=== PATIENT | female | born 2000 | race Caucasian/White ===

== ENCOUNTER 2021-04-30 21:47 | Emergency (ER) | payer OTHER, SELFPAY ==
[2021-04-30 21:47] VITALS: BP 134/80; PULSE 82; RESP 18; TEMP 35.8; O2SAT 100; BMI 25.8
--- NOTE | 2021-04-30 22:22 | EX.ED.DYSGE1 ---
HPI History of Present Illness Chief Complaint: Ear Problem Narrative Narrative: Patient is a 20-year-old female with no significant past medical or surgical history. She reports she has had four days of mild congestion and sore throat. She states today her left ear began hurting but there was no direct trauma and no discharge. She denies any fevers or chills but states she is worried about an ear infection based on the worsening pain and therefore comes in for evaluation. PFSH PFSH Home Medications amoxicillin 875 mg PO BID #20 tab 04/30/21 [Rx Last Taken Unknown] prednisone 40 mg PO DAILY #10 tab 04/30/21 [Rx Last Taken Unknown] Allergy/AdvReac Type Severity Reaction Status Date / Time No Known Allergies Allergy Verified 04/30/21 22:21 ROS ROS ED Constitutional Constitutional ED: Denies chills or fever(s) ENT ENT ED: Reports ear pain, rhinorrhea and sore throat Cardiovascular Cardiovascular: Denies chest pain Respiratory/Chest Respiratory/Chest: Denies cough or dyspnea Gastrointestinal Gastrointestinal: Denies abdominal pain, diarrhea, nausea or vomiting Genitourinary Genitourinary ED: Denies dysuria Musculoskeletal Musculoskeletal: Denies myalgias Integumentary Denies rash Neurologic Neurologic: Denies headache(s) Hematologic/Lymphatic Hematologic/Lymphatic: Denies easy bleeding or easy bruising EXAM Physical Exam Const Vital Signs: 04/30/21 21:47 Temperature 96.5 F L Temperature Source Temporal Pulse Rate 82 Respiratory Rate 18 Blood Pressure 134/80 H Blood Pressure Mean 98 Pulse Ox 100 Oxygen Delivery Method Room Air Positive well nourished and well developed General Appearance ED: well developed HEENT Reports moist mucous membranes HEENT Narrative: Nasal mucosa is hyper [place]an boggy with enlarged and fear nasal turbinates. There is cobblestone in the posterior pharynx consistent with sinus drainage but no secondary changes to suggest posterior pharynx infection. Right canal and TM are normal. Left canal is normal but TM is erythematous and bulging with loss of landmarks consistent with otitis media Eyes PERRL and EOMs intact bilaterally Neck supple Neck Narrative: Positive anterior cervical lymphadenopathy noted Resp normal respiratory effort and clear to auscultation bilaterally Cardio regular rate and regular rhythm GI normal to inspection, nondistended, normoactive bowel sounds, non-tender and non-distended Auscultation: normoactive bowel sounds Palpation: soft Extremity normal to inspection Neuro oriented x3 and CN's II-XII intact bilaterally Sensorium / Orientation: alert Psych mental status grossly normal Skin no rashes or lesions noted MDM MDM MDM Narrative Medical decision making narrative: Patient presented ER afebrile. Her exam is consistent with otitis media and as are no secondary changes to suggest systemic infection there is no need for workup. Patient will be placed on antibiotics and steroids to help with infection and pressure and is safe for discharge Discharge Plan Triage Chief Complaint: Ear Problem ED Provider: Negro Cook Dx/Rx/DC Orders Clinical Impression: Otitis media Instructions: ED Otitis Media Antibiotic ... Prescriptions: New amoxicillin 875 mg tablet 875 mg PO BID Qty: 20 RF: 0 prednisone 20 mg tablet 40 mg PO DAILY Qty: 10 RF: 0 Referrals: Salazar Hernandez MD [STAFF PHYSICIAN] - 3-5 Days if not improving Disposition Disposition: Home, Self Care
[2021-04-30 23:00] VITALS: BP 134/76; PULSE 94; RESP 16; O2SAT 98
[2021-04-30] MEDS: AMOXICILLIN 500 MG CAPSULE 1000 MG PO (23:05)
[2021-04-30] MEDS: predniSONE 20 MG Tablet 40 MG PO (23:05)
== END 2021-04-30 23:13 | disposition home or self-care (01) ==
LOC: ED 22:35
PROVIDERS: Emergency Provider Emergency Medicine; PCP Family Medicine
DX: H66.92 Otitis media, unspecified, left ear (principal)
CPT/HCPCS: 99283

== ENCOUNTER → 2022-11-04 | Outpatient (CLI) | payer OTHER, SELFPAY ==
[2022-11-04 16:54] LABS: Absolute Lymphocyte Count 3.02 X10^3/uL (0.83-4.51); Absolute Neutrophil Count 5.5 X10^3/uL (2.0-7.7); Basophil# 0.05 X10^3/uL; Basophil% 0.5 % (0-1); Eosinophil# 0.08 X10^3/uL; Eosinophils% 0.8 % (0-5); Hematocrit 38.4 % (37-47); Hemoglobin 12.7 g/dL (12.0-15.0); Lymphocyte # 3.02 X10^3/ul (0.83-4.51); Mean Corp Hgb Conc 33.1 g/dL (32-36); Mean Corpuscular Hgb 27.6 pg (27.0-32.0); Mean Corpuscular Volume 83.5 fL (81-99); Monocyte# 0.79 X10^3/uL; Monocyte% 8.4 % (0-10); NRBC Flagged by Analyzer 0 % (0-5); Neutrophil # 5.49 X10^3/uL (2.7-7.7); Neutrophil % 58.1 % (47-70); Platelet Count 315 K/mm3 (150-450); RBC Distribution Width CV 12.3 % (11.6-14.6); RBC Distribution Width SD 37.1 fl (35.1-43.9); White Blood Count 9.5 K/mm3 (4.4-11.0)
[2022-11-04 17:23] LABS: Anion Gap 4 (5-15); BUN 15 mg/dL (7-18); BUN/Creat Ratio 19.3 RATIO (10-20); Calcium,Total 9.2 mg/dL (8.5-10.1); Chloride 106 mmol/L (98-107); Creatinine, Serum 0.78 mg/dL (0.55-1.02); EST Glomerular Filtration Rate 99 mL/min (>60); Est Glom Filt Rate - Afr Amer 120 mL/min (>60); Glucose 80 mg/dL (74-106); Potassium 3.7 mmol/L (3.5-5.1); Sodium Level 138 mmol/L (136-145)
== END | disposition home or self-care (01) ==
LOC: BIMLAB 15:51
PROVIDERS: PCP Family Medicine; Referring Provider Family Medicine; Visit Provider Family Medicine
DX: F41.8 Other specified anxiety disorders (principal)
CPT/HCPCS: 36415; 80048; 85025

== ENCOUNTER → 2023-11-12 | Outpatient (CLI) | payer OTHER, SELFPAY ==
[2023-11-12 17:03] LABS: Absolute Neutrophil Count 5.6 X10^3/uL (2.0-7.7); Basophil# 0.05 X10^3/uL; Basophil% 0.6 % (0-1); Eosinophil# 0.06 X10^3/uL; Eosinophils% 0.7 % (0-5); Hematocrit 38.6 % (37-47); Hemoglobin 12.5 g/dL (12.0-15.0); Lymphocyte % 28.1 % (19-41); Mean Corp Hgb Conc 32.4 g/dL (32-36); Mean Corpuscular Hgb 26.8 pg (27.0-32.0); Mean Corpuscular Volume 82.7 fL (81-99); Mean Platelet Vol. 9.1 fl (6.2-12.0); Monocyte# 0.69 X10^3/uL; Monocyte% 7.8 % (0-10); NRBC Flagged by Analyzer 0 % (0-5); Neutrophil # 5.58 X10^3/uL (2.7-7.7); Neutrophil % 62.6 % (47-70); Platelet Count 333 K/mm3 (150-450); RBC Distribution Width CV 12.6 % (11.6-14.6); RBC Distribution Width SD 37.9 fl (35.1-43.9); Red Blood Count 4.67 M/mm3 (4.2-5.4); White Blood Count 8.9 K/mm3 (4.4-11.0)
[2023-11-12 17:55] LABS: Vitamin B12 320 pg/mL (211-911); Vitamin D,25 Hydroxy 62.4 ng/mL
[2023-11-12 18:24] LABS: ALB/GLOB Ratio 1.2 RATIO (0.9-2.4); AST(SGOT) 8 U/L (15-37); Alanine Aminotransfer ALT/SGPT 14 U/L (13-56); Alkaline Phosphatase 71 U/L (45-117); Anion Gap 8 (5-15); BUN 10 mg/dL (7-18); BUN/Creat Ratio 13.1 RATIO (10-20); Calcium,Total 9.1 mg/dL (8.5-10.1); Chloride 106 mmol/L (98-107); Creatinine, Serum 0.76 mg/dL (0.55-1.02); EST Glomerular Filtration Rate 100 mL/min (>60); Est Glom Filt Rate - Afr Amer 121 mL/min (>60); Globulin 3.4 g/dL (2.2-4.2); Glucose 94 mg/dL (74-106); Potassium 3.9 mmol/L (3.5-5.1); Protein, Total 7.4 g/dL (6.4-8.2); Sodium Level 137 mmol/L (136-145); Thyroid Stim Hormone (TSH) 1.63 uIU/mL (0.358-3.74)
== END | disposition home or self-care (01) ==
LOC: BIMLAB 15:49
PROVIDERS: PCP Family Medicine; Visit Provider Physician Assistant
DX: R00.2 Palpitations (principal); N92.0 Excessive and frequent menstruation with regular cycle
CPT/HCPCS: 36415; 80053; 82306; 82607; 84443; 85025

== ENCOUNTER → 2023-12-30 | Outpatient (CLI) | payer OTHER, SELFPAY ==
--- NOTE | 2023-12-30 09:50 | ECHOD_ITS ---
Reason For Study: CHEST PAIN/PALPS Procedure This was a 2D Doppler, Color Flow transthoracic echocardiogram. Exam performed in department. Left Ventricle Normal LV size. Left ventricular systolic function is normal. The estimated ejection fraction is 65 %. No regional wall motion abnormalities noted. Right Ventricle Normal RV size. Normal systolic function. Atria Normal left atrium. Normal right atrium. Mitral Valve Equivocal mitral valve prolapse. Tricuspid Valve Normal tricuspid valve. Aortic Valve Trisinus/trileaflet aortic valve. Pulmonic Valve Normal pulmonic valve. Great Vessels Normal aortic root. The pulmonary artery is normal size. Normal inferior vena cava. Pericardium/Pleural No pericardial effusion. MMode/2D Measurements & Calculations LVIDd: 4.7 cm IVSd: 0.86 cm LVOT diam: 2.0 cm LVIDs: 3.1 cm LVPWd: 0.86 cm LVOT area: 3.1 cm2 RVDd: 3.5 cm FS: 33.1 % Ao root diam: 2.5 cm LAV(MOD-bp): 50.0 ml LVAd ap4: 30.7 cm2 LAV(MOD-bp) Indexed: 24.8 ml/m2 LVLd ap4: 8.7 cm LAV(MOD-sp2): 55.9 ml EDV(MOD-sp4): 88.7 ml LAV(MOD-sp4): 44.1 ml EDV(sp4-el): 92.2 ml LVAs ap4: 16.2 cm2 LVLs ap4: 7.1 cm ESV(MOD-sp4): 32.5 ml ESV(sp4-el): 31.2 ml EF(MOD-sp4): 63.3 % EF(sp4-el): 66.2 % LVAd ap2: 30.5 cm2 SV(MOD-sp4): 56.1 ml SV(MOD-sp2): 55.4 ml LVLd ap2: 8.4 cm EDV(MOD-sp2): 89.9 ml EDV(sp2-el): 94.1 ml LVAs ap2: 17.3 cm2 LVLs ap2: 7.3 cm ESV(MOD-sp2): 34.5 ml ESV(sp2-el): 34.8 ml EF(MOD-sp2): 61.6 % SV(sp4-el): 61.0 ml LA dimension(2D): 4.1 cm LA A4 area: 17.8 cm2 RA A4 area: 17.7 cm2 TAPSE: 1.9 cm Time Measurements MV dec time: 0.19 sec Doppler Measurements & Calculations MV E max daren: 85.5 cm/sec Lat Peak E' Daren: 16.8 cm/sec Med Peak E' Daren: 9.8 cm/sec MV A max daren: 60.5 cm/sec E/E' lat: 5.1 E/E' med: 8.8 MV E/A: 1.4 Ao V2 max: 107.2 cm/sec LV V1 max: 90.6 cm/sec MV dec slope: 459.3 cm/sec2 Ao max P.6 mmHg LV V1 max P.3 mmHg Ao V2 mean: 73.1 cm/sec LV V1 mean P.0 mmHg Ao mean P.5 mmHg LV V1 mean: 65.7 cm/sec Ao V2 VTI: 24.8 cm LV V1 VTI: 20.8 cm AV (velocity ratio): 0.84 CHAVA(I,D): 2.6 cm2 CHAVA(V,D): 2.6 cm2 SV(LVOT): 64.3 ml PA V2 max: 108.5 cm/sec TR max daren: 164.5 cm/sec PA max PG (full): 3.4 mmHg TR max P.8 mmHg ECHO/Echo Complete Interpretation Summary Normal LV size. Left ventricular systolic function is normal. The estimated ejection fraction is 65 %. Equivocal mitral valve prolapse. Ordering Physician: Yoel Frost Performed By: Kiki Pelayo RDCS and Student
== END | disposition home or self-care (01) ==
PROVIDERS: PCP Family Medicine; Visit Provider Physician Assistant
DX: R07.89 Other chest pain (principal); R00.2 Palpitations
CPT/HCPCS: 93306

== ENCOUNTER → 2024-06-23 | Outpatient (CLI) | payer BC, SELFPAY ==
[2024-06-28 00:06] LABS: Chlamydia By Nucleic Acid AMP Negative (Negative); Gonococcus By Nucleic Acid AMP Negative (Negative)
[2024-07-04 11:28] LABS: HPV Reflexed? NOT INDICATED
== END | disposition home or self-care (01) ==
LOC: LABSPEC 14:06
PROVIDERS: PCP Family Medicine; Referring Provider Advanced Practice Midwife; Visit Provider Advanced Practice Midwife
DX: Z34.00 Encounter for supervision of normal first pregnancy, unspecified trimester (principal)
CPT/HCPCS: 87086; 87491; 87591; 88175; G0145

== ENCOUNTER → 2024-07-01 | Outpatient (CLI) | payer BC, SELFPAY ==
[2024-07-01 16:29] LABS: Absolute Lymphocyte Count 2.49 X10^3/uL (0.83-4.51); Absolute Neutrophil Count 6.9 X10^3/uL (2.0-7.7); Basophil# 0.04 X10^3/uL; Basophil% 0.4 % (0-1); Eosinophil# 0.06 X10^3/uL; Eosinophils% 0.6 % (0-5); Hemoglobin 13.1 g/dL (12.0-15.0); Lymphocyte # 2.49 X10^3/ul (0.83-4.51); Lymphocyte % 24.5 % (19-41); Mean Corp Hgb Conc 34.5 g/dL (32-36); Mean Corpuscular Hgb 27.8 pg (27.0-32.0); Mean Corpuscular Volume 80.7 fL (81-99); Mean Platelet Vol. 9.4 fl (6.2-12.0); Monocyte# 0.65 X10^3/uL; Monocyte% 6.4 % (0-10); NRBC Flagged by Analyzer 0 % (0-5); Neutrophil % 67.7 % (47-70); Platelet Count 295 K/mm3 (150-450); RBC Distribution Width SD 37.9 fl (35.1-43.9); Red Blood Count 4.71 M/mm3 (4.2-5.4); White Blood Count 10.2 K/mm3 (4.4-11.0)
[2024-07-04 19:35] LABS: HIV - WCH Non-Reactive (Nonreactive); Hepatitis B Surface Antigen Non-Reactive (Nonreactive); Hepatitis C Antibody Non-Reactive (Nonreactive); Rubella IgG Reactive (Nonreactive); Syphilis Antibodies Non-reactive
== END | disposition home or self-care (01) ==
LOC: BWCLAB 14:52
PROVIDERS: PCP Family Medicine; Referring Provider Advanced Practice Midwife; Visit Provider Advanced Practice Midwife
DX: Z34.00 Encounter for supervision of normal first pregnancy, unspecified trimester (principal)
CPT/HCPCS: 36415; 85025; 86703; 86762; 86780; 86803; 86850; 86900; 86901; 87340

== ENCOUNTER → 2024-07-21 | Outpatient (CLI) | payer BC, SELFPAY | END | disposition home or self-care (01) | LOC: BWCLAB 10:52 | PROVIDERS: PCP Family Medicine; Referring Provider Obstetrics & Gynecology; Visit Provider Obstetrics & Gynecology | DX: Z34.81 Encounter for supervision of other normal pregnancy, first trimester (principal) | CPT/HCPCS: 36415 ==

== ENCOUNTER → 2024-10-14 | Outpatient (CLI) | payer BC, OTHER, SELFPAY ==
[2024-10-14 16:17] LABS: Absolute Lymphocyte Count 1.93 X10^3/uL (0.83-4.51); Absolute Neutrophil Count 7.6 X10^3/uL (2.0-7.7); Basophil# 0.02 X10^3/uL; Basophil% 0.2 % (0-1); Hematocrit 32.3 % (37-47); Lymphocyte # 1.93 X10^3/ul (0.83-4.51); Lymphocyte % 18.5 % (19-41); Mean Corp Hgb Conc 34.1 g/dL (32-36); Mean Corpuscular Hgb 29.2 pg (27.0-32.0); Mean Corpuscular Volume 85.7 fL (81-99); Mean Platelet Vol. 9.6 fl (6.2-12.0); Monocyte# 0.63 X10^3/uL; Monocyte% 6.1 % (0-10); NRBC Flagged by Analyzer 0 % (0-5); Neutrophil # 7.64 X10^3/uL (2.7-7.7); Neutrophil % 73.3 % (47-70); Platelet Count 254 K/mm3 (150-450); RBC Distribution Width SD 40.7 fl (35.1-43.9); Red Blood Count 3.77 M/mm3 (4.2-5.4); White Blood Count 10.4 K/mm3 (4.4-11.0)
[2024-10-14 17:55] LABS: Syphilis Antibodies Nonreactive (Nonreactive)
[2024-10-14 18:04] LABS: Glucose Challenge Gest 1H 50g 108 mg/dL (70-140); HIV Nonreactive (Nonreactive)
== END | disposition home or self-care (01) ==
PROVIDERS: Registered Nurse; Referring Provider Nurse Practitioner Women's Health; Visit Provider Nurse Practitioner Women's Health
DX: Z34.00 Encounter for supervision of normal first pregnancy, unspecified trimester (principal)
CPT/HCPCS: 36415; 82950; 85025; 86703; 86780

== ENCOUNTER → 2024-12-22 | Outpatient (CLI) | payer BC, OTHER, SELFPAY ==
--- OUTSIDE RECORDS SUMMARY | 2024-12-22 22:00 | XMS RPT_ITS | CCD ---
Author Organization [facility] Care Team Providers Care Hr Administrative Assistant Name Role Phone Dr. Michael Patel Primary Care Provider Dr. Michael Patel Referring Provider [phone] Dr. Moisés Haines Attending Provider [phone] Dr. Moisés Haines Primary Care Provider [phone] Dr. Moisés Haines Referring Provider 1(330) VERO Porter Attending Provider [phone] JEMIMA JEAN Referring Unavailab MICHAEL Harrington Primary Care Unavailable RASHIDA MCCAIN Attending Unavailable Dr. Moisés Haines DO Primary Care Provider [phone] Dr. Moisés Haines DO Referring Provider [phone] Angela Sanders CNM Attending Provider [phone] Angela Sanders CNM Referring Provider [phone] Dr. Jemima Garcia DO Attending Provider Dr. Jemima Garcia DO Referring Provider Dr. Kenya Wright MD Attending Provider [phone] Roseanna Mckeon CNM Attending Provider Cesilia Bond Attending Provider [phone] Cesilia Bond Referring Provider [phone] Angela Sanders Referring Unavailable Moisés Haines Primary Care Unavailable Angela Sanders Attending Unavailable Brown, Moisés R Primary Care Unavailable Austin, Jemima Peterson Attending Unavaillydia e Austin, Jemima Peterson Referring UnavailAngela Arreola Referring Unavailable Brown, Moisés R Primary Care Unavailable Angela Sanders Attending Unavailable Yoel Porter Attending Unavailable Brown, Moisés R Primary Care Unavailable Velde, Jemima Peterson Attending Unavailabl e Prakash Jaquez Attending Unavailable Brown, Moisés R Primary Care Unavailable Brown, Moisés R Primary Care Unavailable Velcarlos, Jemima Peterson Attending Unavailabl e Brown, Moisés R Referring Unavailable Kenya Wright Attending Unavailable Brown, Moisés R Referring Unavailable Roseanna Mckeon Attending Unavailable Brown, Moisés R Referring Unavailable Ariel CIRCLE EDGER, Cesilia Attending Unavailable Brown, Moisés R Referring Unavailable Roseanna Mckeon Attending Unavailable Brown, Moisés R Referring Unavailable Brown, Moisés R Primary Care Unavailable Angela Sanders Attending Unavailable Brown, Moisés R Referring Unavailable Brown, Moisés R Primary Care Unavailable Brown, Moisés R Referring Unavailable Austin, Jemima Peterson Attending UnavailAngela Arreola Attending Unavailable Brown, Moisés R Primary Care Unavailable Brown, Moisés R Referring Unavailable Angela Sanders Attending Unavailable Ariel CIRCLE EDGERCesilia Attending Unavailable Ariel CIRCLE EDGER, Cesilia Referring Unavailable Medications Current Medications Medication Drug Class(es) Dates Sig (Normalized) Sig (Original) Mv-Mins 64-Dzwl-Cefsy No.1-Dha (Pnv-Newfield) 28-1-300 mg capsule (1 source) Start: 06-14-2024 Mv-Mins 68-Sbyn-Vociv No.1-Dha (Pnv-Newfield) 28-1-300 mg capsule Active NMA PO June 14, 2024 1:00am Completed/Discontinued Medications Medication Drug Class(es) Dates Sig (Normalized) Sig (Original) amoxicillin 875 mg oral tablet (3 sources) Penicillin-class Antibacterial Start: 04-30-2021 End: 09-04-2022 take 1 tablet by mouth twice daily Amoxicillin 875 mg tablet Discontinued 875 mg PO TWICE A DAY April 30, 2021 12:00am September 04, 2022 5:20pm escitalopram 10 mg oral tablet (5 sources) Serotonin Reuptake Inhibitor Start: 09-04-2022 End: 06-14-2024 take 1 tablet by mouth once daily Escitalopram Oxalate (Lexapro) 10 mg tablet Discontinued 10 mg PO DAILY November 12, 2023 3:38pm June 14, 2024 10:10am predniSONE 20 mg oral tablet (3 sources) Start: 04-30-2021 End: 09-04-2022 take 2 tablets by mouth once daily Prednisone 20 mg tablet Discontinued 40 mg PO DAILY April 30, 2021 12:00am September 04, 2022 5:20pm Start: 04-30-2021 End: 09-04-2022 take 40 mg by mouth once daily Prednisone Discontinued 40 MG PO DAILY April 30, 2021 12:00am September 04, 2022 5:20pm Problems Active Problems Problem Classification Problem Date Documented Da te Episodic/Chronic Anxiety disorders (6 sources) Mixed anxiety and depressive disorder; Translations: [Other specified anxiety disorders] 09-09-2022 Chronic Malaise and fatigue (4 sources) Fatigue; Translations: [Other fatigue] 11-04-2022 Episodic Menstrual disorders (3 sources) Menorrhagia; Translations: [Excessive and frequent menstruation with regular cycle] 11-13-2023 Chronic Other and delivery including normal (15 sources) Normal ; Translations: [Encounter for supervision of normal first , unspecified trimester] Onset: 08-16-2024 10-14-2024 Episodic Comment on above: PRR, , OLIVIA 01/20/ 5, girl Patricia BF Antoinette NIPT low risk, gende r female, elects Carrier testing Otitis media and related conditions (3 sources) Otitis media; Translations: [Otitis media, unspecified, unspecified ear] 05-21-2021 Episodic Residual codes; unclassified (1 source) 26 weeks gestation of ; Translations: [26 weeks gestation of ] Onset: 10-14-2024 Episodic Past or Other Problems Problem Classification Problem Date Documented Da te Episodic/Chronic Cardiac dysrhythmias (5 sources) Palpitations; Translations: [Palpitations] Onset: 07-21-2024 11-12-2023 Episodic Nonspecific chest pain (6 sources) Chest discomfort; Translations: [Other chest pain] Onset: 07-21-2024 11-13-2023 Episodic Residual codes; unclassified (1 source) 13 weeks gestation of ; Translations: [13 weeks gestation of ] Onset: 07-21-2024 Episodic Residual codes; unclassified (1 source) 9 weeks gestation of ; Translations: [9 weeks gestation of ] Onset: 06-23-2024 Episodic Results Test Name Value Interpretation Reference Range Facility [facility] Visit Reporton 12-09-2024 [facility] Office Visit Report [facility] [address], [address] [place] [address] OFFICE VISIT Date of Service: 12/09/24 MR#: [id number] Acct: [id number] Name: SHEEBA WELSH Rep #: [id number] : 2000 Provider: Dr. Jemima Hartman DO Age/Sex: 23/F [place] [facility] [place]: Signed Intake Vital Signs 06/23/24 13:06 11/25/24 14:07 12/09/24 14:50 12/09/24 14:53 Height 5 ft 10 in 5 ft 10 in 5 ft 10 in 5 ft 10 in Weight: 201 lb 8 oz BMI 28.9 BP 106/67 Intake Visit Reasons: 34 wk ob Youth Minister Required: No Is patient in pain?: No Allergies No Known Allergies Allergy (Verified 12/09/24 14:50) Medications ???Medication ???Instructions ???Recorded ???Confirmed ???Type multivit-min no.71-iron fum 28 cap PO 06/14/24 12/09/24 History mg-folate no.1 1 mg-dha 300 mg capsule (PNV-Newfield) promethazine 12.5 mg tablet 12.5 mg PO Q6H PRN headache #30 12/09/24 Rx tabs Last Menstrual Period: 04/15/24 Zika: Zika virus screening: Negative : No PFSH PFSH Medical History Menorrhagia Headache, migraine History of fracture Non-smoker Surgical History History of repair of ACL Family History Mother Breast cancer, Onset Age: 51 Depression Father Cancer, Onset Age: 57 Chronic leukemia Social History adopted: No household members: significant other and family current occupational status: employed current occupation: [employer] pets and animals: Yes pets and animals: dog(s) history of recent travel: No sexually active: Yes Smoking Status: Never smoker alcohol intake: current alcohol intake frequency: holidays/special occasions only details: Not while substance use type: does not use well-balanced diet: daily or most days caffeine: Yes (occasional) eating out: 1-3 times/week during the past year weight has: remained stable what type of physical activity do you participate in: aerobics and weight training frequency: 3-4 times per week duration: 60-90 minutes/day daniel/moravian: Jainism seatbelt use: always do you feel safe at home: Yes additional social history: BF- [employer]- [employer] History 1 Elective abortions Hx Para 0 Spontaneous abortions Hx # Term Pregnancies Ectopic pregnancies Hx # Pregnancies Multiple births # of living children HPI 34 wk ob Details: SHEEBA WELSH is a 23 year old who presents for routine OB visit. OB Visit OLIVIA Calculator Estimated Delivery Date Method Current WG Current Estimate 01/20/25 LMP (Certain) 34w 0d Other Estimates 01/20/25 Ultrasound #1 34w 0d Expected Delivery Route/Plan Labor Preferences- CB/BF classes: encouraged, declines labor support person: Apoorva labor intervention preferences: pain management options preferred: limited cut cord/dad catch: cord : yes PP control planned: discussed discussed possible routes of delivery and associated risks: [] special requests: [] Specific Issue/Plans Covid status: declines Flu vaccine: declines Tdap vaccine: declines Rhogam: na LARC form signed: yes Problem list reviewed and updated with the most current plan of care details and appropriate orders placed. Relevant counseling for the gestational age provided. Continue routine care and follow up unless otherwise noted in visit notes/problem list details Initial Weight: 183 lb Date -???-???-???-???-???- ???-???-???-???-???-? ??-???- EGA Weight BP Urine Prot -???-???-???-???-???- ???-???-???-???-???-? ??-???- Glucose FHR FuHt Pres Dilation -???-???-???-???-???- ???-???-???-???-???-? ??-???- Effaced St Visit Note 06/23/24 -???-???-???-???-???- ???-???-???-???-???-? ??-???- 9w 6d 183 lb (+0 oz) 144/82 -???-???-???-???-???- ???-???-???-???-???-? ??-???- 159 -???-???-???-???-???- ???-???-???-???-???-? ??-???- KW- CRL cons with dates. accepts nipt 07/21/24 -???-???-???-???-???- ???-???-???-???-???-? ??-???- 13w 6d 185 lb (+2 lb) 120/68 Negative -???-???-???-???-???- ???-???-???-???-???-? ??-???- Negative 150 -???-???-???-???-???- ???-???-???-???-???-? ??-???- JV- CRL vik ures 14 weeks today. pt has some complaints of headaches. recommend 72 oz of water a day + tylenol. new ob labs and NIPT today. JV- CRL measures 14 weeks today. p t has some complaints of headaches. recommend 72 oz of water a day + tylenol. NIPT today. 08/19/24 -???-???-???-???-???- ???-???-???-???-???-? ??-???- 18w 0d 193 lb 6 oz (+10 lb 6 oz) 123/65 Negative -???-???-???-???-???- ???-???-???-???-???-? ??-???- Negative 140 (more content not included)... Normal [facility] Office Visit Reporton 11-25-2024 [facility] Office Visit Report [facility]'s [address], [address] [place] [address] OFFICE VISIT Date of Service: 11/25/24 MR#: [id number] Acct: [id number] Name: SHEEBA WELSH Rep #: [id number] 2 : 2000 Provider: JACKELIN Steven ams Age/Sex: 23/F [place] [facility]: Signed Intake Vital Signs 06/23/24 13:06 11/11/24 14:01 11/25/24 14:07 Height 5 ft 10 in 5 ft 10 in 5 ft 10 in Weight: 200 lb 4 oz BMI 28.7 BP 125/76 H Intake Visit Reasons: 32 wk ob Chief Complaint: 32wk OB Youth Minister Required: No Is patient in pain?: No Allergies No Known Allergies Allergy (Verified 11/25/24 14:05) Medications ???Medication ???Instructions ???Recorded ???Confirmed ???Type multivit-min no.71-iron fum 28 cap PO 06/14/24 11/25/24 History mg-folate no.1 1 mg-dha 300 mg capsule (PNV-Newfield) Last Menstrual Period: 04/15/24 : No PFSH PFSH Medical History Menorrhagia Headache, migraine History of fracture Non-smoker Surgical History History of repair of ACL Family History Mother Breast cancer, Onset Age: 51 Depression Father Cancer, Onset Age: 57 Chronic leukemia Social History adopted: No household members: significant other and family current occupational status: employed current occupation: [employer] pets and animals: Yes pets and animals: dog(s) history of recent travel: No sexually active: Yes Smoking Status: Never smoker alcohol intake: current alcohol intake frequency: holidays/special occasions only details: Not while substance use type: does not use well-balanced diet: daily or most days caffeine: Yes (occasional) eating out: 1-3 times/week during the past year weight has: remained stable what type of physical activity do you participate in: aerobics and weight training frequency: 3-4 times per week duration: 60-90 minutes/day daniel/moravian: Jainism seatbelt use: always do you feel safe at home: Yes additional social history: BF- [employer] History 1 Elective abortions Hx Para 0 Spontaneous abortions Hx # Term Pregnancies Ectopic pregnancies Hx # Pregnancies Multiple births # of living children HPI 32 wk ob Details: SHEEBA WELSH is a 23 year old who presents for routine OB visit. OB Visit OLIVIA Calculator Estimated Delivery Date Method Current WG Current Estimate 01/20/25 LMP (Certain) 32w 0d Other Estimates 01/20/25 Ultrasound #1 32w 0d Expected Delivery Route/Plan Labor Preferences- CB/BF classes: encouraged, declines labor support person: Apoorva labor intervention preferences: pain management options preferred: limited cut cord/dad catch: cord : yes PP control planned: discussed discussed possible routes of delivery and associated risks: [] special requests: [] Specific Issue/Plans Covid status: declines Flu vaccine: declines Tdap vaccine: declines Rhogam: na LARC form signed: yes Problem list reviewed and updated with the most current plan of care details and appropriate orders placed. Relevant counseling for the gestational age provided. Continue routine care and follow up unless otherwise noted in visit notes/problem list details Initial Weight: 183 lb Date -???-???-???-???-???- ???-???-???-???-???-? ??-???- EGA Weight BP Urine Prot -???-???-???-???-???- ???-???-???-???-???-? ??-???- Glucose FHR FuHt Pres Dilation -???-???-???-???-???- ???-???-???-???-???-? ??-???- Effaced St Visit Note 06/23/24 -???-???-???-???-???- ???-???-???-???-???-? ??-???- 9w 6d 183 lb (+0 oz) 144/82 -???-???-???-???-???- ???-???-???-???-???-? ??-???- 159 -???-???-???-???-???- ???-???-???-???-???-? ??-???- KW- CRL cons with dates. accepts nipt 07/21/24 -???-???-???-???-???- ???-???-???-???-???-? ??-???- 13w 6d 185 lb (+2 lb) 120/68 Negative -???-???-???-???-???- ???-???-???-???-???-? ??-???- Negative 150 -???-???-???-???-???- ???-???-???-???-???-? ??-???- JV- CRL vik ures 14 weeks today. pt has some complaints of headaches. recommend 72 oz of water a day + tylenol. new ob labs and NIPT today. JV- CRL measures 14 weeks today. p t has some complaints of headaches. recommend 72 oz of water a day + tylenol. NIPT today. 08/19/24 -???-???-???-???-???- ???-???-???-???-???-? ??-???- 18w 0d 193 lb 6 oz (+10 lb 6 oz) 123/65 Negative -???-???-???-???-???- ???-???-???-???-???-? ??-???- Negative 140 -???-???-???-???-???- ???-???-???-???-???-? ??-???- SM- no vb lo f cramping 09/16/24 -???-???-???-???-???- ???-???-???-???-???-? ??-???- 22w 0d 195 lb 4 (more content not included)... Normal [facility] Office Visit Reporton 11-11-2024 [facility] Office Visit Report [facility]'s [address], [facility] [address] [place] [address] OFFICE VISIT Date of Service: 11/11/24 MR#: [id number] Acct: [id number] Name: SHEEBA WELSH Rep #: [id number] : 2000 Provider: JACKELIN daniels Age/Sex: 23/F Location: [facility] [place] Status: Signed Intake Vital Signs 06/23/24 13:06 10/14/24 13:29 11/11/24 14:01 11/11/24 14:01 Height 5 ft 10 in 5 ft 10 in 5 ft 10 in 5 ft 10 in Weight: 199 lb 8 oz BMI 28.6 BP 130/65 H Intake Visit Reasons: 30 wk ob Youth Minister Required: No Is patient in pain?: No Allergies No Known Allergies Allergy (Verified 11/11/24 13:59) Medications ???Medication ???Instructions ???Recorded ???Confirmed ???Type multivit-min no.71-iron fum 28 cap PO 06/14/24 11/11/24 History mg-folate no.1 1 mg-dha 300 mg capsule (PNV-Newfield) Last Menstrual Period: 04/15/24 Zika: Zika virus screening: Negative : No Have you fallen in the past year?: No PFSH PFSH Medical History Menorrhagia Headache, migraine History of fracture Non-smoker Surgical History History of repair of ACL Family History Mother Breast cancer, Onset Age: 51 Depression Father Cancer, Onset Age: 57 Chronic leukemia Social History adopted: No household members: significant other and family current occupational status: employed current occupation: [employer] pets and animals: Yes pets and animals: dog(s) history of recent travel: No sexually active: Yes Smoking Status: Never smoker alcohol intake: current alcohol intake frequency: holidays/special occasions only details: Not while substance use type: does not use well-balanced diet: daily or most days caffeine: Yes (occasional) eating out: 1-3 times/week during the past year weight has: remained stable what type of physical activity do you participate in: aerobics and weight training frequency: 3-4 times per week duration: 60-90 minutes/day daniel/moravian: Jainism seatbelt use: always do you feel safe at home: Yes additional social history: BF- [employer] History 1 Elective abortions Hx Para 0 Spontaneous abortions Hx # Term Pregnancies Ectopic pregnancies Hx # Pregnancies Multiple births # of living children HPI 30 wk ob Details: SHEEBA WELSH is a 23 year old who presents for routine OB visit. OB Visit OLIVIA Calculator Estimated Delivery Date Method Current WG Current Estimate 01/20/25 LMP (Certain) 30w 0d Other Estimates 01/20/25 Ultrasound #1 30w 0d Expected Delivery Route/Plan Labor Preferences- CB/BF classes: encouraged, declines labor support person: Apoorva labor intervention preferences: pain management options preferred: limited cut cord/dad catch: cord : yes PP control planned: discussed discussed possible routes of delivery and associated risks: [] special requests: [] Specific Issue/Plans Covid status: declines Flu vaccine: declines Tdap vaccine: declines Rhogam: na LARC form signed: yes Problem list reviewed and updated with the most current plan of care details and appropriate orders placed. Relevant counseling for the gestational age provided. Continue routine care and follow up unless otherwise noted in visit notes/problem list details Initial Weight: 183 lb Date -???-???-???-???-???- ???-???-???-???-???-? ??-???- EGA Weight BP Urine Prot -???-???-???-???-???- ???-???-???-???-???-? ??-???- Glucose FHR FuHt Pres Dilation -???-???-???-???-???- ???-???-???-???-???-? ??-???- Effaced St Visit Note 06/23/24 -???-???-???-???-???- ???-???-???-???-???-? ??-???- 9w 6d 183 lb (+0 oz) 144/82 -???-???-???-???-???- ???-???-???-???-???-? ??-???- 159 -???-???-???-???-???- ???-???-???-???-???-? ??-???- KW- CRL cons with dates. accepts nipt 07/21/24 -???-???-???-???-???- ???-???-???-???-???-? ??-???- 13w 6d 185 lb (+2 lb) 120/68 Negative -???-???-???-???-???- ???-???-???-???-???-? ??-???- Negative 150 -???-???-???-???-???- ???-???-???-???-???-? ??-???- JV- CRL vik ures 14 weeks today. pt has some complaints of headaches. recommend 72 oz of water a day + tylenol. new ob labs and NIPT today. JV- CRL measures 14 weeks today. p t has some complaints of headaches. recommend 72 oz of water a day + tylenol. NIPT today. 08/19/24 -???-???-???-???-???- ???-???-???-???-???-? ??-???- 18w 0d 193 lb 6 oz (+10 lb 6 oz) 123/65 Negative -???-???-???-???-???- ???-???-???-???-???-? ??-???- Negative 140 -???-???-???-???-???- ???-???-???-???-???-? ??-???- SM- no vb kayt orona (more content not included)... Normal [facility] Absolute neutrophil countOrd ered By: Roseanna Mckeon on 10-14-2024 Neutrophils (Bld) [#/Vol] 7.6 10*3/uL 2.0-7.7 [facility] Basophil percentageOrdered B y: Roseanna Mckeon on 10-14-2024 Basophils/100 WBC (Bld) 0.2 % 0-1 [facility] CBC W/Diff, Automatedon 03-2 Absolute Lymph 1.93 X10 3/uL Normal 0.83-4.51 [facility] Comment on above: Performed By: #### L 7400.0353, L7000.1800, M100.2200 #### [facility] [address] [place], [address] Absolute Neut 7.6 X10 3/uL Normal 2.0-7.7 [facility] Comment on above: Performed By: #### L 7400.0353, L7000.1800, M100.2200 #### [facility] [address] [place], [address] Basophils/100 WBC (Bld) 0.2 % Normal 0-1 [facility] Comment on above: Performed By: #### L 7400.0353, L7000.1800, M100.2200 #### [facility] [address] [place], [address] Eosinophils/100 WBC (Bld) 1.0 % Normal 0-5 [facility] Comment on above: Performed By: #### L 7400.0353, L7000.1800, M100.0 #### [facility] [address] [place], [address] Erythrocyte distribution width (RBC) [Ratio] 13.0 % Normal 11.6-14.6 [facility] Comment on above: Performed By: #### L 7400.0353, L7000.1800, M100.2200 #### [facility] [address] [place], [address] Hematocrit (Bld) [Volume fraction] 32.3 % Low 37-47 [facility] Comment on above: Performed By: #### L 7400.0353, L7000.1800, M100.2200 #### [facility] [address] [place], [address] Hemoglobin (Bld) [Mass/Vol] 11.0 g/dL Low 12.0-15.0 [facility] Comment on above: Performed By: #### L 7400.0353, L7000.1800, #### [facility] [address] [place], [address] IG% 0.900 Normal 0.0-0.9 [facility] Comment on above: Result Comment: IG% - Immature Granulocytes (promyelocytes, myelocytes and metamyelocytes) > 1% indicates that a LEFT SHIFT is Present. Performed By: #### L 7400.0353, L7000.1800, .2199 #### [facility] [address] [place], [address] Lymphocytes/100 WBC (Bld) 18.5 % Low 19-41 [facility] Comment on above: Performed By: #### L 7400.0353, L7000.1800, #### [facility] [address] [place], [address] MCH (RBC) [Entitic mass] 29.2 pg Normal 27.0-32.0 [facility] Comment on above: Performed By: #### L 7400.0353, L7000.1800, #### [facility] [address] [place], [address] MCHC (RBC) [Mass/Vol] 34.1 g/dL Normal 32-36 [facility] Comment on above: Performed By: #### L 7400.0353, L7000.1800, #### [facility] [address] [place], [address] MCV (RBC) [Entitic vol] 85.7 fL Normal 81-99 [facility] Comment on above: Performed By: #### L 7400.0353, L7000.1800, 0 #### [facility] [address] [place], [address] Monocytes/100 WBC (Bld) 6.1 % Normal 0-10 [facility] Comment on above: Performed By: #### L 7400.0353, L7000.1800, M100.0 #### [facility] [address] [place], [address] Neutrophils/100 WBC (Bld) 73.3 % High 47-70 [facility] Comment on above: Performed By: #### L 7400.0353, L7000.1800, .2199 #### [facility] [address] [place], [address] Nucleated RBC (Bld) [#/Vol] 0 10*3/uL Normal 0-5 [facility] Comment on above: Performed By: #### L 7400.0353, L7000.1800, .2199 #### [facility] [address] [place], [address] Platelet mean volume (Bld) [Entitic vol] 9.6 fL Normal 6.2-12.0 [facility] Comment on above: Performed By: #### L 7400.0353, L7000.1800, .2199 #### [facility] [address] [place], [address] Platelets (Bld) [#/Vol] 254 10*3/uL Normal 150-450 [facility] Comment on above: Performed By: #### L 7400.0353, L7000.1800, .2199 #### [facility] [address] [place], [address] RBC (Bld) [#/Vol] 3.77 10*6/uL Low 4.2-5.4 [facility] Comment on above: Performed By: #### L 7400.0353, L7000.1800, M100.0 #### [facility] [address] [place], [address] RDW SD 40.7 fl Normal 35.1-43.9 [facility] Comment on above: Performed By: #### L 7400.0353, L7000.1800, M100.2200 #### [facility] [address] [place], [address] WBC (Bld) [#/Vol] 10.4 10*3/uL Normal 4.4-11.0 [facility] Comment on above: Performed By: #### L 7400.0353, L7000.1800, M100.2200 #### [facility] [address] [place], [address] Eosinophil percentageOrdered By: Roseanna Mckeon on 10-14-2024 Eosinophils/100 WBC (Bld) 1.0 % 0-5 [facility] Erythrocyte distribution wid th ratioOrdered By: Roseanna Mckeon on 10-14-2024 Erythrocyte distribution width (RBC) [Ratio] 13.0 % 11.6-14.6 [facility] Erythrocyte distribution wid th standard deviationOrdered By: Roseanna Mckeon on 10-14-2024 Erythrocyte distribution width (RBC) [Entitic vol] 40.7 fL 35.1-43.9 [facility] Glucose Challenge Gest 1H 50 eddie 10-14-2024 GLU GEST 50g 1H 108 mg/dL Normal 70-140 [facility] Comment on above: Performed By: #### L 7400.0353, L7000.1800, M100.2200 #### [facility] [address] [place], [address] Glucose measurement at 2 pantera rs post-dose gestational glucose tolerance testOrdered By: Roseanna Mckeon on 10-14-2024 Glucose [Mass/Vol] 108 mg/dL 70-140 [facility] Hematocrit Auto (Bld) [Volum e fraction]Ordered By: Roseanna Mckeon on 10-14-2024 Hematocrit (Bld) [Volume fraction] 32.3 % Low 37-47 [facility] Hemoglobin measurementOrdere d By: Roseanna Mckeon on 10-14-2024 Hemoglobin (Bld) [Mass/Vol] 11.0 g/dL Low 12.0-15.0 [facility] Immature granulocytes/100 WB C Auto (Bld)Ordered By: Roseanna Mckeon on 10-14-2024 Immature granulocytes/100 WBC (Bld) 0.900 % 0.0-0.9 [facility] Comment on above: IG% - Immature Granu locytes (promyelocytes, myelocytes and metamyelocytes) > 1% indicates that a LEFT SHIFT is Present. [id number] 10-14-2024 HIV Non-Reactive Normal Nonreactive [facility] Comment on above: Result Comment: Non- Reactive Reactive Repeatedly reactive samples must be confirmed according to CDC recommended confirmatory algorithms. The subresults for either HIVAG or AHIV can be used as an aid in the selection of the confirmation algorithm for reactive samples. Send out specimens with Reactive results to [facility] for confirmation. Order the HIV antibody detection and differentiation: lc#[id number] Performed By: #### L 7400.0353, L7000.1800, M100.2200 #### [facility] [address] [place], [address] [id number] 10-14-2024 Syphilis Abs Non-Reactive Normal Nonreactive [facility] Comment on above: Performed By: #### L 7400.0353, L7000.1800, M100.2200 #### [facility] [address] [place], [address] Laboratory - Chemistry and C hemistry - challengeOrdered By: Cesilia George on 10-14-2024 Glucose Ql (U) Negative [facility] - UrinalysisOrder ed By: Cesilia George on 10-14-2024 Protein Ql (U) Negative [facility] Lymphocytes Auto (Unsp spec) [#/Vol]Ordered By: Roseanna Mckeon on 10-14-2024 Lymphocytes (Bld) [#/Vol] 1.93 10*3/uL 0.83-4.51 [facility] Lymphocytes/100 WBC Auto (Un sp spec)Ordered By: Roseanna Mckeon on 10-14-2024 Lymphocytes/100 WBC (Bld) 18.5 % Low 19-41 [facility] MCV (mean corpuscular volume ) determinationOrdered By: Roseanna Mckeon on 10-14-2024 MCV (RBC) [Entitic vol] 85.7 fL 81-99 [facility] Mean corpuscular hemoglobin (MCH) determinationOrdered By: Roseanna Mckeon on 10-14-2024 MCH (RBC) [Entitic mass] 29.2 pg 27.0-32.0 [facility] Mean corpuscular hemoglobin concentration (MCHC) determinationOrdered By: Roseanna Mckeon on 10-14-2024 MCHC (RBC) [Mass/Vol] 34.1 g/dL 32-36 [facility] Mean platelet volume determi nationOrdered By: Roseanna Mckeon on 10-14-2024 Platelet mean volume (Bld) [Entitic vol] 9.6 fL 6.2-12.0 [facility] Monocyte percentageOrdered B y: Roseanna Mckeon on 10-14-2024 Monocytes/100 WBC (Bld) 6.1 % 0-10 [facility] Neutrophil percentageOrdered By: Roseanna Mckoen on 10-14-2024 Neutrophils/100 WBC (Bld) 73.3 % High 47-70 [facility] No Panel InformationOrdered By: Roseanna Mckeon on 10-14-2024 HIV (1&2) Antibody Non-Reactive Nonreactive [facility] Comment on above: Non-ReactiveReactive Repeatedly reactive samples must be confirmed according to CDC recommended confirmatory algorithms. The subresults for either HIVAG or AHIV can be used as an aid in the selection of the confirmation algorithm for reactive samples.Send out specimens with Reactive results to [facility] for confirmation.Order the HIV antibody detection and differentiation: lc#[id number] Nucleated red blood cell per centageOrdered By: Roseanna Mckeon on 10-14-2024 Nucleated RBC/100 WBC (Bld) [Ratio] 0 % 0-5 [facility] Visit Reporton 10-14-2024 [facility] Visit Report [address], [address] [place] [address] OFFICE VISIT Date of Service: 10/14/24 MR#: [id number] Acct: [id number] Name: SHEEBA WELSH Rep #: [id number] 8 : 2000 Provider: TERESITA norman Age/Sex: 23/F [place] [facility] [place]: Signed Intake Vital Signs 06/23/24 13:06 09/16/24 13:04 10/14/24 13:29 Height 5 ft 10 in 5 ft 10 in 5 ft 10 in Weight: 199 lb 2 oz BMI 28.5 BP 118/62 Intake Visit Reasons: 26 wk ob Chief Complaint: 26 Week OB Youth Minister Required: No Is patient in pain?: No Allergies No Known Allergies Allergy (Verified 10/14/24 13:27) Medications ???Medication ???Instructions ???Recorded ???Confirmed ???Type multivit-min no.71-iron fum 28 cap PO 06/14/24 10/14/24 History mg-folate no.1 1 mg-dha 300 mg capsule (PNV-[place]) Last Menstrual Period: 04/15/24 Zika: Zika virus screening: Negative : Yes PFSH PFSH Medical History Menorrhagia Headache, migraine History of fracture Non-smoker Surgical History History of repair of ACL Family History Mother Breast cancer, Onset Age: 51 Depression Father Cancer, Onset Age: 57 Chronic leukemia Social History adopted: No household members: significant other and family current occupational status: employed current occupation: [employer] pets and animals: Yes pets and animals: dog(s) history of recent travel: No sexually active: Yes Smoking Status: Never smoker alcohol intake: current alcohol intake frequency: holidays/special occasions only details: Not while substance use type: does not use well-balanced diet: daily or most days caffeine: Yes (occasional) eating out: 1-3 times/week during the past year weight has: remained stable what type of physical activity do you participate in: aerobics and weight training frequency: 3-4 times per week duration: 60-90 minutes/day daniel/moravian: Jainism seatbelt use: always do you feel safe at home: Yes additional social history: BF- [employer] History 1 Elective abortions Hx Para 0 Spontaneous abortions Hx # Term Pregnancies Ectopic pregnancies Hx # Pregnancies Multiple births # of living children HPI 26 wk ob Details: SHEEBA WELSH is a 23 year old who presents for routine OB visit. OB Visit OLIVIA Calculator Estimated Delivery Date Method Current WG Current Estimate 01/20/25 LMP (Certain) 26w 0d Other Estimates 01/20/25 Ultrasound #1 26w 0d Expected Delivery Route/Plan Labor Preferences- CB/BF classes: encouraged, declines labor support person: Apoorva labor intervention preferences: pain management options preferred: limited cut cord/dad catch: cord : yes PP control planned: discussed discussed possible routes of delivery and associated risks: [] special requests: [] Specific Issue/Plans Covid status: [] Flu vaccine: [] Tdap vaccine: [] Rhogam: na LARC form signed: yes Problem list reviewed and updated with the most current plan of care details and appropriate orders placed. Relevant counseling for the gestational age provided. Continue routine care and follow up unless otherwise noted in visit notes/problem list details Initial Weight: 183 lb Date -???-???-???-???-???- ???-???-???-???-???-? ??-???- EGA Weight BP Urine Prot -???-???-???-???-???- ???-???-???-???-???-? ??-???- Glucose FHR FuHt Pres Dilation -???-???-???-???-???- ???-???-???-???-???-? ??-???- Effaced St Visit Note 06/23/24 -???-???-???-???-???- ???-???-???-???-???-? ??-???- 9w 6d 183 lb (+0 oz) 144/82 -???-???-???-???-???- ???-???-???-???-???-? ??-???- 159 -???-???-???-???-???- ???-???-???-???-???-? ??-???- KW- CRL cons with dates. accepts nipt 07/21/24 -???-???-???-???-???- ???-???-???-???-???-? ??-???- 13w 6d 185 lb (+2 lb) 120/68 Negative -???-???-???-???-???- ???-???-???-???-???-? ??-???- Negative 150 -???-???-???-???-???- ???-???-???-???-???-? ??-???- JV- CRL vik ures 14 weeks today. pt has some complaints of headaches. recommend 72 oz of water a day + tylenol. new ob labs and NIPT today. JV- CRL measures 14 weeks today. p t has some complaints of headaches. recommend 72 oz of water a day + tylenol. NIPT today. 08/19/24 -???-???-???-???-???- ???-???-???-???-???-? ??-???- 18w 0d 193 lb 6 oz (+10 lb 6 oz) 123/65 Negative -???-???-???-???-???- ???-???-???-???-???-? ??-???- Negative 140 -???-???-???-???-???- ???-???-???-???-???-? ??-???- SM- no vb lo f cramping 09/16/24 -???-???-???-???-???- ???- (more content not included)... Normal [facility] Platelet countOrdered By: Debi Mckeon on 10-14-2024 Platelets (Bld) [#/Vol] 254 10*3/uL 150-450 [facility] RBC Auto (Bld) [#/Vol]Ordere d By: Roseanna Mckeon on 10-14-2024 RBC (Bld) [#/Vol] 3.77 10*6/uL Low 4.2-5.4 [facility] T. pallidum abOrdered By: Debi Mckeon on 10-14-2024 Syphilis Total Antibody Non-Reactive Nonreactiv e [facility] White blood cell (WBC) count Ordered By: Roseanna Mckeon on 10-14-2024 WBC (Bld) [#/Vol] 10.4 10*3/uL 4.4-11.0 [facility] - Chemistry and C hemistry - challengeOrdered By: Roseanna Mckeon on 09-16-2024 Glucose Ql (U) Negative [facility] - UrinalysisOrder ed By: Roseanna Mckeon on 09-16-2024 Protein Ql (U) Negative [facility] Visit Reporton 09-16-2024 [facility] Visit Report [facility] [address], [address] [place] [address] OFFICE VISIT Date of Service: 09/16/24 MR#: [id number] Acct: [id number] Name: SHEEBA WELSH Rep #: [id number] : 2000 Provider: JACKELIN daniels Age/Sex: 23/F Location: [facility] [place] Status: Signed Intake Vital Signs 06/23/24 13:06 08/19/24 14:13 09/16/24 13:04 09/16/24 13:04 Height 5 ft 10 in 5 ft 10 in 5 ft 10 in 5 ft 10 in Weight: 195 lb 4 oz BMI 28.0 BP 123/74 H Intake Visit Reasons: 22 wk ob Is patient in pain?: No Allergies No Known Allergies Allergy (Verified 09/16/24 13:04) Medications ???Medication ???Instructions ???Recorded ???Confirmed ???Type multivit-min no.71-iron fum 28 cap PO 06/14/24 09/16/24 History mg-folate no.1 1 mg-dha 300 mg capsule (PNV-[place]) Last Menstrual Period: 04/15/24 : No Have you fallen in the past year?: No PFSH PFSH Medical History Menorrhagia Headache, migraine History of fracture Non-smoker Surgical History History of repair of ACL Family History Mother Breast cancer, Onset Age: 51 Depression Father Cancer, Onset Age: 57 Chronic leukemia Social History adopted: No household members: significant other and family current occupational status: employed current occupation: [employer] pets and animals: Yes pets and animals: dog(s) history of recent travel: No sexually active: Yes Smoking Status: Never smoker alcohol intake: current alcohol intake frequency: holidays/special occasions only details: Not while substance use type: does not use well-balanced diet: daily or most days caffeine: Yes (occasional) eating out: 1-3 times/week during the past year weight has: remained stable what type of physical activity do you participate in: aerobics and weight training frequency: 3-4 times per week duration: 60-90 minutes/day daniel/moravian: Jainism seatbelt use: always do you feel safe at home: Yes additional social history: BF- [employer] History 1 Elective abortions Hx Para 0 Spontaneous abortions Hx # Term Pregnancies Ectopic pregnancies Hx # Pregnancies Multiple births # of living children HPI 22 wk ob Details: SHEEBA WELSH is a 23 year old who presents for routine OB visit. OB Visit OLIVIA Calculator Estimated Delivery Date Method Current WG Current Estimate 01/20/25 LMP (Certain) 22w 0d Other Estimates 01/20/25 Ultrasound #1 22w 0d Expected Delivery Route/Plan Labor Preferences- CB/BF classes: [] labor support person: [] labor intervention preferences: [] pain management options preferred: [] cut cord/dad catch: [] : [] PP control planned: [] discussed possible routes of delivery and associated risks: [] special requests: [] Specific Issue/Plans Covid status: [] Flu vaccine: [] Tdap vaccine: [] Rhogam: [] LARC form signed: [] Problem list reviewed and updated with the most current plan of care details and appropriate orders placed. Relevant counseling for the gestational age provided. Continue routine care and follow up unless otherwise noted in visit notes/problem list details Initial Weight: 183 lb Date -???-???-???-???-???- ???-???-???-???-???-? ??-???- EGA Weight BP Urine Prot -???-???-???-???-???- ???-???-???-???-???-? ??-???- Glucose FHR FuHt Pres Dilation -???-???-???-???-???- ???-???-???-???-???-? ??-???- Effaced St Visit Note 06/23/24 -???-???-???-???-???- ???-???-???-???-???-? ??-???- 9w 6d 183 lb (+0 oz) 144/82 -???-???-???-???-???- ???-???-???-???-???-? ??-???- 159 -???-???-???-???-???- ???-???-???-???-???-? ??-???- KW- CRL cons with dates. accepts nipt 07/21/24 -???-???-???-???-???- ???-???-???-???-???-? ??-???- 13w 6d 185 lb (+2 lb) 120/68 Negative -???-???-???-???-???- ???-???-???-???-???-? ??-???- Negative 150 -???-???-???-???-???- ???-???-???-???-???-? ??-???- JV- CRL vik ures 14 weeks today. pt has some complaints of headaches. recommend 72 oz of water a day + tylenol. new ob labs and NIPT today. JV- CRL measures 14 weeks today. p t has some complaints of headaches. recommend 72 oz of water a day + tylenol. NIPT today. 08/19/24 -???-???-???-???-???- ???-???-???-???-???-? ??-???- 18w 0d 193 lb 6 oz (+10 lb 6 oz) 123/65 Negative -???-???-???-???-???- ???-???-???-???-???-? ??-???- Negative 140 -???-???-???-???-???- ???-???-???-???-???-? ??-???- SM- no vb lo f cramping 09/16/24 -???-???-???-???-???- ???-???-???-???-???-? ??-???- 22w 0d 195 lb 4 oz (+12 lb 4 oz) 123/74 -???-? (more content not included)... Normal [facility] - Chemistry and C hemistry - challengeOrdered By: Kenya Wright on 08-19-2024 Glucose Ql (U) Negative [facility] - UrinalysisOrder ed By: eKnya Wright on 08-19-2024 Protein Ql (U) Negative [facility] Office Visit Reporton 08-19-2024 [facility] Office Visit Report [facility] [address], [address] [place] [address] OFFICE VISIT Date of Service: 08/19/24 MR#: [id number] Acct: [id number] Name: SHEEBA WELSH Rep #: [id number] : 2000 Provider: Dr. Kenya kelly MD Age/Sex: 23/F [place] [facility] [facility] [place]: Signed Intake Vital Signs 06/23/24 13:06 07/21/24 10:11 08/19/24 14:13 Height 5 ft 10 in 5 ft 10 in 5 ft 10 in Weight: 193 lb 6 oz BMI 27.7 BP 123/65 H Intake Visit Reasons: 18 wk ob Chief Complaint: 18 Week OB Youth Minister Required: No Is patient in pain?: No Allergies No Known Allergies Allergy (Verified 08/19/24 14:14) Medications ???Medication ???Instructions ???Recorded ???Confirmed ???Type multivit-min no.71-iron fum 28 cap PO 06/14/24 08/19/24 History mg-folate no.1 1 mg-dha 300 mg capsule (PNV-[place]) Last Menstrual Period: 04/15/24 Zika: Zika virus screening: Negative : No PFSH PFSH Medical History Menorrhagia Headache, migraine History of fracture Non-smoker Surgical History History of repair of ACL Family History Mother Breast cancer, Onset Age: 51 Depression Father Cancer, Onset Age: 57 Chronic leukemia Social History adopted: No household members: significant other and family current occupational status: employed current occupation: [email or web address] pets and animals: Yes pets and animals: dog(s) history of recent travel: No sexually active: Yes Smoking Status: Never smoker alcohol intake: current alcohol intake frequency: holidays/special occasions only details: Not while substance use type: does not use well-balanced diet: daily or most days caffeine: Yes (occasional) eating out: 1-3 times/week during the past year weight has: remained stable what type of physical activity do you participate in: aerobics and weight training frequency: 3-4 times per week duration: 60-90 minutes/day daniel/moravian: Jainism seatbelt use: always do you feel safe at home: Yes additional social history: BF- [employer] History 1 Elective abortions Hx Para 0 Spontaneous abortions Hx # Term Pregnancies Ectopic pregnancies Hx # Pregnancies Multiple births # of living children HPI 18 wk ob Details: SHEEBA WELSH is a 23 year old who presents for routine OB visit. OB Visit OLIVIA Calculator Estimated Delivery Date Method Current WG Current Estimate 01/20/25 LMP (Certain) 18w 0d Other Estimates 01/20/25 Ultrasound #1 18w 0d Expected Delivery Route/Plan Labor Preferences- CB/BF classes: [] labor support person: [] labor intervention preferences: [] pain management options preferred: [] cut cord/dad catch: [] : [] PP control planned: [] discussed possible routes of delivery and associated risks: [] special requests: [] Specific Issue/Plans Covid status: [] Flu vaccine: [] Tdap vaccine: [] Rhogam: [] LARC form signed: [] Problem list reviewed and updated with the most current plan of care details and appropriate orders placed. Relevant counseling for the gestational age provided. Continue routine care and follow up unless otherwise noted in visit notes/problem list details Initial Weight: 183 lb Date -???-???-???-???-???- ???-???-???-???-???-? ??-???- EGA Weight BP Urine Prot -???-???-???-???-???- ???-???-???-???-???-? ??-???- Glucose FHR FuHt Pres Dilation -???-???-???-???-???- ???-???-???-???-???-? ??-???- Effaced St Visit Note 06/23/24 -???-???-???-???-???- ???-???-???-???-???-? ??-???- 9w 6d 183 lb (+0 oz) 144/82 -???-???-???-???-???- ???-???-???-???-???-? ??-???- 159 -???-???-???-???-???- ???-???-???-???-???-? ??-???- KW- CRL cons with dates. accepts nipt 07/21/24 -???-???-???-???-???- ???-???-???-???-???-? ??-???- 13w 6d 185 lb (+2 lb) 120/68 Negative -???-???-???-???-???- ???-???-???-???-???-? ??-???- Negative 150 -???-???-???-???-???- ???-???-???-???-???-? ??-???- JV- CRL vik ures 14 weeks today. pt has some complaints of headaches. recommend 72 oz of water a day + tylenol. new ob labs and NIPT today. JV- CRL measures 14 weeks today. p t has some complaints of headaches. recommend 72 oz of water a day + tylenol. NIPT today. 08/19/24 -???-???-???-???-???- ???-???-???-???-???-? ??-???- 18w 0d 193 lb 6 oz (+10 lb 6 oz) 123/65 Negative -???-???-???-???-???- ???-???-???-???-???-? ??-???- Negative 140 -???-???-???-???-???- ???-???-???-???-???-? ??-???- SM- no vb lo f cramping ACOG First Trimester First Trimester: Discussed Breastf (more content not included)... Normal [facility] - Chemistry and C hemistry - challengeon 07-21-2024 Glucose Ql (U) Negative [facility] - Urinalysison Protein Ql (U) Negative [facility] Miscellaneous procedureOrder ed By: Jemima Avila on 07-21-2024 Miscellaneous Test Comment SEE SCANNED REPORT [facility] NATERAon 07-21-2024 NATURA SEE SCANNED REPORT Normal [facility] Comment on above: Performed By: #### L 7400.0353, L7000.1800, M100.2200 #### [facility] [address] [place], [address] [facility] Visit Reporton 07-21-2024 [facility] Office Visit Report [facility] [address], [address] [place] [address] OFFICE VISIT Date of Service: 07/21/24 MR#: [id number] Acct: [id number] Name: SHEEBA WELSH Rep #: [id number] : 2000 Provider: Dr. Jemima Hartman DO Age/Sex: 23/F Location: [facility] [place] Status: Signed Intake Vital Signs 11/12/23 15:04 06/23/24 13:06 07/21/24 10:11 07/21/24 10:11 Height 5 ft 10 in 5 ft 10 in 5 ft 10 in 5 ft 10 in Weight: 185 lb BMI 26.5 BP 120/68 Intake Visit Reasons: 14 wk ob Youth Minister Required: No Is patient in pain?: No Allergies No Known Allergies Allergy (Verified 07/21/24 10:10) Medications ???Medication ???Instructions ???Recorded ???Confirmed ???Type multivit-min no.71-iron fum 28 cap PO 06/14/24 07/21/24 History mg-folate no.1 1 mg-dha 300 mg capsule (PNV-[place]) Last Menstrual Period: 04/15/24 Zika: Zika virus screening: Negative : No PFSH PFSH Medical History Menorrhagia Headache, migraine History of fracture Non-smoker Surgical History History of repair of ACL Family History Mother Breast cancer, Onset Age: 51 Depression Father Cancer, Onset Age: 57 Chronic leukemia Social History adopted: No household members: significant other and family current occupational status: employed current occupation: [email or web address] pets and animals: Yes pets and animals: dog(s) history of recent travel: No sexually active: Yes Smoking Status: Never smoker alcohol intake: current alcohol intake frequency: holidays/special occasions only details: Not while substance use type: does not use well-balanced diet: daily or most days caffeine: Yes (occasional) eating out: 1-3 times/week during the past year weight has: remained stable what type of physical activity do you participate in: aerobics and weight training frequency: 3-4 times per week duration: 60-90 minutes/day daniel/moravian: Jainism seatbelt use: always do you feel safe at home: Yes additional social history: BF- [employer]- [employer] History 1 Elective abortions Hx Para 0 Spontaneous abortions Hx # Term Pregnancies Ectopic pregnancies Hx # Pregnancies Multiple births # of living children HPI 14 wk ob Details: SHEEBA WELSH is a 23 year old who presents for routine OB visit. OB Visit OLIVIA Calculator Estimated Delivery Date Method Current WG Current Estimate 01/20/25 LMP (Certain) 13w 6d Other Estimates 01/20/25 Ultrasound #1 13w 6d Expected Delivery Route/Plan Labor Preferences- CB/BF classes: [] labor support person: [] labor intervention preferences: [] pain management options preferred: [] cut cord/dad catch: [] : [] PP control planned: [] discussed possible routes of delivery and associated risks: [] special requests: [] Specific Issue/Plans Covid status: [] Flu vaccine: [] Tdap vaccine: [] Rhogam: [] LARC form signed: [] Problem list reviewed and updated with the most current plan of care details and appropriate orders placed. Relevant counseling for the gestational age provided. Continue routine care and follow up unless otherwise noted in visit notes/problem list details Initial Weight: 183 lb Date -???-???-???-???-???- ???-???-???-???-???-? ??-???- EGA Weight BP Urine Prot -???-???-???-???-???- ???-???-???-???-???-? ??-???- Glucose FHR FuHt Pres Dilation -???-???-???-???-???- ???-???-???-???-???-? ??-???- Effaced St Visit Note 06/23/24 -???-???-???-???-???- ???-???-???-???-???-? ??-???- 9w 6d 183 lb (+0 oz) 144/82 -???-???-???-???-???- ???-???-???-???-???-? ??-???- 159 -???-???-???-???-???- ???-???-???-???-???-? ??-???- KW- CRL cons with dates. accepts nipt 07/21/24 -???-???-???-???-???- ???-???-???-???-???-? ??-???- 13w 6d 185 lb (+2 lb) 120/68 Negative -???-???-???-???-???- ???-???-???-???-???-? ??-???- Negative 150 -???-???-???-???-???- ???-???-???-???-???-? ??-???- JV- CRL vik ures 14 weeks today. pt has some complaints of headaches. recommend 72 oz of water a day + tylenol. new ob labs and NIPT today. JV- CRL measures 14 weeks today. p t has some complaints of headaches. recommend 72 oz of water a day + tylenol. NIPT today. ACOG First Trimester First Trimester: Discussed Second Trimester Second Trimester: Signs and Symptoms of Labor, Selecting a care provider, Reproductive Life Planning Contreception, Care Planning, Depression/Anxiety and Intimate Partner Violence; Discussed Tobacco Cessation Thi (more content not included)... Normal [facility] HIV - WCHon 07-04-2024 HIV Non-Reactive Normal Nonreactive [facility] Comment on above: Order Comment: Reaso n for Exam: Performed By: #### B TS, L509.4005, L3890.6300, L509.8000, L100.0100, L3890.6005, L3890.6100 #### [facility] [address] [place], [place], [id number] Hepatitis B Surface Antigeno n 07-04-2024 HEP B Surf Ag Non-Reactive Normal Nonreactive [facility] Comment on above: Order Comment: Reaso n for Exam: Performed By: #### B TS, L509.4005, L3890.6300, L509.8000, L100.0100, L3890.6005, L3890.6100 #### [facility] [address] [place], [place], [address] Hepatitis C Antibodyon 07-04 Hepatitis C AB Non-Reactive Normal Nonreactive [facility] Comment on above: Order Comment: Reaso n for Exam: Result Comment: Non Reactive: < 0.8 Equivocal: >/= 0.8 to < 1.0 Reactive: >/= 1.0 The [facility] requires that a reactive/equivocal HCV antibody result be sent out for confirmation. HCV Quant by PCR testing. Performed By: #### L 7400.0353, L7000.1800, M100.2200 #### [facility] [address] [place], [place], [address] [phone] L509.8000on 07-04-2024 Syphilis Abs Non-Reactive Normal [facility] Comment on above: Order Comment: Reaso n for Exam: Performed By: #### B TS, L509.4005, L3890.6300, L509.8000, L100.0100, L3890.6005, L3890.6100 #### [facility] [address] [place], [place], [address] PAP I-G w/rfx hrHPV-Aptimaon 07-04-2024 ADEQ Comment Normal . [facility] Comment on above: Order Comment: Speci men Comment: [id number] Specimen Comment: Source.............Cervix Specimen Comment: LMP / Prev Treat...[id number] Specimen Comment: Other.............. Specimen Comment: No. of containers..01 ThinPrep Vial Result Comment: Sati sfactory for evaluation. Endocervical and/or squamous metaplastic cells (endocervical component) are present. Performed By: #### L 7400.0353, L7000.1800, M100.2200 #### [facility] [address] [place], [place], [address] COMM . Normal . [facility] Comment on above: Order Comment: Speci men Comment: [id number] Specimen Comment: Source.............Cervix Specimen Comment: LMP / Prev Treat...[id number] Specimen Comment: Other.............. Specimen Comment: No. of containers..01 ThinPrep Vial Performed By: #### L 7400.0353, L7000.1800, M100.2200 #### [facility] [address] [place], [place], [address] COMMENT Comment Normal . [facility] Comment on above: Order Comment: Speci men Comment: [id number] Specimen Comment: Source.............Cervix Specimen Comment: LMP / Prev Treat...[id number] Specimen Comment: Other.............. Specimen Comment: No. of containers..01 ThinPrep Vial Result Comment: This liquid based ThinPrep(R) pap test was screened with the use of an image guided system. Performed By: #### L 7400.0353, L7000.1800, M100.2200 #### [facility] [address] [place], [place], [address] DIAG Comment Normal . [facility] Comment on above: Order Comment: Speci men Comment: [id number] Specimen Comment: Source.............Cervix Specimen Comment: LMP / Prev Treat...[id number] Specimen Comment: Other.............. Specimen Comment: No. of containers..01 ThinPrep Vial Result Comment: NEGA TIVE FOR INTRAEPITHELIAL LESION OR MALIGNANCY. Performed By: #### L 7400.0353, L7000.1800, M100.2200 #### [facility] [address] [place], [place], [address] HPV RFLX Comment Normal . [facility] Comment on above: Order Comment: Speci men Comment: [id number] Specimen Comment: Source.............Cervix Specimen Comment: LMP / Prev Treat...[id number] Specimen Comment: Other.............. Specimen Comment: No. of containers..01 ThinPrep Vial Result Comment: The HPV DNA reflex criteria were not met with this specimen result therefore, no HPV testing was performed. Performed at: [address] [id number] Outbound Sales Executive: Beth Rae PhD, Phone: [phone] Performed at: [address] [id number] Outbound Sales Executive: Charlene Sotomayor MD, Phone: [phone] Performed By: #### L 7400.0353, L7000.1800, M100.2200 #### [facility] [address] [place], [place], [id number] PAPSMR Comment Normal . [facility] Comment on above: Order Comment: Speci men Comment: [id number] Specimen Comment: Source.............Cervix Specimen Comment: LMP / Prev Treat...[id number] Specimen Comment: Other.............. Specimen Comment: No. of containers..01 ThinPrep Vial Result Comment: The Pap smear is a screening test designed to aid in the detection of premalignant and malignant conditions of the uterine cervix. It is not a diagnostic procedure and should not be used as the sole means of detecting cervical cancer. Both false-positive and false-negative reports do occur. Performed By: #### L 7400.0353, L7000.1800, M100.2200 #### [facility] [address] [place], [address] PERFORM Comment Normal . [facility] Comment on above: Order Comment: Speci men Comment: [id number] Specimen Comment: Source.............Cervix Specimen Comment: LMP / Prev Treat...[id number] Specimen Comment: Other.............. Specimen Comment: No. of containers..01 ThinPrep Vial Result Comment: Karli Stevens, Electric Blanket Packer (ASCP) Performed By: #### L 7400.0353, L7000.1800, M100.2200 #### [facility] [address] [place], [address] Rubella IgGon 07-04-2024 Rubella IgG Reactive Normal Nonreactive [facility] Comment on above: Order Comment: Reaso n for Exam: Result Comment: Anti body Results Interpretation of Immune Status Non Reactive Presumed Non-Immune Equivocal Equivocal Reactive Presumed Immune Performed By: #### B TS, L509.4005, L3890.6300, L509.8000, L100.0100, L3890.6005, L3890.6100 #### [facility] [address] [place], [address] Absolute neutrophil countOrd ered By: Angela Sanders on 07-01-2024 Neutrophils (Bld) [#/Vol] 6.9 10*3/uL 2.0-7.7 [facility] Basophil percentageOrdered B y: Angela Sanders on 07-01-2024 Basophils/100 WBC (Bld) 0.4 % 0-1 [facility] CBC W/Diff, Automatedon 06-19 Absolute Lymph 2.49 X10 3/uL Normal 0.83-4.51 [facility] Comment on above: Performed By: #### B TS, L509.4005, L3890.6300, L509.8000, L100.0100, L3890.6005, L3890.6100 #### [facility] [address] [place], [address] Absolute Neut 6.9 X10 3/uL Normal 2.0-7.7 [facility] Comment on above: Performed By: #### B TS, L509.4005, L3890.6300, L509.8000, L100.0100, L3890.6005, L3890.6100 #### [facility] [address] [place], [address] Basophils/100 WBC (Bld) 0.4 % Normal 0-1 [facility] Comment on above: Performed By: #### B TS, L509.4005, L3890.6300, L509.8000, L100.0100, L3890.6005, L3890.6100 #### [facility] [address] [place], [address] Eosinophils/100 WBC (Bld) 0.6 % Normal 0-5 [facility] Comment on above: Performed By: #### B TS, L509.4005, L3890.6300, L509.8000, L100.0100, L3890.6005, L3890.6100 #### [facility] [address] [place], [address] Erythrocyte distribution width (RBC) [Ratio] 13.0 % Normal 11.6-14.6 [facility] Comment on above: Performed By: #### B TS, L509.4005, L3890.6300, L509.8000, L100.0100, L3890.6005, L3890.6100 #### [facility] [address] [place], [address] Hematocrit (Bld) [Volume fraction] 38.0 % Normal 37-47 [facility] Comment on above: Performed By: #### B TS, L509.4005, L3890.6300, L509.8000, L100.0100, L3890.6005, L3890.6100 #### [facility] [address] [place], [address] Hemoglobin (Bld) [Mass/Vol] 13.1 g/dL Normal 12.0-15.0 [facility] Comment on above: Performed By: #### B TS, L509.4005, L3890.6300, L509.8000, L100.0100, L3890.6005, L3890.6100 #### [facility] [address] [place], [address] IG% 0.400 Normal 0.0-0.9 [facility] Comment on above: Result Comment: IG% - Immature Granulocytes (promyelocytes, myelocytes and metamyelocytes) > 1% indicates that a LEFT SHIFT is Present. Performed By: #### B TS, L509.4005, L3890.6300, L509.8000, L100.0100, L3890.6005, L3890.6100 #### [facility] [address] [place], [address] Lymphocytes/100 WBC (Bld) 24.5 % Normal 19-41 [facility] Comment on above: Performed By: #### B TS, L509.4005, L3890.6300, L509.8000, L100.0100, L3890.6005, L3890.6100 #### [facility] [address] [place], [address] MCH (RBC) [Entitic mass] 27.8 pg Normal 27.0-32.0 [facility] Comment on above: Performed By: #### B TS, L509.4005, L3890.6300, L509.8000, L100.0100, L3890.6005, L3890.6100 #### [facility] [address] [place], [address] MCHC (RBC) [Mass/Vol] 34.5 g/dL Normal 32-36 [facility] Comment on above: Performed By: #### B TS, L509.4005, L3890.6300, L509.8000, L100.0100, L3890.6005, L3890.6100 #### [facility] [address] [place], [address] MCV (RBC) [Entitic vol] 80.7 fL Low 81-99 [facility] Comment on above: Performed By: #### B TS, L509.4005, L3890.6300, L509.8000, L100.0100, L3890.6005, L3890.6100 #### [facility] [address] [place], [address] Monocytes/100 WBC (Bld) 6.4 % Normal 0-10 [facility] Comment on above: Performed By: #### B TS, L509.4005, L3890.6300, L509.8000, L100.0100, L3890.6005, L3890.6100 #### [facility] [address] [place], [address] Neutrophils/100 WBC (Bld) 67.7 % Normal 47-70 [facility] Comment on above: Performed By: #### B TS, L509.4005, L3890.6300, L509.8000, L100.0100, L3890.6005, L3890.6100 #### [facility] [address] [place], [address] Nucleated RBC (Bld) [#/Vol] 0 10*3/uL Normal 0-5 [facility] Comment on above: Performed By: #### B TS, L509.4005, L3890.6300, L509.8000, L100.0100, L3890.6005, L3890.6100 #### [facility] [address] [place], [address] Platelet mean volume (Bld) [Entitic vol] 9.4 fL Normal 6.2-12.0 [facility] Comment on above: Performed By: #### B TS, L509.4005, L3890.6300, L509.8000, L100.0100, L3890.6005, L3890.6100 #### [facility] [address] [place], [address] Platelets (Bld) [#/Vol] 295 10*3/uL Normal 150-450 [facility] Comment on above: Performed By: #### B TS, L509.4005, L3890.6300, L509.8000, L100.0100, L3890.6005, L3890.6100 #### [facility] [address] [place], [address] RBC (Bld) [#/Vol] 4.71 10*6/uL Normal 4.2-5.4 [facility] Comment on above: Performed By: #### B TS, L509.4005, L3890.6300, L509.8000, L100.0100, L3890.6005, L3890.6100 #### [facility] [address] [place], [address] RDW SD 37.9 fl Normal 35.1-43.9 [facility] Comment on above: Performed By: #### B TS, L509.4005, L3890.6300, L509.8000, L100.0100, L3890.6005, L3890.6100 #### [facility] [address] [place], [address] WBC (Bld) [#/Vol] 10.2 10*3/uL Normal 4.4-11.0 [facility] Comment on above: Performed By: #### B TS, L509.4005, L3890.6300, L509.8000, L100.0100, L3890.6005, L3890.6100 #### [facility] [address] [place], [address] Eosinophil percentageOrdered By: Angela Sanders on 07-01-2024 Eosinophils/100 WBC (Bld) 0.6 % 0-5 [facility] Erythrocyte distribution wid th ratioOrdered By: Angela Sanders on 07-01-2024 Erythrocyte distribution width (RBC) [Ratio] 13.0 % 11.6-14.6 [facility] Erythrocyte distribution wid th standard deviationOrdered By: Angela Sanders on 07-01-2024 Erythrocyte distribution width (RBC) [Entitic vol] 37.9 fL 35.1-43.9 [facility] HIV 1+2 Ab+HIV1 p24 Ag IA Ql Ordered By: Angela Sanders on 07-01-2024 HIV (1&2) Antibody Non-Reactive Nonreactive [facility] Hematocrit Auto (Bld) [Volum e fraction]Ordered By: Angela Sanders on 07-01-2024 Hematocrit (Bld) [Volume fraction] 38.0 % 37-47 [facility] Hemoglobin measurementOrdere d By: Angela Sanders on 07-01-2024 Hemoglobin (Bld) [Mass/Vol] 13.1 g/dL 12.0-15.0 [facility] Hepatitis B surface antigen detectionOrdered By: Angela Sanders on 07-01-2024 Hepatitis B Surface Antigen Non-Reactive Nonreactive [facility] Hepatitis C virus antibody a ssayOrdered By: Angela Sanders on 07-01-2024 Hepatitis C Antibody Non-Reactive Nonreactive [facility] Comment on above: Non Reactive: < 0.8 Equivocal: >/= 0.8 to < 1.0 Reactive: >/= 1.0The CDC requires that a reactive/equivocal HCV antibody result be sent out for confirmation. HCV Quant by PCR testing. Immature granulocytes/100 WB C Auto (Bld)Ordered By: Angela Sanders on 07-01-2024 Immature granulocytes/100 WBC (Bld) 0.400 % 0.0-0.9 [facility] Comment on above: IG% - Immature Granu locytes (promyelocytes, myelocytes and metamyelocytes) > 1% indicates that a LEFT SHIFT is Present. Lymphocytes Auto (Unsp spec) [#/Vol]Ordered By: Angela Sanders on 07-01-2024 Lymphocytes (Bld) [#/Vol] 2.49 10*3/uL 0.83-4.51 [facility] Lymphocytes/100 WBC Auto (Un sp spec)Ordered By: Angela Sanders on 07-01-2024 Lymphocytes/100 WBC (Bld) 24.5 % 19-41 [facility] MCV (mean corpuscular volume ) determinationOrdered By: Angela Sanders on 07-01-2024 MCV (RBC) [Entitic vol] 80.7 fL Low 81-99 [facility] Mean corpuscular hemoglobin (MCH) determinationOrdered By: Angela Sanders on 07-01-2024 MCH (RBC) [Entitic mass] 27.8 pg 27.0-32.0 [facility] Mean corpuscular hemoglobin concentration (MCHC) determinationOrdered By: Angela Sanders on 07-01-2024 MCHC (RBC) [Mass/Vol] 34.5 g/dL 32-36 [facility] Mean platelet volume determi nationOrdered By: Angela Sanders on 07-01-2024 Platelet mean volume (Bld) [Entitic vol] 9.4 fL 6.2-12.0 [facility] Monocyte percentageOrdered B y: Angela Sanders on 07-01-2024 Monocytes/100 WBC (Bld) 6.4 % 0-10 [facility] Neutrophil percentageOrdered By: Angela Sanders on 07-01-2024 Neutrophils/100 WBC (Bld) 67.7 % 47-70 [facility] Nucleated red blood cell per centageOrdered By: Angela Sanders on 07-01-2024 Nucleated RBC/100 WBC (Bld) [Ratio] 0 % 0-5 [facility] Platelet countOrdered By: Hieu Sanders on 07-01-2024 Platelets (Bld) [#/Vol] 295 10*3/uL 150-450 [facility] RBC Auto (Bld) [#/Vol]Ordere d By: Angela Sanders on 07-01-2024 RBC (Bld) [#/Vol] 4.71 10*6/uL 4.2-5.4 [facility] Rubella immune status IgGOrd ered By: Angela Sanders on 07-01-2024 Rubella IgG Antibody Reactive Nonreactive [facility] Comment on above: Antibody Results Int erpretation of Immune Status Non Reactive Presumed Non-Immune Equivocal Equivocal Reactive Presumed Immune Treponema sp Ab Ql (S)Ordere d By: Angela Sanders on 07-01-2024 Syphilis Total Antibody Non-Reactive [facility] Type AND Screenon 07-01-2024 Ab SCREEN GEL Negative Normal [facility] Comment on above: Order Comment: PN Performed By: #### B TS, L509.4005, L3890.6300, L509.8000, L100.0100, L3890.6005, L3890.6100 #### [facility] [address] [place], [address] ABO and Rh group Nom (Bld) Blood group O Rh(D) positive Normal [facility] Comment on above: Order Comment: PN Performed By: #### B TS, L509.4005, L3890.6300, L509.8000, L100.0100, L3890.6005, L3890.6100 #### [facility] [address] [place], [address] White blood cell (WBC) count Ordered By: Angela Sanders on 07-01-2024 WBC (Bld) [#/Vol] 10.2 10*3/uL 4.4-11.0 [facility] Chlamydia/GC PEDRO aptimaon CHLAMY,NUC ACID Negative Normal Negative [facility] Comment on above: Performed By: #### L 7400.0353, L7000.1800, M100.2200 #### [facility] [address] [place], [address] GC BY NUC ACID Negative Normal Negative [facility] Comment on above: Result Comment: Perf ormed at: =G - [facility] [address] [place] [id number] Outbound Sales Executive: Charlene Sotomayor MD, Phone: [phone] Performed By: #### L 7400.0353, L7000.1800, M100.2200 #### [facility] [address] [place], [place], [id number] Urine Cultureon 06-24-2024 URC Culture exhibits no growth. Normal [facility] Comment on above: Performed By: #### L 7400.0353, L7000.1800, M100.2200 #### [facility] [address] [place], [place], [address] C. trachomatis rRNA PEDRO+prob e Ql (Unsp spec)Ordered By: Angela Sanders on 06-23-2024 Chlamydia DNA (PEDRO) Negative Negative [facility] Managing Cognitive Engineer Cyto stain Nom (C vx/Vag) [ID]Ordered By: Angela Sanders on 06-23-2024 Pap Smear Performed By Comment . [facility] Comment on above: Gabrielle Stevens, Cyto technologist (ASCP) Cytology report Cyto stain D oc (Cvx/Vag)Ordered By: Angela Sanders on 06-23-2024 Thin Prep Pap Smear Comment . [facility] Comment on above: The Pap smear is a s creening test designed to aid in thedetection of premalignant and malignant conditions of theuterine cervix. It is not a diagnostic procedure andshould not be used as the sole means of detecting cervicalcancer. Both false-positive and false-negative reports dooccur. Image-guided ThinPrep PapOrd ered By: Angela Sanders on 06-23-2024 Pap Smear Note Comment . [facility] Comment on above: This liquid based Th inPrep(R) pap test was screened withthe use of an image guided system. Image-guided liquid-based Pa pOrdered By: nAgela Sanders on 06-23-2024 Pap Smear Diagnosis Comment . [facility] Comment on above: NEGATIVE FOR INTRAEP ITHELIAL LESION OR MALIGNANCY. Image-guided liquid-based ce rvical Pap w high-risk HPV+reflex to HPV 16+18Ordered By: Angela Sanders on 06-23-2024 Human Papillomavirus Screen Comment . [facility] Comment on above: The HPV DNA reflex terry guzman were not met with this specimenresult therefore, no HPV testing was performed.Performed at: [address] [id number] Director: Beth Rae PhD, Phone: [phone] at: [facility] [address] [place], [place] [id number] Director: Charlene Sotomayor MD, Phone: [phone] Neisseria gonorrhoeae nuclei c acid detection by amplified probe techniqueOrdered By: Angela Sanders on 06-23-2024 N. gonorrhoeae DNA PEDRO+probe Ql (Unsp spec) Negative Negative [facility] Comment on above: Performed at: =G - [facility] [address] [place], [place] [id number] Director: Charlene Sotomayor MD, Phone: [phone] [facility] Office Visit Reporton 06-23-2024 [facility] Office Visit Report [facility] [address], [address] [place] [address] OFFICE VISIT Date of Service: 06/23/24 MR#: [id number] Acct: [id number] Name: SHEEBA WELSH Rep #: [id number] 7 : 2000 Provider: JACKELIN Steven ams Age/Sex: 23/F [place] [facility] [place]: Signed Intake Vital Signs 11/12/23 15:04 06/23/24 13:02 06/23/24 13:06 Height 5 ft 10 in 5 ft 10 in 5 ft 10 in Weight: 183 lb BMI 26.2 BP 144/82 H Intake Visit Reasons: NOB LMP 04/15 Youth Minister Required: No Is patient in pain?: No Allergies No Known Allergies Allergy (Verified 06/23/24 13:03) Medications ???Medication ???Instructions ???Recorded ???Confirmed ???Type multivit-min no.71-iron fum 28 cap PO 06/14/24 06/14/24 History mg-folate no.1 1 mg-dha 300 mg capsule (PNV-[place]) Last Menstrual Period: 04/15/24 Zika: Zika virus screening: Negative : Yes Have you fallen in the past year?: No PFSH PFSH Medical History Menorrhagia Headache, migraine History of fracture Non-smoker Surgical History History of repair of ACL Family History Mother Breast cancer, Onset Age: 51 Depression Father Cancer, Onset Age: 57 Chronic leukemia Social History adopted: No household members: significant other and family service: No current occupational status: employed current occupation: [employer] pets and animals: Yes pets and animals: dog(s) history of recent travel: No sexually active: Yes Smoking Status: Never smoker alcohol intake: current alcohol intake frequency: holidays/special occasions only details: Not while substance use type: does not use well-balanced diet: daily or most days caffeine: Yes (occasional) eating out: 1-3 times/week during the past year weight has: remained stable what type of physical activity do you participate in: aerobics and weight training frequency: 3-4 times per week duration: 60-90 minutes/day daniel/moravian: Jainism seatbelt use: always do you feel safe at home: Yes additional social history: BF- [employer] History 1 Elective abortions Hx Para 0 Spontaneous abortions Hx # Term Pregnancies Ectopic pregnancies Hx # Pregnancies Multiple births # of living children HPI NOB LMP 04/15 Details: SHEEBA WELSH is a 23 year old who presents for New OB visit. OB Visit OLIVIA Calculator Estimated Delivery Date Method Current WG Current Estimate 01/20/25 LMP (Certain) 9w 6d Other Estimates 01/20/25 Ultrasound #1 9w 6d Comments: HIV: Urine Culture: Sequential Screen: NIPT Screen: Estimated Due Date: 01/20/25 Expected Delivery Route/Plan Labor Preferences- CB/BF classes: [] labor support person: [] labor intervention preferences: [] pain management options preferred: [] cut cord/dad catch: [] : [] PP control planned: [] discussed possible routes of delivery and associated risks: [] special requests: [] Specific Issue/Plans Covid status: [] Flu vaccine: [] Tdap vaccine: [] Rhogam: [] LARC form signed: [] Problem list reviewed and updated with the most current plan of care details and appropriate orders placed. Relevant counseling for the gestational age provided. Continue routine care and follow up unless otherwise noted in visit notes/problem list details Initial Weight: 183 lb Date -???-???-???-???-???- ???-???-???-???-???-? ??-???- EGA Weight BP Urine Prot -???-???-???-???-???- ???-???-???-???-???-? ??-???- Glucose FHR FuHt Pres Dilation -???-???-???-???-???- ???-???-???-???-???-? ??-???- Effaced St Visit Note 06/23/24 -???-???-???-???-???- ???-???-???-???-???-? ??-???- 9w 6d 183 lb (+0 oz) 144/82 -???-???-???-???-???- ???-???-???-???-???-? ??-???- 159 -???-???-???-???-???- ???-???-???-???-???-? ??-???- KW- CRL cons with dates. accepts nipt Menstrual History Last Menstrual Period: 04/15/24 Reported LMP: definite Normal amount/duration: Yes Frequency in days: 30 On hormonal BC at conception: No hCG+: 05/17/24 Antepartum Record Genetic Screening: Congenital Heart Defect: Other, Neural Tube Defect: Other, Hemoglobinopathy Or Carrier: Other, Cystic Fibrosis: Other, Chromosome Abnormality: Other, Nicolás-Sachs: Other, Hemophilia: Other, Intellectual Disability/Autism: Other, Recurrent Loss/Stillbirth: Other, Other Structural Defect: Other, Other Genetic Disease: Other and Maternal Metabolic Disorder: Other Infection History: Live with someone with TB or Exposed to TB: No, Patient or Partner monroe (more content not included)... Normal [facility] Service comment (Unsp spec) [Interp]Ordered By: Angela Sanders on 06-23-2024 Pap Smear Comment (3) . . [facility] Urine cultureOrdered By: Sunny Sanders on 06-23-2024 Bacteria identified Cx Nom (U) Culture exhibits no growth. [facility] Echo Completeon 12-30-2023 Echo Complete [facility] [address] [place] [address] Echo Complete 12/30/23 0958 MR#: [id number] Acct: [id number] Name: SHEEBA WELSH Rep #: [id number] : 2000 23 From: Prakash Jaquez MD Attending Dr: VERO [place] Status: REG CLI Ordering Dr: Yoel Frost Date: 12/30/23 Location: [facility] Sex: F C Admitted: Reason For Study: CHEST PAIN/PALPS Procedure This was a 2D Doppler, Color Flow transthoracic echocardiogram. Exam performed in department. Left Ventricle Normal LV size. Left ventricular systolic function is normal. The estimated ejection fraction is 65 %. No regional wall motion abnormalities noted. Right Ventricle Normal RV size. Normal systolic function. Atria Normal left atrium. Normal right atrium. Mitral Valve Equivocal mitral valve prolapse. Tricuspid Valve Normal tricuspid valve. Aortic Valve Trisinus/trileaflet aortic valve. Pulmonic Valve Normal pulmonic valve. Great Vessels Normal aortic root. The pulmonary artery is normal size. Normal inferior vena cava. Pericardium/Pleural No pericardial effusion. MMode/2D Measurements Calculations LVIDd: 4.7 cm IVSd: 0.86 cm LVOT diam: 2.0 cm LVIDs: 3.1 cm LVPWd: 0.86 cm LVOT area: 3.1 cm2 RVDd: 3.5 cm FS: 33.1 % Ao root diam: 2.5 cm LAV(MOD-bp): 50.0 ml LVAd ap4: 30.7 cm2 LAV(MOD-bp) Indexed: 24.8 ml/m2 LVLd ap4: 8.7 cm LAV(MOD-sp2): 55.9 ml EDV(MOD-sp4): 88.7 ml LAV(MOD-sp4): 44.1 ml EDV(sp4-el): 92.2 ml LVAs ap4: 16.2 cm2 LVLs ap4: 7.1 cm ESV(MOD-sp4): 32.5 ml ESV(sp4-el): 31.2 ml EF(MOD-sp4): 63.3 % EF(sp4-el): 66.2 % LVAd ap2: 30.5 cm2 SV(MOD-sp4): 56.1 ml SV(MOD-sp2): 55.4 ml LVLd ap2: 8.4 cm EDV(MOD-sp2): 89.9 ml EDV(sp2-el): 94.1 ml LVAs ap2: 17.3 cm2 LVLs ap2: 7.3 cm ESV(MOD-sp2): 34.5 ml ESV(sp2-el): 34.8 ml EF(MOD-sp2): 61.6 % SV(sp4-el): 61.0 ml LA dimension(2D): 4.1 cm LA A4 area: 17.8 cm2 RA A4 area: 17.7 cm2 TAPSE: 1.9 cm Time Measurements MV dec time: 0.19 sec Doppler Measurements Calculations MV E max daren: 85.5 cm/sec Lat Peak E' Daren: 16.8 cm/sec Med Peak E' Daren: 9.8 cm/sec MV A max daren: 60.5 cm/sec E/E' lat: 5.1 E/E' med: 8.8 MV E/A: 1.4 Ao V2 max: 107.2 cm/sec LV V1 max: 90.6 cm/sec MV dec slope: 459.3 cm/sec2 Ao max P.6 mmHg LV V1 max P.3 mmHg Ao V2 mean: 73.1 cm/sec LV V1 mean P.0 mmHg Ao mean P.5 mmHg LV V1 mean: 65.7 cm/sec Ao V2 VTI: 24.8 cm LV V1 VTI: 20.8 cm AV (velocity ratio): 0.84 CHAVA(I,D): 2.6 cm2 CHAVA(V,D): 2.6 cm2 SV(LVOT): 64.3 ml PA V2 max: 108.5 cm/sec TR max daren: 164.5 cm/sec PA max PG (full): 3.4 mmHg TR max P.8 mmHg ECHO/Echo Complete Interpretation Summary Normal LV size. Left ventricular systolic function is normal. The estimated ejection fraction is 65 %. Equivocal mitral valve prolapse. Ordering Physician: Yoel Frost Performed By: Kiki Pelayo RDCS and Student 12/30/23 1441 Date Prakash Jaquez MD CC: Dr. Moisés Haines, DO; VERO [place] Date Dictated: 12/30/23957 Date Transcribed: 12/30/231440 Gas Dispatcher: Signed Normal [facility] Absolute lymphocyte countOrd ered By: Yoel Frost on 11-12-2023 Lymphocytes Auto (Unsp spec) [#/Vol] 2.50 10*3/uL 0.83-4.51 [facility] Automated lymphocyte count a s percentage of total leukocytesOrdered By: Yoel Frost on 11-12-2023 Lymphocytes/100 WBC Auto (Unsp spec) 28.1 % 19-41 [facility] Basophil percentageOrdered B y: Yoel Frost on 11-12-2023 Basophils/100 WBC (Bld) 0.6 % 0-1 [facility] Bilirubin [Mass/Vol] 0.40 mg/dL 0.20-1.00 [facility] Comment on above: For patients on eltr ombopag therapy, use of Dimension [place] TBIL is not recommended. Chloride [Moles/Vol] 106 mmol/L 98-107 [facility] Eosinophils/100 WBC (Bld) 0.7 % 0-5 [facility] Glucose [Mass/Vol] 94 mg/dL 74-106 [facility] Hemoglobin (Bld) [Mass/Vol] 12.5 g/dL 12.0-15.0 [facility] Monocytes/100 WBC (Bld) 7.8 % 0-10 [facility] Neutrophils (Bld) [#/Vol] 5.6 10*3/uL 2.0-7.7 [facility] Neutrophils/100 WBC (Bld) 62.6 % 47-70 [facility] Potassium [Moles/Vol] 3.9 mmol/L 3.5-5.1 [facility] Protein [Mass/Vol] 7.4 g/dL 6.4-8.2 [facility] Sodium [Moles/Vol] 137 mmol/L 136-145 [facility] WBC (Bld) [#/Vol] 8.9 10*3/uL 4.4-11.0 [facility] Determination of erythrocyte mean corpuscular volume (MCV)Ordered By: Yoel Frost on 11-12-2023 MCV (RBC) [Entitic vol] 82.7 fL 81-99 [facility] Erythrocyte distribution wid th ratioOrdered By: Yoel Frost on 11-12-2023 Erythrocyte distribution width (RBC) [Ratio] 12.6 % 11.6-14.6 [facility] Erythrocyte distribution wid th standard deviationOrdered By: Yoel Frost on 11-12-2023 Erythrocyte distribution width (RBC) [Entitic vol] 37.9 fL 35.1-43.9 [facility] Hematocrit Auto (Bld) [Volum e fraction]Ordered By: Yoel Frost on 11-12-2023 Hematocrit (Bld) [Volume fraction] 38.6 % 37-47 [facility] Immature granulocytes/100 WB C Auto (Bld)Ordered By: Yoel Frost on 11-12-2023 Immature granulocytes/100 WBC (Bld) 0.200 % 0.0-0.9 [facility] Comment on above: IG% - Immature Granu locytes (promyelocytes, myelocytes and metamyelocytes) > 1% indicates that a LEFT SHIFT is Present. Laboratory - Chemistry and C hemistry - challengeOrdered By: Yoel Frost on 11-12-2023 Albumin/Globulin [Mass ratio] 1.2 {ratio} 0.9-2.4 [facility] ALP [Catalytic activity/Vol] 71 U/L 45-117 [facility] ALT [Catalytic activity/Vol] 14 U/L 13-56 [facility] CO2 [Moles/Vol] 23.0 mmol/L 21.0-32.0 [facility] Cobalamin (Vitamin B12) [Mass/Vol] 320 pg/mL 211-911 [facility] Globulin (S) [Mass/Vol] 3.4 g/dL 2.2-4.2 [facility] Urea nitrogen/Creatinine [Mass ratio] 13.1 mg/mg 10-20 [facility] Laboratory - Hematology and Cell countsOrdered By: Yoel Frost on 11-12-2023 MCH (RBC) [Entitic mass] 26.8 pg 27.0-32.0 [facility] MCHC (RBC) [Mass/Vol] 32.4 g/dL 32-36 [facility] Nucleated RBC/100 WBC (Bld) [Ratio] 0 % 0-5 [facility] Platelet mean volume (Bld) [Entitic vol] 9.1 fL 6.2-12.0 [facility] Platelets (Bld) [#/Vol] 333 10*3/uL 150-450 [facility] No Panel InformationOrdered By: Yoel Frost on 11-12-2023 Estimated GFR (MDRD) Amer 121 mL/min >60 [facility] Comment on above: GFR Calc Estimated GFR (MDRD) Non-Af Amer 100 mL/min >60 [facility] Comment on above: Non- GFR Calc Vitamin D 25-Hydroxy 62.4 ng/mL [facility] Comment on above: Vitamin D 25(OH) Sta tus Range Deficiency <20 ng/mL (50nmol/L) Insufficiency 20 - 30 ng/mL (50 - 75 nmol/L) Sufficiency 30 - 100 ng/mL (75 - 250 nmol/L) Toxicity >100 ng/mL (>250 nmol/L) RBC Auto (Bld) [#/Vol]Ordere d By: Yoel Frost on 11-12-2023 RBC (Bld) [#/Vol] 4.67 10*6/uL 4.2-5.4 [facility] Serum or plasma calcium vik urement (mass/volume)Ordered By: Yoel Frost on 11-12-2023 Calcium [Mass/Vol] 9.1 mg/dL 8.5-10.1 [facility] Serum or plasma creatinine m easurement (mass/volume)Ordered By: Yoel Frost on 11-12-2023 Creatinine [Mass/Vol] 0.76 mg/dL 0.55-1.02 [facility] Comment on above: The validity of the calculated GFR & GFRAA in patients over 70 years has not been determined. Clinical correlation is essential. Serum or plasma thyroid stim ulating hormone (TSH) measurement (units/volume)Ordered By: Yoel Frost on 11-12-2023 TSH Qn 1.63 uIU/mL 0.358-3.74 [facility] Serum or plasma urea nitroge n measurement (mass/volume)Ordered By: Yoel Frost on 11-12-2023 Urea nitrogen [Mass/Vol] 10 mg/dL 7-18 [facility] Thin prep Papanicolaou smear with manual screeningOrdered By: Yoel Frost on 11-12-2023 Thin prep Papanicolaou smear with manual screening 4.0 g/dL 3.2-5.0 [facility] Thin prep Papanicolaou smear with manual screening 8 U/L 15-37 [facility] Thin prep Papanicolaou smear with manual screening 8 5-15 [facility] Absolute lymphocyte countOrd ered By: Dr. Haines on 11-04-2022 Lymphocytes Auto (Unsp spec) [#/Vol] 3.02 10*3/uL 0.83-4.51 [facility] Basophil percentageOrdered B y: Dr. Haines on 11-04-2022 Basophils/100 WBC (Bld) 0.5 % 0-1 [facility] Chloride [Moles/Vol] 106 mmol/L 98-107 [facility] Eosinophils/100 WBC (Bld) 0.8 % 0-5 [facility] Glucose [Mass/Vol] 80 mg/dL 74-106 [facility] Neutrophils (Bld) [#/Vol] 5.5 10*3/uL 2.0-7.7 [facility] Neutrophils/100 WBC (Bld) 58.1 % 47-70 [facility] Potassium [Moles/Vol] 3.7 mmol/L 3.5-5.1 [facility] Sodium [Moles/Vol] 138 mmol/L 136-145 [facility] WBC (Bld) [#/Vol] 9.5 10*3/uL 4.4-11.0 [facility] Blood erythrocytes count (nu mber/volume)Ordered By: Dr. Haines on 11-04-2022 RBC (Bld) [#/Vol] 4.60 10*6/uL 4.2-5.4 [facility] Blood hemoglobin measurement (mass/volume)Ordered By: Dr. Haines on 11-04-2022 Hemoglobin (Bld) [Mass/Vol] 12.7 g/dL 12.0-15.0 [facility] Blood lymphocytes/100 leukoc ytesOrdered By: Dr. Haines on 11-04-2022 Lymphocytes/100 WBC (Bld) 32.0 % 19-41 [facility] Blood monocytes/100 leukocyt esOrdered By: Dr. Haines on 11-04-2022 Monocytes/100 WBC (Bld) 8.4 % 0-10 [facility] Blood platelet mean volumeOr dered By: Dr. Haines on 11-04-2022 Platelet mean volume (Bld) [Entitic vol] 9.0 fL 6.2-12.0 [facility] Determination of erythrocyte mean corpuscular volume (MCV)Ordered By: Dr. Haines on 11-04-2022 MCV (RBC) [Entitic vol] 83.5 fL 81-99 [facility] Hematocrit Auto (Bld) [Volum e fraction]Ordered By: Dr. Haines on 11-04-2022 Hematocrit (Bld) [Volume fraction] 38.4 % 37-47 [facility] Laboratory - Chemistry and C hemistry - challengeOrdered By: Dr. Haines on 11-04-2022 CO2 [Moles/Vol] 28.0 mmol/L 21.0-32.0 [facility] Urea nitrogen/Creatinine [Mass ratio] 19.3 mg/mg 10-20 [facility] Laboratory - Hematology and Cell countsOrdered By: Dr. Haines on 11-04-2022 Erythrocyte distribution width (RBC) [Entitic vol] 37.1 fL 35.1-43.9 [facility] Erythrocyte distribution width (RBC) [Ratio] 12.3 % 11.6-14.6 [facility] Immature granulocytes/100 WBC (Bld) 0.200 % 0.0-0.9 [facility] Comment on above: IG% - Immature Granu locytes (promyelocytes, myelocytes and metamyelocytes) > 1% indicates that a LEFT SHIFT is Present. MCH (RBC) [Entitic mass] 27.6 pg 27.0-32.0 [facility] Nucleated RBC/100 WBC (Bld) [Ratio] 0 % 0-5 [facility] MCHC Auto (RBC) [Mass/Vol]Or dered By: Dr. Haines on 11-04-2022 MCHC (RBC) [Mass/Vol] 33.1 g/dL 32-36 [facility] No Panel InformationOrdered By: Dr. Haines on 11-04-2022 Estimated GFR (MDRD) Amer 120 mL/min >60 [facility] Comment on above: GFR Calc Estimated GFR (MDRD) Non-Af Amer 99 mL/min >60 [facility] Comment on above: Non- GFR Calc Platelets bldOrdered By: Dr. Haines on 11-04-2022 Platelets (Bld) [#/Vol] 315 10*3/uL 150-450 [facility] Serum or plasma calcium vik urement (mass/volume)Ordered By: Dr. Haines on 11-04-2022 Calcium [Mass/Vol] 9.2 mg/dL 8.5-10.1 [facility] Serum or plasma creatinine m easurement (mass/volume)Ordered By: Dr. Haines on 11-04-2022 Creatinine [Mass/Vol] 0.78 mg/dL 0.55-1.02 [facility] Comment on above: The validity of the calculated GFR & GFRAA in patients over 70 years has not been determined. Clinical correlation is essential. Serum or plasma urea nitroge n measurement (mass/volume)Ordered By: Dr. Haines on 11-04-2022 Urea nitrogen [Mass/Vol] 15 mg/dL 02-03 [facility] Thin prep Papanicolaou smear with manual screeningOrdered By: Dr. Haines on 11-04-2022 Thin prep Papanicolaou smear with manual screening 10 22- [facility] .GFRon 09-29-2020 GFR Non- 81 ml/min/1.73sqm Normal [facility] ([place]) Comment on above: Result Comment: GFR Population mean for , Non- Americans Ages 20-29 = 116 mL/min/1.73 sq.m. Ages 30-39 = 107 mL/min/1.73 sq.m. Ages 40-49 = 99 mL/min/1.73 sq.m. Ages 50-59 = 93 mL/min/1.73 sq.m. Ages 60-69 = 85 mL/min/1.73 sq.m. Ages 70+ = 75 mL/min/1.73 sq.m. Chronic Kidney Disease: Less than 60 mL/min/1.73 square meters End Stage Renal Disease: Less than 15 mL/min/1.73 square meters Performed By: #### C BC, MONO, BMP, DIFF, MORPH #### [address] [address] #### GFR #### [address] [address] GFR 98 ml/min/1.73sqm Normal [facility] ([place]) Comment on above: Result Comment: GFR Population mean for , Non- Americans Ages 20-29 = 116 mL/min/1.73 sq.m. Ages 30-39 = 107 mL/min/1.73 sq.m. Ages 40-49 = 99 mL/min/1.73 sq.m. Ages 50-59 = 93 mL/min/1.73 sq.m. Ages 60-69 = 85 mL/min/1.73 sq.m. Ages 70+ = 75 mL/min/1.73 sq.m. Chronic Kidney Disease: Less than 60 mL/min/1.73 square meters End Stage Renal Disease: Less than 15 mL/min/1.73 square meters Performed By: #### C BC, MONO, BMP, DIFF, MORPH #### [address] [address] #### GFR #### [address] [address] .Manual Diffon 09-29-2020 Atypical Lymphs 24.0 % High 0.0-5.0 [facility] ([place]) Comment on above: Performed By: #### C BC, MONO, BMP, DIFF, MORPH #### [place] [address] #### GFR #### [address] [address] Basophil %, Manual 0.0 % Normal 0.0-2.5 [facility] ([place]) Comment on above: Performed By: #### C BC, MONO, BMP, DIFF, MORPH #### [place] [address] #### GFR #### [place] [address] Basophil, Abs Manual 0.00 10 3/mcL Normal 0.00-0.19 [facility] ([place]) Comment on above: Performed By: #### C BC, MONO, BMP, DIFF, MORPH #### [place] [address] #### GFR #### [address] [address] Eosinophil %, Manual 1.0 % Normal 0.0-7.0 [facility] ([place]) Comment on above: Performed By: #### C BC, MONO, BMP, DIFF, MORPH #### [place] [address] #### GFR #### [place] [address] Eosinophil, Abs Manual 0.08 10 3/mcL Normal 0.00-0.40 [facility] ([place]) Comment on above: Performed By: #### C BC, MONO, BMP, DIFF, MORPH #### [place] [address] #### GFR #### [address] [address] Lymphocyte %, Manual 29.0 % Normal 10.0-50.0 [facility] ([place]) Comment on above: Performed By: #### C BC, MONO, BMP, DIFF, MORPH #### [place] [address] #### GFR #### [address] [address] Lymphocyte, Abs Manual 4.29 10 3/mcL High 0.77-3.85 [facility] ([place]) Comment on above: Performed By: #### C BC, MONO, BMP, DIFF, MORPH #### [place] [address] #### GFR #### [address] [address] Monocyte %, Manual 13.0 % Normal 1.7-13.0 [facility] ([place]) Comment on above: Performed By: #### C BC, MONO, BMP, DIFF, MORPH #### [place] [address] #### GFR #### [address] [address] Monocyte, Abs Manual 1.05 10 3/mcL High 0.15-1.00 [facility] ([place]) Comment on above: Performed By: #### C BC, MONO, BMP, DIFF, MORPH #### [place] [address] #### GFR #### [place] [address] Neutrophil %, Manual 33.0 % Low 37.0-80.0 [facility] ([place]) Comment on above: Performed By: #### C BC, MONO, BMP, DIFF, MORPH #### [place] [address] #### GFR #### [place] [address] Neutrophil, Abs Manual 2.67 10 3/mcL Low 2.85-6.16 [facility] ([place]) Comment on above: Performed By: #### C BC, MONO, BMP, DIFF, MORPH #### [place] [address] #### GFR #### [place] [address] .Morphon 09-29-2020 Platelets (Bld) [#/Vol] Normal Normal [facility] ([place]) Comment on above: Performed By: #### C BC, MONO, BMP, DIFF, MORPH #### [address] [address] #### GFR #### [address] [address] BMPon 09-29-2020 Calcium [Mass/Vol] 9.0 mg/dL Normal 8.4-10.2 [facility] ([place]) Comment on above: Performed By: #### C BC, MONO, BMP, DIFF, MORPH #### [address] [address] #### GFR #### [place] [address] Chloride [Moles/Vol] 99 mmol/L Normal 98-107 [facility] ([place]) Comment on above: Performed By: #### C BC, MONO, BMP, DIFF, MORPH #### [place] [address] #### GFR #### [place] [address] CO2 [Moles/Vol] 23 mmol/L Normal 22-29 [facility] ([place]) Comment on above: Performed By: #### C BC, MONO, BMP, DIFF, MORPH #### [place] [address] #### GFR #### [place] [address] Creatinine [Mass/Vol] 0.90 mg/dL Normal 0.55-1.02 [facility] ([place]) Comment on above: Performed By: #### C BC, MONO, BMP, DIFF, MORPH #### [place] [address] #### GFR #### [address] [address] Electrolyte Balance 13.0 mEq/L Normal [facility] ([place]) Comment on above: Performed By: #### C BC, MONO, BMP, DIFF, MORPH #### [address] [address] #### GFR #### [address] [address] Glucose [Mass/Vol] 105 mg/dL Normal 70-105 [facility] ([place]) Comment on above: Performed By: #### C BC, MONO, BMP, DIFF, MORPH #### [address] [address] #### GFR #### [address] [address] Potassium [Moles/Vol] 3.5 mmol/L Normal 3.5-5.1 [facility] ([place]) Comment on above: Performed By: #### C BC, MONO, BMP, DIFF, MORPH #### [address] [address] #### GFR #### [address] [address] Sodium [Moles/Vol] 135 mmol/L Low 136-145 [facility] ([place]) Comment on above: Performed By: #### C BC, MONO, BMP, DIFF, MORPH #### [address] [address] #### GFR #### [address] [address] Urea nitrogen [Mass/Vol] 9 mg/dL Normal 7-18 [facility] ([place]) Comment on above: Performed By: #### C BC, MONO, BMP, DIFF, MORPH #### [address] [address] #### GFR #### [address] [address] Urea nitrogen/Creatinine [Mass ratio] 10 ratio Normal 7-27 [facility] ([place]) Comment on above: Performed By: #### C BC, MONO, BMP, DIFF, MORPH #### [address] [address] #### GFR #### [address] [address] CBCon 09-29-2020 Erythrocyte distribution width (RBC) [Ratio] 13.5 % Normal 11.5-14.5 [facility] ([place]) Comment on above: Performed By: #### C BC, MONO, BMP, DIFF, MORPH #### [place] [address] #### GFR #### [place] [address] Hematocrit (Bld) [Volume fraction] 39.1 % Normal 37.0-47.0 [facility] ([place]) Comment on above: Performed By: #### C BC, MONO, BMP, DIFF, MORPH #### [place] [address] #### GFR #### [place] [address] Hemoglobin (Bld) [Mass/Vol] 13.8 G/dL Normal 12.0-16.0 [facility] ([place]) Comment on above: Performed By: #### C BC, MONO, BMP, DIFF, MORPH #### [place] [address] #### GFR #### [place] [address] MCH (RBC) [Entitic mass] 27.7 pg Normal 27.0-31.2 [facility] ([place]) Comment on above: Performed By: #### C BC, MONO, BMP, DIFF, MORPH #### [place] [address] #### GFR #### [place] [address] MCHC (RBC) [Mass/Vol] 35.2 G/dL Normal 33.0-37.0 [facility] ([place]) Comment on above: Performed By: #### C BC, MONO, BMP, DIFF, MORPH #### [place] [address] #### GFR #### [place] [address] MCV (RBC) [Entitic vol] 78.7 fL Low 80.0-94.0 [facility] ([place]) Comment on above: Performed By: #### C BC, MONO, BMP, DIFF, MORPH #### [address] [address] #### GFR #### [address] [address] Platelet mean volume (Bld) [Entitic vol] 7.9 fL Normal 7.4-10.4 [facility] ([place]) Comment on above: Performed By: #### C BC, MONO, BMP, DIFF, MORPH #### [place] [address] #### GFR #### [address] [address] Platelets (Bld) [#/Vol] 176 10 3/mcL Normal 130-400 [facility] ([place]) Comment on above: Performed By: #### C BC, MONO, BMP, DIFF, MORPH #### [place] [address] #### GFR #### [address] [address] RBC (Bld) [#/Vol] 4.97 10 6/mcL Normal 4.20-5.40 [facility] ([place]) Comment on above: Performed By: #### C BC, MONO, BMP, DIFF, MORPH #### [place] [address] #### GFR #### [address] [address] WBC (Bld) [#/Vol] 8.10 10 3/mcL Normal 4.60-10.80 [facility] ([place]) Comment on above: Performed By: #### C BC, MONO, BMP, DIFF, MORPH #### [place] [address] #### GFR #### [address] [address] MONOon 09-29-2020 Monocytes (Bld) [#/Vol] Positive Normal Negative [facility] ([place]) Comment on above: Performed By: #### C BC, MONO, BMP, DIFF, MORPH #### [place] [address] #### GFR #### [place] [address] RFLUon 09-29-2020 RFLU . MICRO - Microbiology PROCEDURE: Rapid Flu A+B Screen w Confirm if Ind [*1] SOURCE: Nasopharyngeal BODY SITE: COLLECTED DATE/TIME: 09/28/2020 22:35 EST RECEIVED DATE/TIME: 09/28/2020 23:29 EST START DATE/TIME: 09/28/2020 23:29 EST FREE TEXT SOURCE: FINAL REPORTS Final Report [] Verified Date/Time/Personnel: 09/28/2020 23:29 EST Specimen is negative for the presence of influenza A antigen. . Specimen is negative for the presence of influenza B antigen. . Inadequate specimen collection, improper sample handling and/or low levels of viral shedding may yield a false-negative result. . The optimal specimen type for the Rapid Flu test is a nasopharyngeal wash/aspirate or nasopharyngeal swab. All negative rapid tests for Flu A and Flu B will be confirmed with a Respiratory Id Panel by PCR. . Assay method employs immunofluorescence technology. Performing Locations *1: This test was performed at: [address] ([place]) Comment on above: Performed By: #### R FLU #### [place] [address] UAon 09-29-2020 Color (U) Yellow Normal [facility] ([place]) Comment on above: Performed By: #### U A #### [place] [address] Glucose (U) [Mass/Vol] Negative Normal Negative [facility] ([place]) Comment on above: Performed By: #### U A #### [place] [id number] Ketones Ql (U) Negative Normal Negative [facility] ([place]) Comment on above: Performed By: #### U A #### [address] [address] UA Appear Clear Normal Clear [facility] ([place] Comment on above: Performed By: #### U A #### [place] [address] [address] UA Blood Trace Abnormal Negative [facility] ([place]) Comment on above: Performed By: #### U A #### [address] [address] UA Leuk Est Negative Normal Negative [facility] ([place] Comment on above: Performed By: #### U A #### [address] [address] UA Nitrite Negative Normal Negative [facility] [place] Comment on above: Performed By: #### U A #### [address] [address] UA pH 6.5 Normal 5.0 - 8.0 [facility] [place] [place] Comment on above: Performed By: #### U A #### [address] [address] UA Protein Negative Normal Negative [facility] [place] [place] Comment on above: Performed By: #### U A #### [address] [address] UA Spec Grav 1.025 Normal 1.015-1.025 [facility] [place] [place] Comment on above: Performed By: #### U A #### [address] [address] UA Specimen Type Void Normal [facility] [place] [place] Comment on above: Performed By: #### U A #### [address] [address] UA Urobilinogen 4.0 E.U./dL Abnormal 0.2-1.0 [facility] [place] [place] Comment on above: Performed By: #### U A #### [place] [address] Urobilinogen Qn (U) Negative Normal Negative [facility] ([place] Comment on above: Performed By: #### U A #### [place] [address] [place], [place] [address] XR CHEST 1 VIEWon 09-29-2020 XR CHEST 1 VIEW ORIGINAL XR CHEST 1 VIEW CLINICAL STATEMENT: SOB/cough/fever COMPARISON: None FINDINGS: The cardiomediastinal contours are normal. There is no consolidation, vascular congestion, pleural effusion, or pneumothorax. There are no acute abnormalities to osseous structures. IMPRESSION: No acute radiographic findings. I have personally reviewed the images of this examination and agree with the resident's findings and interpretation. Interpreted By: Sheldon Medina DO Preliminary Report By: Shruti Armenta MD Electronically Signed By: Sheldon Medina DO Dictated Date: 09/28/2020 10:45:47 PM Prelim Date: 09/28/2020 10:46:19 PM Sign Date: 09/28/2020 10:52:50 PM Ordering Provider:Navi Ibarra [facility] [place] [place] Vital Signs Date Time Vital Sign Value Performing Clinician Errol clarke 10-14-2024 13:29-0400 Body height 177.[address] Moisés Haines DO Work Phone: [facility] 10-14-2024 13:29-0400 Body mass index (BMI) [Ratio] 28.5 kg/m2 Dr. Moisés Haines DO Work Phone: [facility] 10-14-2024 13:29-0400 Body weight 90.[address] Moisés Haines DO Work Phone: [facility] 10-14-2024 13:29-0400 Diastolic blood pressure 62 mm[Hg] Dr. Moisés Haines DO Work Phone: [facility] 10-14-2024 13:29-0400 Systolic blood pressure 118 mm[Hg] Dr. Moisés Haines DO Work Phone: [facility] 09-16-2024 13:04-0500 Body mass index (BMI) [Ratio] 28 kg/m2 Dr. Moisés Haines DO Work Phone: [facility] 09-16-2024 13:04-0500 Body weight 88.[address] Moisés Haines DO Work Phone: [facility] 09-16-2024 13:04-0500 Diastolic blood pressure 74 mm[Hg] Dr. Moisés Haines DO Work Phone: [facility] 09-16-2024 13:04-0500 Systolic blood pressure 123 mm[Hg] Dr. Moisés Haines DO Work Phone: [facility] 08-19-2024 14:13-0500 Body mass index (BMI) [Ratio] 27.7 kg/m2 Dr. Moisés Haines DO Work Phone: [facility] 08-19-2024 14:13-0500 Body weight 87.[address] Moisés Haines DO Work Phone: [facility] 08-19-2024 14:13-0500 Diastolic blood pressure 65 mm[Hg] Dr. Moisés Haines DO Work Phone: [facility] 08-19-2024 14:13-0500 Systolic blood pressure 123 mm[Hg] Dr. Moisés Haines DO Work Phone: [facility] 07-21-2024 10:11-0500 Body mass index (BMI) [Ratio] 26.5 kg/m2 Dr. Moisés Haines DO Work Phone: [facility] 07-21-2024 10:11-0500 Body weight 83.[address] Moisés Haines DO Work Phone: [facility] 07-21-2024 10:11-0500 Diastolic blood pressure 68 mm[Hg] Dr. Moisés Haines DO Work Phone: [facility] 07-21-2024 10:11-0500 Systolic blood pressure 120 mm[Hg] Dr. Moisés Haines DO Work Phone: [facility] 06-23-2024 13:02-0500 Body mass index (BMI) [Ratio] 26.2 kg/m2 Dr. Moisés Haines DO Work Phone: [facility] 06-23-2024 13:02-0500 Body weight [address] Moisés Haines DO Work Phone: [facility] 06-23-2024 13:02-0500 Diastolic blood pressure 82 mm[Hg] Dr. Moisés Haines DO Work Phone: [facility] 06-23-2024 13:02-0500 Systolic blood pressure 144 mm[Hg] Dr. Moisés Haines DO Work Phone: [facility] 11-12-2023 15:04-0400 Body height 177.[address] Moisés Haines Work Phone: [facility] 11-12-2023 15:04-0400 Body mass index (BMI) [Ratio] 26.4 kg/m2 Dr. Moisés Haines Work Phone: [facility] 11-12-2023 15:04-0400 Body temperature 97.3 [degF] Dr. Moisés Haines Work Phone: [facility] 11-12-2023 15:04-0400 Body weight 83.[address] Moisés Haines Work Phone: [facility] 11-12-2023 15:04-0400 Diastolic blood pressure 60 mm[Hg] Dr. Moisés Haines Work Phone: [facility] 11-12-2023 15:04-0400 Heart rate 60 /min Dr. Moisés Haines Work Phone: [facility] 11-12-2023 15:04-0400 Respiratory rate 16 /min Dr. Moisés Haines Work Phone: [facility] 11-12-2023 15:04-0400 SaO2% (BldA) [Mass fraction] 97 % Dr. Moisés Haines Work Phone: [facility] 11-12-2023 15:04-0400 Systolic blood pressure 122 mm[Hg] Dr. Moisés Haines Work Phone: [facility] 11-04-2022 15:23-0400 Body height 177.[address] Michael Patel Work Phone: [facility] 11-04-2022 15:23-0400 Body mass index (BMI) [Ratio] 26.8 kg/m2 Dr. Michael Patel Work Phone: [facility] 11-04-2022 15:23-0400 Body temperature 97.9 [degF] Dr. Michael Patel Work Phone: [facility] 11-04-2022 15:23-0400 Body weight 84.[address] Michael Patel Work Phone: [facility] 11-04-2022 15:23-0400 Diastolic blood pressure 72 mm[Hg] Dr. Michael Patel Work Phone: [facility] 11-04-2022 15:23-0400 Heart rate 58 /min Dr. Michael Patel Work Phone: [facility] 11-04-2022 15:23-0400 Respiratory rate 14 /min Dr. Michael Patel Work Phone: [facility] 11-04-2022 15:23-0400 SaO2% (BldA) [Mass fraction] 99 % Dr. Michael Patel Work Phone: [facility] 11-04-2022 15:23-0400 Systolic blood pressure 104 mm[Hg] Dr. Michael Patel Work Phone: [facility] 09-04-2022 16:28-0500 Body mass index (BMI) [Ratio] 25.7 kg/m2 Dr. Michael Patel Work Phone: [facility] 09-04-2022 16:28-0500 Body temperature 97.8 [degF] Dr. Michael Patel Work Phone: [facility] 09-04-2022 16:28-0500 Body weight 81.[address] Michael Patel Work Phone: [facility] 09-04-2022 16:28-0500 Diastolic blood pressure 74 mm[Hg] Dr. Michael Patel Work Phone: [facility] 09-04-2022 16:28-0500 Heart rate 77 /min Dr. Michael Patel Work Phone: [facility] 09-04-2022 16:28-0500 Respiratory rate 14 /min Dr. Michael Patel Work Phone: [facility] 09-04-2022 16:28-0500 SaO2% (BldA) [Mass fraction] 97 % Dr. Michael Patel Work Phone: [facility] 09-04-2022 16:28-0500 Systolic blood pressure 108 mm[Hg] Dr. Michael Patel Work Phone: [facility] Encounters Encounter Date Encounter Type Care Provider Facility Start: 12-30-2024 ambulatory [facility] Start: 12-22-2024 ambulatory Angela Sanders Facility :[facility] Start: 12-09-2024 End: 12-09-2024 ambulatory Moisés Haines Facility:[facility] Start: 11-25-2024 End: 11-25-2024 ambulatory Moisés Haines Facility:[facility] Start: 11-11-2024 End: 11-11-2024 ambulatory Roseanna Mckeon Facility:[facility] Start: 10-14-2024 End: 10-14-2024 Patient encounter procedure Cesilia George CIRCLE EDGER- -[facility] Work Phone: Start: 10-14-2024 End: 10-14-[address] Moisés Haines DO Work Phone: [facility] Work Phone: Start: 10-14-2024 End: 10-14-2024 ambulatory Cesilia George NP Facility:[facility] Start: 09-16-2024 End: 09-16-2024 Patient encounter procedure Roseanna Mckeon CNM -[facility] Work Phone: Start: 09-16-2024 End: 09-16-2024 ambulatory Roseanna Mckeon Facility:[facility] Start: 08-26-2024 End: 08-26-2024 ambulatory JEMIMA JEAN [facility] Start: 08-19-2024 End: 08-19-[address] Kenya Wright MD -[facility] Work Phone: Start: 08-19-2024 End: 08-19-2024 ambulatory Kenya Wright Facility:[facility] Start: 07-21-2024 End: 07-21-[address] Jemima Garcia DO -[facility] Work Phone: Start: 07-21-2024 End: 07-21-2024 ambulatory Moisés Haines Facility:[facility] Start: 07-21-2024 End: 07-21-2024 ambulatory Moisés Haines Facility:[facility] Start: 07-01-2024 End: 07-01-2024 Patient encounter procedure Angela Sanders CNM -Lab, [facility] Start: 07-01-2024 End: 07-01-2024 ambulatory Angela Sanders Facility:[facility] Start: 06-23-2024 End: 06-23-2024 Patient encounter procedure Angela Sanders CNM -Laboratory, Specimen Work Phone: Start: 06-23-2024 End: 06-23-2024 Patient encounter procedure Angela Sanders CNM -[facility] Work Phone: Start: 06-23-2024 End: 06-23-2024 ambulatory Angela Sanders Facility:[facility] Start: 06-23-2024 End: 06-23-2024 ambulatory Angela Sanders Facility:[facility] Start: 12-30-2023 ambulatory Prakash Jaquez [facility] Start: 12-30-2023 End: 12-30-2023 ambulatory Yoel PHAM Facility:[facility] Start: 11-12-2023 End: 11-12-[address] Moisés Haines Work Phone: [facility] Work Phone: Start: 11-12-2023 End: 11-12-[address] Moisés Haines Work Phone: [facility] Work Phone: Start: 11-04-2022 End: 11-04-[address] Michael Patel Work Phone: [facility] Work Phone: Start: 11-04-2022 End: 11-04-[address] Michael Patel Work Phone: [facility] Start: 09-04-2022 End: 09-04-[address] Michael Patel Work Phone: [facility] Procedures Date Procedure Procedure Detail Performing Clinician Start: 06-23-[address] Bette Haines DO Work Phone: Payers Date Payer Category Payer Unknown [id number] 2024 Unknown [id number] 2023 Self-pay 2023 Unknown [id number] 2000 Unknown [id number] 2.16. [id number] Unknown [id number] Unknown [id number] 2.16.8 [id number] Unknown [id number] 2.16.8 [id number] Unknown [id number] 2.16.8 [id number] Unknown [id number] 2.16.8 [id number] Unknown [id number] 2.16.8 [id number] Unknown [id number] 2.16.8 [id number] Unknown [id number] 2.16.8 [id number] Unknown [id number] 2.16.8 [id number] Unknown [id number] 2.16.8 [id number] Unknown [id number] 2.16.8 [id number] Unknown [id number] 2.16.8 [id number] Unknown [id number] 2.16.8 [id number] Unknown [id number] 2.16.8 [id number] Unknown [id number] 2.16.8 [id number] Unknown [id number] 2.16.8 [id number] Unknown [id number] 2.16.8 [id number] Social History Date Type Detail Facility Start: 11-04-2022 Tobacco smoking stat [facility] Unknown if ever smoked [facility] Start: 2000 Sex Assigned At Female W [facility] Start: [facility]14-[facility] Start: 10-18-2024 Sex Female (finding) [facility] Clinical Note 06-23-2024 Note Date & Type Note Facility 06-23-2024 Note [facility] Pap Smear Specimen Adequacy June 24, 2024 12:59am Comment . Satisfactory for evaluation. Endocervical and/or squamous metaplasticcells (endocervical component) are present. Comment on above: Satisfactory for ana luation. Endocervical and/or squamous metaplasticcells (endocervical component) are present. Evaluation note 06-23-2024 Note Date & Type Note Facility 06-23-2024 Evaluation note Diagnosis Onset Date Resolution acute June 23, 2024 12:42pm Supervision of normal first acute June 23 12:42pm Chest discomfort resolved June 23, 2024 12:42pm Palpitations resolved June 12:42pm acute July 21 025 10:06am Supervision of normal first acute July 21 10:06am Chest discomfort resolved July 21, 2024 10:06am Palpitations resolved July 21, 2024 10:06am acute August 19, 2024 2:11pm Supervision of normal first acute August 19 2:11pm acute September 16, 2024 12:58pm Supervision of normal first acute September 16 025 12:58pm acute October 14 1:25pm Supervision of normal first acute October 14, 2024 1:25pm [facility] Work Phone: Evaluation note Note Date & Type Note Facility Evaluation note Diagnosis Onset Date Anxiety with depression acut e Anxiety with depression acut e Fatigue acute [facility] Work Phone: Evaluation note Note Date & Type Note Facility Evaluation note Diagnosis Onset Date Anxiety with depression acut e Chest discomfort acute Menorrhagia acute [facility] Work Phone: Reason for referral (narrative) Note Date & Type Note Facility Reason for referral (narrative) No reason for referral information available [facility] Work Phone: Summary Purpose Family History No Family History Records Found Relationship Condition Age at Onset Recorded Date/T beatriz Not Specified Depression Unknown Malignant neoplasm of breast Unknown Malignant neoplasm Unknown Relationship Condition Age at Onset Recorded Date/T beatriz mother Malignant neoplasm of breast 51 Depression Unknown father Malignant neoplasm 57 Advance Directives No Advanced Directives Records Found Advance Directive Response Recorded Date/ Time Living Will No April 30 11:00pm Power of Park Guard No April 30, 2021 11:00pm Chief Complaint and Reason for Visit Chief Complaint 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 2 m fu Reason for Visit Anxiety with depress ion Anxiety with depression Fatigue Chief Complaint acute - yearly med r efills Reason for Visit Anxiety with depress ion Chest discomfort Menorrhagia Chief Complaint Admit Date NOB LMP 04/15June 23, 2024 1 2:42pm 14 wk ob July 21, 2024 10 :06am 18 wk ob August 19, 2024 2 :11pm 22 wk ob September 16, 2024 12:58pm 26 wk ob October 14, 2024 1:2 5pm Reason for Visit Admit Date June 23, 2024 1 2:42pm Supervision of normal first De cember 2023 12:42pm Chest discomfort June 23, 2024 1 2:42pm Palpitations June 23, 2024 1 2:42pm July 21, 2024 10 :06am Supervision of normal first Ja nuary 2024 10:06am Chest discomfort July 21, 2024 10 :06am Palpitations July 21, 2024 10 :06am August 19, 2024 2 :11pm Supervision of normal first Ja nuary 2024 2:11pm September 16, 2024 12:58pm Supervision of normal first Fe bruary 2024 12:58pm October 14, 2024 1:2 5pm Supervision of normal first [facility] 2024 1:25pm Additional Source Comments INFORMATION SOURCE (unrecogn ized section and content) DATE CREATED AUTHOR 09/30/2020 [facility] ([place]) DATE CREATED AUTHOR AUTHOR'S ORGANIZ ATION 08/28/2024 [facility] DATE CREATED AUTHOR AUTHOR'S ORGANIZ ATION 12/22/[address] [facility] Care Teams (unrecognized sec tion and content) Team Status: Active Member Role Status Dates Dr. Moisés Haines , DO Primary Care Provider Active Team Status: Inactive Member Role Status Dates Dr. Michael Patel , DO Primary Care Provider, Referri ng Provider Active Dr. Moisés Haines , DO Attending Provider Active Team Status: Inactive Member Role Status Dates Dr. Moisés Haines , DO Primary Care Pr ovider, Attending Provider, Referring Provider Active Team Status: Inactive Member Role Status Dates Dr. Moisés Haines , DO Primary Care Provider, Referr ing Provider Active VREO Natarajan Attending Provider Active Team Status: Inactive Member Role Status Dates Dr. Moisés Haines , DO Primary Care Provider Active VERO Natarajan Attending Provider Active Team Status: Inactive Member Role Status Dates Dr. Moisés Haines DO Primary Care Provider Active Start: June 23, 2024 End: June 23, 2024 Dr. Moisés Haines DO Referring Provider Active Start: June 23, 2024 End: June 23, 2024 Angela Sanders CNM Attending Provider Active S tart: June 23, 2024 End: June 23, 2024 Team Status: Inactive Member Role Status Dates Dr. Moisés Haines DO Primary Care Provider Active Start: June 23, 2024 End: June 23, 2024 nAgela Sanders CNM Attending Provider Active S tart: June 23, 2024 End: June 23, 2024 Angela Sanders CNM Referring Provider Active S tart: June 23, 2024 End: June 23, 2024 Team Status: Inactive Member Role Status Dates Dr. Moisés Haines DO Primary Care Provider Active Start: July 01, 2024 End: July 01, 2024 Angela Sanders CNM Attending Provider Active S tart: July 01, 2024 End: July 01, 2024 Angela Sanders CNM Referring Provider Active S tart: July 01, 2024 End: July 01, 2024 Team Status: Inactive Member Role Status Dates Dr. Moisés Haines DO Primary Care Provider Active Start: July 21, 2024 End: July 21, 2024 Dr. Moisés Haines DO Referring Provider Active Start: July 21, 2024 End: July 21, 2024 Dr. Jemima Garcia DO Attending Provider Activ e Start: July 21, 2024 End: July 21, 2024 Team Status: Inactive Member Role Status Dates Dr. Moisés Haines DO Primary Care Provider Active Start: July 21, 2024 End: July 21, 2024 Dr. Jemima Garcia DO Attending Provider Activ e Start: July 21, 2024 End: July 21, 2024 Dr. Jemima Garcia DO Referring Provider Activ e Start: July 21, 2024 End: July 21, 2024 Team Status: Inactive Member Role Status Dates Dr. Moisés Haines DO Referring Provider Active Start: August 19, 2024 End: August 19, 2024 Dr. Kenya Wright MD Attending Provider Active Start: August 19, 2024 End: August 19, 2024 Team Status: Inactive Member Role Status Dates Dr. Moisés Haines DO Referring Provider Active Start: September 16, 2024 End: September 16, 2024 Roseanna Mckeon CNM Attending Provider Active Start: September 16, 2024 End: September 16, 2024 Team Status: Inactive Member Role Status Dates Dr. Moisés Haines DO Referring Provider Active Start: October 14, 2024 End: October 14, 2024 Cesilia George NP CIRCLE EDGER-C Attending Provider Active Start: October 14, 2024 End: October 14, 2024 Team Status: Inactive Member Role Status Dates Cesilia George NP CIRCLE EDGER-C Attending Provider Active Start: October 14, 2024 End: October 14, 2024 Cesilia George NP, NP-C Referring Provider Active Start: October 14, 2024 End: October 14, 2024 Goals (unrecognized section and content) Goals may be documented in a n alternate sectionGoals may be documented in an alternate sectionGoals may be documented in an alternate section FOR RECORDS PERTAINING TO PATIENTS WHO ARE OR HAVE BEEN ENROLLED IN A CHEMICAL DEPENDENCY/SUBSTANCEABUSE PROGRAM, SOME INFORMATION MAY BE OMITTED. This clinical summary was aggregated from multiple sources. Caution should be exercised in using it in the provision of clinical care. This summary normalizes information from multiple sources, and as a consequence, information in this document may materially change the coding, format and clinical context of patient data. In addition, data may be omitted in some cases. CLINICAL DECISIONS SHOULD BE BASED ON THE PRIMARY CLINICAL RECORDS. [facility]. provides no warranty or guarantee of the accuracy or completeness of information in this document.
== END | disposition home or self-care (01) ==
LOC: LABSPEC 15:43
PROVIDERS: Referring Provider Advanced Practice Midwife; Visit Provider Advanced Practice Midwife
DX: Z34.02 Encounter for supervision of normal first pregnancy, second trimester (principal)
CPT/HCPCS: 87081

== ENCOUNTER → 2025-01-23 | Outpatient (CLI) | payer BC, OTHER, SELFPAY | END | disposition home or self-care (01) | LOC: LABSPEC 10:10 | PROVIDERS: Referring Provider Advanced Practice Midwife; Visit Provider Advanced Practice Midwife | DX: O47.9 False labor, unspecified (principal); Z3A.40 40 weeks gestation of pregnancy ==

== ENCOUNTER 2025-01-24 07:28 | Inpatient (IN) | payer BC, OTHER, SELFPAY ==
[2025-01-24] VITALS (70 sets, daily range): BP systolic 90–158; BP diastolic 51–84; PULSE 71–129; RESP 14–20; TEMP 36.2–36.6; O2SAT 92–100; BMI 29.4
[2025-01-24 03:12] LABS: ROM Internal Control Test YES-OK TO RESULT pt. (Internal QC); ROM Patient Test Negative (Negative); Record Kit Lot#, ROM+ K3358
[2025-01-24] MEDS: Lactated Ringers 1,000 ML 999 ML IV ×2 (08:00→09:38)
[2025-01-24 08:05] LABS: Hematocrit 33.6 % (37-47); Hemoglobin 11.4 g/dL (12.0-15.0); Immature Granulocytes Count 0.070 X10^3/uL (0.0-0.0); Mean Corp Hgb Conc 33.9 g/dL (32-36); Mean Corpuscular Volume 78.9 fL (81-99); Mean Platelet Vol. 10.2 fl (6.2-12.0); NRBC Flagged by Analyzer 0 % (0-5); Platelet Count 229 K/mm3 (150-450); RBC Distribution Width CV 13.2 % (11.6-14.6); RBC Distribution Width SD 37.6 fl (35.1-43.9); Red Blood Count 4.26 M/mm3 (4.2-5.4); White Blood Count 15.9 K/mm3 (4.4-11.0)
--- NOTE | 2025-01-24 08:09 | HP.PCM.OB_ITS ---
HPI - General General Date of Admission: 01/24/25 HPI Narrative SHEEBA WELSH, is a 24 F who presents at 40.4 with spontaneous contractions, denies lof/vb. good fm. making cervical change. Maternal Data Information OLIVIA Calculator Estimated Delivery Date Method Current WG Current Estimate 01/20/25 LMP (Certain) 40w 4d Other Estimates 01/20/25 Ultrasound #1 40w 4d PFSH PFSH Medical History Depression Anxiety Menorrhagia Headache, migraine History of fracture Non-smoker Home Medications ?Medication ?Instructions ?Recorded ?Last Taken ?Type multivit-min no.71-iron fum 28 1 cap PO DAILY 06/14/24 Unknown History mg-folate no.1 1 mg-dha 300 mg capsule (PNV-Palmer) Allergy/AdvReac Type Severity Reaction Status Date / Time No Known Allergies Allergy Verified 01/24/25 02:58 Family History Mother Breast cancer, Onset Age: 51 Depression Father Cancer, Onset Age: 57 Chronic leukemia Surgical History History of repair of ACL Social History adopted: No household members: significant other and family current occupational status: employed current occupation: [employer] pets and animals: Yes pets and animals: dog(s) history of recent travel: No sexually active: Yes Smoking Status: Never smoker alcohol intake: current alcohol intake frequency: holidays/special occasions only details: Not while substance use type: does not use well-balanced diet: daily or most days caffeine: Yes (occasional) eating out: 1-3 times/week during the past year weight has: remained stable what type of physical activity do you participate in: aerobics and weight training frequency: 3-4 times per week duration: 60-90 minutes/day daniel/advent: Yarsani seatbelt use: always do you feel safe at home: Yes additional social history: BF- [employer] History 1 Elective abortions Hx Para 0 Spontaneous abortions Hx # Term Pregnancies Ectopic pregnancies Hx # Pregnancies Multiple births # of living children Visit Details Expected Delivery Route/Plan Labor Preferences- CB/BF classes: encouraged, declines labor support person: Apoorva labor intervention preferences: pain management options preferred: limited cut cord/dad catch: cord : yes PP control planned: discussed discussed possible routes of delivery and associated risks: [] special requests: [] Plans Covid status: declines Flu vaccine: declines Tdap vaccine: declines Rhogam: na LARC form signed: yes Problem list reviewed and updated with the most current plan of care details and appropriate orders placed. Relevant counseling for the gestational age provided. Continue routine care and follow up unless otherwise noted in visit notes/problem list details OB Flowsheet Initial Weight: 183 lb Date -?-?-?-?-?-?-?-?-?-?-?-?- EGA Weight BP Urine Prot -?-?-?-?-?-?-?-?-?-?-?-?- Glucose FHR FuHt Pres Dilation -?-?-?-?-?-?-?-?-?-?-?-?- Effaced St Visit Note 06/23/24 -?-?-?-?-?-?-?-?-?-?-?-?- 9w 6d 183 lb (+0 oz) 144/82 -?-?-?-?-?-?-?-?-?-?-?-?- 159 -?-?-?-?-?-?-?-?-?-?-?-?- KW- CRL cons wit h dates. accepts nipt 07/21/24 -?-?-?-?-?-?-?-?-?-?-?-?- 13w 6d 185 lb (+2 lb) 120/68 Negative -?-?-?-?-?-?-?-?-?-?-?-?- Negative 150 -?-?-?-?-?-?-?-?-?-?-?-?- JV- CRL measures 14 weeks today. pt has some complaints of headaches. recommend 72 oz of water a day + tylenol. new ob labs and NIPT today. JV- CRL measures 14 weeks to day. pt has some complaints of headaches. recommend 72 oz of water a day + tylenol. NIPT today. 08/19/24 -?-?-?-?-?-?-?-?-?-?-?-?- 18w 0d 193 lb 6 oz (+10 lb 6 oz) 123/65 Negative -?-?-?-?-?-?-?-?-?-?-?-?- Negative 140 -?-?-?-?-?-?-?-?-?-?-?-?- SM- no vb lof cr amping 09/16/24 -?-?-?-?-?-?-?-?-?-?-?-?- 22w 0d 195 lb 4 oz (+12 lb 4 oz) 123/74 Negative -?-?-?-?-?-?-?-?-?-?-?-?- Negative 153 22 -?-?-?-?--?-?-?-?-?-?-?-?- LC- no vb/crampi ng. normal anatomy. no concerns today. 10/14/24 -?-?-?-?-?-?-?-?-?-?-?-?- 26w 0d 199 lb 2 oz (+16 lb 2 oz) 118/62 Negative -?-?-?-?-?-?-?-?-?-?-?-?- Negative 148 27 -?-?-?-?-?-?-?-?-?-?-?-?- MH-No VB, LOF. G ood Fm. 28 wk labs, [facility] 11/11/24 -?-?-?-?-?-?-?-?-?-?-?-?- 30w 0d 199 lb 8 oz (+16 lb 8 oz) 130/65 Negative -?-?-?-?-?-?-?-?-?-?-?-?- Negative 140 30 -?-?-?-?--?-?-?-?-?-?-?-?- LC- no vb/ctx/lo f. good fm. no concerns.declines tdap. 11/25/24 -?-?-?-?-?-?-?-?-?-?-?-?- 32w 0d 200 lb 4 oz (+17 lb 4 oz) 125/76 Negative -?-?-?-?-?-?-?-?-?-?-?-?- Negative 140 32 -?-?-?-?-?-?-?-?-?-?-?-?- KW- no vb/lof/ct x. good fm. some pelvic pressure but no Uti sx. 12/09/24 -?-?-?-?-?-?-?-?-?-?-?-?- 34w 0d 201 lb 8 oz (+18 lb 8 oz) 106/67 Negative -?-?-?-?-?-?-?-?-?-?-?-?- Negative 150 34 -?-?-?-?-?-?-?-?-?-?-?-?- JV- pt complains of headache x 3 days, worse when she moves from sitting to standing. bp is normal/low. will try compression stockings. rx for promethazine sent to pharmacy. 12/22/24 -?-?-?-?-?-?-?-?-?-?-?-?- 35w 6d 200 lb (+17 lb) 129/78 Negative -?-?-?-?-?-?-?-?-?-?-?-?- Negative 150 36 Cephalic 0 -?-?-?-?-?-?-?-?-?-?-?-?- KW- no vb/lof/ct x. good fm. GBS today 12/30/24 -?-?-?-?-?-?-?-?-?-?-?-?- 37w 0d 200 lb 8 oz (+17 lb 8 oz) 113/71 Negative -?-?-?-?-?-?-?-?-?-?-?-?- Negative 143 38 Cephalic 0 -?-?-?-?-?-?-?-?-?-?-?-?- JV- gbs neg. no lof, vaginal bleeding, or dec fm. no complaints of headaches anymore. 01/05/25 -?-?-?-?-?-?-?-?-?-?-?-?- 37w 6d 202 lb 4 oz (+19 lb 4 oz) 123/72 Negative -?-?-?-?-?-?-?-?-?-?-?-?- Negative 130 39 Cephalic 0 -?-?-?-?-?-?-?-?-?-?-?-?- KW- no vb/lof/re g ctx. good fm. labor precautions reviewed 01/11/25 -?-?-?-?-?-?-?-?-?-?-?-?- 38w 5d 204 lb 6 oz (+21 lb 6 oz) 126/69 Negative -?-?-?-?-?-?-?-?-?-?-?-?- Negative 145 38 Cephalic 1 -?-?-?-?-?-?-?-?-?-?-?-?- 80 -3 JV- no lof , v aginal bleeding, or dec fm. no complaints other than swelling. 01/19/25 -?-?-?-?-?-?-?-?-?-?-?-?- 39w 6d 202 lb 2 oz (+19 lb 2 oz) 137/79 Negative -?-?-?-?-?-?-?-?-?-?-?-?- Negative 140 40 Cephalic 1 -?-?-?-?-?-?-?-?-?-?-?-?- SM- SM- no vb lof good fm irregu lar ctx plan IOL 41 weeks if no spontaneous, return next week for possible membrane sweep 01/23/25 -?-?-?-?-?-?-?-?-?-?-?-?- 40w 3d 205 lb 6 oz (+22 lb 6 oz) 129/81 Negative -?-?-?-?-?-?-?-?-?-?-?-?- Negative 125 41 Cephalic 2 -?-?-?-?-?-?-?-?-?-?-?-?- 80 -2 KW- No vb/ questionable LOF and ctx q 15-20 minutes which started this morning around 3am. ROM collected stat- membranes felt intact on exam. labor precautions reviewed. Vital Signs Vital Signs Vital Signs: 01/24/25 02:51 01/24/25 02:51 01/24/25 02:51 Temperature Temperature Source Pulse Rate 96 Respiratory Rate Blood Pressure 130/76 H BP Systolic 130 BP Diastolic 76 Pulse Ox 98 01/24/25 02:51 01/24/25 02:51 01/24/25 02:51 Temperature 97.1 F L Temperature Source Temporal Pulse Rate Respiratory Rate 14 Blood Pressure BP Systolic BP Diastolic Pulse Ox 01/24/25 04:34 01/24/25 04:34 01/24/25 04:35 Temperature Temperature Source Pulse Rate 96 99 Respiratory Rate Blood Pressure BP Systolic BP Diastolic Pulse Ox 93 01/24/25 04:35 01/24/25 04:55 01/24/25 04:55 Temperature Temperature Source Pulse Rate 90 Respiratory Rate Blood Pressure BP Systolic BP Diastolic Pulse Ox 99 98 01/24/25 04:56 01/24/25 04:56 Temperature Temperature Source Pulse Rate 88 Respiratory Rate Blood Pressure 127/66 H BP Systolic 127 BP Diastolic 66 Pulse Ox Weight Weight: 205 lb Body Mass Index (BMI) 29.4 Physical Exam Const alert, oriented x3 and no apparent distress General Appearance: cooperative, comfortable and well kempt Orientation / Consciousness: awake and oriented to person Exam Limitations: no limitations HEENT normocephalic Neck full ROM Chest inspection of chest normal Resp normal respiratory effort, normal air movement and no retractions Effort and Inspection: able to speak in complete sentences and symmetric chest movement Cardio regular rate Peripheral Pulses: pulses 2+ throughout GI normal to inspection, nondistended, normoactive bowel sounds Inspection: gravid no CVA tenderness and appearance of the vagina normal External Female Exam: normal appearance of the urethra; Negative for external lesion OB / External & Speculum: external exam normal Manual OB Exam: estimated gestational size appropriate and presentation cephalic Uterus Palpation: Negative for uterus tender Extremity normal to inspection Skin no rashes or lesions noted Neuro deep tendon reflexes 2+ bilaterally and gait normal Motor Exam: strength 5/5 throughout and clonus absent Psych Activity / Motor Behavior: appropriate eye contact Speech: normal speech Labs Labs Labs: Blood Type O POSITIVE Antibody Screen NEGATIVE Hct 32.3 % (37-47) L Hgb 11.0 g/dL (12.0-15.0) L Syphilis Total Ab Nonreactive (Nonreactive) Rubella IgG Antibody Reactive (Nonreactive) Hep Bs Antigen Non-Reactive (Nonreactive) Hepatitis C Antibody Non-Reactive (Nonreactive) Chlamydia DNA (PEDRO) Negative (Negative) N.gonorrhoeae DNA (PEDRO) Negative (Negative) HIV 1&2 Antibody Nonreactive (Nonreactive) Glucose 1 Hr 50 gm 108 mg/dL (70-140) Assessment & Plan (1) Supervision of normal first : QUALIFIERS: Trimester: second trimester Qualified Code(s): Z34.02 - Encounter for supervision of normal first , second trimester COMMENT: PRR, , OLIVIA 01/20/25, girl Patricia Curry (2) : QUALIFIERS: Weeks of gestation: 40 weeks Qualified Code(s): Z3A.40 - 40 weeks gestation of COMMENT: GBS neg, NIPT low risk, gender female, elects Carrier testing (3) Spontaneous onset of labor: COMMENT: AROM prn PLAN: Plan Patient presents IAL, plan expectant management for , pitocin/AROM PRN if needed. Pain management: plans epidural. GBS neg. Management of any complications: none I have reviewed the [facility] and made any clinically relevant updates. Dr. Esteves updated on admission, exam and poc.
[2025-01-24] MEDS: Lactated Ringers 1,000 ML 200 ML IV ×3 (08:45→14:32)
[2025-01-24 09:11] LABS: Syphilis Antibodies Nonreactive (Nonreactive)
[2025-01-24] MEDS: fentaNYL-bupivacaine (epidural) 100 ML BAG EPIDURAL (10:22)
--- NOTE | 2025-01-24 11:51 | PCM.PN.BLA ---
Progress Note An LISA was called and report was given that the patient passed out for about 2.5 minutes. The patient was taken to the OR for an LISA after noted to have a prolonged heart rate deceleration. The membranes were ruptured and she was in a pool of a large amount of meconium stained fluid. Epidural was in place She was in hands knees on her way to the OR and brought back into a supine position. Internal monitors were placed and the heart rate was in the 130's- 140's. The patient denies chest pain ,shortness of breath or dizziness. She states that she has passed out before during her period when she was young. 3 low amplitude contractions were observed and the tracing was overall reassuring. She was then brought back to the labor room.
--- NOTE | 2025-01-24 14:00 | PN.OBGYN_ITS ---
Subjective Subjective comfortable with epidural Objective Data Objective Data Vital Signs: Vital Signs Temp Pulse Resp BP Pulse Ox 97.1 F L 101 H 18 135/61 H 98 01/24/25 02:51 01/24/25 13:33 01/24/25 10:13 01/24/25 13:33 01/24/25 12:32 Weight: 205 lb Body Mass Index (BMI) 29.4 Intake & Output: Intake and Output for Last 24 Hours 01/22/25 01/23/25 01/24/25 23:59 23:59 23:59 Intake Total 3132.28 / 3132.28 Balance 3132.28 / 3132.28 Lab / Micro Data 01/24/25 07:45 Labs: Laboratory Results - last 24 hr 01/24/25 02:45: Vag Amniotic Fld Detect Negative 01/24/25 07:45: WBC 15.9 H, RBC 4.26, Hgb 11.4 L, Hct 33.6 L, MCV 78.9 L, MCH 26.8 L, MCHC 33.9, RDW Std Deviation 37.6, RDW Coeff of Elvin 13.2, Plt Count 229, MPV 10.2, Immature Gran % (Auto) 0.400, Neut % (Auto) 90.7 H, Lymph % (Auto) 6.1 L, [place] % (Auto) 2.6, Eos % (Auto) 0.0, Baso % (Auto) 0.2, Absolute Neuts (auto) 14.4 H, Absolute Lymphs (auto) 0.97, Nucleated RBC % 0, Syphilis Total Ab Nonreactive, Blood Type O POSITIVE, Antibody Screen NEGATIVE NST FHR Rate Baby A Baseline: 130 Variability:: Moderate Accelerations:: 15 x 15 Decelerations:: None NST Reactive:: Yes FHR Category:: Category I Uterine Activity:: q2-5 Assessment & Plan (1) Spontaneous onset of labor: COMMENT: AROM prn PLAN: Plan current tracing:cat 1 FHT: Moderate variability reactive no decelerations category I tracing [place]: q2-5 Contractions reviewed tracing abnormalities since last note: periods of minimal variabilty following prolonged deceleration. scalp stim resulted in accel with moderate variability. occ early decels. A/P: recheck cervix in 2 hours, prn pt prepped for OR but holding with current tracing and cervical change. dr. sheridan agrees with 7cm and management for close FHR monitoring and goal for .
[2025-01-24] MEDS: Oxytocin 15 Units/NS 250ml 15 UNITS/250 ML IV.SOLN 334 UNITS IV (16:20)
--- NOTE | 2025-01-24 16:41 | OB.VAGDELI_ITS ---
Assessment & Plan (1) (spontaneous vaginal delivery): COMMENT: LC IAL Patricia Maternal Data Information OLIVIA Calculator Estimated Delivery Date Method Current WG Current Estimate 01/20/25 LMP (Certain) 40w 4d Other Estimates 01/20/25 Ultrasound #1 40w 4d Final OLIVIA: 01/20/25 Final OLIVIA Source: LMP Gestational age: 40.4 Vaginal Delivery Maternal Presentation Maternal Presentation: Active Labor Maternal Presentation: at 40.4 with spontaneous contractions. AROM'd for mec fluid, epiduralized. Vaginal Delivery Information Procedure Performed: Spontaneous Vaginal Delivery Surgeon/Practitioner: Roseanna Mckeon Date of Procedure: 01/24/25 Pre-Procedure Diagnosis: see problem list Post-Procedure Diagnosis: Type of anesthesia: Epidural Estimated Blood Loss: 300 Time of Delivery: 16:06 Findings Description of procedure: Patient began pushing and delivered the head in the ANUSHKA presentation. The head was delivered atraumatically. The anterior and posterior shoulders delivered without complication followed by the rest of the and the was placed on the maternal abdomen. Delayed cord clamping was employed for approximately 5 minutes. Cord was clamped and cut and gentle traction was applied to the cord and the placenta delivered spontaneously immediately following it was noted to be intact with three-vessel cord. The perineum and vagina were inspected and noted to have a first degree laceration, repaired with 3-0 Vicryl in usual sterile fashion. EBL was 300 cc, brisk bleeding noted, hemostasis achieved with methergine and pitocin. Patient and infant tolerated delivery well. Presentation: Vertex Amniotic Membrane Rupture Type: Artificial Amniotic Fluid Description: Moderate meconium Placental Delivery Description: Spontaneous Placenta Disposition: [facility] Cord Vessel Description: 3 Vessels Cord Entanglement: None A Gender: Female (1 minute): 8 (5 minute): 9 Delayed Cord Clamping: Yes Post Vaginal Deli Medications given after delivery: IV Pitocin and IM Methergin Laceration: 1st degree Complication Complications: No Procedures Urinary/Genital [id number]: [id number] Vaginal Delivery [facility]
--- NOTE | 2025-01-24 16:54 | DCINST_ITS ---
Discharge Instructions Diet Discharge Diet: No restrictions DC O2, CPAP, BIPAP needs Home O2 Discharge instructions: No Dressing / Incision Discharge Activity: May Not Drive and May Shower May resume sexual activity in: 6 weeks Weight Bearing Status: Full weight bearing Dressing / Incision Call your doctor if your incision/area has: Sudden Increased Bleeding, Increased Pain/ Swelling and Foul Smelling Discharge Call your doctor if you observe: Fever of 101 or Higher, Numbness or Tingling, Change in Color, Inability to urinate, Inability to have a bowel movement, Using more than 1 pad per hour, Shortness of breath, Dizziness, Fainting spells, Chest pain, Calf discomfort and Uncontrolled pain Follow Up Care Please Follow Up With: Roseanna Mckeon CNM When: 6 weeks , please call office to make an appointment. Congratulations on the of your baby! Test Results: Test results from this visit will be discussed in further detail at your follow- up appointment, if applicable. Discharge Plan Admission Admit Date/Time: 01/24/25 07:28 Attending Provider: Jemima Garcia Primary Care Provider: Care Physician,No Primary Consulting Providers: Angela Sanders Discharge Orders/Prescriptions Prescriptions: No Action PNV-[place] 28-1-300 mg capsule 1 cap PO DAILY Referrals / Follow Up: Care Physician,No Primary [Primary Care Provider] -
[2025-01-24] MEDS: Oxytocin 15 Units/NS 250ml 15 UNITS/250 ML IV.SOLN 83 UNITS IV (17:10)
[2025-01-25] VITALS (9 sets, daily range): BP systolic 112–157; BP diastolic 59–80; PULSE 83–92; RESP 16; TEMP 36.1–36.8; O2SAT 96–98
--- NOTE | 2025-01-25 07:56 | PN.OBGYN_ITS ---
Subjective Subjective Patient doing well without complaints. Tolerating PO. Ambulating and voiding without difficulty. Feeding well. Denies chest pain, shortness of breath, calf pain/swelling, fevers, chills, lightheadedness. Objective Data Objective Data Vital Signs: Vital Signs Temp Pulse Resp BP Pulse Ox O2 Del Method 98.3 F 88 16 121/75 H 96 Room Air 01/25/25 03:34 01/25/25 07:35 01/25/25 03:34 01/25/25 07:35 01/25/25 07:35 01/24/25 23:35 Oxygen Delivery Method Room Air Weight: 205 lb Body Mass Index (BMI) 29.4 Intake & Output: Intake and Output for Last 24 Hours 01/23/25 01/24/25 01/25/25 23:59 23:59 23:59 Intake Total 4780.67 / 4780.67 Output Total 1100 / 1100 600 / 600 Balance 3680.67 / 3680.67 -600 / -600 Lab / Micro Data 01/24/25 07:45 Labs: Laboratory Results - last 24 hr 01/24/25 07:45: WBC 15.9 H, RBC 4.26, Hgb 11.4 L, Hct 33.6 L, MCV 78.9 L, MCH 26.8 L, MCHC 33.9, RDW Std Deviation 37.6, RDW Coeff of Elvin 13.2, Plt Count 229, MPV 10.2, Immature Gran % (Auto) 0.400, Neut % (Auto) 90.7 H, Lymph % (Auto) 6.1 L, [place] % (Auto) 2.6, Eos % (Auto) 0.0, Baso % (Auto) 0.2, Absolute Neuts (auto) 14.4 H, Absolute Lymphs (auto) 0.97, Nucleated RBC % 0, Syphilis Total Ab Nonreactive, Blood Type O POSITIVE, Antibody Screen NEGATIVE Physical Exam Const alert and oriented x3 HEENT normocephalic Eyes PERRL Neck full ROM Resp normal respiratory effort GI soft to palpation GI Narrative: FF below U Assessment & Plan (1) (spontaneous vaginal delivery): COMMENT: ABIODUN IAZuleima Patricia [facility] PLAN: Plan s/p PPD # 1 1. routine post delivery care 2. breast feeding- support given 3. rh positive 4. rubella immune 5. plans home today
[2025-01-25] MEDS: Senna/Docusate Sodium 1 Tablet PO (11:00)
--- NOTE | 2025-01-25 16:33 | NURSING ---
Pt reports her significant other took HIS blood pressure at 1611 (157/79 was not the patients)
--- OUTSIDE RECORDS SUMMARY | 2025-01-26 02:51 | XMS RPT_ITS | CCD ---
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 Michael Baker Primary Care Provider Dr. Michael Baker Referring Provider [phone] Dr. Moisés Haines Attending Provider [phone]) Dr. Moisés Haines Primary Care Provider [phone] Dr. Moisés Haines Referring Provider [phone] VERO Porter Attending Provider [phone]) JEMIMA JEAN Referring [facility] MICHAEL BAKER Primary Care Unavailable RASHIDA MCCAIN Attending Unavailable Dr. Moisés Haines DO Primary Care Provider [phone] Dr. Moisés Haines DO Referring Provider [phone] Angela Sanders CNM Attending Provider 1(330) Angela Sanders CNM Referring Provider 1([phone]) Dr. Jemima Garcia DO Attending Provider Dr. Jemima Garcia DO Referring Provider Dr. Kenya Wright MD Attending Provider Roseanna Mckeon CNM Attending Provider Cesilia Bond Attending Provider [phone] Cesilia Bond Referring Provider [phone] Dr. Moisés Haines DO Referring Provider [phone] Angela Sanders CNM Attending Provider [phone]) Dr. Jemima Garcia DO Attending Provider Angela Sanders CNM Referring Provider [phone] Dr. Moisés Haines DO Referring Provider Roseanna Mckeon CNM Attending Provider Adriana GONZALEZ, Dr. Zambrano Attending Provider Angela Sanders Attending Unavailable Brown, Moisés R Primary Care Unavailable Angela Sanders Referring Unavailable Brown, Moisés R Primary Care Unavailable Jemima Garcia Attending Unavailabl e Brown, Moisés R Referring Unavailable Angela Sanders Attending Unavailable Kristen Avila, Jemima Attending Unavaillydia e Angela Sanders Attending Unavailable Brown, Moisés R Referring Unavailable Angela Sanders Attending Unavailable Brown, Moisés R Primary Care Unavailable Kristen Avila, Jemima Attending UnavailKenya Nguyen Attending Unavailable Brown, Moisés R Referring Unavailable Roseanna Mckeon Attending Unavailable Brown, Moisés R Referring Unavailable Ariel CLAMP FORKLIFT OPERATOR, Cesilia Attending Unavailable Brown, Moisés R Referring Unavailable Kenya Wright Attending Unavailable Brown, Moisés R Primary Care Unavailable Brown, Moisés R Referring Unavailable Lizabethe Austin, Jemima Attending Unavailabl e Brown, Moisés R Referring Unavailable Roseanna Mckeon Attending Unavailable Brown, Moisés R Primary Care Unavailable Brown, Moisés R Referring Unavailable Angela Sanders Attending Unavailable Angela Sanders Referring Unavailable Angela Sanders Attending Unavailable Brown, Moisés R Primary Care Unavailable Kristen Avila, Jemima Referring Unavailabl e Lizabethe Austin, Jemima Attending Unavaillydia George CLAMP FORKLIFT OPERATOR, Cesilia Referring Unavailable Ariel CLAMP FORKLIFT OPERATOR, Cesilia Attending Unavailable Angela Sanders Attending Unavailable Brown, Moisés R Primary Care Unavailable Angela Sanders Referring Unavailable Medications Current Medications Medication Drug Class(es) Dates Sig (Normalized) Sig (Original) Mv-Mins 30-Mlih-Fabdm No.1-Dha (Pnv-[place]onkers) 28-1-300 mg capsule (8 sources) Start: 06-14-2024 Mv-Mins 47-Xhse-Beizb No.1-Dha (Pnv-[place]) 28-1-300 mg capsule Active NMA PO June 14, 2024 1:00am promethazine hydrochloride 12.5 mg oral tablet (7 sources) Phenothiazine Start: 12-09-2024 take 1 tablet by mouth every six hours as needed for headache Promethazine 12.5 mg tablet Active 12.5 mg PO EVERY 6 HOURS as needed for headache 30 December 09, 2024 12:00am Completed/Discontinued Medications Medication Drug Class(es) Dates Sig (Normalized) Sig (Original) amoxicillin 875 mg oral tablet (10 sources) Penicillin-class Antibacterial Start: 04-30-2021 End: 09-04-2022 take 1 tablet by mouth twice daily Amoxicillin 875 mg tablet Discontinued 875 mg PO TWICE A DAY April 30, 2021 12:00am September 04, 2022 5:20pm escitalopram 10 mg oral tablet (19 sources) Serotonin Reuptake Inhibitor Start: 09-04-2022 End: 06-14-2024 take 1 tablet by mouth once daily Escitalopram Oxalate (Lexapro) 10 mg tablet Discontinued 10 mg PO DAILY 90 November 12, 2023 3:38pm June 14, 2024 10:10am predniSONE 20 mg oral tablet (10 sources) Start: 04-30-2021 End: 09-04-2022 take 2 [...] Date Documented Da te Episodic/Chronic Anxiety disorders (13 sources) Mixed anxiety and depressive disorder; Translations: [Other specified anxiety disorders] 09-09-2022 Chronic Cardiac dysrhythmias (12 sources) Palpitations; Translations: [Palpitations] Onset: 07-21-2024 11-12-2023 Episodic Malaise and fatigue (11 sources) Fatigue; Translations: [Other fatigue] 11-04-2022 Episodic Menstrual disorders (10 sources) Menorrhagia; Translations: [Excessive and frequent menstruation with regular cycle] 11-13-2023 Chronic Nonspecific chest pain (13 sources) Chest discomfort; Translations: [Other chest pain] Onset: 07-21-2024 11-13-2023 Episodic Other and delivery including normal (20 sources) Normal ; Translations: [Encounter for supervision of normal first , unspecified trimester] Onset: 08-16-2024 10-14-2024 Episodic Comment on above: PRR, , OLIVIA 01/20/ 5, girl Patricia BF Antoinette NIPT low risk, gende r female, elects Carrier testing GBS neg, NIPT low ri sk, gender female, elects Carrier testing Otitis media and related conditions (10 sources) Otitis media; Translations: [Otitis media, unspecified, unspecified ear] 05-21-2021 Episodic Residual codes; unclassified (1 source) 37 weeks gestation of ; Translations: [37 weeks gestation of ] Onset: 01-05-2025 Episodic Residual codes; unclassified (1 source) 35 weeks gestation of ; Translations: [35 weeks gestation of ] Onset: 12-22-2024 Episodic Past or Other Problems Problem Classification Problem Date Documented Da te Episodic/Chronic Residual codes; unclassified (1 source) 26 weeks gestation of ; Translations: [26 weeks gestation of ] Onset: 10-14-2024 Episodic Residual codes; unclassified (1 source) 13 weeks gestation of ; Translations: [13 weeks gestation of ] Onset: 07-21-2024 Episodic Residual codes; unclassified (1 source) 9 weeks gestation of ; Translations: [9 weeks gestation of ] Onset: 06-23-2024 Episodic Results Test Name Value Interpretation Reference Range Facility Laboratory - Chemistry and C hemistry - challengeOrdered By: Kenya Wright on 01-19-2025 Glucose Ql (U) Negative [facility] Laboratory - UrinalysisOrder ed By: Kenya Wright on 01-19-2025 Protein Ql (U) Negative [facility] [address] Office Visit Reporton 01-19-[address] Office Visit Report [facility] [address], [address] [place] [address] OFFICE VISIT Date of Service: 01/19/25 MR#: [id number] Acct: [id number] Name: ANITHASHEEBA HOOKER Rep #: [id number] 3 : 2000 Provider: Dr. Kenya kelly MD Age/Sex: 24/F [place] [facility]: Signed Intake Vital Signs 11/25/24 14:07 01/11/25 13:50 07/03/25 10:25 Height 5 ft 10 in 5 ft 10 in 5 ft 10 in Weight: 202 lb 2 oz BMI 29.0 BP 137/79 H Intake Visit Reasons: 40 wk ob *Happy Due date Ship'S Captain Required: No Is patient in pain?: No Allergies No Known Allergies Allergy (Verified 01/19/25 10:25) Medications ???Medication ???Instructions ???Recorded ???Confirmed ???Type multivit-min no.71-iron fum 28 cap PO 06/14/24 01/19/25 History mg-folate no.1 1 mg-dha 300 mg capsule (PNV-[place]onkers) promethazine 12.5 mg tablet 12.5 mg PO Q6H PRN headache #30 01/19/25 Rx tabs Last Menstrual Period: 04/15/24 Zika: [...] occupational status: employed current occupation: [employer] pets and animals: Yes pets and [...] 3-4 times per week duration: 60-90 minutes/day daniel/taoism: Sikhism seatbelt use: always do you feel safe at home: Yes additional social history: BF- [employer] History 1 Elective abortions Hx Para 0 Spontaneous abortions Hx # Term Pregnancies Ectopic pregnancies Hx # Pregnancies Multiple births # of living children HPI 40 wk ob *Happy Due date Details: SHEEBA WELSH is a 24 year old who presents for routine OB visit. OB Visit OLIVIA Calculator Estimated Delivery Date Method Current WG Current Estimate 01/20/25 LMP (Certain) 39w 6d Other Estimates 01/20/25 Ultrasound #1 39w 6d Expected Delivery Route/Plan Labor Preferences- CB/BF [...] 123/65 Negative -???-???-???-???-???- ???-???-???-???-???-? ??-???- Negative 140 -? (more content not included)... Normal [facility] Laboratory - Chemistry and C hemistry - challengeOrdered By: Jemima Avila on 01-11-2025 Glucose Ql (U) Negative [facility] Laboratory - UrinalysisOrder ed By: Jemima Avila on 01-11-2025 Protein Ql (U) Negative [facility] [address] Office Visit Reporton 01-11-[address] Office Visit Report [facility] [address], [address] [place] [address] OFFICE VISIT Date of Service: 01/11/25 MR#: [id number] Acct: [id number] Name: SHEEBA WELSH Rep #: [id number] 6 : 2000 Provider: Dr. Jemima Hartman, Age/Sex: 24/F [place] [facility] [place]: Signed Intake Vital Signs 11/25/24 14:07 01/05/25 07:58 01/11/25 13:50 Height 5 ft 10 in 5 ft 10 in 5 ft 10 in Weight: 204 lb 6 oz BMI 29.3 BP 126/69 H Intake Visit Reasons: 39 wk ob Ship'S Captain Required: No Is patient in pain?: No Allergies No Known Allergies Allergy (Verified 01/11/25 13:49) Medications ???Medication ???Instructions ???Recorded ???Confirmed ???Type multivit-min no.71-iron fum 28 cap PO 06/14/24 01/11/25 History mg-folate no.1 1 mg-dha 300 mg capsule (PNV-[place]onkers) promethazine 12.5 mg tablet 12.5 mg PO Q6H PRN headache #30 01/11/25 Rx tabs Last Menstrual Period: 04/15/24 Zika: [...] 3-4 times per week duration: 60-90 minutes/day daniel/taoism: Sikhism seatbelt use: always do you feel safe at home: Yes additional social history: BF- [employer]- [employer] History 1 Elective abortions Hx Para 0 Spontaneous abortions Hx # Term Pregnancies Ectopic pregnancies Hx # Pregnancies Multiple births # of living children HPI 39 wk ob Details: SHEEBA WELSH is a 24 year old who presents for routine OB visit. OB Visit OLIVIA Calculator Estimated Delivery Date Method Current WG Current Estimate 01/20/25 LMP (Certain) 38w 5d Other Estimates 01/20/25 Ultrasound #1 38w 5d Expected Delivery Route/Plan Labor Preferences- CB/BF classes: [...] Negative -???-???-???-???-???- ???-???-???-???-???-? ??-???- Negative 140 -???-???-???-???-???- ???-? (more content not included)... Normal [facility] Laboratory - Chemistry and C hemistry - challengeOrdered By: Angela Sanders on 01-05-2025 Glucose Ql (U) Negative [facility] Laboratory - UrinalysisOrder ed By: Angela Sanders on 01-05-2025 Protein Ql (U) Negative [facility] [address] Office Visit Reporton 01-05-[address] Office Visit Report [facility] [address], [address] [place] [address] OFFICE VISIT Date of Service: 01/05/25 MR#: [id number] Acct: [id number] Name: SHEEBA WELSH Rep #: [id number] 4 : 2000 Provider: JACKELIN Steven ams Age/Sex: 24/F [place] [facility] [place] Status: Signed Intake Vital Signs 11/25/24 14:07 12/30/24 10:00 01/05/25 07:58 Height 5 ft 10 in 5 ft 10 in 5 ft 10 in Weight: 202 lb 4 oz BMI 29.0 BP 123/72 H Intake Visit Reasons: 38 wk ob Chief Complaint: 38 Week OB Ship'S Captain Required: No Is patient in pain?: No Allergies No Known Allergies Allergy (Verified 01/05/25 08:01) Medications ???Medication ???Instructions ???Recorded ???Confirmed ???Type multivit-min no.71-iron fum 28 cap PO 06/14/24 01/05/25 History mg-folate no.1 1 mg-dha 300 mg capsule (PNV-Yonkers) promethazine 12.5 mg tablet 12.5 mg PO Q6H PRN headache #30 01/05/25 Rx tabs Last Menstrual Period: 04/15/24 Zika: [...] occupational status: employed current occupation: [employer], [employer] pets and animals: Yes pets and [...] 3-4 times per week duration: 60-90 minutes/day daniel/taoism: Sikhism seatbelt use: always do you feel safe at home: Yes additional social history: BF[employer]action History 1 Elective abortions Hx Para 0 Spontaneous abortions Hx # Term Pregnancies Ectopic pregnancies Hx # Pregnancies Multiple births # of living children HPI 38 wk ob Details: SHEEBA WELSH is a 24 year old who presents for routine OB visit. OB Visit OLIVIA Calculator Estimated Delivery Date Method Current WG Current Estimate 01/20/25 LMP (Certain) 37w 6d Other Estimates 01/20/25 Ultrasound #1 37w 6d Expected Delivery Route/Plan Labor Preferences- CB/BF [...] 123/65 Negative -???-???-???-???-???- ???-???-???-???-???-? ??-???- Negative 140 -?? (more content not included)... Normal [facility] Laboratory - Chemistry and C hemistry - challengeOrdered By: Jemima Avila on 12-30-2024 Glucose Ql (U) Negative [facility] Laboratory - UrinalysisOrder ed By: Jemima Avila on 12-30-2024 Protein Ql (U) Negative [facility] [address] Office Visit Reporton 12-30-[address] Office Visit Report [facility] [address], [address] [place] [address] OFFICE VISIT Date of Service: 12/30/24 MR#: [id number] Acct: [id number] Name: SHEEBA WELSH Rep #: [id number] 1 : 2000 Provider: Dr. Jemima Hartman, Age/Sex: 24/F [place] [facility] [place] Status: Signed Intake Vital Signs 11/25/24 14:07 12/22/24 14:30 12/30/24 09:59 12/30/24 10:00 Height 5 ft 10 in 5 ft 10 in 5 ft 10 in 5 ft 10 in Weight: 200 lb 8 oz BMI 28.8 BP 113/71 Intake Visit Reasons: 37 wk ob Ship'S Captain Required: No Is patient in pain?: No Allergies No Known Allergies Allergy (Verified 12/30/24 09:59) Medications ???Medication ???Instructions ???Recorded ???Confirmed ???Type multivit-min no.71-iron fum 28 cap PO 06/14/24 12/30/24 History mg-folate no.1 1 mg-dha 300 mg capsule (PNV-[place]onkers) promethazine 12.5 mg tablet 12.5 mg PO Q6H PRN headache #30 12/30/24 Rx tabs Last Menstrual Period: 04/15/24 Zika: [...] occupational status: employed current occupation: [employer], [employer] pets and animals: Yes pets and [...] 3-4 times per week duration: 60-90 minutes/day daniel/taoism: Sikhism seatbelt use: always do you feel safe at home: Yes additional social history: BF- [employer] History 1 Elective abortions Hx Para 0 Spontaneous abortions Hx # Term Pregnancies Ectopic pregnancies Hx # Pregnancies Multiple births # of living children HPI 37 wk ob Details: SHEEBA WELSH is a 24 year old who presents for routine OB visit. OB Visit OLIVIA Calculator Estimated Delivery Date Method Current WG Current Estimate 01/20/25 LMP (Certain) 37w 0d Other Estimates 01/20/25 Ultrasound #1 37w 0d Expected Delivery Route/Plan Labor Preferences- CB/BF [...] Negative 140 (more content not included)... Normal [facility] Rule out Beta Strep (Grp. B) on 12-24-2024 ROJELIO Group B Beta Streptococcus is not isolated. Normal [facility] Comment on above: Performed By: #### M 100.0870 #### [facility] [address] [place], [place], [id number] Laboratory - Chemistry and C hemistry - challengeOrdered By: Angela Sanders on 12-22-2024 Glucose Ql (U) Negative [facility] Laboratory - UrinalysisOrder ed By: Angela Sanders on 12-22-2024 Protein Ql (U) Negative [facility] [address] Office Visit Reporton 12-22-[address] Office Visit Report [facility] [address], [address] [place] [address] OFFICE VISIT Date of Service: 12/22/24 MR#: [id number] Acct: [id number] Name: SHEEBA WELSH Rep #: [id number] 3 : 2000 Provider: JACKELIN Steven ams Age/Sex: 24/F [place] [facility] [place]: Signed Intake Vital Signs 11/11/24 14:01 12/09/24 14:53 12/22/24 14:30 Height 5 ft 10 in 5 ft 10 in 5 ft 10 in Weight: 200 lb BMI 28.7 BP 129/78 H Intake Visit Reasons: 36wk ob Chief Complaint: 36wk ob Ship'S Captain Required: No Is patient in pain?: No Allergies No Known Allergies Allergy (Verified 12/22/24 14:28) Medications ???Medication ???Instructions ???Recorded ???Confirmed ???Type multivit-min no.71-iron fum 28 cap PO 06/14/24 12/22/24 History mg-folate no.1 1 mg-dha 300 mg capsule (PNV-Yonkers) promethazine 12.5 mg tablet 12.5 mg PO Q6H PRN headache #30 12/22/24 Rx tabs Last Menstrual Period: 04/15/24 : No PFSH PFSH Medical History Menorrhagia Headache, migraine History of fracture Non-smoker Surgical History History of repair of ACL Family History Mother Breast cancer, Onset Age: 51 Depression Father Cancer, Onset Age: 57 Chronic leukemia Social History adopted: No household members: significant other and family current occupational status: employed current occupation: [employer] pets and animals: Yes pets [...] 3-4 times per week duration: 60-90 minutes/day daniel/taoism: Sikhism seatbelt use: always do you feel safe at home: Yes additional social history: BF- [employer] History 1 Elective abortions Hx Para 0 Spontaneous abortions Hx # Term Pregnancies Ectopic pregnancies Hx # Pregnancies Multiple births # of living children HPI 36wk ob Details: SHEEBA WELSH is a 24 year old who presents for routine OB visit. OB Visit OLIVIA Calculator Estimated Delivery Date Method Current WG Current Estimate 01/20/25 LMP (Certain) 35w 6d Other Estimates 01/20/25 Ultrasound #1 35w 6d Expected Delivery Route/Plan Labor Preferences- CB/BF [...] of water a day + tylenol. new [employer] labs and NIPT today. JV- CRL measures 14 weeks today. p t has some complaints of headaches. recommend 72 oz of water a day + tylenol. NIPT today. 08/19/24 -???-???-???-???-???- ???-???-???-???-???-? ??-???- 18w 0d 193 lb 6 oz (+10 lb 6 oz) 123/65 Negative -???-???-???-???-???- ???-???-???-???-???-? ??-???- Negative 140 -???-???-???-???-???- ???-???-???-???-???-? ??-???- SM- no vb lo f c (more content not included)... Normal [facility] Screening beta-hemolytic Str eptococcus cultureOrdered By: Angela Sanders on 12-22-2024 Beta-hemolytic Streptococcus culture Group B Beta Streptococcus is not isolated. [facility] Laboratory - Chemistry and C hemistry - challengeOrdered By: Jemima Avila on 12-09-2024 Glucose Ql (U) Negative [facility] Laboratory - UrinalysisOrder ed By: Jemima Avila on 12-09-2024 Protein Ql (U) Negative [facility] [address] Office Visit Reporton 12-09-[address] Office Visit Report [facility] [address], [address] [place] [address] OFFICE VISIT Date of Service: 12/09/24 MR#: [id number] Acct: [id number] Name: SHEEBA WELSH Rep #: [id number] 8 : 2000 Provider: Dr. Jemima Hartman DO Age/Sex: 23/F [place] [facility] [place] Status: Signed Intake Vital Signs 06/23/24 13:06 11/25/24 14:07 12/09/24 14:50 12/09/24 14:53 Height 5 ft 10 in 5 ft 10 in 5 ft 10 in 5 ft 10 in Weight: 201 lb 8 oz BMI 28.9 BP 106/67 Intake Visit Reasons: 34 wk ob Ship'S Captain Required: No Is patient in pain?: No Allergies No Known Allergies Allergy (Verified 12/09/24 14:50) Medications ???Medication ???Instructions ???Recorded ???Confirmed ???Type multivit-min no.71-iron fum 28 cap PO 06/14/24 12/09/24 History mg-folate no.1 1 mg-dha 300 mg capsule (PNV-Yonkers) promethazine 12.5 mg tablet 12.5 mg PO [...] occupational status: employed current occupation: [employer], [employer] pets and animals: Yes pets and [...] 3-4 times per week duration: 60-90 minutes/day daniel/taoism: Sikhism seatbelt use: always do you feel safe at home: Yes additional social history: BF- [employer]- [employer] History 1 Elective abortions Hx Para [...] Negative 140 (more content not included)... Normal [facility] Laboratory - Chemistry and C hemistry - challengeOrdered By: Angela Sanders on 11-25-2024 Glucose Ql (U) Negative [facility] Laboratory - UrinalysisOrder ed By: Angela Sanders on 11-25-2024 Protein Ql (U) Negative [facility] [address] Office Visit Reporton 11-25-[address] Office Visit Report [facility] [address], [address] [place] [address] OFFICE VISIT Date of Service: 11/25/24 MR#: [id number] Acct: [id number] Name: SHEEBA WELSH Rep #: [id number] 2 : 2000 Provider: JACKELIN Steven ams Age/Sex: 23/F Location: [facility] [place] Status: Signed Intake Vital Signs 06/23/24 13:06 11/11/24 14:01 11/25/24 14:07 Height 5 ft 10 in 5 ft 10 in 5 ft 10 in Weight: 200 lb 4 oz BMI 28.7 BP 125/76 H Intake Visit Reasons: 32 wk ob Chief Complaint: 32wk OB Ship'S Captain Required: No Is patient in pain?: No Allergies No Known Allergies Allergy (Verified 11/25/24 14:05) Medications ???Medication ???Instructions ???Recorded ???Confirmed ???Type multivit-min no.71-iron fum 28 cap PO 06/14/24 11/25/24 History mg-folate no.1 1 mg-dha 300 mg capsule (PNV-Yonkers) Last Menstrual Period: 04/15/24 : No PFSH PFSH Medical History Menorrhagia Headache, migraine History of fracture Non-smoker Surgical History History of repair of ACL Family History Mother Breast cancer, Onset Age: 51 Depression Father Cancer, Onset Age: 57 Chronic leukemia Social History adopted: No household members: significant other and family current occupational status: employed current occupation: [employer], [employer] pets and animals: Yes pets and [...] 3-4 times per week duration: 60-90 minutes/day daniel/taoism: Sikhism seatbelt use: always do you feel safe [...] lb 4 (more content not included)... Normal [facility] Laboratory - Chemistry and C hemistry - challengeOrdered By: Roseanna Mckeon on 11-11-2024 Glucose Ql (U) Negative [facility] Laboratory - UrinalysisOrder ed By: Roseanna Mike on 11-11-2024 Protein Ql (U) Negative [facility] [address] Office Visit Reporton 11-11-[address] Office Visit Report [facility] [address], [address] [place] [address] OFFICE VISIT Date of Service: 11/11/24 MR#: [id number] Acct: [id number] Name: SHEEBA WELSH Rep #: [id number] 0 : 2000 Provider: JACKELIN daniels Age/Sex: 23/F [place] [facility] [place] Status: Signed Intake Vital Signs 06/23/24 13:06 10/14/24 13:29 11/11/24 14:01 11/11/24 14:01 Height 5 ft 10 in 5 ft 10 in 5 ft 10 in 5 ft 10 in Weight: 199 lb 8 oz BMI 28.6 BP 130/65 H Intake Visit Reasons: 30 wk ob Ship'S Captain Required: No Is patient in pain?: No Allergies No Known Allergies Allergy (Verified 11/11/24 13:59) Medications ???Medication ???Instructions ???Recorded ???Confirmed ???Type multivit-min no.71-iron fum 28 cap PO 06/14/24 11/11/24 History mg-folate no.1 1 mg-dha 300 mg capsule (PNV-[place]onkers) Last Menstrual Period: 04/15/24 Zika: Zika virus [...] 3-4 times per week duration: 60-90 minutes/day daniel/taoism: Sikhism seatbelt use: always do you feel safe [...] ???-???-???-???-???-? ??-???- SM- no vb lo f adwoa (more content not included)... Normal [facility] Absolute lymphocyte countOrd ered By: Roseanna Mckeon on 10-14-2024 Lymphocytes Auto (Unsp spec) [#/Vol] 1.93 10*3/uL 0.83-4.51 [facility] Absolute neutrophil countOrd ered By: Roseanna Mckeon on 10-14-2024 Neutrophils (Bld) [#/Vol] 7.6 10*3/uL 2.0-7.7 [facility] Automated lymphocyte count a s percentage of total leukocytesOrdered By: Roseanna Mckeon on 10-14-2024 Lymphocytes/100 WBC Auto (Unsp spec) 18.5 % Low 19-41 [facility] Basophil percentageOrdered B y: Roseanna Mckeon on 10-14-2024 Basophils/100 WBC (Bld) 0.2 % 0-1 [facility] CBC W/Diff, Automatedon - Absolute Lymph 1.93 X10 3/uL Normal 0.83-4.51 [facility] Comment on above: Performed By: #### L 509.8002, L3890.6006, L100.0100, L501.0250 ####[facility] [id number] [place], [place], [id number] Absolute Neut 7.6 X10 3/uL Normal 2.0-7.7 [facility] Comment on above: Performed By: #### L 509.8002, L3890.6006, L100.0100, L501.0250 ####[facility] [address] [place], [address] Basophils/100 WBC (Bld) 0.2 % Normal 0-1 [facility] Comment on above: Performed By: #### L 509.8002, L3890.6006, L100.0100, L501.0250 ####[facility] [address] [place], [address] Eosinophils/100 WBC (Bld) 1.0 % Normal 0-5 [facility] Comment on above: Performed By: #### L 509.8002, L3890.6006, L100.0100, L501.0250 ####[facility] [address] [place], [address] Erythrocyte distribution width (RBC) [Ratio] 13.0 % Normal 11.6-14.6 [facility] Comment on above: Performed By: #### L 509.8002, L3890.6006, L100.0100, L501.0250 ####[facility] [address] [place], [address] Hematocrit (Bld) [Volume fraction] 32.3 % Low 37-47 [facility] Comment on above: Performed By: #### L 509.8002, L3890.6006, L100.0100, L501.0250 ####[facility] [address] [place], [address] Hemoglobin (Bld) [Mass/Vol] 11.0 g/dL Low 12.0-15.0 [facility] Comment on above: Performed By: #### L 509.8002, L3890.6006, L100.0100, L501.0250 ####[facility] [address] [place], [address] IG% 0.900 Normal 0.0-0.9 [facility] Comment on above: Result Comment: IG% - Immature Granulocytes (promyelocytes, myelocytes and metamyelocytes) > 1% indicates that a LEFT SHIFT is Present. Performed By: #### L 509.8002, L3890.6006, L100.0100, L501.0250 ####[facility] [address] [place], [address] Lymphocytes/100 WBC (Bld) 18.5 % Low 19-41 [facility] Comment on above: Performed By: #### L 509.8002, L3890.6006, L100.0100, L501.0250 ####[facility] [address] [place], [address] MCH (RBC) [Entitic mass] 29.2 pg Normal 27.0-32.0 [facility] Comment on above: Performed By: #### L 509.8002, L3890.6006, L100.0100, L501.0250 ####[facility] [address] [place], [address] MCHC (RBC) [Mass/Vol] 34.1 g/dL Normal 32-36 [facility] Comment on above: Performed By: #### L 509.8002, L3890.6006, L100.0100, L501.0250 ####[facility] [address] [place], [address] MCV (RBC) [Entitic vol] 85.7 fL Normal 81-99 [facility] Comment on above: Performed By: #### L 509.8002, L3890.6006, L100.0100, L501.0250 ####[facility] [address] [place], [address] Monocytes/100 WBC (Bld) 6.1 % Normal 0-10 [facility] Comment on above: Performed By: #### L 509.8002, L3890.6006, L100.0100, L501.0250 ####[facility] [address] [place], [address] Neutrophils/100 WBC (Bld) 73.3 % High 47-70 [facility] Comment on above: Performed By: #### L 509.8002, L3890.6006, L100.0100, L501.0250 ####[facility] [address] [place], [address] Nucleated RBC (Bld) [#/Vol] 0 10*3/uL Normal 0-5 [facility] Comment on above: Performed By: #### L 509.8002, L3890.6006, L100.0100, L501.0250 ####[facility] [address] [place], [address] Platelet mean volume (Bld) [Entitic vol] 9.6 fL Normal 6.2-12.0 [facility] Comment on above: Performed By: #### L 509.8002, L3890.6006, L100.0100, L501.0250 ####[facility] [address] [place], [address] Platelets (Bld) [#/Vol] 254 10*3/uL Normal 150-450 [facility] Comment on above: Performed By: #### L 509.8002, L3890.6006, L100.0100, L501.0250 ####[facility] [address] [place], [address] RBC (Bld) [#/Vol] 3.77 10*6/uL Low 4.2-5.4 [facility] Comment on above: Performed By: #### L 509.8002, L3890.6006, L100.0100, L501.0250 ####[facility] [address] [place], [address] RDW SD 40.7 fl Normal 35.1-43.9 [facility] Comment on above: Performed By: #### L 509.8002, L3890.6006, L100.0100, L501.0250 ####[facility] [address] [place], [place], [address] WBC (Bld) [#/Vol] 10.4 10*3/uL Normal 4.4-11.0 [facility] Comment on above: Performed By: #### L 509.8002, L3890.6006, L100.0100, L501.0250 ####[facility] [address] [place], [place], [address] Eosinophil percentageOrdered By: Roseanna Mckeon on 10-14-2024 Eosinophils/100 WBC (Bld) 1.0 % 0-5 [facility] Erythrocyte distribution wid th ratioOrdered By: Roseanna Mckeon on 10-14-2024 Erythrocyte distribution width (RBC) [Ratio] 13.0 % 11.6-14.6 [facility] Erythrocyte distribution wid th standard deviationOrdered By: Roseanna Mckeon on 10-14-2024 Erythrocyte distribution width (RBC) [Entitic vol] 40.7 fL 35.1-43.9 [facility] Erythrocyte distribution width (RBC) [Ratio] 40.7 fl 35.1-43.9 [facility] Glucose Challenge Gest 1H 50 eddie 10-14-2024 GLU GEST 50g 1H 108 mg/dL Normal 70-140 [facility] Comment on above: Performed By: #### L 509.8002, L3890.6006, L100.0100, L501.0250 ####[facility] [address] [place], [place], [id number] Glucose measurement at 2 pantera rs post-dose gestational glucose tolerance testOrdered By: Roseanna Mckeon on 10-14-2024 Glucose [Mass/Vol] 108 mg/dL 70-140 [facility] Hematocrit Auto (Bld) [Volum e fraction]Ordered By: Roseanna Mckeon on 03-28-2025 Hematocrit (Bld) [Volume fraction] 32.3 % Low 37-47 [facility] Hemoglobin measurementOrdere d By: Roseanna Mckeon on 10-14-2024 Hemoglobin (Bld) [Mass/Vol] 11.0 g/dL Low 12.0-15.0 [facility] Immature granulocytes/100 WB C Auto (Bld)Ordered By: Roseanna Mckeon on 10-14-2024 Immature granulocytes/100 WBC (Bld) 0.900 % 0.0-0.9 [facility] Comment on above: IG% - Immature Granu locytes (promyelocytes, myelocytes and metamyelocytes) > 1% indicates that a LEFT SHIFT is Present. L3890.6006on 10-14-2024 HIV Non-Reactive Normal Nonreactive [facility] Comment on above: Result Comment: Non- Reactive Reactive Repeatedly reactive samples must be confirmed according to CDC recommended confirmatory algorithms. The subresults for either HIVAG or AHIV can be used as an aid in the selection of the confirmation algorithm for reactive samples. Send out specimens with Reactive results to [facility] for confirmation. Order the HIV antibody detection and differentiation: #[id number] Performed By: #### L 509.8002, L3890.6006, L100.0100, L501.0250 ####[facility] [address] [facility] [facility] [place], [place], [address] L509.8002on 10-14-2024 Syphilis Abs Non-Reactive Normal Nonreactive [facility] Comment on above: Performed By: #### L 509.8002, L3890.6006, L100.0100, L501.0250 ####[facility] [address] [place], [address] Laboratory - Chemistry and C hemistry - challengeOrdered By: Cesilia George on 10-14-2024 Glucose Ql (U) Negative [facility] Laboratory - UrinalysisOrder ed By: Cesilia George on 10-14-2024 Protein Ql (U) Negative [facility] Lymphocytes Auto (Unsp spec) [#/Vol]Ordered By: Roseanna Mckeon on 10-14-2024 Lymphocytes (Bld) [#/Vol] 1.93 10*3/uL 0.83-4.51 [facility] Lymphocytes/100 WBC Auto (Un sp spec)Ordered By: Roseanna Mckeon on 10-14-2024 Lymphocytes/100 WBC (Bld) 18.5 % Low 19-41 [facility] MCV (mean corpuscular volume ) determinationOrdered By: Roseanna Mckeon on 10-14-2024 MCV (RBC) [Entitic vol] 85.7 fL 81-99 [facility] Mean corpuscular hemoglobin (MCH) determinationOrdered By: Roseanna Mckeon on 10-14-2024 MCH (RBC) [Entitic mass] 29.2 pg 27.0-32.0 [facility] Mean corpuscular hemoglobin concentration (MCHC) determinationOrdered By: Roseanna Mckeon on 10-14-2024 MCHC (RBC) [Mass/Vol] 34.1 g/dL 32-36 [facility] Mean platelet volume determi nationOrdered By: Roseanna Mckeon on 10-14-2024 Platelet mean volume (Bld) [Entitic vol] 9.6 fL 6.2-12.0 [facility] Monocyte percentageOrdered B y: Roseanna Mckeon on 10-14-2024 Monocytes/100 WBC (Bld) 6.1 % 0-10 [facility] Neutrophil percentageOrdered By: Roseanna Mckeon on 10-14-2024 Neutrophils/100 WBC (Bld) 73.3 % High 47-70 [facility] No Panel InformationOrdered By: Roseanna Mckeon on 10-14-2024 HIV (1&2) Antibody Non-Reactive Nonreactive [facility] Comment on above: Non-ReactiveReactive Repeatedly reactive samples must be confirmed according to CDC recommended confirmatory algorithms. The subresults for either HIVAG or AHIV can be used as an aid in the selection of the confirmation algorithm for reactive samples.Send out specimens with Reactive results to [facility] for confirmation.Order the HIV antibody detection and differentiation: #[id number] Nucleated red blood cell per centageOrdered By: Roseanna Mckeon on 10-14-2024 Nucleated RBC/100 WBC (Bld) [Ratio] 0 % 0-5 [facility] [address] Office Visit Reporton 10-14-[address] Office Visit Report [facility] [address], [address] [place] [address] OFFICE VISIT Date of Service: 10/14/24 MR#: [id number] Acct: [id number] Name: SHEEBA WELSH Rep #: [id number] : 2000 Provider: TERESITA norman Age/Sex: 23/F [place] [facility] [place]: Signed Intake Vital Signs 06/23/24 13:06 09/16/24 13:04 10/14/24 13:29 Height 5 ft 10 in 5 ft 10 in 5 ft 10 in Weight: 199 lb 2 oz BMI 28.5 BP 118/62 Intake Visit Reasons: 26 wk ob Chief Complaint: 26 Week OB Ship'S 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 Required: No Is patient in pain?: No Allergies No Known Allergies Allergy (Verified 10/14/24 13:27) Medications ???Medication ???Instructions ???Recorded ???Confirmed ???Type multivit-min no.71-iron fum 28 cap PO 06/14/24 10/14/24 History mg-folate no.1 1 mg-dha 300 mg capsule (PNV-[place]) Last Menstrual Period: 04/15/24 Zika: Zika virus screening: Negative : Yes PFSH PFSH Medical History Menorrhagia Headache, migraine History of fracture Non-smoker Surgical History History of repair of ACL Family History Mother Breast cancer, Onset Age: 51 Depression Father Cancer, Onset Age: 57 Chronic leukemia Social History adopted: No household members: significant other and family current occupational status: employed current occupation: [employer] pets and animals: Yes pets and [...] 3-4 times per week duration: 60-90 minutes/day daniel/taoism: Sikhism seatbelt use: always do you feel safe at home: Yes additional social history: BF- [employer] History 1 Elective abortions Hx Para [...] -???-???-???-???-???- ???- (more content not included)... Normal [facility] Platelet countOrdered By: Debi Mckeon on 10-14-2024 Platelets (Bld) [#/Vol] 254 10*3/uL 150-450 [facility] RBC Auto (Bld) [#/Vol]Ordere d By: Roseanna Mckeon on 10-14-2024 RBC (Bld) [#/Vol] 3.77 10*6/uL Low 4.2-5.4 [facility] T. pallidum abOrdered By: Debi Mckeon on 10-14-2024 Syphilis Total Antibody Non-Reactive Nonreactiv e [facility] White blood cell (WBC) count Ordered By: Roseanna Mckeon on 10-14-2024 WBC (Bld) [#/Vol] 10.4 10*3/uL 4.4-11.0 [facility] Laboratory - Chemistry and C hemistry - challengeOrdered By: Roseanna Mckeon on 09-16-2024 Glucose Ql (U) Negative [facility] Laboratory - UrinalysisOrder ed By: Roseanna Mckeon on 09-16-2024 Protein Ql (U) Negative [facility] [address] Office Visit Reporton 09-16-[address] Office Visit Report [facility] [address], [address] [place] [address] OFFICE VISIT Date of Service: 09/16/24 MR#: [id number] Acct: [id number] Name: SHEEBA WELSH Rep #: [id number] 0 : 2000 Provider: JACKELIN daniels Age/Sex: 23/F [place] [facility] [place] Status: Signed Intake Vital Signs 06/23/24 13:06 [...] mg-folate no.1 1 mg-dha 300 mg capsule (PNV-[place]) Last Menstrual Period: 04/15/24 : No Have [...] occupational status: employed current occupation: [employer], [employer] pets and animals: Yes pets and [...] 3-4 times per week duration: 60-90 minutes/day daniel/taoism: Sikhism seatbelt use: always do you feel safe at home: Yes additional social history: BF- [employer] History 1 Elective abortions Hx Para [...] 123/74 -???-? (more content not included)... Normal [facility] Laboratory - Chemistry and C hemistry - challengeOrdered By: Kenya Jeffjose e on 08-19-2024 Glucose Ql (U) Negative [facility] Laboratory - UrinalysisOrder ed By: Kenya Wright on 08-19-2024 Protein Ql (U) Negative [facility] [address] Office Visit Reporton 08-19-[address] Office Visit Report [facility] [address], [address] [place] [address] OFFICE VISIT Date of Service: 08/19/24 MR#: [id number] Acct: [id number] Name: SHEEBA WELSH Rep #: [id number] : 2000 Provider: Dr. Kenya kelly MD Age/Sex: 23/F [place] [facility] [place]: Signed Intake Vital Signs 06/23/24 13:06 07/21/24 10:11 08/19/24 14:13 Height 5 ft 10 in 5 ft 10 in 5 ft 10 in Weight: 193 lb 6 oz BMI 27.7 BP 123/65 H Intake Visit Reasons: 18 wk ob Chief Complaint: 18 Week OB Ship'S Captain Required: No Is patient in pain?: No Allergies No Known Allergies Allergy (Verified 08/19/24 14:14) Medications ???Medication ???Instructions ???Recorded ???Confirmed ???Type multivit-min no.71-iron fum 28 cap PO 06/14/24 08/19/24 History mg-folate no.1 1 mg-dha 300 mg capsule (PNV-[place]) Last Menstrual Period: 04/15/24 Zika: Zika virus screening: Negative : No PFSH PFSH Medical History Menorrhagia Headache, migraine History of fracture Non-smoker Surgical History History of repair of ACL Family History Mother Breast cancer, Onset Age: 51 Depression Father Cancer, Onset Age: 57 Chronic leukemia Social History adopted: No household members: significant other and family current occupational status: employed current occupation: [employer], [employer] pets and animals: Yes pets and [...] 3-4 times per week duration: 60-90 minutes/day daniel/taoism: Sikhism seatbelt use: always do you feel safe at home: Yes additional social history: BF- [employer] History 1 Elective abortions Hx Para [...] Discussed Breastf (more content not included)... Normal [facility] Laboratory - Chemistry and C hemistry - challengeon 07-21-2024 Glucose Ql (U) Negative [facility] Laboratory - Urinalysison Protein Ql (U) Negative [facility] Miscellaneous procedureOrder ed By: Jemima Avila on 07-21-2024 Miscellaneous Test Comment SEE SCANNED REPORT [facility] NATERAon 07-21-2024 NATURA SEE SCANNED REPORT Normal [facility] Comment on above: Performed By: #### L 900.0098 #### [facility] Laboratory [address] [place], [address] Office Visit Reporton 07-21-[address] Office Visit Report [facility] [address], [address] [place] [address] OFFICE VISIT Date of Service: 07/21/24 MR#: [id number] Acct: [id number] Name: SHEEBA WELSH Rep #: [id number] : 2000 Provider: Dr. Jemima Hartman, Age/Sex: 23/F [place] [facility] [place] Status: Signed Intake Vital Signs 11/12/23 15:04 06/23/24 13:06 07/21/24 10:11 07/21/24 10:11 Height 5 ft 10 in 5 ft 10 in 5 ft 10 in 5 ft 10 in Weight: 185 lb BMI 26.5 BP 120/68 Intake Visit Reasons: 14 wk ob Ship'S Captain Required: No Is patient in pain?: No Allergies No Known Allergies Allergy (Verified 07/21/24 10:10) Medications ???Medication ???Instructions ???Recorded ???Confirmed ???Type multivit-min no.71-iron fum 28 cap PO 06/14/24 07/21/24 History mg-folate no.1 1 mg-dha 300 mg capsule (PNV-[place]) Last Menstrual Period: 04/15/24 Zika: Zika virus screening: Negative : No PFSH PFSH Medical History Menorrhagia Headache, migraine History of fracture Non-smoker Surgical History History of repair of ACL Family History Mother Breast cancer, Onset Age: 51 Depression Father Cancer, Onset Age: 57 Chronic leukemia Social History adopted: No household members: significant other and family current occupational status: employed current occupation: [employer] pets and animals: Yes pets [...] 3-4 times per week duration: 60-90 minutes/day daniel/taoism: Sikhism seatbelt use: always do you feel safe [...] Cessation Thi (more content not included)... Normal [facility] HIV - WCHon 07-04-2024 HIV Non-Reactive Normal Nonreactive [facility] Comment on above: Order Comment: Reaso n for Exam: Performed By: #### B TS, L509.4005, L3890.6300, L509.8000, L100.0100, L3890.6005, L3890.6100 ####[facility] [address] [place], [place], [address] Hepatitis B Surface Antigeno n 07-04-2024 HEP B Surf Ag Non-Reactive Normal Nonreactive [facility] Comment on above: Order Comment: Reaso n for Exam: Performed By: #### B TS, L509.4005, L3890.6300, L509.8000, L100.0100, L3890.6005, L3890.6100 ####[facility] [address] [place], [address] Hepatitis C Antibodyon 07-04 Hepatitis C AB Non-Reactive Normal Nonreactive [facility] Comment on above: Order Comment: Reaso n for Exam: Result Comment: Non Reactive: < 0.8 Equivocal: >/= 0.8 to < 1.0 Reactive: >/= 1.0 The [facility] requires that a reactive/equivocal HCV antibody result be sent out for confirmation. HCV Quant by PCR testing. Performed By: #### B TS, L509.4005, L3890.6300, L509.8000, L100.0100, L3890.6005, L3890.6100 ####[facility] [address] [place], [address] L509.8000on 07-04-2024 Syphilis Abs Non-Reactive Normal [facility] Comment on above: Order Comment: Reaso n for Exam: Performed By: #### B TS, L509.4005, L3890.6300, L509.8000, L100.0100, L3890.6005, L3890.6100 ####[facility] [address] [place], [place], [address] PAP I-G w/rfx hrHPV-Aptimaon 07-04-2024 ADEQ Comment Normal . [facility] Comment on above: Order Comment: Speci men Comment: [id number] Comment: Source.............CervixSpecimen Comment: LMP / Prev Treat...[id number] Comment: Other..............Specimen Comment: No. of containers..01 ThinPrep Vial Result Comment: Sati sfactory for evaluation. Endocervical and/or squamous metaplastic cells (endocervical component) are present. Performed By: #### L 7400.0353, L7000.1800, M100.2200 ####[facility] [address] [place], [place], [address] COMM . Normal . [facility] Comment on above: Order Comment: Speci men Comment: [id number] Comment: Source.............CervixSpecimen Comment: LMP / Prev Treat...[id number] Comment: Other..............Specimen Comment: No. of containers..01 ThinPrep Vial Performed By: #### L 7400.0353, L7000.1800, M100.2200 ####[facility] [address] [place], [place], [address] COMMENT Comment Normal . [facility] Comment on above: Order Comment: Speci men Comment: [id number] Comment: Source.............CervixSpecimen Comment: LMP / Prev Treat...[id number] Comment: Other..............Specimen Comment: No. of containers..01 ThinPrep Vial Result Comment: This liquid based ThinPrep(R) pap test was screened with the use of an image guided system. Performed By: #### L 7400.0353, L7000.1800, M100.2200 ####[facility] [address] [place], [place], [address] DIAG Comment Normal . [facility] Comment on above: Order Comment: Speci men Comment: [id number] Comment: Source.............CervixSpecimen Comment: LMP / Prev Treat...[id number] Comment: Other..............Specimen Comment: No. of containers..01 ThinPrep Vial Result Comment: NEGA TIVE FOR INTRAEPITHELIAL LESION OR MALIGNANCY. Performed By: #### L 7400.0353, L7000.1800, M100.2200 ####[facility] [address] [place], [place], [address] HPV RFLX Comment Normal . [facility] Comment on above: Order Comment: Speci men Comment: [id number] Comment: Source.............CervixSpecimen Comment: LMP / Prev Treat...[id number] Comment: Other..............Specimen Comment: No. of containers..01 ThinPrep Vial Result Comment: The HPV DNA reflex criteria were not met with this specimen result therefore, no HPV testing was performed. Performed at: [address] [id number] Building Insulation Supervisor: Beth Rae PhD, Phone: [phone] Performed at: [address] [id number] Building Ins[employer] Supervisor: Charlene Sotomayor MD, Phone: [phone] Performed By: #### L 7400.0353, L7000.1800, M100.2200 ####[facility] [address] [place], [place], [address] PAPSMR Comment Normal . [facility] Comment on above: Order Comment: Speci men Comment: [id number] Comment: Source.............CervixSpecimen Comment: LMP / Prev Treat...[id number] Comment: Other..............Specimen Comment: No. of containers..01 ThinPrep Vial Result Comment: The Pap smear is a screening test designed to aid in the detection of premalignant and malignant conditions of the uterine cervix. It is not a diagnostic procedure and should not be used as the sole means of detecting cervical cancer. Both false-positive and false-negative reports do occur. Performed By: #### L 7400.0353, L7000.1800, M100.2200 ####[facility] [address] [place], [address] PERFORM Comment Normal . [facility] Comment on above: Order Comment: Speci men Comment: [id number] Comment: Source.............CervixSpecimen Comment: LMP / Prev Treat...[id number] Comment: Other..............Specimen Comment: No. of containers..01 ThinPrep Vial Result Comment: Karli Stevens, Slide Machine Tender (ASCP) Performed By: #### L 7400.0353, L7000.1800, M100.2200 ####[facility] [address] [place], [address] Rubella IgGon 07-04-2024 Rubella IgG Reactive Normal Nonreactive [facility] Comment on above: Order Comment: Reaso n for Exam: Result Comment: Anti body Results Interpretation of Immune Status Non Reactive Presumed Non-Immune Equivocal Equivocal Reactive Presumed Immune Performed By: #### B TS, L509.4005, L3890.6300, L509.8000, L100.0100, L3890.6005, L3890.6100 ####[facility] [address] [place], [address] Absolute neutrophil countOrd ered By: Angela Sanders on 07-01-2024 Neutrophils (Bld) [#/Vol] 6.9 10*3/uL 2.0-7.7 [facility] Basophil percentageOrdered B y: Angela Sanders on 07-01-2024 Basophils/100 WBC (Bld) 0.4 % 0-1 [facility] CBC W/Diff, Automatedon 06-19 Absolute Lymph 2.49 X10 3/uL Normal 0.83-4.51 [facility] Comment on above: Performed By: #### B TS, L509.4005, L3890.6300, L509.8000, L100.0100, L3890.6005, L3890.6100 ####[facility] [address] [place], [address] Absolute Neut 6.9 X10 3/uL Normal 2.0-7.7 [facility] Comment on above: Performed By: #### B TS, L509.4005, L3890.6300, L509.8000, L100.0100, L3890.6005, L3890.6100 ####[facility] [address] [place], [address] Basophils/100 WBC (Bld) 0.4 % Normal 0-1 [facility] Comment on above: Performed By: #### B TS, L509.4005, L3890.6300, L509.8000, L100.0100, L3890.6005, L3890.6100 ####[facility] [address] [place], [address] Eosinophils/100 WBC (Bld) 0.6 % Normal 0-5 [facility] Comment on above: Performed By: #### B TS, L509.4005, L3890.6300, L509.8000, L100.0100, L3890.6005, L3890.6100 ####[facility] [address] [place], [address] Erythrocyte distribution width (RBC) [Ratio] 13.0 % Normal 11.6-14.6 [facility] Comment on above: Performed By: #### B TS, L509.4005, L3890.6300, L509.8000, L100.0100, L3890.6005, L3890.6100 ####[facility] [address] [place], [address] Hematocrit (Bld) [Volume fraction] 38.0 % Normal 37-47 [facility] Comment on above: Performed By: #### B TS, L509.4005, L3890.6300, L509.8000, L100.0100, L3890.6005, L3890.6100 ####[facility] [address] [place], [address] Hemoglobin (Bld) [Mass/Vol] 13.1 g/dL Normal 12.0-15.0 [facility] Comment on above: Performed By: #### B TS, L509.4005, L3890.6300, L509.8000, L100.0100, L3890.6005, L3890.6100 ####[facility] [address] [place], [address] IG% 0.400 Normal 0.0-0.9 [facility] Comment on above: Result Comment: IG% - Immature Granulocytes (promyelocytes, myelocytes and metamyelocytes) > 1% indicates that a LEFT SHIFT is Present. Performed By: #### B TS, L509.4005, L3890.6300, L509.8000, L100.0100, L3890.6005, L3890.6100 ####[facility] [address] [place], [address] Lymphocytes/100 WBC (Bld) 24.5 % Normal 19-41 [facility] Comment on above: Performed By: #### B TS, L509.4005, L3890.6300, L509.8000, L100.0100, L3890.6005, L3890.6100 ####[facility] [address] [place], [address] MCH (RBC) [Entitic mass] 27.8 pg Normal 27.0-32.0 [facility] Comment on above: Performed By: #### B TS, L509.4005, L3890.6300, L509.8000, L100.0100, L3890.6005, L3890.6100 ####[facility] [address] [place], [address] MCHC (RBC) [Mass/Vol] 34.5 g/dL Normal 32-36 [facility] Comment on above: Performed By: #### B TS, L509.4005, L3890.6300, L509.8000, L100.0100, L3890.6005, L3890.6100 ####[facility] [address] [place], [address] MCV (RBC) [Entitic vol] 80.7 fL Low 81-99 [facility] Comment on above: Performed By: #### B TS, L509.4005, L3890.6300, L509.8000, L100.0100, L3890.6005, L3890.6100 ####[facility] [address] [place], [address] Monocytes/100 WBC (Bld) 6.4 % Normal 0-10 [facility] Comment on above: Performed By: #### B TS, L509.4005, L3890.6300, L509.8000, L100.0100, L3890.6005, L3890.6100 ####[facility] [address] [place], [address] Neutrophils/100 WBC (Bld) 67.7 % Normal 47-70 [facility] Comment on above: Performed By: #### B TS, L509.4005, L3890.6300, L509.8000, L100.0100, L3890.6005, L3890.6100 ####[facility] [address] [place], [address] Nucleated RBC (Bld) [#/Vol] 0 10*3/uL Normal 0-5 [facility] Comment on above: Performed By: #### B TS, L509.4005, L3890.6300, L509.8000, L100.0100, L3890.6005, L3890.6100 ####[facility] [address] [place], [address] Platelet mean volume (Bld) [Entitic vol] 9.4 fL Normal 6.2-12.0 [facility] Comment on above: Performed By: #### B TS, L509.4005, L3890.6300, L509.8000, L100.0100, L3890.6005, L3890.6100 ####[facility] [address] [place], [address] Platelets (Bld) [#/Vol] 295 10*3/uL Normal 150-450 [facility] Comment on above: Performed By: #### B TS, L509.4005, L3890.6300, L509.8000, L100.0100, L3890.6005, L3890.6100 ####[facility] [address] [place], [address] RBC (Bld) [#/Vol] 4.71 10*6/uL Normal 4.2-5.4 [facility] Comment on above: Performed By: #### B TS, L509.4005, L3890.6300, L509.8000, L100.0100, L3890.6005, L3890.6100 ####[facility] [address] [place], [address] RDW SD 37.9 fl Normal 35.1-43.9 [facility] Comment on above: Performed By: #### B TS, L509.4005, L3890.6300, L509.8000, L100.0100, L3890.6005, L3890.6100 ####[facility] [address] [place], [address] WBC (Bld) [#/Vol] 10.2 10*3/uL Normal 4.4-11.0 [facility] Comment on above: Performed By: #### B TS, L509.4005, L3890.6300, L509.8000, L100.0100, L3890.6005, L3890.6100 ####[facility] [address] [place], [address] Eosinophil percentageOrdered By: Angela Sanders on 07-01-2024 Eosinophils/100 WBC (Bld) 0.6 % 0-5 [facility] Erythrocyte distribution wid th ratioOrdered By: Angela Sanders on 07-01-2024 Erythrocyte distribution width (RBC) [Ratio] 13.0 % 11.6-14.6 [facility] Erythrocyte distribution wid th standard deviationOrdered By: Angela Sanders on 07-01-2024 Erythrocyte distribution width (RBC) [Entitic vol] 37.9 fL 35.1-43.9 [facility] HIV 1+2 Ab+HIV1 p24 Ag IA Ql Ordered By: Angela Sanders on 07-01-2024 HIV (1&2) Antibody Non-Reactive Nonreactive [facility] Hematocrit Auto (Bld) [Volum e fraction]Ordered By: Angela Sanders on 07-01-2024 Hematocrit (Bld) [Volume fraction] 38.0 % 37-47 [facility] Hemoglobin measurementOrdere d By: Angela Sanders on 07-01-2024 Hemoglobin (Bld) [Mass/Vol] 13.1 g/dL 12.0-15.0 [facility] Hepatitis B surface antigen detectionOrdered By: Angela Sanders on 07-01-2024 Hepatitis B Surface Antigen Non-Reactive Nonreactive [facility] Hepatitis C virus antibody a ssayOrdered By: Angela Sanders on 07-01-2024 Hepatitis C Antibody Non-Reactive Nonreactive [facility] Comment on above: Non Reactive: < 0.8 Equivocal: >/= 0.8 to < 1.0 Reactive: >/= 1.0The CDC requires that a reactive/equivocal HCV antibody result be sent out for confirmation. HCV Quant by PCR testing. Immature granulocytes/100 WB C Auto (Bld)Ordered By: Angela Sanders on 07-01-2024 Immature granulocytes/100 WBC (Bld) 0.400 % 0.0-0.9 [facility] Comment on above: IG% - Immature Granu locytes (promyelocytes, myelocytes and metamyelocytes) > 1% indicates that a LEFT SHIFT is Present. Lymphocytes Auto (Unsp spec) [#/Vol]Ordered By: Angela Sanders on 07-01-2024 Lymphocytes (Bld) [#/Vol] 2.49 10*3/uL 0.83-4.51 [facility] Lymphocytes/100 WBC Auto (Un sp spec)Ordered By: Angela Sanders on 07-01-2024 Lymphocytes/100 WBC (Bld) 24.5 % 19-41 [facility] MCV (mean corpuscular volume ) determinationOrdered By: Angela Sanders on 07-01-2024 MCV (RBC) [Entitic vol] 80.7 fL Low 81-99 [facility] Mean corpuscular hemoglobin (MCH) determinationOrdered By: Angela Sanders on 07-01-2024 MCH (RBC) [Entitic mass] 27.8 pg 27.0-32.0 [facility] Mean corpuscular hemoglobin concentration (MCHC) determinationOrdered By: Angela Sanders on 07-01-2024 MCHC (RBC) [Mass/Vol] 34.5 g/dL 32-36 [facility] Mean platelet volume determi nationOrdered By: Angela Sanders on 07-01-2024 Platelet mean volume (Bld) [Entitic vol] 9.4 fL 6.2-12.0 [facility] Monocyte percentageOrdered B y: Angela Sanders on 07-01-2024 Monocytes/100 WBC (Bld) 6.4 % 0-10 [facility] Neutrophil percentageOrdered By: Angela Sanders on 07-01-2024 Neutrophils/100 WBC (Bld) 67.7 % 47-70 [facility] Nucleated red blood cell per centageOrdered By: Angela Sanders on 07-01-2024 Nucleated RBC/100 WBC (Bld) [Ratio] 0 % 0-5 [facility] Platelet countOrdered By: Hieu Sanders on 07-01-2024 Platelets (Bld) [#/Vol] 295 10*3/uL 150-450 [facility] RBC Auto (Bld) [#/Vol]Ordere d By: Angela Sanders on 07-01-2024 RBC (Bld) [#/Vol] 4.71 10*6/uL 4.2-5.4 [facility] Rubella immune status IgGOrd ered By: Angela Sanders on 07-01-2024 Rubella IgG Antibody Reactive Nonreactive [facility] Comment on above: Antibody Results Int erpretation of Immune Status Non Reactive Presumed Non-Immune Equivocal Equivocal Reactive Presumed Immune Treponema sp Ab Ql (S)Ordere d By: Angela Sanders on 07-01-2024 Syphilis Total Antibody Non-Reactive [facility] Type AND Screenon 07-01-2024 Ab SCREEN GEL Negative Normal [facility] Comment on above: Order Comment: PN Performed By: #### B TS, L509.4005, L3890.6300, L509.8000, L100.0100, L3890.6005, L3890.6100 ####[facility] [address] [place], [place], [id number] ABO and Rh group Nom (Bld) Blood group O Rh(D) positive Normal [facility] Comment on above: Order Comment: PN Performed By: #### B TS, L509.4005, L3890.6300, L509.8000, L100.0100, L3890.6005, L3890.6100 ####[facility] [address] [place], [address] White blood cell (WBC) count Ordered By: Angela Sanders on 07-01-2024 WBC (Bld) [#/Vol] 10.2 10*3/uL 4.4-11.0 [facility] Chlamydia/GC PEDRO aptimaon CHLAMY,NUC ACID Negative Normal Negative [facility] Comment on above: Performed By: #### L 7400.0353, L7000.1800, M100.2200 ####[facility] [address] [place], [place], [address] GC BY NUC ACID Negative Normal Negative [facility] Comment on above: Result Comment: Perf ormed at: =G - [facility] [address] [place] [id number] Building Ins[employer] Supervisor: Charlene Sotomayor MD, Phone: [phone] Performed By: #### L 7400.0353, L7000.1800, M100.2200 ####[facility] [address] [place], [place], [id number] Urine Cultureon 06-24-2024 URC Culture exhibits no growth. Normal [facility] Comment on above: Performed By: #### L 7400.0353, L7000.1800, M100.2200 ####[facility] [address] [place], [place], [id number] C. trachomatis rRNA PEDRO+prob e Ql (Unsp spec)Ordered By: Angela Sanders on 06-23-2024 Chlamydia DNA (PEDRO) Negative Negative [facility] Building Cleaning Supervisor Cyto stain Nom (C vx/Vag) [ID]Ordered By: Angela Sanders on 06-23-2024 Pap Smear Performed By Comment . [place] Comment on above: Gabrielle Stevens, Cyto technologist (ASCP) Cytology report Cyto stain D oc (Cvx/Vag)Ordered By: Angela Sanders on 06-23-2024 Thin Prep Pap Smear Comment . [facility] Comment on above: The Pap smear is a s creening test designed to aid in thedetection of premalignant and malignant conditions of theuterine cervix. It is not a diagnostic procedure andshould not be used as the sole means of detecting cervicalcancer. Both false-positive and false-negative reports dooccur. Image-guided ThinPrep PapOrd ered By: Angela Sanders on 06-23-2024 Pap Smear Note Comment . [facility] Comment on above: This liquid based Th inPrep(R) pap test was screened withthe use of an image guided system. Image-guided liquid-based Pa pOrdered By: Angela Sanders on 06-23-2024 Pap Smear Diagnosis Comment . [facility] Comment on above: NEGATIVE FOR INTRAEP ITHELIAL LESION OR MALIGNANCY. Image-guided liquid-based ce rvical Pap w high-risk HPV+reflex to HPV 16+18Ordered By: Angela Sanedrs on 06-23-2024 Human Papillomavirus Screen Comment . [facility] Comment on above: The HPV DNA reflex c wmeria were not met with this specimenresult therefore, no HPV testing was performed.Performed at: [facility] - [facility] [id number] Director: Beth Rae PhD, Phone: [phone] at: - [facility] [id number] Director: Charlene Sotomayor MD, Phone: [phone] Neisseria gonorrhoeae nuclei c acid detection by amplified probe techniqueOrdered By: Angela Sanders on 06-23-2024 N. gonorrhoeae DNA PEDRO+probe Ql (Unsp spec) Negative Negative [facility] Comment on above: Performed at: =G - [address] [id number] Director: Charlene Sotoamyor MD, Phone: [phone] [address] Office Visit Reporton 06-23-[address] Office Visit Report [facility] [address], [facility] [address] [place] [address] OFFICE VISIT Date of Service: 06/23/24 MR#: [id number] Acct: [id number] Name: SHEEBA WELSH Rep #: [id number] : 2000 Provider: JACKELIN [facility] Age/Sex: 23/F [place] [facility] Status: Signed Intake Vital Signs 11/12/23 15:04 06/23/24 13:02 06/23/24 13:06 Height 5 ft 10 in 5 ft 10 in 5 ft 10 in Weight: 183 lb BMI 26.2 BP 144/82 H Intake Visit Reasons: NOB LMP 04/15 [employer] Required: No Is patient in pain?: No Allergies No Known Allergies Allergy (Verified 06/23/24 13:03) Medications ???Medication ???Instructions ???Recorded ???Confirmed ???Type multivit-min no.71-iron fum 28 cap PO 06/14/24 06/14/24 History mg-folate no.1 1 mg-dha 300 mg capsule (PNV-[place]) Last Menstrual Period: 04/15/24 Zika: Zika virus [...] occupational status: employed current occupation: [employer] pets and animals: Yes pets and [...] 3-4 times per week duration: 60-90 minutes/day daniel/taoism: Sikhism seatbelt use: always do you feel safe [...] Partner monroe (more content not included)... Normal [facility] Service comment (Unsp spec) [Interp]Ordered By: Angela Sanders on 06-23-2024 Pap Smear Comment (3) . . [facility] Urine cultureOrdered By: Sunny Sanders on 06-23-2024 Bacteria identified Cx Nom (U) Culture exhibits no growth. [facility] Absolute lymphocyte countOrd ered By: Yoel Frost on 11-12-2023 Lymphocytes Auto (Unsp spec) [#/Vol] 2.50 10*3/uL 0.83-4.51 [facility] Automated lymphocyte count a s percentage of total leukocytesOrdered By: Yoel Frost on 11-12-2023 Lymphocytes/100 WBC Auto (Unsp spec) 28.1 % 19-41 [facility] Basophil percentageOrdered B y: Yoel Frost on 11-12-2023 Basophils/100 WBC (Bld) 0.6 % 0-1 [facility] Bilirubin [Mass/Vol] 0.40 mg/dL 0.20-1.00 [facility] Comment on above: For patients on eltr ombopag therapy, use of Dimension [place] TBIL is not recommended. Chloride [Moles/Vol] 106 mmol/L 98-107 [facility] Eosinophils/100 WBC (Bld) 0.7 % 0-5 [facility] Glucose [Mass/Vol] 94 mg/dL 74-106 [facility] Hemoglobin (Bld) [Mass/Vol] 12.5 g/dL 12.0-15.0 [facility] Monocytes/100 WBC (Bld) 7.8 % 0-10 [facility] Neutrophils (Bld) [#/Vol] 5.6 10*3/uL 2.0-7.7 [facility] Neutrophils/100 WBC (Bld) 62.6 % 47-70 [facility] Potassium [Moles/Vol] 3.9 mmol/L 3.5-5.1 [facility] Protein [Mass/Vol] 7.4 g/dL 6.4-8.2 [facility] Sodium [Moles/Vol] 137 mmol/L 136-145 [facility] WBC (Bld) [#/Vol] 8.9 10*3/uL 4.4-11.0 [facility] Determination of erythrocyte mean corpuscular volume (MCV)Ordered By: Yoel Frost on 11-12-2023 MCV (RBC) [Entitic vol] 82.7 fL 81-99 [facility] Erythrocyte distribution wid th ratioOrdered By: Yoel Frost on 11-12-2023 Erythrocyte distribution width (RBC) [Ratio] 12.6 % 11.6-14.6 [facility] Erythrocyte distribution wid th standard deviationOrdered By: Yoel Frost on 11-12-2023 Erythrocyte distribution width (RBC) [Entitic vol] 37.9 fL 35.1-43.9 [facility] Hematocrit Auto (Bld) [Volum e fraction]Ordered By: Yoel Frost on 11-12-2023 Hematocrit (Bld) [Volume fraction] 38.6 % 37-47 [facility] Immature granulocytes/100 WB C Auto (Bld)Ordered By: Yoel Frost on 11-12-2023 Immature granulocytes/100 WBC (Bld) 0.200 % 0.0-0.9 [facility] Comment on above: IG% - Immature Granu locytes (promyelocytes, myelocytes and metamyelocytes) > 1% indicates that a LEFT SHIFT is Present. Laboratory - Chemistry and C hemistry - challengeOrdered By: Yoel Frost on 11-12-2023 Albumin/Globulin [Mass ratio] 1.2 {ratio} 0.9-2.4 [facility] ALP [Catalytic activity/Vol] 71 U/L 45-117 [facility] ALT [Catalytic activity/Vol] 14 U/L 13-56 [facility] CO2 [Moles/Vol] 23.0 mmol/L 21.0-32.0 [facility] Cobalamin (Vitamin B12) [Mass/Vol] 320 pg/mL 211-911 [facility] Globulin (S) [Mass/Vol] 3.4 g/dL 2.2-4.2 [facility] Urea nitrogen/Creatinine [Mass ratio] 13.1 mg/mg 10-20 [facility] Laboratory - Hematology and Cell countsOrdered By: Yoel Frost on 11-12-2023 MCH (RBC) [Entitic mass] 26.8 pg 27.0-32.0 [facility] MCHC (RBC) [Mass/Vol] 32.4 g/dL 32-36 [facility] Nucleated RBC/100 WBC (Bld) [Ratio] 0 % 0-5 [facility] Platelet mean volume (Bld) [Entitic vol] 9.1 fL 6.2-12.0 [facility] Platelets (Bld) [#/Vol] 333 10*3/uL 150-450 [facility] No Panel InformationOrdered By: Yoel Frost on 11-12-2023 Estimated GFR (MDRD) Amer 121 mL/min >60 [facility] Comment on above: GFR Calc Estimated GFR (MDRD) Non-Af Amer 100 mL/min >60 [facility] Comment on above: Non- GFR Calc Vitamin D 25-Hydroxy 62.4 ng/mL [facility] Comment on above: Vitamin D 25(OH) Sta tus Range Deficiency <20 ng/mL (50nmol/L) Insufficiency 20 - 30 ng/mL (50 - 75 nmol/L) Sufficiency 30 - 100 ng/mL (75 - 250 nmol/L) Toxicity >100 ng/mL (>250 nmol/L) RBC Auto (Bld) [#/Vol]Ordere d By: Yoel Frost on 11-12-2023 RBC (Bld) [#/Vol] 4.67 10*6/uL 4.2-5.4 [facility] Serum or plasma calcium vik urement (mass/volume)Ordered By: Yoel Frost on 11-12-2023 Calcium [Mass/Vol] 9.1 mg/dL 8.5-10.1 [facility] Serum or plasma creatinine m easurement (mass/volume)Ordered By: Yoel Frost on 11-12-2023 Creatinine [Mass/Vol] 0.76 mg/dL 0.55-1.02 [facility] Comment on above: The validity of the calculated GFR & GFRAA in patients over 70 years has not been determined. Clinical correlation is essential. Serum or plasma thyroid stim ulating hormone (TSH) measurement (units/volume)Ordered By: Yoel Frost on 11-12-2023 TSH Qn 1.63 uIU/mL 0.358-3.74 [facility] Serum or plasma urea nitroge n measurement (mass/volume)Ordered By: Yoel Frost on 11-12-2023 Urea nitrogen [Mass/Vol] 10 mg/dL 7-18 [facility] Thin prep Papanicolaou smear with manual screeningOrdered By: Yoel Frost on 11-12-2023 Thin prep Papanicolaou smear with manual screening 4.0 g/dL 3.2-5.0 [facility] Thin prep Papanicolaou smear with manual screening 8 U/L 15-37 [facility] Thin prep Papanicolaou smear with manual screening 8 5-15 [facility] Absolute lymphocyte countOrd ered By: Dr. Haines on 11-04-2022 Lymphocytes Auto (Unsp spec) [#/Vol] 3.02 10*3/uL 0.83-4.51 [facility] Basophil percentageOrdered B y: Dr. Haines on 11-04-2022 Basophils/100 WBC (Bld) 0.5 % 0-1 [facility] Chloride [Moles/Vol] 106 mmol/L 98-107 [facility] Eosinophils/100 WBC (Bld) 0.8 % 0-5 [facility] Glucose [Mass/Vol] 80 mg/dL 74-106 [facility] Neutrophils (Bld) [#/Vol] 5.5 10*3/uL 2.0-7.7 [facility] Neutrophils/100 WBC (Bld) 58.1 % 47-70 [facility] Potassium [Moles/Vol] 3.7 mmol/L 3.5-5.1 [facility] Sodium [Moles/Vol] 138 mmol/L 136-145 [facility] WBC (Bld) [#/Vol] 9.5 10*3/uL 4.4-11.0 [facility] Blood erythrocytes count (nu mber/volume)Ordered By: Dr. Haines on 11-04-2022 RBC (Bld) [#/Vol] 4.60 10*6/uL 4.2-5.4 [facility] Blood hemoglobin measurement (mass/volume)Ordered By: Dr. Haines on 11-04-2022 Hemoglobin (Bld) [Mass/Vol] 12.7 g/dL 12.0-15.0 [facility] Blood lymphocytes/100 leukoc ytesOrdered By: Dr. Haines on 11-04-2022 Lymphocytes/100 WBC (Bld) 32.0 % 19-41 [facility] Blood monocytes/100 leukocyt esOrdered By: Dr. Haines on 11-04-2022 Monocytes/100 WBC (Bld) 8.4 % 0-10 [facility] Blood platelet mean volumeOr dered By: Dr. Haines on 11-04-2022 Platelet mean volume (Bld) [Entitic vol] 9.0 fL 6.2-12.0 [facility] Determination of erythrocyte mean corpuscular volume (MCV)Ordered By: Dr. Haines on 11-04-2022 MCV (RBC) [Entitic vol] 83.5 fL 81-99 [facility] Hematocrit Auto (Bld) [Volum e fraction]Ordered By: Dr. Haines on 11-04-2022 Hematocrit (Bld) [Volume fraction] 38.4 % 37-47 [facility] Laboratory - Chemistry and C hemistry - challengeOrdered By: Dr. Haines on 11-04-2022 CO2 [Moles/Vol] 28.0 mmol/L 21.0-32.0 [facility] Urea nitrogen/Creatinine [Mass ratio] 19.3 mg/mg 10-20 [facility] Laboratory - Hematology and Cell countsOrdered By: Dr. Haines on 11-04-2022 Erythrocyte distribution width (RBC) [Entitic vol] 37.1 fL 35.1-43.9 [facility] Erythrocyte distribution width (RBC) [Ratio] 12.3 % 11.6-14.6 [facility] Immature granulocytes/100 WBC (Bld) 0.200 % 0.0-0.9 [facility] Comment on above: IG% - Immature Granu locytes (promyelocytes, myelocytes and metamyelocytes) > 1% indicates that a LEFT SHIFT is Present. MCH (RBC) [Entitic mass] 27.6 pg 27.0-32.0 [facility] Nucleated RBC/100 WBC (Bld) [Ratio] 0 % 0-5 [facility] MCHC Auto (RBC) [Mass/Vol]Or dered By: Dr. Haines on 11-04-2022 MCHC (RBC) [Mass/Vol] 33.1 g/dL 32-36 [facility] No Panel InformationOrdered By: Dr. Haines on 11-04-2022 Estimated GFR (MDRD) Amer 120 mL/min >60 [facility] Comment on above: GFR Calc Estimated GFR (MDRD) Non-Af Amer 99 mL/min >60 [facility] Comment on above: Non- GFR Calc Platelets bldOrdered By: Dr. Haines on 11-04-2022 Platelets (Bld) [#/Vol] 315 10*3/uL 150-450 [facility] Serum or plasma calcium vik urement (mass/volume)Ordered By: Dr. Haines on 11-04-2022 Calcium [Mass/Vol] 9.2 mg/dL 8.5-10.1 [facility] Serum or plasma creatinine m easurement (mass/volume)Ordered By: Dr. Haines on 11-04-2022 Creatinine [Mass/Vol] 0.78 mg/dL 0.55-1.02 [facility] Comment on above: The validity of the calculated GFR & GFRAA in patients over 70 years has not been determined. Clinical correlation is essential. Serum or plasma urea nitroge n measurement (mass/volume)Ordered By: Dr. Haines on 11-04-2022 Urea nitrogen [Mass/Vol] 15 mg/dL 02-03 [facility] Thin prep Papanicolaou smear with manual screeningOrdered By: Dr. Haines on 11-04-2022 Thin prep Papanicolaou smear with manual screening 4 - [facility] .GFRon 09-29-2020 GFR Non- 81 ml/min/1.73sqm Normal [facility] ([place]) Comment on above: Result Comment: GFR Population [...] C BC, MONO, BMP, DIFF, MORPH #### [address] [address] #### GFR #### [address] [address] GFR 98 ml/min/1.73sqm Normal [facility] ([place]) Comment on above: Result Comment: GFR Population [...] C BC, MONO, BMP, DIFF, MORPH #### [address] [address] #### GFR #### [address] [address] .Manual Diffon 09-29-2020 Atypical Lymphs 24.0 % High 0.0-5.0 [facility] ([place]) Comment on above: Performed By: #### C BC, MONO, BMP, DIFF, MORPH #### [address] [address] #### GFR #### [address] [address] Basophil %, Manual 0.0 % Normal 0.0-2.5 [facility] ([place]) Comment on above: Performed By: #### C BC, MONO, BMP, DIFF, MORPH #### [place] [address] #### GFR #### [address] [address] Basophil, Abs Manual 0.00 10 3/mcL Normal 0.00-0.19 A [facility] ([place]) Comment on above: Performed By: #### C BC, MONO, BMP, DIFF, MORPH #### [place] [address] #### GFR #### [place] [address] Eosinophil %, Manual 1.0 % Normal 0.0-7.0 [facility] ([place]) Comment on above: Performed By: #### C BC, MONO, BMP, DIFF, MORPH #### [place] [address] #### GFR #### [address] [address] Eosinophil, Abs Manual 0.08 10 3/mcL Normal 0.00-0.40 [facility] ([place]) Comment on above: Performed By: #### C BC, MONO, BMP, DIFF, MORPH #### [place] [address] #### GFR #### [place] [address] Lymphocyte %, Manual 29.0 % Normal 10.0-50.0 [facility] ([place] Comment on above: Performed By: #### C BC, MONO, BMP, DIFF, MORPH #### [place] [address] #### GFR #### [address] [address] Lymphocyte, Abs Manual 4.29 10 3/mcL High 0.77-3.85 [facility] ([place]) Comment on above: Performed By: #### C BC, MONO, BMP, DIFF, MORPH #### [place] [address] #### GFR #### [place] [address] Monocyte %, Manual 13.0 % Normal 1.7-13.0 [facility] ([place]) Comment on above: Performed By: #### C BC, MONO, BMP, DIFF, MORPH #### [place] [address] #### GFR #### [place] [address] Monocyte, Abs Manual 1.05 10 3/mcL High 0.15-1.00 A [facility] ([place]) Comment on above: Performed By: #### C BC, MONO, BMP, DIFF, MORPH #### [place] [address] #### GFR #### [place] [address] Neutrophil %, Manual 33.0 % Low 37.0-80.0 [facility] ([place] Comment on above: Performed By: #### C BC, MONO, BMP, DIFF, MORPH #### [place] [address] #### GFR #### [place] [address] Neutrophil, Abs Manual 2.67 10 3/mcL Low 2.85-6.16 [facility] ([place]) Comment on above: Performed By: #### C BC, MONO, BMP, DIFF, MORPH #### [place] [address] #### GFR #### [place] [address] .Morphon 09-29-2020 Platelets (Bld) [#/Vol] Normal Normal A [facility] ([place]) Comment on above: Performed By: #### C BC, MONO, BMP, DIFF, MORPH #### [address] [address] #### GFR #### [address] [address] BMPon 09-29-2020 Calcium [Mass/Vol] 9.0 mg/dL Normal 8.4-10.2 [facility] ([place]) Comment on above: Performed By: #### C BC, MONO, BMP, DIFF, MORPH #### [place] [address] #### GFR #### [address] [address] Chloride [Moles/Vol] 99 mmol/L Normal 98-107 [facility] ([place] Comment on above: Performed By: #### C BC, MONO, BMP, DIFF, MORPH #### [place] [address] #### GFR #### [place] [address] CO2 [Moles/Vol] 23 mmol/L Normal 22-29 [facility] ([place]) Comment on above: Performed By: #### C BC, MONO, BMP, DIFF, MORPH #### [place] [address] #### GFR #### [place] [address] Creatinine [Mass/Vol] 0.90 mg/dL Normal 0.55-1.02 [facility] ([place]) Comment on above: Performed By: #### C BC, MONO, BMP, DIFF, MORPH #### [place] [address] #### GFR #### [address] [address] Electrolyte Balance 13.0 mEq/L Normal [facility] [place] Comment on above: Performed By: #### C BC, MONO, BMP, DIFF, MORPH #### [place] [address] #### GFR #### [place] [address] Glucose [Mass/Vol] 105 mg/dL Normal 70-105 [facility] ([place]) Comment on above: Performed By: #### C BC, MONO, BMP, DIFF, MORPH #### [address] [address] #### GFR #### [address] [address] Potassium [Moles/Vol] 3.5 mmol/L Normal 3.5-5.1 [facility] ([place]) Comment on above: Performed By: #### C BC, MONO, BMP, DIFF, MORPH #### [address] [address] #### GFR #### [address] [address] Sodium [Moles/Vol] 135 mmol/L Low 136-145 [facility] ([place]) Comment on above: Performed By: #### C BC, MONO, BMP, DIFF, MORPH #### [address] [address] #### GFR #### [address] [address] Urea nitrogen [Mass/Vol] 9 mg/dL Normal 7-18 [facility] ([place]) Comment on above: Performed By: #### C BC, MONO, BMP, DIFF, MORPH #### [address] [address] #### GFR #### [address] [address] Urea nitrogen/Creatinine [Mass ratio] 10 ratio Normal 7-27 [facility] ([place]) Comment on above: Performed By: #### C BC, MONO, BMP, DIFF, MORPH #### [address] [address] #### GFR #### [address] [address] CBCon 09-29-2020 Erythrocyte distribution width (RBC) [Ratio] 13.5 % Normal 11.5-14.5 [facility] ([place]) Comment on above: Performed By: #### C BC, MONO, BMP, DIFF, MORPH #### [place] [address] #### GFR #### [place] [address] Hematocrit (Bld) [Volume fraction] 39.1 % Normal 37.0-47.0 [facility] ([place]) Comment on above: Performed By: #### C BC, MONO, BMP, DIFF, MORPH #### [place] [address] #### GFR #### [place] [address] Hemoglobin (Bld) [Mass/Vol] 13.8 G/dL Normal 12.0-16.0 [facility] ([place]) Comment on above: Performed By: #### C BC, MONO, BMP, DIFF, MORPH #### [place] [address] #### GFR #### [place] [address] MCH (RBC) [Entitic mass] 27.7 pg Normal 27.0-31.2 [facility] ([place]) Comment on above: Performed By: #### C BC, MONO, BMP, DIFF, MORPH #### [place] [address] #### GFR #### [place] [address] MCHC (RBC) [Mass/Vol] 35.2 G/dL Normal 33.0-37.0 [facility] ([place]) Comment on above: Performed By: #### C BC, MONO, BMP, DIFF, MORPH #### [place] [address] #### GFR #### [place] [address] MCV (RBC) [Entitic vol] 78.7 fL Low 80.0-94.0 A [facility] ([place]) Comment on above: Performed By: #### C BC, MONO, BMP, DIFF, MORPH #### [place] [id number] #### GFR #### [address] [address] Platelet mean volume (Bld) [Entitic vol] 7.9 fL Normal 7.4-10.4 [facility] ([place]) Comment on above: Performed By: #### C BC, MONO, BMP, DIFF, MORPH #### [place] [address] #### GFR #### [address] [address] Platelets (Bld) [#/Vol] 176 10 3/mcL Normal 130-400 [facility] ([place]) Comment on above: Performed By: #### C BC, MONO, BMP, DIFF, MORPH #### [place] [address] #### GFR #### [address] [address] RBC (Bld) [#/Vol] 4.97 10 6/mcL Normal 4.20-5.40 [facility] ([place]) Comment on above: Performed By: #### C BC, MONO, BMP, DIFF, MORPH #### [place] [address] #### GFR #### [address] [address] WBC (Bld) [#/Vol] 8.10 10 3/mcL Normal 4.60-10.80 [facility] ([place]) Comment on above: Performed By: #### C BC, MONO, BMP, DIFF, MORPH #### [place] [address] #### GFR #### [address] [address] MONOon 09-29-2020 Monocytes (Bld) [#/Vol] Positive Normal Negative A [facility] ([place] Comment on above: Performed By: #### C BC, MONO, BMP, DIFF, MORPH #### [place] [address] #### GFR #### [address] [address] RFLUon 09-29-2020 RFLU . MICRO - Microbiology [...] Locations *1: This test was performed at: [address] ([place]) Comment on above: Performed By: #### R FLU #### [address] [address] UAon 09-29-2020 Color (U) Yellow Normal [facility] ([place]) Comment on above: Performed By: #### U A #### [place] [address] Glucose (U) [Mass/Vol] Negative Normal Negative [facility] ([place]) Comment on above: Performed By: #### U A #### [place] [address] Ketones Ql (U) Negative Normal Negative [facility] ([place]) Comment on above: Performed By: #### U A #### [place] [address] UA Appear Clear Normal Clear [facility] ([place]) Comment on above: Performed By: #### U A #### [address] [address] UA Blood Trace Abnormal Negative [facility] ([place]) Comment on above: Performed By: #### U A #### [address] [address] UA Leuk Est Negative Normal Negative [facility] ([place]) Comment on above: Performed By: #### U A #### [place] [address] UA Nitrite Negative Normal Negative [facility] ([place]) Comment on above: Performed By: #### U A #### [address] [address] UA pH 6.5 Normal 5.0 - 8.0 [facility] ([place]) Comment on above: Performed By: #### U A #### [place] [address] UA Protein Negative Normal Negative [facility] ([place]) Comment on above: Performed By: #### U A #### [address] [address] UA Spec Grav 1.025 Normal 1.015-1.025 [facility] ([place]) Comment on above: Performed By: #### U A #### [address] [address] UA Specimen Type Void Normal [facility] ([place]) Comment on above: Performed By: #### U A #### [place] [id number] UA Urobilinogen 4.0 E.U./dL Abnormal 0.2-1.0 [facility] ([place]) Comment on above: Performed By: #### U A #### [place] [address] Urobilinogen Qn (U) Negative Normal Negative [facility] [place] Comment on above: Performed By: #### U A #### [place] [address] XR CHEST 1 VIEWon 09-29-2020 XR CHEST [...] Sign Date: 09/28/2020 10:52:50 PM Ordering Provider:Navi Mitchell [facility] ([place]) Vital Signs Date Time Vital Sign Value Performing Clinician Errol clarke 01-23-2025 09:43-0400 Body height 177.[address] Moisés Haines DO Work Phone: [facility] 01-23-2025 09:43-0400 Body mass index (BMI) [Ratio] 29.5 kg/m2 Dr. Moisés Haines DO Work Phone: [facility] 01-23-2025 09:43-0400 Body weight 93.[address] Moisés Haines DO Work Phone: [facility] 01-23-2025 09:43-0400 Diastolic blood pressure 81 mm[Hg] Dr. Moisés Haines DO Work Phone: [facility] 01-23-2025 09:43-0400 Systolic blood pressure 129 mm[Hg] Dr. Moisés Haines DO Work Phone: [facility] 01-19-2025 10:25-0400 Body height 177.[address] Moisés Haines DO Work Phone: [facility] 01-19-2025 10:25-0400 Body mass index (BMI) [Ratio] 29 kg/m2 Dr. Moisés Haines DO Work Phone: [facility] 01-19-2025 10:25-0400 Body weight 91.[address] Moisés Haines DO Work Phone: [facility] 01-19-2025 10:25-0400 Diastolic blood pressure 79 mm[Hg] Dr. Moisés Haines DO Work Phone: [facility] 01-19-2025 10:25-0400 Systolic blood pressure 137 mm[Hg] Dr. Moisés Haines DO Work Phone: [facility] 01-11-2025 13:50-0400 Body height 177.[address] Moisés Haines DO Work Phone: [facility] 01-11-2025 13:50-0400 Body mass index (BMI) [Ratio] 29.3 kg/m2 Dr. Moisés Haines DO Work Phone: [facility] 01-11-2025 13:50-0400 Body weight 92.[address] Moisés Haines DO Work Phone: [facility] 01-11-2025 13:50-0400 Diastolic blood pressure 69 mm[Hg] Dr. Moisés Haines DO Work Phone: [facility] 01-11-2025 13:50-0400 Systolic blood pressure 126 mm[Hg] Dr. Moisés Haines DO Work Phone: [facility] 01-05-2025 07:58-0400 Body height 177.[address] Moisés Haines DO Work Phone: [facility] 01-05-2025 07:58-0400 Body mass index (BMI) [Ratio] 29 kg/m2 Dr. Moisés Haines DO Work Phone: [facility] 01-05-2025 07:58-0400 Body weight 91.[address] Moisés Haines DO Work Phone: [facility] 01-05-2025 07:58-0400 Diastolic blood pressure 72 mm[Hg] Dr. Moisés Haines DO Work Phone: [facility] 01-05-2025 07:58-0400 Systolic blood pressure 123 mm[Hg] Dr. Moisés Haines DO Work Phone: [facility] 12-30-2024 10:00-0400 Body height 177.[address] Moisés Haines DO Work Phone: [facility] 12-30-2024 09:59-0400 Body mass index (BMI) [Ratio] 28.8 kg/m2 Dr. Moisés Haines DO Work Phone: [facility] 12-30-2024 09:59-0400 Body weight 90.[address] Moisés Haines DO Work Phone: [facility] 12-30-2024 09:59-0400 Diastolic blood pressure 71 mm[Hg] Dr. Moisés Haines DO Work Phone: [facility] 12-30-2024 09:59-0400 Systolic blood pressure 113 mm[Hg] Dr. Moisés Haines DO Work Phone: [facility] 12-22-2024 14:30-0400 Body height 177.[address] Moisés Haines DO Work Phone: [facility] 12-22-2024 14:30-0400 Body mass index (BMI) [Ratio] 28.7 kg/m2 Dr. Moisés Haines DO Work Phone: [facility] 12-22-2024 14:30-0400 Body weight 90.[address] Moisés Haines DO Work Phone: [facility] 12-22-2024 14:30-0400 Diastolic blood pressure 78 mm[Hg] Dr. Moisés Haines DO Work Phone: [facility] 12-22-2024 14:30-0400 Systolic blood pressure 129 mm[Hg] Dr. Moisés Haines DO Work Phone: [facility] 12-09-2024 14:50-0400 Body mass index (BMI) [Ratio] 28.9 kg/m2 Dr. Moisés Haines DO Work Phone: [facility] 12-09-2024 14:50-0400 Body weight 91.[address] Moisés Haines DO Work Phone: [facility] 12-09-2024 14:50-0400 Diastolic blood pressure 67 mm[Hg] Dr. Moisés Haines DO Work Phone: [facility] 12-09-2024 14:50-0400 Systolic blood pressure 106 mm[Hg] Dr. Moisés Haines DO Work Phone: [facility] 11-25-2024 14:07-0400 Body mass index (BMI) [Ratio] 28.7 kg/m2 Dr. Moisés Haines DO Work Phone: [facility] 11-25-2024 14:07-0400 Body weight 90.[address] Moisés Haines DO Work Phone: [facility] 11-25-2024 14:07-0400 Diastolic blood pressure 76 mm[Hg] Dr. Moisés Haines DO Work Phone: [facility] 11-25-2024 14:07-0400 Systolic blood pressure 125 mm[Hg] Dr. Moisés Haines DO Work Phone: [facility] 11-11-2024 14:01-0400 Body mass index (BMI) [Ratio] 28.6 kg/m2 Dr. Moisés Haines DO Work Phone: [facility] 11-11-2024 14:01-0400 Body weight 90.[address] Moisés Haines DO Work Phone: [facility] 11-11-2024 14:01-0400 Diastolic blood pressure 65 mm[Hg] Dr. Moisés Haines DO Work Phone: [facility] 11-11-2024 14:01-0400 Systolic blood pressure 130 mm[Hg] Dr. Moisés Haines DO Work Phone: [facility] 10-14-2024 13:29-0400 Body height 177.[address] Moisés Haines DO Work Phone: [facility] 10-14-2024 13:29-0400 Body mass index (BMI) [Ratio] 28.5 kg/m2 Dr. Moisés Haines DO Work Phone: [facility] 10-14-2024 13:29-0400 Body weight 90.[address] Moisés Haines DO Work Phone: [facility] 10-14-2024 13:29-0400 Diastolic blood pressure 62 mm[Hg] Dr. Moisés Haines DO Work Phone: [facility] 10-14-2024 13:29-0400 Systolic blood pressure 118 mm[Hg] Dr. Moisés Haines DO Work Phone: [facility] 09-16-2024 13:04-0500 Body mass index (BMI) [Ratio] 28 kg/m2 Dr. Moisés Haines DO Work Phone: [facility] 09-16-2024 13:04-0500 Body weight 88.[address] Moisés Haines DO Work Phone: [facility] 09-16-2024 13:04-0500 Diastolic blood pressure 74 mm[Hg] Dr. Moisés Haines DO Work Phone: [facility] 09-16-2024 13:04-0500 Systolic blood pressure 123 mm[Hg] Dr. Moisés Haines DO Work Phone: [facility] 08-19-2024 14:13-0500 Body mass index (BMI) [Ratio] 27.7 kg/m2 Dr. Moisés Haines DO Work Phone: [facility] 08-19-2024 14:13-0500 Body weight 87.[address] Moisés Haines DO Work Phone: [facility] 08-19-2024 14:13-0500 Diastolic blood pressure 65 mm[Hg] Dr. Moisés Haines DO Work Phone: [facility] 08-19-2024 14:13-0500 Systolic blood pressure 123 mm[Hg] Dr. Moisés Haines DO Work Phone: [facility] 07-21-2024 10:11-0500 Body mass index (BMI) [Ratio] 26.5 kg/m2 Dr. Moisés Haines DO Work Phone: [facility] 07-21-2024 10:11-0500 Body weight 83.[address] Moisés Haines DO Work Phone: [facility] 07-21-2024 10:11-0500 Diastolic blood pressure 68 mm[Hg] Dr. Moisés Haines DO Work Phone: [facility] 07-21-2024 10:11-0500 Systolic blood pressure 120 mm[Hg] Dr. Moisés Haines DO Work Phone: [facility] 06-23-2024 13:02-0500 Body mass index (BMI) [Ratio] 26.2 kg/m2 Dr. Moisés Haines DO Work Phone: [facility] 06-23-2024 13:02-0500 Body weight [address] Moisés Haines DO Work Phone: [facility] 06-23-2024 13:02-0500 Diastolic blood pressure 82 mm[Hg] Dr. Moisés Haines DO Work Phone: [facility] 06-23-2024 13:02-0500 Systolic blood pressure 144 mm[Hg] Dr. Moisés Haines DO Work Phone: [facility] 11-12-2023 15:04-0400 Body height 177.[address] Moisés Haines Work Phone: [facility] 11-12-2023 15:04-0400 Body mass index (BMI) [Ratio] 26.4 kg/m2 Dr. Moisés Haines Work Phone: [facility] 11-12-2023 15:04-0400 Body temperature 97.3 [degF] Dr. Moisés Haines Work Phone: [facility] 11-12-2023 15:04-0400 Body weight 83.[address] Moisés Haines Work Phone: [facility] 11-12-2023 15:04-0400 Diastolic blood pressure 60 mm[Hg] Dr. Moisés Haines Work Phone: [facility] 11-12-2023 15:04-0400 Heart rate 60 /min Dr. Moisés Haines Work Phone: [facility] 11-12-2023 15:04-0400 Respiratory rate 16 /min Dr. Moisés Haines Work Phone: [facility] 11-12-2023 15:04-0400 SaO2% (BldA) [Mass fraction] 97 % Dr. Moisés Haines Work Phone: [facility] 11-12-2023 15:04-0400 Systolic blood pressure 122 mm[Hg] Dr. Moisés Haines Work Phone: [facility] 11-04-2022 15:23-0400 Body height 177.[address] Michael Baker Work Phone: [facility] 11-04-2022 15:23-0400 Body mass index (BMI) [Ratio] 26.8 kg/m2 Dr. Michael Baker Work Phone: [facility] 11-04-2022 15:23-0400 Body temperature 97.9 [degF] Dr. Michael Baker Work Phone: [facility] 11-04-2022 15:23-0400 Body weight 84.[address] Michael Baker Work Phone: [facility] 11-04-2022 15:23-0400 Diastolic blood pressure 72 mm[Hg] Dr. Michael Baker Work Phone: [facility] 11-04-2022 15:23-0400 Heart rate 58 /min Dr. Michael Baker Work Phone: [facility] 11-04-2022 15:23-0400 Respiratory rate 14 /min Dr. Michael Baker Work Phone: [facility] 11-04-2022 15:23-0400 SaO2% (BldA) [Mass fraction] 99 % Dr. Michael Baker Work Phone: [facility] 11-04-2022 15:23-0400 Systolic blood pressure 104 mm[Hg] Dr. Michael Baker Work Phone: [facility] 09-04-2022 16:28-0500 Body mass index (BMI) [Ratio] 25.7 kg/m2 Dr. Michael Baker Work Phone: [facility] 09-04-2022 16:28-0500 Body temperature 97.8 [degF] Dr. Michael Baker Work Phone: [facility] 09-04-2022 16:28-0500 Body weight 81.[address] Michael Baker Work Phone: [facility] 09-04-2022 16:28-0500 Diastolic blood pressure 74 mm[Hg] Dr. Michael Baker Work Phone: [facility] 09-04-2022 16:28-0500 Heart rate 77 /min Dr. Michael Baker Work Phone: [facility] 09-04-2022 16:28-0500 Respiratory rate 14 /min Dr. Michael Baker Work Phone: [facility] 09-04-2022 16:28-0500 SaO2% (BldA) [Mass fraction] 97 % Dr. Michael Baker Work Phone: [facility] 09-04-2022 16:28-0500 Systolic blood pressure 108 mm[Hg] Dr. Michael Baker Work Phone: [facility] Encounters Encounter Date Encounter Type Care Provider Facility Start: 01-23-2025 End: 01-23-[address] Moisés Haines DO Work Phone: -[facility] Start: 01-23-2025 End: 01-23-2025 Patient encounter procedure Angela PERKINS -[facility] Work Phone: Start: 01-19-2025 End: 01-19-[address] Kenya Wright MD -[facility] Work Phone: Start: 01-19-2025 End: 01-19-[address] Moisés Haines DO Work Phone: [facility] Start: 01-11-2025 End: 01-11-[address] Jemima Garcia DO -[facility] Work Phone: Start: 01-11-2025 End: 01-11-[address] Moisés Haines DO Work Phone: [facility] Work Phone: Start: 01-05-2025 End: 01-05-2025 Patient encounter procedure Angela Sanders CNM -[facility] Work Phone: Start: 01-05-2025 End: 01-05-[address] Moisés Haines DO Work Phone: [facility] Work Phone: Start: 12-30-2024 End: 12-30-[address] Jemima Garcia DO -[facility] Work Phone: Start: 12-30-2024 End: 12-30-[address] Moisés Haines DO Work Phone: [facility] Work Phone: Start: 12-22-2024 End: 12-22-[address] Moisés Haines DO Work Phone: [facility] Work Phone: Start: 12-22-2024 End: 12-22-2024 Patient encounter procedure Angela Sanders CNM -Laboratory Specimen Work Phone: Start: 12-22-2024 End: 12-22-2024 Patient encounter procedure Angela Sanders CNM -[facility] Work Phone: Start: 12-22-2024 End: 12-22-[address] Moisés Haines DO Work Phone: [facility] Work Phone: Start: 12-22-2024 End: 12-22-2024 ambulatory Angela Sanders Facility:[facility] Start: 12-09-2024 End: 12-09-[address] Jemima Garcia DO -[facility] Work Phone: Start: 12-09-2024 End: 12-09-2024 ambulatory Moisés Haines Facility:[facility] Start: 11-25-2024 End: 11-25-2024 Patient encounter procedure Angela Sanders [facility] -[facility] Work Phone: Start: 11-25-2024 End: 11-25-2024 ambulatory Moisés Haines Facility:[facility] Start: 11-11-2024 End: 11-11-2024 Patient encounter procedure Roseanna Mckeon [facility] -[facility] Work Phone: Start: 11-11-2024 End: 11-11-2024 ambulatory Moisés Haines Facility:[facility] Start: 10-14-2024 End: 10-14-2024 Patient encounter procedure Cesilia George [employer]-C -[facility] Work Phone: Start: 10-14-2024 End: 10-14-[address] Moisés Haines DO Work Phone: [facility] Work Phone: Start: 10-14-2024 End: 10-14-2024 ambulatory Cesilia George NP Facility:[facility] Start: 09-16-2024 End: 09-16-2024 Patient encounter procedure Roseanna PERKINS -[facility] Work Phone: Start: 09-16-2024 End: 09-16-2024 ambulatory Moisés Haines Facility:[facility] Start: 08-26-2024 End: 08-26-2024 ambulatory JEMIMA JEAN [facility] Start: 08-19-2024 End: 08-19-[address] Kenya Wright MD -[facility] Work Phone: Start: 08-19-2024 End: 08-19-2024 ambulatory Moisés Haines Facility:[facility] Start: 07-21-2024 End: 07-21-[address] Jemima Garcia DO -[facility] Work Phone: Start: 07-21-2024 End: 07-21-2024 ambulatory Moisés Barker Zaki Facility:[facility] Start: 07-21-2024 End: 07-21-2024 ambulatory Moisés Haines Facility:[facility] Start: 07-01-2024 End: 07-01-2024 Patient encounter procedure Angela Sanders CNM -Lab, [facility] Start: 07-01-2024 End: 07-01-2024 ambulatory Angela Sanders Facility:[facility] Start: 06-23-2024 End: 06-23-2024 Patient encounter procedure Angela PERKINSM -Laboratory, Specimen Work Phone: Start: 06-23-2024 End: 06-23-2024 Patient encounter procedure Angela Sanders CNM -[facility] Work Phone: Start: 06-23-2024 End: 06-23-2024 ambulatory Moisés Barker Zaki Facility:[facility] Start: 06-23-2024 End: 06-23-2024 ambulatory Angela Sanders Facility:[facility] Start: 11-12-2023 End: 11-12-[address] Moisés Haines Work Phone: [facility] Work Phone: Start: 11-12-2023 End: 11-12-[address] Moisés Haines Work Phone: [facility] Work Phone: Start: 11-04-2022 End: 11-04-[address] Michael Baker Work Phone: [facility] Work Phone: Start: 11-04-2022 End: 11-04-[address] Michael Baker Work Phone: [facility] Start: 09-04-2022 End: 09-04-[address] Michael Baker Work Phone: [facility] Procedures Date Procedure Procedure Detail Performing Clinician Start: 12-22-2024 Beta-hemolytic Streptococcus culture Dr. Moisés Haines DO Work Phone: Start: 10-14-2024 Serologic test for syphilis Dr. Moisés Haines DO Work Phone: Start: 06-23-[address] Bette Haines DO Work Phone: Plan of Treatment Date Care Activity Detail Author Streptococcus agalac tiae [Presence] in Unspecified specimen by Organism specific culture [facility] Payers Date Payer Category Payer Unknown [id number] [id number] Self-pay 2024 Unknown [id number] 2000 Unknown [id number] Unknown [facility] [id number] Unknown [id number] Unknown [id number] 2.16.8 [id number] Unknown [id number] 2.16.8 40.1.759719.3.579.2.462 Unknown [id number] 2.16.8 40.1.603763.3.579.2.462 Unknown [id number] 2.16.8 40.1.936458.3.579.2.462 Unknown [id number] 2.16.8 40.1.461162.3.579.2.462 Unknown [id number] 2.16.8 40.1.059801.3.579.2.462 Unknown [id number] 2.16.8 40.1.923073.3.579.2.462 Unknown [id number] 2.16.8 40.1.659621.3.579.2.462 Unknown [id number] 2.16.8 40.1.479335.3.579.2.462 Unknown [id number] 2.16.8 40.1.220332.3.579.2.462 Unknown [id number] 2.16.8 40.1.807645.3.579.2.462 Unknown [id number] 2.16.8 40.1.570025.3.579.2.462 Unknown [id number] 2.16.8 40.1.886173.3.579.2.462 Unknown [id number] 2.16.8 40.1.890050.3.579.2.462 Unknown [id number] 2.16.8 40.1.534611.3.579.2.462 Unknown [id number] 2.16.8 40.1.590165.3.579.2.462 Unknown [id number] 2.16.8 40.1.275647.3.579.2.462 Unknown [id number] 2.16.8 40.1.906392.3.579.2.462 Social History Date Type Detail Facility Start: [facility]-04-[facility]22 [facility] Start: 2000 Sex Assigned At Female [facility] Start: 06-14-2024 [facility] (finding[facility] Start: 10-18-2024 Sex Female (finding) [facility] Clinical Notes 06-23-2024 to 01-23-2025 Note Date & Type Note Facility 01-23-2025 Progress note [facility] 01-05-[address] [facility] 12-30-2024 Progress note [facility] 12-22-2024 Progress note [facility] 12-22-2024 Progress note Note Date/Time December 22, 2024 2:55pm [facility] [address], [address] [place] [address] OFFICE VISIT Date of Service: 12/22/24 MR#: [id number] Acct: [id number] Name: SHEEBA WELSH Rep #: [id number] : 2000 Provider: JACKELIN Sanders Age/Sex: 24/F Location[place] [facility] Status: Signed Intake Vital Signs 11/11/24 14:01 12/09/24 14:53 12/22/24 14:30 Height 5 ft 10 in 5 ft 10 in 5 ft 10 in Weight: 200 lb BMI 28.7 BP 129/78 H Intake Visit Reasons: 36wk ob Chief Complaint: 36wk ob [employer] Required: No Is patient in pain?: No Allergies No Known Allergies Allergy (Verified 12/22/24 14:28) Medications ?Medication ?Instructions ?Recorded ?Confirmed ?Type multivit-min no.71-iron fum 28 cap PO 06/14/24 5 History mg-folate no.1 1 mg-dha 300 mg capsule (PNV-[place]) promethazine 12.5 mg tablet 12.5 mg PO Q6H PRN headach e #30 12/09/24 12/22/24 Rx tabs Last Menstrual Period: 04/15/24 : No PFSH PFSH Medical History Menorrhagia Headache, migraine History of fracture Non-smoker Surgical History History of repair of ACL Family History Mother Breast cancer, Onset Age: 51 Depression Father Cancer, Onset Age: 57 Chronic leukemia Social History adopted: No household members: significant other and family current occupational status: employed current occupation: [employer] pets and animals: Yes pets [...] 3-4 times per week duration: 60-90 minutes/day daniel/taoism: Sikhism seatbelt use: always do you feel safe at home: Yes additional social history: BF- [employer] History 1 Elective abortions Hx Para 0 Spontaneous abortions Hx # Term Pregnancies Ectopic pregnancies Hx # Pregnancies Multiple births # of living children HPI 36wk ob Details: SHEEBA WELSH is a 24 year old who presents for routine OB visit. OB Visit OLIVIA Calculator Estimated Delivery Date Method Current WG Current Estimate 01/20/25 LMP (Certain) 35w 6d Other Estimates 01/20/25 Ultrasound #1 35w 6d Expected Delivery Route/Plan Labor Preferences- CB/BF [...] list details Initial Weight: 183 lb Date -?-?-?-?-?-?-?-?-?-?-?-?- EGA Weight BP Urine Prot -?-?-?-?-?-?-?-?-?-?-?-?- Glucose FHR FuHt Pres Dilation -?-?-?-?-?-?-?-?-?-?-?-?- Effaced St Visit Note 06/23/24 -?-?-?-?-?-?-?-?-?-?-?-?- 9w 6d 183 lb (+0 oz) 144/82 -?-?-?-?-?-?-?-?-?-?-?-?- 159 -?-?-?-?-?-?-?-?-?-?-?-?- KW- CRL cons wit h dates. accepts nipt 07/21/24 -?-?-?-?-?-?-?-?-?-?-?-?- 13w 6d 185 lb (+2 lb) 120/68 Negative -?-?-?-?-?-?-?-?-?-?-?-?- Negative 150 -?-?-?-?-?-?-?-?-?-?-?-?- JV- CRL measures 14 weeks today. pt has some complaints of headaches. recommend 72 oz of water a day + tylenol. new ob labs and NIPT today. JV- CRL measures 14 weeks to day. pt has some complaints of headaches. recommend 72 oz of water a day + tylenol. NIPT today. 08/19/24 -?-?-?-?-?-?-?-?-?-?-?-?- 18w 0d 193 lb 6 oz (+10 lb 6 oz) 123/65 Negative -?-?-?-?-?-?-?-?-?-?-?-?- Negative 140 -?-?-?-?-?-?-?-?-?-?-?-?- SM- no vb lof cr amping 09/16/24 -?-?-?-?-?-?-?-?-?-?-?-?- 22w 0d 195 lb 4 oz (+12 lb 4 oz) 123/74 Negative -?-?-?-?-?-?-?-?-?-?-?-?- Negative 153 22 -?-?-?-?-?-?-?-?-?-?-?-?- LC- no vb/crampi ng. normal anatomy. no concerns today. 10/14/24 -?-?-?-?-?-?-?-?-?-?-?-?- 26w 0d 199 lb 2 oz (+16 lb 2 oz) 118/62 Negative -?-?-?-?-?-?-?-?-?-?-?-?- Negative 148 27 -?-?-?-?-?-?-?-?-?-?-?-?- MH-No VB, LOF. G ood Fm. 28 wk labs, [facility] 11/11/24 -?-?-?-?-?-?-?-?-?-?-?-?- 30w 0d 199 lb 8 oz (+16 lb 8 oz) 130/65 Negative -?-?-?-?-?-?-?-?-?-?-?-?- Negative 140 30 -?-?-?-?-?-?-?-?-?-?-?-?- LC- no vb/ctx/lo f. good fm. no concerns.declines tdap. 11/25/24 -?-?-?-?-?-?-?-?-?-?-?-?- 32w 0d 200 lb 4 oz (+17 lb 4 oz) 125/76 Negative -?-?-?-?-?-?-?-?-?-?-?-?- Negative 140 32 -?-?-?-?-?-?-?-?-?-?-?-?- KW- no vb/lof/ct x. good fm. some pelvic pressure but no Uti sx. 12/09/24 -?-?-?-?-?-?-?-?-?-?-?-?- 34w 0d 201 lb 8 oz (+18 lb 8 oz) 106/67 Negative -?-?-?-?-?-?-?-?-?-?-?-?- Negative 150 34 -?-?-?-?-?-?-?-?-?-?-?-?- JV- pt complains of headache x 3 days, worse when she moves from sitting to standing. bp is normal/low. will try compression stockings. rx for promethazine sent to pharmacy. 12/22/24 -?-?-?-?-?-?-?-?-?-?-?-?- 35w 6d 200 lb (+17 lb) 129/78 Negative -?-?-?-?-?-?-?-?-?-?-?-?- Negative 150 36 Cephalic 0 -?--?-?-?-?-?-?-?-?-?-?-?- KW- no vb/lof/ct x. good fm. GBS today ACOG First Trimester First Trimester: Discussed Second Trimester Second Trimester: Signs and Symptoms of Labor, Selecting a care provider, Reproductive Life Planning & Contreception, Care Planning and Depression/Anxiety; Discussed Tobacco Cessation and Discussed Intimate Partner Violence Third Trimester Third Trimester: Pain Management Plans, Labor support person(s), Immediate Larc, Signs and Symptoms of Preeclampsia, Infant Feeding No , Education and Family Medical Leave or Disability Forms; Discussed Circumcision preference ROS Const Reports system reviewed and no additional complaints, except as documented Eyes Reports system reviewed and no additional complaints, except as documented ENT Reports system reviewed and no additional complaints, except as documented Card Reports system reviewed and no additional complaints, except as documented Resp Reports system reviewed and no additional complaints, except as documented GI Reports system reviewed and no additional complaints, except as documented, Denies nausea and Denies vomiting Reports system reviewed and no additional complaints, except as documented Musc Reports system reviewed and no additional complaints, except as documented Skin/Breast Reports system reviewed and no additional complaints, except as documented Neuro Yes system reviewed and no additional complaints, except as documented Psych Reports system reviewed and no additional complaints, except as documented Endo Reports system reviewed and no additional complaints, except as documented Shay/Lymph Reports system reviewed and no additional complaints, except as documented Aller/Immun Reports system reviewed and no additional complaints, except as documented Exam Const General: cooperative, healthy appearing and no acute distress Orientation: alert, awake and oriented x3 Neck Neck: normal visual inspection and full ROM Resp Effort & Inspection: normal respiratory effort, able to speak in complete sentences and symmetric chest movement GI Inspection: normal to inspection Palpation: soft and other Other: gravid Skin General: no rashes or lesions noted Neuro General: patient alert, patient awake and patient oriented x3 Cognition: normal cognition Speech: speech normal Gait: normal gait Motor: muscle tone normal throughout Extrem General: normal to inspection and full ROM Psych Appearance: grossly normal Mental Status: mental status grossly normal Mood: congruent mood Affect: normal affect Speech and Movement: speech and movement normal Attitude: cooperative Thought Process: normal Thought Content: normal Judgment: judgment good Results POC Urinalysis 2 Dip (Clinic) Office Urine Glucose Negative Last Edit by Stefanie Haines on 12/22/24 14:35 Office Urine Protein Negative Last Edit by Stefanie Haines on 12/22/24 14:35 Coding Level of Care Code OB Routine Diagnoses Encounter for supervision of normal first in second trimester Z34.02 Trimester: second trimester 35 weeks gestation of Z3A.35 Weeks of gestation: 35 weeks Assessment and Plan Assessment and Plan (1) Supervision of normal first : Status: Acute Qualifiers: Trimester: second trimester Qualified Code(s): Z34.02 - Encounter for supervision of normal first , second trimester Comment: PRR, , OLIVIA 01/20/25, girl Patricia Curry (2) : Status: Acute Qualifiers: Weeks of gestation: 35 weeks Qualified Code(s): Z3A.35 - 35 weeks gestation of Comment: NIPT low risk, gender female, elects Carrier testing Orders: Orders POC Urinalysis 2 Dip (Clinic) Today Culture, Group B Streptococcus Today Z34.02 - Encounter for supervision of normal first , second trimester, Z3A.35 - 35 weeks gestation of Plan Details Additional Comments: ACOG trimester education reviewed and updated. see problem list details for updated plan management information and see below for orders placed at this visit. GA appropriate handout given. 12/22/24 7726 <Electronically signed by Angela baca CNM> Date _ Angela Sanders CNM Cosigner Signature: Date (if applicable) CC: ~ [facility] Work Phone: 1(872) 218-810703-28-2025 Evaluation note* Diagnosis Onset Date Resolution Status Admit Date acute October 14 1:25pm Supervision of normal first acute October 14, 2024 1:25pm acute November 11 1:57pm Supervision of normal first acute November 11, 2024 1:57pm acute November 25, 2024 1:59pm Supervision of normal first acute November 25, 2024 1: 59pm acute December 09, 2024 2:46pm Supervision of normal first acute December 09, 2024 2 :46pm acute December 22, 2024 2:27pm Supervision of normal first acute December 22, 2024 2 :27pm acute December 30 9:46am Supervision of normal first acute December 30, 2024 9:46am acute January 05 7:54am Supervision of normal first acute January 05, 2025 7:54am acute January 11 1:44pm Supervision of normal first acute January 11, 2025 1:44pm acute January 19, 2025 10:09am Supervision of normal first acute January 19, 2025 1 0:09am [facility] Work Phone: 1(957) 646-208103-28-2025 Evaluation note* Diagnosis Onset Date Resolution Status Admit Date acute October 14 1:25pm Supervision of normal first acute October 14, 2024 1:25pm acute November 11 1:57pm Supervision of normal first acute November 11, 2024 1:57pm acute November 25, 2024 1:59pm Supervision of normal first acute November 25, 2024 1: 59pm acute December 09, 2024 2:46pm Supervision of normal first acute December 09, 2024 2 :46pm acute December 22, 2024 2:27pm Supervision of normal first acute December 22, 2024 2 :27pm acute December 30 9:46am Supervision of normal first acute December 30, 2024 9:46am acute January 05 7:54am Supervision of normal first acute January 05, 2025 7:54am acute January 11 1:44pm Supervision of normal first acute January 11, 2025 1:44pm acute January 19, 2025 10:09am Supervision of normal first acute January 19, 2025 1 0:09am acute January 23, 2025 9:40am Supervision of normal first acute January 23, 2025 9 :40am [facility] Work Phone: [phone]) [phone] Evaluation note* Diagnosis Onset Date Resolution Status Admit Date acute September 16, 2024 12:58pm Supervision of normal first acute September 16, 2 025 12:58pm acute October 14 1:25pm Supervision of normal first acute October 14, 2024 1:25pm acute November 11 1:57pm Supervision of normal first acute November 11, 2024 1:57pm acute November 25, 2024 1:59pm Supervision of normal first acute November 25, 2024 1: 59pm acute December 09, 2024 2:46pm Supervision of normal first acute December 09, 2024 2 :46pm acute December 22, 2024 2:27pm Supervision of normal first acute December 22, 2024 2 :27pm [facility] Work Phone: 1(745) 597-150002-28-2025 Evaluation note* Diagnosis Onset Date Resolution Status Admit Date acute September 16, 2024 12:58pm Supervision of normal first acute September 16, 2 025 12:58pm acute October 14 1:25pm Supervision of normal first acute October 14, 2024 1:25pm acute November 11 1:57pm Supervision of normal first acute November 11, 2024 1:57pm acute November 25, 2024 1:59pm Supervision of normal first acute November 25, 2024 1: 59pm acute December 09, 2024 2:46pm Supervision of normal first acute December 09, 2024 2 :46pm acute December 22, 2024 2:27pm Supervision of normal first acute December 22, 2024 2 :27pm acute December 30 9:46am Supervision of normal first acute December 30, 2024 9:46am [facility] Work Phone: 1(871) 198-644702-28-2025 Evaluation note* Diagnosis Onset Date Resolution Status Admit Date acute September 16, 2024 12:58pm Supervision of normal first acute September 16, 2 025 12:58pm acute October 14 1:25pm Supervision of normal first acute October 14, 2024 1:25pm acute November 11 1:57pm Supervision of normal first acute November 11, 2024 1:57pm acute November 25, 2024 1:59pm Supervision of normal first acute November 25, 2024 1: 59pm acute December 09, 2024 2:46pm Supervision of normal first acute December 09, 2024 2 :46pm acute December 22, 2024 2:27pm Supervision of normal first acute December 22, 2024 2 :27pm acute December 30 9:46am Supervision of normal first acute December 30, 2024 9:46am acute January 05 7:54am Supervision of normal first acute January 05, 2025 7:54am [facility] Work Phone: 1(431) 902-906702-28-2025 Evaluation note* Diagnosis Onset Date Resolution Status Admit Date acute September 16, 2024 12:58pm Supervision of normal first acute September 16, 12:58pm acute October 14 1:25pm Supervision of normal first acute October 14, 2024 1:25pm acute November 11 1:57pm Supervision of normal first acute November 11, 2024 1:57pm acute November 25, 2024 1:59pm Supervision of normal first acute November 25, 2024 1: 59pm acute December 09, 2024 2:46pm Supervision of normal first acute December 09, 2024 2 :46pm acute December 22, 2024 2:27pm Supervision of normal first acute December 22, 2024 2 :27pm acute December 30 9:46am Supervision of normal first acute December 30, 2024 9:46am acute January 05 7:54am Supervision of normal first acute January 05, 2025 7:54am acute January 11 1:44pm Supervision of normal first acute January 11, 2025 1:44pm [facility] Work Phone: 1(845) 775-299712-05-2024 NotePap Smear Specimen AdequacyDecemb 2023 12:59amComment.Satisfactory for evaluation. Endocervical and/or squamous metaplasticcells (endocervical component)are present.[facility] INTER[facility]ACED A#[id number] HealthComment on above:Satisfactory for evaluation. Endocervical and/or squamous metaplasticcells (endocervical component)are present.06-23-2024 Evaluation note* Diagnosis Onset Date Resolution Status Admit Date acute June 23, 2024 12:42pm Supervision of normal first acute June 23 12:42pm Chest discomfort resolved June 23, 2024 12:42pm Palpitations resolved June 12:42pm acute July 21, 025 10:06am Supervision of normal first acute July 21 10:06am Chest discomfort resolved July 21, 2024 10:06am Palpitations resolved July 21, 2024 10:06am acute August 19, 2024 2:11pm Supervision of normal first acute August 19 2:11pm acute September 16, 2024 12:58pm Supervision of normal first acute September 16, 2 025 12:58pm acute October 14 1:25pm Supervision of normal first acute October 14, 2024 1:25pm [facility] Work Phone: Evaluation note* Diagnosis Onset Date Resolution Status Anxiety with depression acut e Anxiety with depression acut e Fatigue acute [facility] Work Phone: Evaluation note* Diagnosis Onset Date Resolution Status Anxiety with depression acut e Chest discomfort acute Menorrhagia acute [facility] Work Phone: Progress note Author Jemima Avila [facility] Note Date/Time December 30, 2024 10:[address] [facility] [address] [place] [address], [address] [place] [address] OFFICE VISIT Date of Service: 12/30/24 MR#: [id number] Acct: [id number] Name: SHEEBA WELSH Rep #: [id number] : 2000 Provider: Dr. Kerline Garcia, DO Age/Sex: 24/F [place] [facility] Status: Signed Intake Vital Signs 11/25/24 14:07 12/22/24 14:30 12/30/24 09:59 12/30/24 10:00 Height 5 ft 10 in 5 ft 10 in 5 ft 10 in 5 ft 10 in Weight: 200 lb 8 oz BMI 28.8 BP 113/71 Intake Visit Reasons: 37 wk ob Ship'[employer] Required: No Is patient in pain?: No Allergies No Known Allergies Allergy (Verified 12/30/24 09:59) Medications ?Medication ?Instructions ?Recorded ?Confirmed ?Type multivit-min no.71-iron fum 28 cap PO 06/14/24 5 History mg-folate no.1 1 mg-dha 300 mg capsule (PNV-[place]) promethazine 12.5 mg tablet 12.5 mg PO Q6H PRN headach e #30 12/09/24 12/30/24 Rx tabs Last Menstrual Period: 04/15/24 Zika: [...] occupational status: employed current occupation: [employer] pets and animals: Yes pets and [...] 3-4 times per week duration: 60-90 minutes/day daniel/taoism: Sikhism seatbelt use: always do you feel safe at home: Yes additional social history: BF- [employer] History 1 Elective abortions Hx Para 0 Spontaneous abortions Hx # Term Pregnancies Ectopic pregnancies Hx # Pregnancies Multiple births # of living children HPI 37 wk ob Details: SHEEBA WELSH is a 24 year old who presents for routine OB visit. OB Visit OLIVIA Calculator Estimated Delivery Date Method Current WG Current Estimate 01/20/25 LMP (Certain) 37w 0d Other Estimates 01/20/25 Ultrasound #1 37w 0d Expected Delivery Route/Plan Labor Preferences- CB/BF [...] list details Initial Weight: 183 lb Date -?-?-?-?-?-?-?-?-?-?-?-?- EGA Weight BP Urine Prot -?-?-?-?-?-?-?-?-?-?-?-?- Glucose FHR FuHt Pres Dilation -?-?-?-?-?-?-?-?-?-?-?-?- Effaced St Visit Note 06/23/24 -?-?-?-?-?-?-?-?-?-?-?-?- 9w 6d 183 lb (+0 oz) 144/82 -?-?-?-?-?-?-?-?-?-?-?-?- 159 -?-?-?-?-?-?-?-?-?-?-?-?- KW- CRL cons wit h dates. accepts nipt 07/21/24 -?-?-?-?-?-?-?-?-?-?-?-?- 13w 6d 185 lb (+2 lb) 120/68 Negative -?-?-?-?-?-?-?-?-?-?-?-?- Negative 150 -?-?-?-?-?-?-?-?-?-?-?-?- JV- CRL measures 14 weeks today. pt has some complaints of headaches. recommend 72 oz of water a day + tylenol. new ob labs and NIPT today. JV- CRL measures 14 weeks to day. pt has some complaints of headaches. recommend 72 oz of water a day + tylenol. NIPT today. 08/19/24 -?-?-?-?-?-?-?-?-?-?-?-?- 18w 0d 193 lb 6 oz (+10 lb 6 oz) 123/65 Negative -?-?-?-?-?-?-?-?-?-?-?-?- Negative 140 -?-?-?-?-?-?-?-?-?-?-?-?- SM- no vb lof cr amping 09/16/24 -?-?-?-?-?-?-?-?-?-?-?-?- 22w 0d 195 lb 4 oz (+12 lb 4 oz) 123/74 Negative -?-?-?-?-?-?-?-?-?-?-?-?- Negative 153 22 -?-?-?-?-?-?-?-?-?-?-?-?- LC- no vb/teresa ng. normal anatomy. no concerns today. 10/14/24 -?-?-?-?-?-?-?-?-?-?-?-?- 26w 0d 199 lb 2 oz (+16 lb 2 oz) 118/62 Negative -?-?-?-?-?-?-?-?-?-?-?-?- Negative 148 27 -?-?-?-?-?-?-?-?-?-?-?-?- MH-No VB, LOF. G ood Fm. 28 wk labs, [facility] 11/11/24 -?-?-?-?-?-?-?-?-?-?-?-?- 30w 0d 199 lb 8 oz (+16 lb 8 oz) 130/65 Negative -?-?-?-?-?-?-?-?-?-?-?-?- Negative 140 30 -?-?-?-?-?-?-?-?-?-?-?-?- LC- no vb/ctx/lo f. good fm. no concerns.declines tdap. 11/25/24 -?-?-?-?-?-?-?-?-?-?-?-?- 32w 0d 200 lb 4 oz (+17 lb 4 oz) 125/76 Negative -?-?-?-?-?-?-?-?-?-?-?-?- Negative 140 32 -?-?-?-?-?-?-?-?-?-?-?-?- KW- no vb/lof/ct x. good fm. some pelvic pressure but no Uti sx. 12/09/24 -?-?-?-?-?-?-?-?-?-?-?-?- 34w 0d 201 lb 8 oz (+18 lb 8 oz) 106/67 Negative -?-?-?-?-?-?-?-?-?-?-?-?- Negative 150 34 -?-?-?-?-?-?-?-?-?-?-?-?- JV- pt complains of headache x 3 days, worse when she moves from sitting to standing. bp is normal/low. will try compression stockings. rx for promethazine sent to pharmacy. 12/22/24 -?-?-?-?-?-?-?-?-?-?-?-?- 35w 6d 200 lb (+17 lb) 129/78 Negative -?-?-?-?-?-?-?-?-?-?-?-?- Negative 150 36 Cephalic 0 -?-?-?-?-?-?-?-?-?-?-?-?- KW- no vb/lof/ct x. good fm. GBS today 12/30/24 -?-?-?-?-?-?-?-?-?-?-?-?- 37w 0d 200 lb 8 oz (+17 lb 8 oz) 113/71 -?-?-?-?-?-?-?-?-?-?-?-?- 143 38 Cephalic 0 -?-?-?-?-?-?-?-?-?-?-?-?- JV- gbs neg. no lof, vaginal bleeding, or dec fm. no complaints of headaches anymore. ACOG First Trimester First Trimester: Discussed Second Trimester Second Trimester: Signs and Symptoms of Labor, Selecting a care provider, Reproductive Life Planning & Contreception, Care Planning and Depression/Anxiety; Discussed Tobacco Cessation and Discussed Intimate Partner Violence Third Trimester Third Trimester: Pain Management Plans, Labor support person(s), Immediate Larc, Signs and Symptoms of Preeclampsia, Feeding No , [place] Education and Family Medical Leave or Disability Forms; Discussed Circumcision preference ROS Const Denies fever(s) GI Reports as per HPI and Denies abdominal pain Reports as per HPI, Denies abnormal vaginal bleeding, Denies dysuria and Denies vaginal discharge Exam Const General: healthy appearing, comfortable and no acute distress GI Inspection: normal to inspection Palpation: soft and nontender Coding Level of Care Code OB Routine Diagnoses Encounter for supervision of normal first in second trimester Z34.02 Trimester: second trimester 37 weeks gestation of Z3A.37 Weeks of gestation: 37 weeks Assessment and Plan Assessment and Plan (1) Supervision of normal first : Status: Acute Qualifiers: Trimester: second trimester Qualified Code(s): Z34.02 - Encounter for supervision of normal first , second trimester Comment: PRR, , OLIVIA 01/20/25, girl Patricia Curry (2) : Status: Acute Qualifiers: Weeks of gestation: 37 weeks Qualified Code(s): Z3A.37 - 37 weeks gestation of Comment: GBS neg, NIPT low risk, gender female, elects Carrier testing Orders: Orders POC Urinalysis 2 Dip (Clinic) Today 12/30/24 1037 <Electronically signed by Jemima Lyn DO> Date _ Jemima Vande Velde DO Cosigner Signature: Date (if applicable) CC: ~ [facility] Work Phone: Progress note Author Angela Sanders [facility] Note Date/Time January 05, 2025 8:22 am [facility] [address], [address] [place] [address] OFFICE VISIT Date of Service: 01/05/25 MR#: [id number] Acct: [id number] Name: SHEEBA WELSH Rep #: [id number] : 2000 Provider: JACKELIN Sanders Age/Sex: 24/F Location: [facility] [place] Status: Signed Intake Vital Signs 11/25/24 14:07 12/30/24 10:00 01/05/25 07:58 Height 5 ft 10 in 5 ft 10 in 5 ft 10 in Weight: 202 lb 4 oz BMI 29.0 BP 123/72 H Intake Visit Reasons: 38 wk ob Chief Complaint: 38 Week OB Ship'S Captain Required: No Is patient in pain?: No Allergies No Known Allergies Allergy (Verified 01/05/25 08:01) Medications ?Medication ?Instructions ?Recorded ?Confirmed ?Type multivit-min no.71-iron fum 28 cap PO 06/14/24 5 History mg-folate no.1 1 mg-dha 300 mg capsule (PNV-[place]) promethazine 12.5 mg tablet 12.5 mg PO Q6H PRN headach e #30 12/09/24 01/05/25 Rx tabs Last Menstrual Period: 04/15/24 Zika: [...] occupational status: employed current occupation: [employer], [employer] pets and animals: Yes pets and [...] 3-4 times per week duration: 60-90 minutes/day daniel/taoism: Sikhism seatbelt use: always do you feel safe at home: Yes 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 OB Visit OLIVIA Calculator Estimated Delivery Date Method Current WG Current Estimate 01/20/25 LMP (Certain) 37w 6d Other Estimates 01/20/25 Ultrasound #1 37w 6d Expected Delivery Route/Plan Labor Preferences- CB/BF [...] list details Initial Weight: 183 lb Date -?-?-?-?-?-?-?-?-?-?-?-?- EGA Weight BP Urine Prot -?-?-?-?-?-?-?-?-?-?-?-?- Glucose FHR FuHt Pres Dilation -?-?-?-?-?-?-?-?-?-?-?-?- Effaced St Visit Note 06/23/24 -?-?-?-?-?-?-?-?-?-?-?-?- 9w 6d 183 lb (+0 oz) 144/82 -?-?-?-?-?-?-?-?-?-?-?-?- 159 -?-?-?-?-?-?-?-?-?-?-?-?- KW- CRL cons wit h dates. accepts nipt 07/21/24 -?-?-?-?-?-?-?-?-?-?-?-?- 13w 6d 185 lb (+2 lb) 120/68 Negative -?-?-?-?-?-?-?-?-?-?-?-?- Negative 150 -?-?-?-?-?-?-?-?-?-?-?-?- JV- CRL measures 14 weeks today. pt has some complaints of headaches. recommend 72 oz of water a day + tylenol. new ob labs and NIPT today. JV- CRL measures 14 weeks to day. pt has some complaints of headaches. recommend 72 oz of water a day + tylenol. NIPT today. 08/19/24 -?-?-?-?-?-?-?-?-?-?-?-?- 18w 0d 193 lb 6 oz (+10 lb 6 oz) 123/65 Negative -?-?-?-?-?-?-?-?-?-?-?-?- Negative 140 -?-?-?-?-?-?-?-?-?-?-?-?- SM- no vb lof cr amping 09/16/24 -?-?-?-?-?-?-?-?-?-?-?-?- 22w 0d 195 lb 4 oz (+12 lb 4 oz) 123/74 Negative -?-?-?-?-?-?-?-?-?-?-?-?- Negative 153 22 -?-?-?-?-?-?-?-?-?-?-?-?- LC- no vb/crampi ng. normal anatomy. no concerns today. 10/14/24 -?-?-?-?-?-?-?-?-?-?-?-?- 26w 0d 199 lb 2 oz (+16 lb 2 oz) 118/62 Negative -?-?-?-?-?-?-?-?-?-?-?-?- Negative 148 27 -?-?-?-?-?-?-?-?-?-?-?-?- MH-No VB, LOF. G ood Fm. 28 wk labs, [facility] 11/11/24 -?-?-?-?-?-?-?-?-?-?-?-?- 30w 0d 199 lb 8 oz (+16 lb 8 oz) 130/65 Negative -?-?-?-?-?-?-?-?-?-?-?-?- Negative 140 30 -?-?-?-?-?-?-?-?-?-?-?-?- LC- no vb/ctx/lo f. good fm. no concerns.declines tdap. 11/25/24 -?-?-?-?-?-?-?-?-?-?-?-?- 32w 0d 200 lb 4 oz (+17 lb 4 oz) 125/76 Negative -?-?-?-?-?-?-?-?-?-?-?-?- Negative 140 32 -?-?-?-?-?-?-?-?-?-?-?-?- KW- no vb/lof/ct x. good fm. some pelvic pressure but no Uti sx. 12/09/24 -?-?-?-?-?-?-?-?-?-?-?-?- 34w 0d 201 lb 8 oz (+18 lb 8 oz) 106/67 Negative -?-?-?-?-?-?-?-?-?-?--?-?- Negative 150 34 -?-?-?-?-?-?-?-?-?-?-?-?- JV- pt complains of headache x 3 days, worse when she moves from sitting to standing. bp is normal/low. will try compression stockings. rx for promethazine sent to pharmacy. 12/22/24 -?-?-?-?-?-?-?-?-?-?-?-?- 35w 6d 200 lb (+17 lb) 129/78 Negative -?-?-?-?-?-?-?-?-?-?-?-?- Negative 150 36 Cephalic 0 -?-?-?-?-?-?-?-?-?-?-?-?- KW- no vb/lof/ct x. good fm. GBS today 12/30/24 -?-?-?-?-?-?-?-?-?-?-?-?- 37w 0d 200 lb 8 oz (+17 lb 8 oz) 113/71 Negative -?-?-?-?-?-?-?-?-?-?-?-?- Negative 143 38 Cephalic 0 -?-?-?-?-?-?-?-?-?-?-?-?- JV- gbs neg. no lof, vaginal bleeding, or dec fm. no complaints of headaches anymore. 01/05/25 -?-?-?-?-?-?-?-?-?-?-?-?- 37w 6d 202 lb 4 oz (+19 lb 4 oz) 123/72 Negative -?-?-?-?-?-?-?-?-?-?-?-?- Negative 130 39 Cephalic 0 -?-?-?-?-?-?-?-?-?-?-?-?- KW- no vb/lof/re g ctx. good fm. labor precautions reviewed ACOG First Trimester First Trimester: Discussed Second Trimester Second Trimester: Signs and Symptoms of Labor, Selecting a care provider, Reproductive Life Planning & Contreception, Care Planning and Depression/Anxiety; Discussed Tobacco Cessation and Discussed Intimate Partner Violence Third Trimester Third Trimester: Pain Management Plans, Labor support person(s), Immediate Larc, Signs and Symptoms of Preeclampsia, Feeding No , [place] Education and Family Medical Leave or Disability Forms; Discussed Circumcision preference ROS Const Reports system reviewed and no additional complaints, except as documented Eyes Reports system reviewed and no additional complaints, except as documented ENT Reports system reviewed and no additional complaints, except as documented Card Reports system reviewed and no additional complaints, except as documented Resp Reports system reviewed and no additional complaints, except as documented GI Reports system reviewed and no additional complaints, except as documented, Denies nausea and Denies vomiting Reports system reviewed and no additional complaints, except as documented Musc Reports system reviewed and no additional complaints, except as documented Skin/Breast Reports system reviewed and no additional complaints, except as documented Neuro Yes system reviewed and no additional complaints, except as documented Psych Reports system reviewed and no additional complaints, except as documented Endo Reports system reviewed and no additional complaints, except as documented Shay/Lymph Reports system reviewed and no additional complaints, except as documented Aller/Immun Reports system reviewed and no additional complaints, except as documented Exam Const General: cooperative, healthy appearing and no acute distress Orientation: alert, awake and oriented x3 Neck Neck: normal visual inspection and full ROM Resp Effort & Inspection: normal respiratory effort, able to speak in complete sentences and symmetric chest movement GI Inspection: normal to inspection Palpation: soft and other Other: gravid Skin General: no rashes or lesions noted Neuro General: patient alert, patient awake and patient oriented x3 Cognition: normal cognition Speech: speech normal Gait: normal gait Motor: muscle tone normal throughout Extrem General: normal to inspection and full ROM Psych Appearance: grossly normal Mental Status: mental status grossly normal Mood: congruent mood Affect: normal affect Speech and Movement: speech and movement normal Attitude: cooperative Thought Process: normal Thought Content: normal Judgment: judgment good Results POC Urinalysis 2 Dip (Clinic) Office Urine Glucose Negative Last Edit by Palmira Hogan on 01/05/25 08 :07 Office Urine Protein Negative Last Edit by Palmira Hogan on 01/05/25 08 :07 Coding Level of Care Code OB Routine Diagnoses 37 weeks gestation of Z3A.37 Weeks of gestation: 37 weeks Encounter for supervision of normal first in second trimester Z34.02 Trimester: second trimester Assessment and Plan Assessment and Plan (1) : Status: Acute Qualifiers: Weeks of gestation: 37 weeks Qualified Code(s): Z3A.37 - 37 weeks gestation of Comment: GBS neg, NIPT low risk, gender female, elects Carrier testing (2) Supervision of normal first : Status: Acute Qualifiers: Trimester: second trimester Qualified Code(s): Z34.02 - Encounter for supervision of normal first , second trimester Comment: PRR, , OLIVIA 01/20/25, girl Patricia Curry Orders: Orders POC Urinalysis 2 Dip (Clinic) Today Plan Details Additional Comments: ACOG trimester education reviewed and updated. see problem list details for updated plan management information and see below for orders placed at this visit. [place] appropriate handout given. 01/05/25 0822 <Electronically signed by Angela baca CNM> Date _ Angela Sanders CNM Cosigner Signature: Date (if applicable) CC: ~ [facility] Work Phone: Progress note Author Angela Sanders [facility] Note Date/Time January 23, 2025 10:04 am [facility] [address], [address] [place] [address] OFFICE VISIT Date of Service: 01/23/25 MR#: [id number] Acct: [id number] Name: SHEEBA WELSH Rep #: [id number] : 2000 Provider: JACKELIN Sanders Age/Sex: 24/F Location: [facility] [place] Status: Signed Intake Vital Signs 01/19/25 10:25 01/23/25 09:43 Height 5 ft 10 in 5 ft 10 in Weight: 205 lb 6 oz BMI 29.5 BP 129/81 H Intake Visit Reasons: rule out labor Chief Complaint: Rule out Labor Ship'S Captain Required: No Is patient in pain?: No Allergies No Known Allergies Allergy (Verified 01/23/25 09:41) Medications ?Medication ?Instructions ?Recorded ?Confirmed ?Type multivit-min no.71-iron fum 28 cap PO 06/14/24 5 History mg-folate no.1 1 mg-dha 300 mg capsule (PNV-[place]) promethazine 12.5 mg tablet 12.5 mg PO Q6H PRN headach e #30 12/09/24 01/23/25 Rx tabs Last Menstrual Period: 04/15/24 : No PFSH PFSH Medical History Menorrhagia Headache, migraine History of fracture Non-smoker Surgical History History of repair of ACL Family History Mother Breast cancer, Onset Age: 51 Depression Father Cancer, Onset Age: 57 Chronic leukemia Social History adopted: No household members: significant other and family current occupational status: employed current occupation: [employer], [employer] pets and animals: Yes pets and [...] 3-4 times per week duration: 60-90 minutes/day daniel/taoism: Sikhism seatbelt use: always do you feel safe at home: Yes 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 OB Visit OLIVIA Calculator Estimated Delivery Date Method Current WG Current Estimate 01/20/25 LMP (Certain) 40w 3d Other Estimates 01/20/25 Ultrasound #1 40w 3d Expected Delivery Route/Plan Labor Preferences- CB/BF classes: [...] list details Initial Weight: 183 lb Date -?-?-?-?-?-?-?-?-?-?-?--?- EGA Weight BP Urine Prot -?-?-?-?-?-?-?-?-?-?-?-?- Glucose FHR FuHt Pres Dilation -?-?-?-?-?-?-?-?-?-?-?-?- Effaced St Visit Note 06/23/24 -?-?-?-?-?-?-?-?-?-?-?-?- 9w 6d 183 lb (+0 oz) 144/82 -?-?-?-?-?-?-?-?-?-?-?-?- 159 -?-?-?-?-?-?-?-?-?-?-?-?- KW- CRL cons wit h dates. accepts nipt 07/21/24 -?-?-?-?-?-?-?-?-?-?-?-?- 13w 6d 185 lb (+2 lb) 120/68 Negative -?-?-?-?-?-?-?-?-?-?-?-?- Negative 150 -?-?-?-?-?-?-?-?-?-?-?-?- JV- CRL measures 14 weeks today. pt has some complaints of headaches. recommend 72 oz of water a day + tylenol. new ob labs and NIPT today. JV- CRL measures 14 weeks to day. pt has some complaints of headaches. recommend 72 oz of water a day + tylenol. NIPT today. 08/19/24 -?-?-?-?-?-?-?-?-?-?-?-?- 18w 0d 193 lb 6 oz (+10 lb 6 oz) 123/65 Negative -?-?-?-?-?-?-?-?-?-?-?-?- Negative 140 -?-?-?-?-?-?-?-?-?-?-?-?- SM- no vb lof cr amping 09/16/24 -?-?-?-?-?-?-?-?-?-?-?-?- 22w 0d 195 lb 4 oz (+12 lb 4 oz) 123/74 Negative -?-?-?-?-?-?-?-?-?-?-?-?- Negative 153 22 -?-?-?-?-?-?-?-?-?-?-?-?- LC- no vb/crampi ng. normal anatomy. no concerns today. 10/14/24 -?-?-?-?-?-?-?-?-?-?-?-?- 26w 0d 199 lb 2 oz (+16 lb 2 oz) 118/62 Negative -?-?-?-?-?-?-?-?-?-?-?-?- Negative 148 27 -?-?-?-?-?-?-?-?-?-?-?-?- MH-No VB, LOF. G ood Fm. 28 wk labs, [facility] 11/11/24 -?-?-?-?-?-?-?-?-?-?-?-?- 30w 0d 199 lb 8 oz (+16 lb 8 oz) 130/65 Negative -?-?-?-?-?-?-?-?-?-?-?-?- Negative 140 30 -?-?-?-?-?-?-?-?-?-?-?-?- LC- no vb/ctx/lo f. good fm. no concerns.declines tdap. 11/25/24 -?-?-?-?-?-?-?-?-?-?-?-?- 32w 0d 200 lb 4 oz (+17 lb 4 oz) 125/76 Negative -?-?-?-?-?-?-?-?-?-?-?-?- Negative 140 32 -?-?-?-?-?-?-?-?-?-?-?-?- KW- no vb/lof/ct x. good fm. some pelvic pressure but no Uti sx. 12/09/24 -?-?-?-?-?-?-?-?-?-?-?-?- 34w 0d 201 lb 8 oz (+18 lb 8 oz) 106/67 Negative -?-?-?-?-?-?-?-?-?-?-?-?- Negative 150 34 -?-?-?-?-?-?-?-?-?-?-?-?- JV- pt complains of headache x 3 days, worse when she moves from sitting to standing. bp is normal/low. will try compression stockings. rx for promethazine sent to pharmacy. 12/22/24 -?-?-?-?-?-?-?-?-?-?-?-?- 35w 6d 200 lb (+17 lb) 129/78 Negative -?-?-?-?-?-?-?-?-?-?-?-?- Negative 150 36 Cephalic 0 -?-?-?-?-?-?-?-?-?-?-?-?- KW- no vb/lof/ct x. good fm. GBS today 12/30/24 -?-?-?-?-?-?-?-?-?-?-?-?- 37w 0d 200 lb 8 oz (+17 lb 8 oz) 113/71 Negative -?-?-?-?-?-?-?-?-?-?-?-?- Negative 143 38 Cephalic 0 -?-?-?-?-?-?-?-?-?-?-?-?- JV- gbs neg. no lof, vaginal bleeding, or dec fm. no complaints of headaches anymore. 01/05/25 -?-?-?-?-?-?-?-?-?-?-?-?- 37w 6d 202 lb 4 oz (+19 lb 4 oz) 123/72 Negative -?-?-?-?-?-?-?-?-?-?-?-?- Negative 130 39 Cephalic 0 -?-?-?-?-?-?-?-?-?-?-?-?- KW- no vb/lof/re g ctx. good fm. labor precautions reviewed 01/11/25 -?-?-?-?-?-?-?-?-?-?-?-?- 38w 5d 204 lb 6 oz (+21 lb 6 oz) 126/69 Negative -?-?-?-?-?-?-?-?-?-?-?-?- Negative 145 38 Cephalic 1 -?-?-?-?-?-?-?-?-?-?-?-?- 80 -3 JV- no lof , v aginal bleeding, or dec fm. no complaints other than swelling. 01/19/25 -?-?-?-?-?-?-?-?-?-?-?-?- 39w 6d 202 lb 2 oz (+19 lb 2 oz) 137/79 Negative -?-?-?-?-?-?-?-?-?-?-?-?- Negative 140 40 Cephalic 1 -?-?-?-?-?-?-?-?-?-?-?-?- SM- SM- no vb lof good fm irregu lar ctx plan IOL 41 weeks if no spontaneous, return next week for possible membrane sweep 01/23/25 -?-?-?-?-?-?-?-?-?-?-?-?- 40w 3d 205 lb 6 oz (+22 lb 6 oz) 129/81 Negative -?-?-?-?-?-?-?-?-?-?-?-?- Negative 125 41 Cephalic 2 -?-?-?-?-?-?-?-?-?-?-?-?- 80 -2 KW- No vb/ questionable LOF and ctx q 15-20 minutes which started this m orning around 3am. ROM collected stat- membranes felt intact on exam. labor precautions reviewed. ACOG First Trimester First Trimester: Discussed Second Trimester Second Trimester: Signs and Symptoms of Labor, Selecting a care provider, Reproductive Life Planning & Contreception, Care Planning and Depression/Anxiety; Discussed Tobacco Cessation and Discussed Intimate Partner Violence Third Trimester Third Trimester: Pain Management Plans, Labor support person(s), Immediate Larc, Signs and Symptoms of Preeclampsia, Infant Feeding No , Education and Family Medical Leave or Disability Forms; Discussed Circumcision preference ROS Const Reports system reviewed and no additional complaints, except as documented Eyes Reports system reviewed and no additional complaints, except as documented ENT Reports system reviewed and no additional complaints, except as documented Card Reports system reviewed and no additional complaints, except as documented Resp Reports system reviewed and no additional complaints, except as documented GI Reports system reviewed and no additional complaints, except as documented, Denies nausea and Denies vomiting Reports system reviewed and no additional complaints, except as documented Musc Reports system reviewed and no additional complaints, except as documented Skin/Breast Reports system reviewed and no additional complaints, except as documented Neuro Yes system reviewed and no additional complaints, except as documented Psych Reports system reviewed and no additional complaints, except as documented Endo Reports system reviewed and no additional complaints, except as documented Shay/Lymph Reports system reviewed and no additional complaints, except as documented Aller/Immun Reports system reviewed and no additional complaints, except as documented Exam Const General: cooperative, healthy appearing and no acute distress Orientation: alert, awake and oriented x3 Neck Neck: normal visual inspection and full ROM Resp Effort & Inspection: normal respiratory effort, able to speak in complete sentences and symmetric chest movement GI Inspection: normal to inspection Palpation: soft and other Other: gravid Skin General: no rashes or lesions noted Neuro General: patient alert, patient awake and patient oriented x3 Cognition: normal cognition Speech: speech normal Gait: normal gait Motor: muscle tone normal throughout Extrem General: normal to inspection and full ROM Psych Appearance: grossly normal Mental Status: mental status grossly normal Mood: congruent mood Affect: normal affect Speech and Movement: speech and movement normal Attitude: cooperative Thought Process: normal Thought Content: normal Judgment: judgment good Results POC Urinalysis 2 Dip (Clinic) Office Urine Glucose Negative Last Edit by Stefanie Haines on 01/23/25 09:51 Office Urine Protein Negative Last Edit by Stefanie Haines on 01/23/25 09:51 Coding Level of Care Code OB Routine Diagnoses Encounter for supervision of normal first in second trimester Z34.02 Trimester: second trimester 40 weeks gestation of Z3A.40 Weeks of gestation: 40 weeks Assessment and Plan Assessment and Plan (1) Supervision of normal first : Status: Acute Qualifiers: Trimester: second trimester Qualified Code(s): Z34.02 - Encounter for supervision of normal first , second trimester Comment: PRR, , OLIVIA 01/20/25, girl Patricia Curry (2) : Status: Acute Qualifiers: Weeks of gestation: 40 weeks Qualified Code(s): Z3A.40 - 40 weeks gestation of Comment: GBS neg, NIPT low risk, gender female, elects Carrier testing Orders: Orders POC Urinalysis 2 Dip (Clinic) Today (ROM) Rupture Of Membranes Today O47.9 - False labor, unspecified, Z34.02 - Encounter for supervision of normal first , second trimester, Z3A.40 - 40 weeks gestation of Plan Details Additional Comments: ACOG trimester education reviewed and updated. see problem list details for updated plan management information and see below for orders placed at this visit. [place] appropriate handout given. 01/23/25 1004 <Electronically signed by Angela baca CNM> Date _ Angela Sanders CNM Cosigner Signature: Date (if applicable) CC: ~ [facility] Work Phone: Reason for referral (narrative)No reason for referral information availableWMercy Health Work Phone: Summary Purpose Family History Relationship Condition Age at Onset Recorded Date/T beatriz Not Specified Depression Unknown Malignant neoplasm of breast Unknown Malignant neoplasm Unknown Relationship Condition Age at Onset Recorded Date/T beatriz mother Malignant neoplasm of breast 51 Depression Unknown father Malignant neoplasm 57 Advance Directives Advance Directive Response Recorded Date/ Time Living Will No April 30 11:00pm Power of Welder Plasma Arc No April 30, 2021 11:00pm Chief Complaint and Reason for Visit 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 2 [...] 10 :06am Supervision of normal first Ja [facility] 2024 10:06am Chest discomfort July 21, 2024 10 :06am Palpitations July 21, 2024 10 :06am August 19, 2024 2 :11pm Supervision of normal first Ja [facility] 2024 2:11pm September 16, 2024 12:58pm Supervision of normal first Fe [facility] 2024 12:58pm October 14, 2024 1:2 5pm Supervision of normal first Ma [facility] 2024 1:25pm Chief Complaint Admit Date 22 wk ob September 16, 2024 12:58pm 26 wk ob October 14, 2024 1:2 5pm 30 wk ob November 11, 2024 1:5 7pm 32 wk ob November 25, 2024 1:59pm 34 wk ob December 09, 2024 2:46p m 36wk ob December 22, 2024 2:27p m Reason for Visit Admit Date September 16, 2024 12:58pm Supervision of normal first Fe bruary 2024 12:58pm October 14, 2024 1:2 5pm Supervision of normal first Ma [facility] 2024 1:25pm November 11, 2024 1:5 7pm Supervision of normal first Ap ril 2024 1:57pm November 25, 2024 1:59pm Supervision of normal first Ma y 2024 1:59pm December 09, 2024 2:46p m Supervision of normal first Ma y 2024 2:46pm December 22, 2024 2:27p m Supervision of normal first Ju ne 2024 2:27pm Chief Complaint Admit Date 22 wk ob September 16, 2024 12:58pm 26 wk ob October 14, 2024 1:2 5pm 30 wk ob November 11, 2024 1:5 7pm 32 wk ob November 25, 2024 1:59pm 34 wk ob December 09, 2024 2:46p m 36wk ob December 22, 2024 2:27p m 37 wk ob December 30, 2024 9:46 am Reason for Visit Admit Date September 16, 2024 12:58pm Supervision of normal first Fe bruary 2024 12:58pm October 14, 2024 1:2 5pm Supervision of normal first Ma [facility] 2024 1:25pm November 11, 2024 1:5 7pm Supervision of normal first Ap ril 2024 1:57pm November 25, 2024 1:59pm Supervision of normal first Ma y 2024 1:59pm December 09, 2024 2:46p m Supervision of normal first Ma y 2024 2:46pm December 22, 2024 2:27p m Supervision of normal first Ju ne 2024 2:27pm December 30, 2024 9:46 am Supervision of normal first Ju ne 2024 9:46am Chief Complaint Admit Date 22 wk ob September 16, 2024 12:58pm 26 wk ob October 14, 2024 1:2 5pm 30 wk ob November 11, 2024 1:5 7pm 32 wk ob November 25, 2024 1:59pm 34 wk ob December 09, 2024 2:46p m 36wk ob December 22, 2024 2:27p m 37 wk ob December 30, 2024 9:46 am 38 wk ob January 05, 2025 7:54 am Reason for Visit Admit Date September 16, 2024 12:58pm Supervision of normal first Fe bruary 2024 12:58pm October 14, 2024 1:2 5pm Supervision of normal first Ma [facility] 2024 1:25pm November 11, 2024 1:5 7pm Supervision of normal first Ap ril 2024 1:57pm November 25, 2024 1:59pm Supervision of normal first Ma y 2024 1:59pm December 09, 2024 2:46p m Supervision of normal first Ma y 2024 2:46pm December 22, 2024 2:27p m Supervision of normal first Ju ne 2024 2:27pm December 30, 2024 9:46 am Supervision of normal first Ju ne 2024 9:46am January 05, 2025 7:54 am Supervision of normal first Ju ne 2024 7:54am Chief Complaint Admit Date 22 wk ob September 16, 2024 12:58pm 26 wk ob October 14, 2024 1:2 5pm 30 wk ob November 11, 2024 1:5 7pm 32 wk ob November 25, 2024 1:59pm 34 wk ob December 09, 2024 2:46p m 36wk ob December 22, 2024 2:27p m 37 wk ob December 30, 2024 9:46 am 38 wk ob January 05, 2025 7:54 am 39 wk ob January 11, 2025 1:44 pm Reason for Visit Admit Date September 16, 2024 12:58pm Supervision of normal first Fe bruary 2024 12:58pm October 14, 2024 1:2 5pm Supervision of normal first Ma [facility] 2024 1:25pm November 11, 2024 1:5 7pm Supervision of normal first Ap ril 2024 1:57pm November 25, 2024 1:59pm Supervision of normal first Ma y 2024 1:59pm December 09, 2024 2:46p m Supervision of normal first Ma y 2024 2:46pm December 22, 2024 2:27p m Supervision of normal first Ju ne 2024 2:27pm December 30, 2024 9:46 am Supervision of normal first Ju ne 2024 9:46am January 05, 2025 7:54 am Supervision of normal first Ju ne 2024 7:54am January 11, 2025 1:44 pm Supervision of normal first Ju ne 2024 1:44pm Chief Complaint Admit Date 26 wk ob October 14, 2024 1:2 5pm 30 wk ob November 11, 2024 1:5 7pm 32 wk ob November 25, 2024 1:59pm 34 wk ob December 09, 2024 2:46p m 36wk ob December 22, 2024 2:27p m 37 wk ob December 30, 2024 9:46 am 38 wk ob January 05, 2025 7:54 am 39 wk ob January 11, 2025 1:44 pm 40 wk ob *Happy Due date January 19, 2025 10:09am Reason for Visit Admit Date October 14, 2024 1:2 5pm Supervision of normal first Ma [facility] 2024 1:25pm November 11, 2024 1:5 7pm Supervision of normal first Ap ril 2024 1:57pm November 25, 2024 1:59pm Supervision of normal first Ma y 2024 1:59pm December 09, 2024 2:46p m Supervision of normal first Ma y 2024 2:46pm December 22, 2024 2:27p m Supervision of normal first Ju ne 2024 2:27pm December 30, 2024 9:46 am Supervision of normal first Ju ne 2024 9:46am January 05, 2025 7:54 am Supervision of normal first Ju ne 2024 7:54am January 11, 2025 1:44 pm Supervision of normal first Ju ne 2024 1:44pm January 19, 2025 10:09 am Supervision of normal first Ju ly 2024 10:09am Chief Complaint Admit Date 26 wk ob October 14, 2024 1:2 5pm 30 wk ob November 11, 2024 1:5 7pm 32 wk ob November 25, 2024 1:59pm 34 wk ob December 09, 2024 2:46p m 36wk ob December 22, 2024 2:27p m 37 wk ob December 30, 2024 9:46 am 38 wk ob January 05, 2025 7:54 am 39 wk ob January 11, 2025 1:44 pm 40 wk ob *Happy Due date January 19, 2025 10:09am rule out labor January 23, 2025 9:40a m Reason for Visit Admit Date October 14, 2024 1:2 5pm Supervision of normal first Ma [facility] 2024 1:25pm November 11, 2024 1:5 7pm Supervision of normal first Ap ril 2024 1:57pm November 25, 2024 1:59pm Supervision of normal first Ma y 2024 1:59pm December 09, 2024 2:46p m Supervision of normal first Ma y 2024 2:46pm December 22, 2024 2:27p m Supervision of normal first Ju ne 2024 2:27pm December 30, 2024 9:46 am Supervision of normal first Ju ne 2024 9:46am January 05, 2025 7:54 am Supervision of normal first Ju ne 2024 7:54am January 11, 2025 1:44 pm Supervision of normal first Ju ne 2024 1:44pm January 19, 2025 10:09 am Supervision of normal first Ju ly 2024 10:09am January 23, 2025 9:40a m Supervision of normal first Ju ly 2024 9:40am Additional Source Comments INFORMATION SOURCE (unrecogn ized section and content) DATE CREATED AUTHOR 09/30/2020 [facility] DATE CREATED AUTHOR AUTHOR'S ORGANIZ ATION 08/28/2024 [facility] [place] [facility] DATE CREATED AUTHOR AUTHOR'S ORGANIZ ATION 01/21/2025 [facility] Care Teams (unrecognized sec tion and content) Team Status: Active Member Role Status Dates Dr. Moisés Haines , DO Primary Care Provider Active Team Status: Inactive Member Role Status Dates Dr. Michael Baker , DO Primary Care Provider, Referri ng Provider Active Dr. Moisés Haines , DO Attending Provider Active Team Status: Inactive Member Role Status Dates Dr. Moisés Haines , DO Primary Care Pr ovider, Attending Provider, Referring Provider Active Team Status: Inactive Member Role Status Dates Dr. Moisés Haines , DO Primary Care Provider, Referr ing Provider Active VERO Natarajan Attending Provider Active Team Status: Inactive Member Role Status Dates Dr. Moisés Haines DO Primary Care Provider Active VERO Natarajan [...] 2024 End: October 14, 2024 Cesilia George CLAMP FORKLIFT OPERATOR, CLAMP FORKLIFT OPERATOR-C Attending Provider Active Start: October 14, 2024 End: October 14, 2024 Team Status: Inactive Member Role Status Dates Cesilia George CLAMP FORKLIFT OPERATOR, CLAMP FORKLIFT OPERATOR-C Attending Provider Active Start: October 14, 2024 End: October 14, 2024 Cesilia George CLAMP FORKLIFT OPERATOR, CLAMP FORKLIFT OPERATOR-C Referring Provider Active Start: October 14, 2024 End: October 14, 2024 Team Status: Inactive Member Role Status Dates Dr. Moisés Haines DO Referring Provider Active Start: November 11, 2024 End: November 11, 2024 Roseanna Mckeon CNM Attending Provider Active Start: November 11, 2024 End: November 11, 2024 Team Status: Inactive Member Role Status Dates Dr. Moisés Haines DO Referring Provider Active Start: November 25, 2024 End: November 25, 2024 Angela Sanders CNM Attending Provider Active S tart: November 25, 2024 End: November 25, 2024 Team Status: Inactive Member Role Status Dates Dr. Moisés Haines DO Referring Provider Active Start: December 09, 2024 End: December 09, 2024 Dr. Jemima Garcia DO Attending Provider Activ e Start: December 09, 2024 End: December 09, 2024 Team Status: Inactive Member Role Status Dates Angela Sanders CNM Attending Provider Active S tart: December 22, 2024 End: December 22, 2024 Team Status: Inactive Member Role Status Dates Angela Sanders CNM Attending Provider Active S tart: December 22, 2024 End: December 22, 2024 Angela Sanders CNM Referring Provider Active S tart: December 22, 2024 End: December 22, 2024 Team Status: Inactive Member Role Status Dates Dr. Jemima Garcia DO Attending Provider Activ e Start: December 30, 2024 End: December 30, 2024 Team Status: Inactive Member Role Status Dates Angela Sanders CNM Attending Provider Active S tart: January 05, 2025 End: January 05, 2025 Team Status: Inactive Member Role Status Dates Dr. Jemima Garcia DO Attending Provider Activ e Start: January 11, 2025 End: January 11, 2025 Team Status: Inactive Member Role/Relationship Status Dates Dr. Moisés Haines DO Referring Provider Active Start: October 14, 2024 End: October 14, 2024 Cesilia George CLAMP FORKLIFT OPERATOR, CLAMP FORKLIFT OPERATOR-C Attending Provider Active Start: October 14, 2024 End: October 14, 2024 Team Status: Inactive Member Role/Relationship Status Dates Cesilia George CLAMP FORKLIFT OPERATOR, CLAMP FORKLIFT OPERATOR-C Attending Provider Active Start: October 14, 2024 End: October 14, 2024 Cesilia George CLAMP FORKLIFT OPERATOR, CLAMP FORKLIFT OPERATOR-C Referring Provider Active Start: October 14, 2024 End: October 14, 2024 Team Status: Inactive Member Role/Relationship Status Dates Dr. Moisés Haines DO Referring Provider Active Start: November 11, 2024 End: November 11, 2024 Roseanna Mckeon CNM Attending Provider Active Start: November 11, 2024 End: November 11, 2024 Team Status: Inactive Member Role/Relationship Status Dates Dr. Moisés Haines DO Referring Provider Active Start: November 25, 2024 End: November 25, 2024 Angela Sanders CNM Attending Provider Active S tart: November 25, 2024 End: November 25, 2024 Team Status: Inactive Member Role/Relationship Status Dates Dr. Moisés Haines DO Referring Provider Active Start: December 09, 2024 End: December 09, 2024 Dr. Jemima Garcia DO Attending Provider Activ e Start: December 09, 2024 End: December 09, 2024 Team Status: Inactive Member Role/Relationship Status Dates Angela Sanders CNM Attending Provider Active S tart: December 22, 2024 End: December 22, 2024 Team Status: Inactive Member Role/Relationship Status Dates Angela Sanders CNM Attending Provider Active S tart: December 22, 2024 End: December 22, 2024 Angela Sanders CNM Referring Provider Active S tart: December 22, 2024 End: December 22, 2024 Team Status: Inactive Member Role/Relationship Status Dates Dr. Jemima Garcia DO Attending Provider Activ e Start: December 30, 2024 End: December 30, 2024 Team Status: Inactive Member Role/Relationship Status Dates Angela Sanders CNM Attending Provider Active S tart: January 05, 2025 End: January 05, 2025 Team Status: Inactive Member Role/Relationship Status Dates Dr. Jemima Garcia DO Attending Provider Activ e Start: January 11, 2025 End: January 11, 2025 Team Status: Inactive Member Role/Relationship Status Dates Dr. Kenya Wright MD Attending Provider Active Start: January 19, 2025 End: January 19, 2025 Team Status: Inactive Member Role/Relationship Status Dates Angela Sanders CNM Attending Provider Active S tart: January 23, 2025 End: January 23, 2025 Goals (unrecognized section and content) Goals may [...] BE BASED ON THE PRIMARY CLINICAL RECORDS. [employer] provides no warranty or guarantee of the accuracy or completeness of information in this document.
== END 2025-01-25 16:25 | disposition home or self-care (01) | DRG 807 ==
LOC: WPOUT 07:50 → WP 07:50
PROVIDERS: Advanced Practice Midwife; Registered Nurse; Admitting Provider Obstetrics & Gynecology; Referring Provider Obstetrics & Gynecology; Visit Provider Obstetrics & Gynecology
DX: O77.0 Labor and delivery complicated by meconium in amniotic fluid (principal); Z37.0 Single live birth; O70.0 First degree perineal laceration during delivery; O99.892 Other specified diseases and conditions complicating childbirth; R55 Syncope and collapse; O76 Abnormality in fetal heart rate and rhythm complicating labor and delivery; Z3A.40 40 weeks gestation of pregnancy
CPT/HCPCS: 59050; 84112; 85025; 86780; 86850; 86900; 86901; 94799; 99221; G0378

== ENCOUNTER 2025-02-02 05:12 | Observation (INO) | payer BC, OTHER, SELFPAY ==
[2025-02-02] VITALS (48 sets, daily range): BP systolic 113–140; BP diastolic 46–82; PULSE 53–98; RESP 16–19; TEMP 36.4–37.2; O2SAT 94–100; BMI 25.4
--- NOTE | 2025-02-02 05:32 | US_ITS ---
PROCEDURE: PELVIC (NON ) 02/02/2025 REASON FOR EXAM: VAGINAL BLEEDING S/P 9 days . TECHNIQUE: PELVIC (NON ) COMPARISON: None FINDINGS: Measurements: Uterus: 13.6 cm x 12.7 cm x 10.6 cm with a volume of 958.2 mL Endometrial Thickness: The endometrium is heterogeneous and thickened measuring 42 mm. Retained products of conception should be ruled out. Right Ovary: 2.1 cm x 2.3 cm x 1.4 cm with a volume of 3.52 mL. Left Ovary: 4.1 cm x 2.7 cm x 1.6 cm with a volume of 9.63 mL. Uterus: Normal size, myometrial echotexture, and contour. Endometrium: Endometrial thickening as described. Heterogeneous appearance. Retained products of conception should be ruled out. Right ovary: Normal size and echotexture. Left ovary: Normal size and echotexture. Other: No large pelvic mass identified. US/Pelvic (Non ) IMPRESSION: Findings in keeping with retained products of conception. Reading Location: [facility]
[2025-02-02] MEDS: 0.9% Normal Saline (1000mL) 1,000 ML 999 ML IV (05:37)
[2025-02-02 05:43] LABS: Hematocrit 36.4 % (37-47); Hemoglobin 11.8 g/dL (12.0-15.0); Immature Granulocytes Count 0.030 X10^3/uL (0.0-0.0); Mean Corp Hgb Conc 32.4 g/dL (32-36); Mean Corpuscular Volume 81.4 fL (81-99); Mean Platelet Vol. 8.8 fl (6.2-12.0); NRBC Flagged by Analyzer 0 % (0-5); Platelet Count 276 K/mm3 (150-450); RBC Distribution Width CV 13.7 % (11.6-14.6); RBC Distribution Width SD 40.1 fl (35.1-43.9); Red Blood Count 4.47 M/mm3 (4.2-5.4); White Blood Count 6.7 K/mm3 (4.4-11.0)
[2025-02-02 05:52] LABS: Prothrombin Time (Protime)PT. 13.5 SECONDS (11.7-14.9)
[2025-02-02 05:53] LABS: Partial Thromboplast Time 30.8 Seconds (24.1-36.2)
--- OUTSIDE RECORDS SUMMARY | 2025-02-02 06:03 | XMS RPT_ITS | CCD ---
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 Michael Baker Primary Care Provider Dr. Michael Baker Referring Provider [phone] Dr. Moisés Haines Attending Provider 1(330) Dr. Miosés Haines Primary Care Provider 1(330 ) Dr. Moisés Haines Referring Provider [phone] VERO Porter Attending Provider 1(330) JEMIMA JEAN Referring Unavaile[facility] MICHAEL BAKER Primary Care Unavailable RASHIDA MCCAIN Attending Unavailable Dr. Moisés Haines DO Primary Care Provider [phone] Dr. Moisés Haines DO Referring Provider [phone] 1(330) Dr. Jemima Garcia DO Attending Provider Angeal Sanders CNM Referring Provider 1(330) Dr. Moisés Haines DO Referring Provider [phone] Mike CNM, Roseanna Attending Provider 1(330) Adriana GONZALEZ, Dr. Zambrano Attending Provider Tommy BENÍTEZ, Angela Other Provider [phone] Care Physician, No Primary Primary Care Provider Unavailable Kristen Avila DO, Dr. Onofre Admit Provider [phone] Kristen Avila DO, Dr. Onofre Referring Provider Mike CNM, Roseanna Admit Provider [phone] Mike CNM, Roseanna Referring Provider [phone]) Mike CNM, Roseanna Other Provider [phone] Kristen Avila DO, Dr. Onofre Other Provider 1( 30) Brown, Moisés R Primary Care Unavailable Brown, Moisés R Referring Unavailable Angela Sanders Attending Unavailable Brown, Moisés R Primary Care Unavailable Brown, Moisés R Referring Unavailable Jemima Garcia Attending UnavailAngela Arreola Attending Unavailable Jemima Garcia Attending UnavailAngela Arreola Attending Unavailable Angela Sanders Referring Unavailable Ariel SUPERVISOR PASTE MIXINGCesilia Referring Unavailable Ariel SUPERVISOR PASTE MIXING, Cesilia Attending Unavailable Brown, Moisés R Primary Care Unavailable Angela Sanders Referring Unavailable Angela Sanders Attending Unavailable Zaki Moisés R Primary Care Unavailable Angela Sanders Referring Unavailable Angela Sanders Attending Unavailable Care Physician, No Primary Primary Care Unava ilable Jemima Garcia Admitting Unavailabl e Lizabethe Velcarlos, Jemima Referring Unavailabl e Vande Austin, Jemima Attending UnavailAngela Arreola Consulting Unavailable Angela Sanders Referring Unavailable Angela Sanders Attending Unavailable Brown, Moisés R Referring Unavailable Kenya Wright Attending Unavailable Brown, Moisés R Referring Unavailable Roseanna Mckeon Attending Unavailable Ariel SUPERVISOR PASTE MIXING, Cesilia Attending Unavailable Brown, Moisés R Referring Unavailable Brown, Moisés R Referring Unavailable Roseanna Mckeon Attending Unavailable Brown, Moisés R Primary Care Unavailable Brown, Moisés R Referring Unavailable Angela Sanders Attending Unavailable Brown, Moisés R Referring Unavailable Brown, Moisés R Primary Care Unavailable Jemima Garcia Attending Roseanna Horton Admitting Unavailable Care Physician, No Primary Primary Care Unava ilable Roseanna Mkceon Referring Unavailable Angela Sanders Consulting Unavailable Roseanna Mckeon Attending Unavailable Roseanna Mckeon Consulting Unavailable Ariel BARRIOS, Cesilia Attending Unavailable Jemima Garcia Admitting Darnellabl e Vande Jemima Avila Referring Mary Anne e Kristen Avila, Jemima Consulting Unavailabl e Kristen Avila, Jemima Attending UnavailKenya Nguyen Attending Unavailable Angela Sanders Attending Unavailable Angela Sanders Attending Unavailable Moisés Haines Primary Care Unavailable Jemima Garcia Referring Unavailabl e Jemima Garcia Attending Mary Anne e Medications Current Medications Medication Drug Class(es) Dates Sig (Normalized) Sig (Original) Mv-Mins 75-Qwax-Dbtax No.1-Dha (Pnv-[place]) 28-1-300 mg capsule (10 sources) Start: 06-14-2024 Mv-Mins 86-Maei-Yghtm No.1-Dha (P[facility]-[place]) 28-1-300 mg capsule Active 1 NMA PO DAILY June 14, 2024 1:00am Start: 06-14-2024 Mv-Mins 71-Iro n-Folic No.1-Dha (P[facility]-[place]) 28-1-300 mg capsule Active NMA PO June 14, 2024 1:00am Completed/Discontinued Medications Medication Drug Class(es) Dates Sig (Normalized) Sig (Original) amoxicillin 875 mg oral tablet (12 sources) Penicillin-class Antibacterial Start: 04-30-2021 End: 09-04-2022 take 1 tablet by mouth twice daily Amoxicillin 875 mg tablet Discontinued 875 mg PO TWICE A DAY 20 0 April 30, 2021 12:00am September 04, 2022 5:20pm escitalopram 10 mg oral tablet (20 sources) Serotonin Reuptake Inhibitor Start: 09-04-2022 End: 06-14-2024 take 1 tablet by mouth once daily Escitalopram Oxalate (Lexapro) 10 mg tablet Discontinued 10 mg PO DAILY 90 1 November 12, 2023 3:38pm June 14, 2024 10:10am predniSONE 20 mg oral tablet (12 sources) Start: 04-30-2021 End: 09-04-2022 take 2 tablets by mouth once daily Prednisone 20 mg tablet Discontinued 40 mg PO DAILY April 30, 2021 12:00am September 04, 2022 5:20pm Start: 04-30-2021 End: 09-04-2022 take 40 mg by mouth once daily Prednisone Discontinued 40 MG PO DAILY April 30, 2021 12:00am September 04, 2022 5:20pm promethazine hydrochloride 12.5 mg oral tablet (9 sources) Phenothiazine Start: 12-09-2024 End: 01-24-2025 take 1 tablet by mouth every six hours as needed for headache Promethazine 12.5 mg tablet Discontinued 12.5 mg PO EVERY 6 HOURS as needed for headache 30 December 09, 2024 12:00am January 24, 2025 2:58am Problems Active Problems Problem Classification Problem Date Documented Da te Episodic/Chronic Anxiety disorders (15 sources) Mixed anxiety and depressive disorder; Translations: [Other specified anxiety disorders] 09-09-2022 Chronic Early or threatened labor (1 source) False labor, unspecified; Translations: [False labor, unspecified] Onset: 01-27-2025 Episodic Malaise and fatigue (13 sources) Fatigue; Translations: [Other fatigue] 11-04-2022 Episodic Menstrual disorders (12 sources) Menorrhagia; Translations: [Excessive and frequent menstruation with regular cycle] 11-13-2023 Chronic Other and delivery including normal (20 sources) Normal ; Translations: [Encounter for supervision of normal first , unspecified trimester] Onset: 08-16-2024 10-14-2024 Episodic Comment on above: PRR, , OLIVIA 01/20/ 5, girl [place] [facility] NIPT low risk, gende r female, elects Carrier testing GBS neg, NIPT low ri sk, gender female, elects Carrier testing LC IAL [facility] c Otitis media and related conditions (12 sources) Otitis media; Translations: [Otitis media, unspecified, unspecified ear] 05-21-2021 Episodic Residual codes; unclassified (2 sources) 40 weeks gestation of ; Translations: [40 weeks gestation of ] Onset: 01-24-2025 Episodic Residual codes; unclassified (1 source) 37 weeks gestation of ; Translations: [37 weeks gestation of ] Onset: 01-05-2025 Episodic Residual codes; unclassified (1 source) 35 weeks gestation of ; Translations: [35 weeks gestation of ] Onset: 12-22-2024 Episodic Past or Other Problems Problem Classification Problem Date Documented Da te Episodic/Chronic Cardiac dysrhythmias (14 sources) Palpitations; Translations: [Palpitations] Onset: 07-21-2024 11-12-2023 Episodic Nonspecific chest pain (15 sources) Chest discomfort; Translations: [Other chest pain] Onset: 07-21-2024 11-13-2023 Episodic Residual codes; unclassified (1 source) 26 weeks gestation of ; Translations: [26 weeks gestation of ] Onset: 10-14-2024 Episodic Residual codes; unclassified (1 source) 13 weeks gestation of ; Translations: [13 weeks gestation of ] Onset: 07-21-2024 Episodic Residual codes; unclassified (1 source) 9 weeks gestation of ; Translations: [9 weeks gestation of ] Onset: 06-23-2024 Episodic Unclassified (2 sources) Spontaneous onset of labor 01-25-2025 Results Test Name Value Interpretation Reference Range Facility (ROM) Rupture Of Membraneson 01-24-2025 ROM Negative Normal Negative [facility] Comment on above: Result Comment: Amni otic fluid not present indicates No Rupture of Membranes at time of specimen collection. Performed By: #### L 205.1000 ####[facility] [address] [place], [address] Absolute lymphocyte countOrd ered By: Roseanna Mckeon on 01-24-2025 Lymphocytes Auto (Unsp spec) [#/Vol] 0.97 10*3/uL 0.83-4.51 [facility] Absolute neutrophil countOrd ered By: Roseanna Mckeon on 01-24-2025 Neutrophils (Bld) [#/Vol] 14.4 10*3/uL High 2.0-7.7 [facility] Automated lymphocyte count a s percentage of total leukocytesOrdered By: Roseanna Mckeon on 01-24-2025 Lymphocytes/100 WBC Auto (Unsp spec) 6.1 % Low 19-41 [facility] Basophil percentageOrdered B y: Roseanna Mckeon on 07-08-2025 Basophils/100 WBC (Bld) 0.2 % 0-1 [facility] CBC W/Diff, Automatedon 07-0 8-2025 Absolute Lymph 0.97 X10 3/uL Normal 0.83-4.51 [facility] Comment on above: Performed By: #### L 100.0100, BTS ####[facility] [address] [place], [address] Absolute Neut 14.4 X10 3/uL High 2.0-7.7 [facility] Comment on above: Performed By: #### L 100.0100, BTS ####[facility] [address] [place], [address] Basophils/100 WBC (Bld) 0.2 % Normal 0-1 [facility] Comment on above: Performed By: #### L 100.0100, BTS ####[facility] [address] [place], [address] Eosinophils/100 WBC (Bld) 0.0 % Normal 0-5 [facility] Comment on above: Performed By: #### L 100.0100, BTS ####[facility] [address] [place], [address] Erythrocyte distribution width (RBC) [Ratio] 13.2 % Normal 11.6-14.6 [facility] Comment on above: Performed By: #### L 100.0100, BTS ####[facility] [address] [place], [address] Hematocrit (Bld) [Volume fraction] 33.6 % Low 37-47 [facility] Comment on above: Performed By: #### L 100.0100, BTS ####[facility] [address] [place], [address] Hemoglobin (Bld) [Mass/Vol] 11.4 g/dL Low 12.0-15.0 [facility] Comment on above: Performed By: #### L 100.0100, BTS ####[facility] [address] [place], [address] IG% 0.400 Normal 0.0-0.9 [facility] Comment on above: Result Comment: IG% - Immature Granulocytes (promyelocytes, myelocytes and metamyelocytes) > 1% indicates that a LEFT SHIFT is Present. Performed By: #### L 100.0100, BTS ####[facility] [address], [address] Lymphocytes/100 WBC (Bld) 6.1 % Low 19-41 [facility] Comment on above: Performed By: #### L 100.0100, BTS ####[facility] [address] [place], [address] MCH (RBC) [Entitic mass] 26.8 pg Low 27.0-32.0 [facility] Comment on above: Performed By: #### L 100.0100, BTS ####[facility] [address] [place], [address] MCHC (RBC) [Mass/Vol] 33.9 g/dL Normal 32-36 [facility] Comment on above: Performed By: #### L 100.0100, BTS ####[facility] [address] [place], [address] MCV (RBC) [Entitic vol] 78.9 fL Low 81-99 [facility] Comment on above: Performed By: #### L 100.0100, BTS ####[facility] [address] [place], [address] Monocytes/100 WBC (Bld) 2.6 % Normal 0-10 [facility] Comment on above: Performed By: #### L 100.0100, BTS ####[facility] [address] [place], [address] Neutrophils/100 WBC (Bld) 90.7 % High 47-70 [facility] Comment on above: Performed By: #### L 100.0100, BTS ####[facility] [address] [place], [address] Nucleated RBC (Bld) [#/Vol] 0 10*3/uL Normal 0-5 [facility] Comment on above: Performed By: #### L 100.0100, BTS ####[facility] [address] [place], [address] Platelet mean volume (Bld) [Entitic vol] 10.2 fL Normal 6.2-12.0 [facility] Comment on above: Performed By: #### L 100.0100, BTS ####[facility] [address] [place], [address] Platelets (Bld) [#/Vol] 229 10*3/uL Normal 150-450 [facility] Comment on above: Performed By: #### L 100.0100, BTS ####[facility] [address] [place], [address] RBC (Bld) [#/Vol] 4.26 10*6/uL Normal 4.2-5.4 [facility] Comment on above: Performed By: #### L 100.0100, BTS ####[facility] [address] [place], [address] RDW SD 37.6 fl Normal 35.1-43.9 [facility] Comment on above: Performed By: #### L 100.0100, BTS ####[facility] [address] [place], [address] WBC (Bld) [#/Vol] 15.9 10*3/uL High 4.4-11.0 [facility] Comment on above: Performed By: #### L 100.0100, BTS ####[facility] [address] [place], [address] Discharge Instructionon Discharge Instruction [facility] Medical Records Department [address] [place] [address] Instructions for Home/Discharge Instructions 01/24/25 1654 MR#: [id number] Acct: [id number] Name: SHEEBA WELSH Rep #: [id number] : 2000 24 From: Roseanna Mckeon CNM PCP: Care Physician,No Primary Status:ADM IN Discharge Instructions Diet Discharge Diet: No restrictions DC O2, CPAP, BIPAP needs Home O2 Discharge instructions: No Dressing / Incision Discharge Activity: May Not Drive and May Shower May resume sexual activity in: 6 weeks Weight Bearing Status: Full weight bearing Dressing / Incision Call your doctor if your incision/area has: Sudden Increased Bleeding, Increased Pain/ Swelling and Foul Smelling Discharge Call your doctor if you observe: Fever of 101 or Higher, Numbness or Tingling, Change in Color, Inability to urinate, Inability to have a bowel movement, Using more than 1 pad per hour, Shortness of breath, Dizziness, Fainting spells, Chest pain, Calf discomfort and Uncontrolled pain Follow Up Care Please Follow Up With: Roseanna Mckeon CNM When: 6 weeks , please call office to make an appointment. Congratulations on the of your baby! Test Results: Test results from this visit will be discussed in further detail at your follow-up appointment, if applicable. Discharge Plan Admission Admit Date/Time: 01/24/25 07:28 Attending Provider: Jemima Garcia Primary Care Provider: Jena Physician,No Primary Consulting Providers: Angela Sanders Discharge Orders/Prescriptions Prescriptions: No Action PNV-[place] 28-1-300 mg capsule 1 cap PO DAILY Referrals / Follow Up: Care Physician,No Primary [Primary Care Provider] - 01/24/251654 Roseanna Mckeon CNM CC: JACKELIN Sanders; No Primary Care Physician Signed Normal [facility] Eosinophil percentageOrdered By: Roseanna Mckeon on 01-24-2025 Eosinophils/100 WBC (Bld) 0.0 % 0-5 [facility] Erythrocyte distribution wid th ratioOrdered By: Roseannamontrell Mckeon on 01-24-2025 Erythrocyte distribution width (RBC) [Ratio] 13.2 % 11.6-14.6 [facility] Erythrocyte distribution wid th standard deviationOrdered By: Roseanna Mckeon on 01-24-2025 Erythrocyte distribution width (RBC) [Ratio] 37.6 fl 35.1-43.9 [facility] H AND P Exam - OB/GYNon 07 H&P Exam - [facility] Medical Records Department [address] [place] [address] H P Exam - [facility] 01/24/25 0809 MR#: [id number] Acct: [id number] Name: SHEEBA WELSH Rep #: [id number] : 2000 24 From: Roseanna Mckeon CNKaren PCP: Care Physician,No Primary Status:ADM IN Location: [place] [id number] HPI - General General Date of Admission: 01/24/25 HPI Narrative SHEEBA WELSH, is a 24 F who presents at 40.4 with spontaneous contractions, denies lof/vb. good fm. making cervical change. Maternal Data Information OLIVIA Calculator Estimated Delivery Date Method Current WG Current Estimate 01/20/25 LMP (Certain) 40w 4d Other Estimates 01/20/25 Ultrasound #1 40w 4d PFSH PFSH Medical History Depression Anxiety Menorrhagia Headache, migraine History of fracture Non-smoker Home Medications ???Medication ???Instructions ???Recorded ???Last Taken ???Type multivit-min no.71-iron fum 28 1 cap PO DAILY 06/14/24 Unknown Hi story mg-folate no.1 1 mg-dha 300 mg capsule (PNV-[place]) Allergy/AdvReac Type Severity Reaction Status Date / Time No Known Allergies Allergy Verified 01/24/25 02:58 Family History Mother Breast cancer, Onset Age: 51 Depression Father Cancer, Onset Age: 57 Chronic leukemia Surgical History History of repair of ACL Social History adopted: No household members: significant other and family current occupational status: employed current occupation: [employer] pets and animals: Yes pets and [...] 3-4 times per week duration: 60-90 minutes/day daniel/mandaen: [employer] seatbelt use: always do you feel safe at home: Yes additional social history: BF- [employer]- [employer] History 1 Elective abortions Hx Para 0 Spontaneous abortions Hx # Term Pregnancies Ectopic pregnancies Hx # Pregnancies Multiple births # of living children Visit Details Expected Delivery Route/Plan Labor Preferences- CB/BF classes: encouraged, declines labor support person: Apoorva labor intervention preferences: pain management options preferred: limited cut cord/dad catch: cord : yes PP control planned: discussed discussed possible routes of delivery and associated risks: [] special requests: [] Plans Covid status: declines Flu vaccine: declines Tdap vaccine: declines Rhogam: na LARC form signed: yes Problem list reviewed and updated with the most current plan of care details and appropriate orders placed. Relevant counseling for the gestational age provided. Continue routine care and follow up unless otherwise noted in visit notes/problem list details OB Flowsheet Initial Weight: 183 lb Date -???-???-???-???-???- ???-???-???-???-???-? [...] oz (+12 lb 4 oz) 123/74 Negative -???-???-???-???-???- ???-???-???-???-???-? ??-???- Negative 153 22 -???-???-???-???- (more content not included)... Normal [facility] Hematocrit Auto (Bld) [Volum e fraction]Ordered By: Roseanna Mckeon on 01-24-2025 Hematocrit (Bld) [Volume fraction] 33.6 % Low 37-47 [facility] Hemoglobin measurementOrdere d By: Roseanna Mckeon on 01-24-2025 Hemoglobin (Bld) [Mass/Vol] 11.4 g/dL Low 12.0-15.0 [facility] Immature granulocytes/100 WB C Auto (Bld)Ordered By: Roseanna Mckeon on 01-24-2025 Immature granulocytes/100 WBC (Bld) 0.400 % 0.0-0.9 [facility] Comment on above: IG% - Immature Granu locytes (promyelocytes, myelocytes and metamyelocytes) > 1% indicates that a LEFT SHIFT is Present. MCV (mean corpuscular volume ) determinationOrdered By: Roseanna Mckeon on 01-24-2025 MCV (RBC) [Entitic vol] 78.9 fL Low 81-99 [facility] MR/OB.Kaci 01-24-2025 MR/OB.[facility] Medical Records Department [address] [place] [address] OB Vaginal Delivery 01/24/25 1641 MR#: [id number] Acct: [id number] Name: SHEEBA WELSH Rep #: [id number] : 2000 24 From: Roseanna Mckeon CNM PCP: Care Physician,No Primary Status:ADM IN Location: [place] [id number] Assessment Plan (1) (spontaneous vaginal delivery): COMMENT: ABIODUN IAL [place] Maternal Data Information OLIVIA Calculator Estimated Delivery Date Method Current WG Current Estimate 01/20/25 LMP (Certain) 40w 4d Other Estimates 01/20/25 Ultrasound #1 40w 4d Final OLIVIA: 01/20/25 Final OLIVIA Source: LMP Gestational age: 40.4 Vaginal Delivery Maternal Presentation Maternal Presentation: Active Labor Maternal Presentation: at 40.4 with spontaneous contractions. AROM'd for mec fluid, epiduralized. Vaginal Delivery Information Procedure Performed: Spontaneous Vaginal Delivery Surgeon/Practitioner: Roseanna Mckeon Date of Procedure: 01/24/25 Pre-Procedure Diagnosis: see problem list Post-Procedure Diagnosis: Type of anesthesia: Epidural Estimated Blood Loss: 300 Time of Delivery: 16:06 Findings Description of procedure: Patient began pushing and delivered the head in the ANUSHKA presentation. The head was delivered atraumatically. The anterior and posterior shoulders delivered without complication followed by the rest of the infant and the infant was placed on the maternal abdomen. Delayed cord clamping was employed for approximately 5 minutes. Cord was clamped and cut and gentle traction was applied to the cord and the placenta delivered spontaneously immediately following it was noted to be intact with three-vessel cord. The perineum and vagina were inspected and noted to have a first degree laceration, repaired with 3-0 Vicryl in usual sterile fashion. EBL was 300 cc, brisk bleeding noted, hemostasis achieved with methergine and pitocin. Patient and infant tolerated delivery well. Presentation: Vertex Amniotic Membrane Rupture Type: Artificial Amniotic Fluid Description: Moderate meconium Placental Delivery Description: Spontaneous Placenta Disposition: [facility] Cord Vessel Description: 3 Vessels Cord Entanglement: None Infant A Gender: Female (1 minute): 8 (5 minute): 9 Delayed Cord Clamping: Yes Post Vaginal Deli Medications given after delivery: IV Pitocin and IM Methergin Laceration: 1st degree Complication Complications: No Procedures Urinary/Genital [id number]: [id number] Vaginal Delivery [facility] 01/24/25 1646 Cosigner Signature (if applicable): CC: JACKELIN Sanders; JACKELIN Mckeon; Dr. Jemima Garcia, DO; No Primary Care Physician Signed Normal [facility] Mean corpuscular hemoglobin (MCH) determinationOrdered By: Roseanna Mckeon on 01-24-2025 MCH (RBC) [Entitic mass] 26.8 pg Low 27.0-32.0 [facility] Mean corpuscular hemoglobin concentration (MCHC) determinationOrdered By: Roseanna Mckeon on 01-24-2025 MCHC (RBC) [Mass/Vol] 33.9 g/dL 32-36 [facility] Mean platelet volume determi nationOrdered By: Roseanna Mckeon on 01-24-2025 Platelet mean volume (Bld) [Entitic vol] 10.2 fL 6.2-12.0 [facility] Monocyte percentageOrdered B y: Roseanna Mckeon on 01-24-2025 Monocytes/100 WBC (Bld) 2.6 % 0-10 [facility] Neutrophil percentageOrdered By: Roseanna Mckeon on 01-24-2025 Neutrophils/100 WBC (Bld) 90.7 % High 47-70 [facility] Nucleated red blood cell per centageOrdered By: Roseanan Mckeon on 01-24-2025 Nucleated RBC/100 WBC (Bld) [Ratio] 0 % 0-5 [facility] Platelet countOrdered By: Debi Mckeon on 01-24-2025 Platelets (Bld) [#/Vol] 229 10*3/uL 150-450 [facility] RBC Auto (Bld) [#/Vol]Ordere d By: Roseanna Mckeon on 01-24-2025 RBC (Bld) [#/Vol] 4.26 10*6/uL 4.2-5.4 [facility] Syphilis Antibodieson 2024 Syphilis Abs Non-Reactive Normal Nonreactive [facility] Comment on above: Performed By: #### L 599.9121 #### [facility] [address] [place], [address] Type AND Screenon 01-24-2025 Ab SCREEN GEL Negative Normal [facility] Comment on above: Order Comment: Labor Performed By: #### L 100.0100, BTS ####[facility] [address] [place], [address] White blood cell (WBC) count Ordered By: Roseanna Mckeon on 01-24-2025 WBC (Bld) [#/Vol] 15.9 10*3/uL High 4.4-11.0 [facility] (ROM) Rupture Of Membraneson 01-23-2025 C-LINE PRESENT? Normal Internal QC [facility] Comment on above: Result Comment: This specimen has been REJECTED due to Laboratory criteria: Quanity Not Sufficient. LATANYA has been notified of need of recollection. 01/23/25 1105 Minerva Clapper Performed By: #### L 205.1000 #### [facility] [address] [place], [address] RECORD KIT LOT# Normal [facility] Comment on above: Result Comment: This specimen has been REJECTED due to Laboratory criteria: Quanity Not Sufficient. LATANYA has been notified of need of recollection. 01/23/25 1105 Minerva Clapper Performed By: #### L 205.1000 #### [facility] [address] [place], [address] ROM Normal Negative [facility] Comment on above: Result Comment: This specimen has been REJECTED due to Laboratory criteria: Quanity Not Sufficient. LATANYA has been notified of need of recollection. 01/23/25 1105 Minerva Clapper Performed By: #### L 205.1000 #### [facility] [address] [place], [address] Laboratory - Chemistry and C hemistry - challengeOrdered By: Angela Sanders on 01-23-2025 Glucose Ql (U) Negative [facility] - UrinalysisOrder ed By: Angela Sanders on 01-23-2025 Protein Ql (U) Negative [facility] Anthropology Faculty Member Office Visit Reporton 01-23-2025 Anthropology Faculty Member Office Visit Report [facility] [address], [address] [place] [address] OFFICE VISIT Date of Service: 01/23/25 MR#: [id number] Acct: [id number] Name: SHEEBA WELSH Rep #: [id number] 6 : 2000 Provider: JACKELIN Steven ams Age/Sex: 24/F [place] [facility] [place]: Signed Intake Vital Signs 01/19/25 10:25 01/23/25 09:43 Height 5 ft 10 in 5 ft 10 in Weight: 205 lb 6 oz BMI 29.5 BP 129/81 H Intake Visit Reasons: rule out labor Chief Complaint: Rule out Labor Taxonomist Required: No Is patient in pain?: No Allergies No Known Allergies Allergy (Verified 01/23/25 09:41) Medications ???Medication ???Instructions ???Recorded ???Confirmed ???Type multivit-min no.71-iron fum 28 cap PO 06/14/24 01/23/25 History mg-folate no.1 1 mg-dha 300 mg capsule (PNV-[place]) promethazine 12.5 mg tablet 12.5 mg PO Q6H PRN headache #30 01/23/25 Rx tabs Last Menstrual Period: 04/15/24 : No PFSH PFSH Medical History Menorrhagia Headache, migraine History of fracture Non-smoker Surgical History History of repair of ACL Family History Mother Breast cancer, Onset Age: 51 Depression Father Cancer, Onset Age: 57 Chronic leukemia Social History adopted: No household members: significant other and family current occupational status: employed current occupation: [employer] pets and animals: Yes pets [...] 3-4 times per week duration: 60-90 minutes/day daniel/mandaen: Synagogue seatbelt use: always do you feel safe [...] ???-???-???-???-???-? 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 Normal [facility] - Chemistry and C hemistry - challengeOrdered By: Kneya Wright on 01-19-2025 Glucose Ql (U) Negative [facility] - UrinalysisOrder ed By: Kenya Wright on 01-19-2025 Protein Ql (U) Negative [facility] Anthropology Faculty Member Office Visit Reporton 01-19-2025 Anthropology Faculty Member Office Visit Report [facility] [address], [address] [place] [address] OFFICE VISIT Date of Service: 01/19/25 MR#: [id number] Acct: [id number] Name: SHEEBA WELSH Rep #: [id number] 3 : 2000 Provider: Dr. Kenya kelly MD Age/Sex: 24/F [place] [facility] [place]: Signed Intake Vital Signs 11/25/24 14:07 01/11/25 13:50 01/19/25 10:25 Height 5 ft 10 in 5 ft 10 in 5 ft 10 in Weight: 202 lb 2 oz BMI 29.0 BP 137/79 H Intake Visit Reasons: 40 wk ob *Happy Due date Taxonomist Required: No Is patient in pain?: No Allergies No Known Allergies Allergy (Verified 01/19/25 10:25) Medications ???Medication ???Instructions ???Recorded ???Confirmed ???Type multivit-min no.71-iron fum 28 cap PO 06/14/24 01/19/25 History mg-folate no.1 1 mg-dha 300 mg capsule (PN[facility]-[place]) promethazine 12.5 mg tablet 12.5 mg PO [...] family current occupational status: employed current occupation: [employer] pets and animals: Yes pets and [...] 3-4 times per week duration: 60-90 minutes/day daniel/mandaen: Synagogue seatbelt use: always do you feel safe at home: Yes additional social history: BF- [employer] History 1 Elective abortions Hx Para [...] 140 -? (more content not included)... Normal [facility] - Chemistry and C hemistry - challengeOrdered By: Jemima Avila on 01-11-2025 Glucose Ql (U) Negative [facility] - UrinalysisOrder ed By: Jemima Avila on 01-11-2025 Protein Ql (U) Negative [facility] Anthropology Faculty Member Office Visit Reporton 01-11-2025 Anthropology Faculty Member Office Visit Report [facility] [address], [address] [place] [address] OFFICE VISIT Date of Service: 01/11/25 MR#: [id number] Acct: [id number] Name: SHEEBA WELSH Rep #: [id number] 6 : 2000 Provider: Dr. Jemima Hartman DO Age/Sex: 24/F Location: [facility] [place] Status: Signed Intake Vital Signs 11/25/24 14:07 01/05/25 07:58 01/11/25 13:50 Height 5 ft 10 in 5 ft 10 in 5 ft 10 in Weight: 204 lb 6 oz BMI 29.3 BP 126/69 H Intake Visit Reasons: 39 wk ob Taxonomist Required: No Is patient in pain?: No Allergies No Known Allergies Allergy (Verified 01/11/25 13:49) Medications ???Medication ???Instructions ???Recorded ???Confirmed ???Type multivit-min no.71-iron fum 28 cap PO 06/14/24 01/11/25 History mg-folate no.1 1 mg-dha 300 mg capsule (PNV-[place]) promethazine 12.5 mg tablet 12.5 mg PO [...] occupational status: employed current occupation: [employer], [employer] pets and animals: Yes pets and [...] 3-4 times per week duration: 60-90 minutes/day daniel/mandaen: Synagogue seatbelt use: always do you feel safe at home: Yes additional social history: BF- [employer]- [employer] Found! History 1 Elective abortions Hx Para 0 [...] -???-???-???-???-???- ???-? (more content not included)... Normal [facility] - Chemistry and C hemistry - challengeOrdered By: Angela Sanders on 01-05-2025 Glucose Ql (U) Negative [facility] - UrinalysisOrder ed By: Angela Sanders on 01-05-2025 Protein Ql (U) Negative [facility] Anthropology Faculty Member Office Visit Reporton 06-19-2025 Anthropology Faculty Member Office Visit Report [facility] [address], [address] [place] [address] OFFICE VISIT Date of Service: 01/05/25 MR#: [id number] Acct: [id number] Name: SHEEBA WELSH Rep #: [id number] 4 : 2000 Provider: JACKELIN Steven ams Age/Sex: 24/F [place] [facility] [place]: Signed Intake Vital Signs 11/25/24 14:07 12/30/24 10:00 01/05/25 07:58 Height 5 ft 10 in 5 ft 10 in 5 ft 10 in Weight: 202 lb 4 oz BMI 29.0 BP 123/72 H Intake Visit Reasons: 38 wk ob Chief Complaint: 38 Week OB Taxonomist Required: No Is patient in pain?: No Allergies No Known Allergies Allergy (Verified 01/05/25 08:01) Medications ???Medication ???Instructions ???Recorded ???Confirmed ???Type multivit-min no.71-iron fum 28 cap PO 06/14/24 01/05/25 History mg-folate no.1 1 mg-dha 300 mg capsule (PN[facility]) promethazine 12.5 mg tablet 12.5 mg PO [...] 3-4 times per week duration: 60-90 minutes/day daniel/mandaen: Synagogue seatbelt use: always do you feel safe [...] 140 -?? (more content not included)... Normal [facility] - Chemistry and C hemistry - challengeOrdered By: Jemima Avila on 12-30-2024 Glucose Ql (U) Negative [facility] - UrinalysisOrder ed By: Jemima Avila on 12-30-2024 Protein Ql (U) Negative [facility] Anthropology Faculty Member Office Visit Reporton 12-30-2024 Anthropology Faculty Member Office Visit Report [facility] [address], [address] [place] [address] OFFICE VISIT Date of Service: 12/30/24 MR#: [id number] Acct: [id number] Name: SHEEBA WELSH Rep #: [id number] 1 : 2000 Provider: Dr. Jemima Hartman DO Age/Sex: 24/F [place] [facility] [place]: Signed Intake Vital Signs 11/25/24 14:07 12/22/24 14:30 12/30/24 09:59 12/30/24 10:00 Height 5 ft 10 in 5 ft 10 in 5 ft 10 in 5 ft 10 in Weight: 200 lb 8 oz BMI 28.8 BP 113/71 Intake Visit Reasons: 37 wk ob Taxonomist Required: No Is patient in pain?: No Allergies No Known Allergies Allergy (Verified 12/30/24 09:59) Medications ???Medication ???Instructions ???Recorded ???Confirmed ???Type multivit-min no.71-iron fum 28 cap PO 06/14/24 12/30/24 History mg-folate no.1 1 mg-dha 300 mg capsule (PNV[facility]) promethazine 12.5 mg tablet 12.5 mg PO [...] family current occupational status: employed current occupation: [employer] pets and animals: Yes pets and [...] 3-4 times per week duration: 60-90 minutes/day daniel/mandaen: Synagogue seatbelt use: always do you feel safe at home: Yes additional social history: BF- [employer] History 1 Elective abortions Hx Para 0 [...] Negative 140 (more content not included)... Normal [facility] Rule out Beta Strep (Grp. B) on 12-24-2024 ROJELIO Group B Beta Streptococcus is not isolated. Normal [facility] Comment on above: Performed By: #### M 100.3400 #### [facility] [address] [place], [address] Laboratory - Chemistry and C hemistry - challengeOrdered By: Angela Sanders on 12-22-2024 Glucose Ql (U) Negative [facility] - UrinalysisOrder ed By: Angela Sanders on 12-22-2024 Protein Ql (U) Negative [facility] Anthropology Faculty Member Office Visit Reporton 12-22-2024 Anthropology Faculty Member Office Visit Report [facility] [address], [address] [place] [address] OFFICE VISIT Date of Service: 12/22/24 MR#: [id number] Acct: [id number] Name: ANITHASHEEBA HOOKER Rep #: [id number] 3 : 2000 Provider: JACKELIN Steven ams Age/Sex: 24/F [place] [facility] [place]: Signed Intake Vital Signs 11/11/24 14:01 12/09/24 14:53 12/22/24 14:30 Height 5 ft 10 in 5 ft 10 in 5 ft 10 in Weight: 200 lb BMI 28.7 BP 129/78 H Intake Visit Reasons: 36wk ob Chief Complaint: 36wk ob Taxonomist Required: No Is patient in pain?: No Allergies No Known Allergies Allergy (Verified 12/22/24 14:28) Medications ???Medication ???Instructions ???Recorded ???Confirmed ???Type multivit-min no.71-iron fum 28 cap PO 06/14/24 12/22/24 History mg-folate no.1 1 mg-dha 300 mg capsule (PNV-[place]) promethazine 12.5 mg tablet 12.5 mg PO [...] occupational status: employed current occupation: [employer], [employer] pets and animals: Yes pets and [...] 3-4 times per week duration: 60-90 minutes/day daniel/mandaen: Synagogue seatbelt use: always do you feel safe [...] Negative 140 -???-???-???-???-???- ???-???-???-???-???-? ??-???- SM- no melissa stewart (more content not included)... Normal [facility] Screening beta-hemolytic Str eptococcus cultureOrdered By: Angela Sanders on 12-22-2024 Beta-hemolytic Streptococcus culture Group B Beta Streptococcus is not isolated. [facility] - Chemistry and C hemistry - challengeOrdered By: Jemima Avila on 12-09-2024 Glucose Ql (U) Negative [facility] - UrinalysisOrder ed By: Jemima Avila on 12-09-2024 Protein Ql (U) Negative [facility] Anthropology Faculty Member Office Visit Reporton 12-09-2024 Anthropology Faculty Member Office Visit Report [facility] [address], [address] [place] [address] OFFICE VISIT Date of Service: 12/09/24 MR#: [id number] Acct: [id number] Name: SHEEBA WELSH Rep #: [id number] 8 : 2000 Provider: Dr. Jemima Hartman DO Age/Sex: 23/F [place] [facility] [place]: Signed Intake Vital Signs 06/23/24 13:06 11/25/24 14:07 12/09/24 14:50 12/09/24 14:53 Height 5 ft 10 in 5 ft 10 in 5 ft 10 in 5 ft 10 in Weight: 201 lb 8 oz BMI 28.9 BP 106/67 Intake Visit Reasons: 34 wk ob Taxonomist Required: No Is patient in pain?: No Allergies No Known Allergies Allergy (Verified 12/09/24 14:50) Medications ???Medication ???Instructions ???Recorded ???Confirmed ???Type multivit-min no.71-iron fum 28 cap PO 06/14/24 12/09/24 History mg-folate no.1 1 mg-dha 300 mg capsule (PNV[facility]) promethazine 12.5 mg tablet 12.5 mg PO [...] occupational status: employed current occupation: [employer], [employer] pets and animals: Yes pets and [...] 3-4 times per week duration: 60-90 minutes/day daniel/mandaen: Synagogue seatbelt use: always do you feel safe at home: Yes additional social history: BF- [employer] History 1 Elective abortions Hx Para [...] Negative 140 (more content not included)... Normal [facility] - Chemistry and C hemistry - challengeOrdered By: Angela Sanders on 11-25-2024 Glucose Ql (U) Negative [facility] - UrinalysisOrder ed By: Angela Sanders on 11-25-2024 Protein Ql (U) Negative [facility] Anthropology Faculty Member Office Visit Reporton 11-25-2024 Anthropology Faculty Member Office Visit Report [facility] [address], [address] [place] [address] OFFICE VISIT Date of Service: 11/25/24 MR#: [id number] Acct: [id number] Name: SHEEBA WELSH Rep #: [id number] 2 : 2000 Provider: JACKELIN Steven ams Age/Sex: 23/F [place] [facility] [place]: Signed Intake Vital Signs 06/23/24 13:06 11/11/24 14:01 11/25/24 14:07 Height 5 ft 10 in 5 ft 10 in 5 ft 10 in Weight: 200 lb 4 oz BMI 28.7 BP 125/76 H Intake Visit Reasons: 32 wk ob Chief Complaint: 32wk OB Taxonomist Required: No Is patient in pain?: No Allergies No Known Allergies Allergy (Verified 11/25/24 14:05) Medications ???Medication ???Instructions ???Recorded ???Confirmed ???Type multivit-min no.71-iron fum 28 cap PO 06/14/24 11/25/24 History mg-folate no.1 1 mg-dha 300 mg capsule (PNV-[place]) Last Menstrual Period: 04/15/24 : No PFSH PFSH Medical History Menorrhagia Headache, migraine History of fracture Non-smoker Surgical History History of repair of ACL Family History Mother Breast cancer, Onset Age: 51 Depression Father Cancer, Onset Age: 57 Chronic leukemia Social History adopted: No household members: significant other and family current occupational status: employed current occupation: [employer], [employer] pets and animals: Yes pets and [...] 3-4 times per week duration: 60-90 minutes/day daniel/mandaen: Synagogue seatbelt use: always do you feel safe at home: Yes additional social history: BF- [employer] History 1 Elective abortions Hx Para 0 [...] lb 4 (more content not included)... Normal [facility] - Chemistry and C hemistry - challengeOrdered By: Roseanna Mckeon on 11-11-2024 Glucose Ql (U) Negative [facility] - UrinalysisOrder ed By: Roseanna Mckeon on 11-11-2024 Protein Ql (U) Negative [facility] Anthropology Faculty Member Office Visit Reporton 11-11-2024 Anthropology Faculty Member Office Visit Report [facility], [address] [place] [address] OFFICE VISIT Date of Service: 11/11/24 MR#: [id number] Acct: [id number] Name: SHEEBA WELSH Rep #: [id number] 0 : 2000 Provider: JACKELIN daniels Age/Sex: 23/F Location: [facility] [place] Status: Signed Intake Vital Signs 06/23/24 13:06 10/14/24 13:29 11/11/24 14:01 11/11/24 14:01 Height 5 ft 10 in 5 ft 10 in 5 ft 10 in 5 ft 10 in Weight: 199 lb 8 oz BMI 28.6 BP 130/65 H Intake Visit Reasons: 30 wk ob Taxonomist Required: No Is patient in pain?: No Allergies No Known Allergies Allergy (Verified 11/11/24 13:59) Medications ???Medication ???Instructions ???Recorded ???Confirmed ???Type multivit-min no.71-iron fum 28 cap PO 06/14/24 11/11/24 History mg-folate no.1 1 mg-dha 300 mg capsule (PNV-[place]) Last Menstrual Period: 04/15/24 Zika: Zika virus [...] occupational status: employed current occupation: [employer] pets and animals: Yes pets and [...] 3-4 times per week duration: 60-90 minutes/day daniel/mandaen: Synagogue seatbelt use: always do you feel safe at home: Yes additional social history: - [employer] History 1 Elective abortions Hx Para [...] Negative 140 -???-???-???-???-???- ???-???-???-???-???-? ??-???- SM- no melissa orona (more content not included)... Normal [facility] Absolute lymphocyte countOrd ered By: Roseanna Mike on 10-14-2024 Lymphocytes Auto (Unsp spec) [#/Vol] 1.93 10*3/uL 0.83-4.51 [facility] Absolute neutrophil countOrd ered By: Roseanna Mckeon on 10-14-2024 Neutrophils (Bld) [#/Vol] 7.6 10*3/uL 2.0-7.7 [facility] Automated lymphocyte count a s percentage of total leukocytesOrdered By: Roseanna Mckeon on 10-14-2024 Lymphocytes/100 WBC Auto (Unsp spec) 18.5 % Low 19-41 [facility] Basophil percentageOrdered B y: Roseanna Mckeon on 10-14-2024 Basophils/100 WBC (Bld) 0.2 % 0-1 [facility] CBC W/Diff, Automatedon 09-18 Absolute Lymph 1.93 X10 3/uL Normal 0.83-4.51 [facility] Comment on above: Performed By: #### L 509.8002, L3890.6006, L100.0100, L501.0250 #### [facility] [address] [place], [address] Absolute Neut 7.6 X10 3/uL Normal 2.0-7.7 [facility] Comment on above: Performed By: #### L 509.8002, L3890.6006, L100.0100, L501.0250 #### [facility] [address] [place], [address] Basophils/100 WBC (Bld) 0.2 % Normal 0-1 [facility] Comment on above: Performed By: #### L 509.8002, L3890.6006, L100.0100, L501.0250 #### [facility] [address] [place], [address] Eosinophils/100 WBC (Bld) 1.0 % Normal 0-5 [facility] Comment on above: Performed By: #### L 509.8002, L3890.6006, L100.0100, L501.0250 #### [facility] [address] [place], [address] Erythrocyte distribution width (RBC) [Ratio] 13.0 % Normal 11.6-14.6 [facility] Comment on above: Performed By: #### L 509.8002, L3890.6006, L100.0100, L501.0250 #### [facility] [address] [place], [address] Hematocrit (Bld) [Volume fraction] 32.3 % Low 37-47 [facility] Comment on above: Performed By: #### L 509.8002, L3890.6006, L100.0100, L501.0250 #### [facility] [address] [place], [address] Hemoglobin (Bld) [Mass/Vol] 11.0 g/dL Low 12.0-15.0 [facility] Comment on above: Performed By: #### L 509.8002, L3890.6006, L100.0100, L501.0250 #### [facility] [address] [place], [address] IG% 0.900 Normal 0.0-0.9 [facility] Comment on above: Result Comment: IG% - Immature Granulocytes (promyelocytes, myelocytes and metamyelocytes) > 1% indicates that a LEFT SHIFT is Present. Performed By: #### L 509.8002, L3890.6006, L100.0100, L501.0250 #### [facility] [address] [place], [address] Lymphocytes/100 WBC (Bld) 18.5 % Low 19-41 [facility] Comment on above: Performed By: #### L 509.8002, L3890.6006, L100.0100, L501.0250 #### [facility] [address] [place], [address] MCH (RBC) [Entitic mass] 29.2 pg Normal 27.0-32.0 [facility] Comment on above: Performed By: #### L 509.8002, L3890.6006, L100.0100, L501.0250 #### [facility] [address] [place], [address] MCHC (RBC) [Mass/Vol] 34.1 g/dL Normal 32-36 [facility] Comment on above: Performed By: #### L 509.8002, L3890.6006, L100.0100, L501.0250 #### [facility] [address] [place], [address] MCV (RBC) [Entitic vol] 85.7 fL Normal 81-99 [facility] Comment on above: Performed By: #### L 509.8002, L3890.6006, L100.0100, L501.0250 #### [facility] [address] [place], [address] Monocytes/100 WBC (Bld) 6.1 % Normal 0-10 [facility] Comment on above: Performed By: #### L 509.8002, L3890.6006, L100.0100, L501.0250 #### [facility] [address] [place], [address] Neutrophils/100 WBC (Bld) 73.3 % High 47-70 [facility] Comment on above: Performed By: #### L 509.8002, L3890.6006, L100.0100, L501.0250 #### [facility] [address] [place], [address] Nucleated RBC (Bld) [#/Vol] 0 10*3/uL Normal 0-5 [facility] Comment on above: Performed By: #### L 509.8002, L3890.6006, L100.0100, L501.0250 #### [facility] [address] [place], [address] Platelet mean volume (Bld) [Entitic vol] 9.6 fL Normal 6.2-12.0 [facility] Comment on above: Performed By: #### L 509.8002, L3890.6006, L100.0100, L501.0250 #### [facility] [address] [place], [address] Platelets (Bld) [#/Vol] 254 10*3/uL Normal 150-450 [facility] Comment on above: Performed By: #### L 509.8002, L3890.6006, L100.0100, L501.0250 #### [facility] [address] [place], [address] RBC (Bld) [#/Vol] 3.77 10*6/uL Low 4.2-5.4 [facility] Comment on above: Performed By: #### L 509.8002, L3890.6006, L100.0100, L501.0250 #### [facility] [address] [place], [address] RDW SD 40.7 fl Normal 35.1-43.9 [facility] Comment on above: Performed By: #### L 509.8002, L3890.6006, L100.0100, L501.0250 #### [facility] [address] [place], [address] WBC (Bld) [#/Vol] 10.4 10*3/uL Normal 4.4-11.0 [facility] Comment on above: Performed By: #### L 509.8002, L3890.6006, L100.0100, L501.0250 #### [facility] [address] [place], [place], [address] Eosinophil percentageOrdered By: Roseanna Mckeon on 10-14-2024 Eosinophils/100 WBC (Bld) 1.0 % 0-5 [facility] Erythrocyte distribution wid th ratioOrdered By: Roseanna Mckeon on 10-14-2024 Erythrocyte distribution width (RBC) [Ratio] 13.0 % 11.6-14.6 [facility] Erythrocyte distribution wid th standard deviationOrdered By: Roseanna Mckeon on 10-14-2024 Erythrocyte distribution width (RBC) [Entitic vol] 40.7 fL 35.1-43.9 [facility] Erythrocyte distribution width (RBC) [Ratio] 40.7 fl 35.1-43.9 [facility] Glucose Challenge Gest 1H 50 eddie 10-14-2024 GLU GEST 50g 1H 108 mg/dL Normal 70-140 [facility] Comment on above: Performed By: #### L 509.8002, L3890.6006, L100.0100, L501.0250 #### [facility] [address] [place], [place], [id number] Glucose measurement at 2 pantera rs post-dose gestational glucose tolerance testOrdered By: Roseanna Mckeon on 10-14-2024 Glucose [Mass/Vol] 108 mg/dL 70-[address] [facility] Hematocrit Auto (Bld) [Volum e fraction]Ordered By: Roseanna Mckeon on 10-14-2024 Hematocrit (Bld) [Volume fraction] 32.3 % Low 37-47 [facility] Hemoglobin measurementOrdere d By: Roseanna Mckeon on 10-14-2024 Hemoglobin (Bld) [Mass/Vol] 11.0 g/dL Low 12.0-15.0 [facility] Immature granulocytes/100 WB C Auto (Bld)Ordered By: Roseanna Mckeon on 10-14-2024 Immature granulocytes/100 WBC (Bld) 0.900 % 0.0-0.9 [facility] Comment on above: IG% - Immature Granu locytes (promyelocytes, myelocytes and metamyelocytes) > 1% indicates that a LEFT SHIFT is Present. L3890.6006on 10-14-2024 HIV Non-Reactive Normal Nonreactive [facility] Comment on above: Result Comment: Non- Reactive Reactive Repeatedly reactive samples must be confirmed according to CDC recommended confirmatory algorithms. The subresults for either HIVAG or AHIV can be used as an aid in the selection of the confirmation algorithm for reactive samples. Send out specimens with Reactive results to [facility] for confirmation. Order the HIV antibody detection and differentiation: [id number] Performed By: #### L 509.8002, L3890.6006, L100.0100, L501.0250 ####[facility] [address] [place], [address] L509.8002on 10-14-2024 Syphilis Abs Non-Reactive Normal Nonreactive [facility] Comment on above: Performed By: #### L 509.8002, L3890.6006, L100.0100, L501.0250 #### [facility] [address] [facility] [facility] [place], [address] Laboratory - Chemistry and C hemistry - challengeOrdered By: Cesilia George on 10-14-2024 Glucose Ql (U) Negative [facility] Laboratory - UrinalysisOrder ed By: Cesilia George on 10-14-2024 Protein Ql (U) Negative [facility] Lymphocytes Auto (Unsp spec) [#/Vol]Ordered By: Roseanna Mckeon on 10-14-2024 Lymphocytes (Bld) [#/Vol] 1.93 10*3/uL 0.83-4.51 [facility] Lymphocytes/100 WBC Auto (Un sp spec)Ordered By: Roseanna Mckeon on 10-14-2024 Lymphocytes/100 WBC (Bld) 18.5 % Low 19-41 [facility] MCV (mean corpuscular volume ) determinationOrdered By: Roseanna Mckeon on 10-14-2024 MCV (RBC) [Entitic vol] 85.7 fL 81-99 [facility] Mean corpuscular hemoglobin (MCH) determinationOrdered By: Roseanna Mckeon on 10-14-2024 MCH (RBC) [Entitic mass] 29.2 pg 27.0-32.0 [facility] Mean corpuscular hemoglobin concentration (MCHC) determinationOrdered By: Roseanna Mckeon on 10-14-2024 MCHC (RBC) [Mass/Vol] 34.1 g/dL 32-36 [facility] Mean platelet volume determi nationOrdered By: Roseanna Mckeon on 10-14-2024 Platelet mean volume (Bld) [Entitic vol] 9.6 fL 6.2-12.0 [facility] Monocyte percentageOrdered B y: Roseanna Mckeon on 10-14-2024 Monocytes/100 WBC (Bld) 6.1 % 0-10 [facility] Neutrophil percentageOrdered By: Roseanna Mckeon on 10-14-2024 Neutrophils/100 WBC (Bld) 73.3 % High 47-70 [facility] No Panel InformationOrdered By: Roseanna Mckeon on 10-14-2024 HIV (1&2) Antibody Non-Reactive Nonreactive [facility] Comment on above: Non-ReactiveReactive Repeatedly reactive samples must be confirmed according to CDC recommended confirmatory algorithms. The subresults for either HIVAG or AHIV can be used as an aid in the selection of the confirmation algorithm for reactive samples.Send out specimens with Reactive results to [facility] for confirmation.Order the HIV antibody detection and differentiation: #[id number] Nucleated red blood cell per centageOrdered By: Roseanna Mckeon on 10-14-2024 Nucleated RBC/100 WBC (Bld) [Ratio] 0 % 0-5 [facility] Anthropology Faculty Member Office Visit Reporton 10-14-2024 Anthropology Faculty Member Office Visit Report [facility] [address], [address] [place] [address] OFFICE VISIT Date of Service: 10/14/24 MR#: [id number] Acct: [id number] Name: SHEEBA WELSH Rep #: [id number] 8 : 2000 Provider: TERESITA norman Age/Sex: 23/F [place] [facility] [place]: Signed Intake Vital Signs 06/23/24 13:06 09/16/24 13:04 10/14/24 13:29 Height 5 ft 10 in 5 ft 10 in 5 ft 10 in Weight: 199 lb 2 oz BMI 28.5 BP 118/62 Intake Visit Reasons: 26 wk ob Chief Complaint: 26 Week OB Taxonomist Required: No Is patient in pain?: No Allergies No Known Allergies Allergy (Verified 10/14/24 13:27) Medications ???Medication ???Instructions ???Recorded ???Confirmed ???Type multivit-min no.71-iron fum 28 cap PO 06/14/24 10/14/24 History mg-folate no.1 1 mg-dha 300 mg capsule ([facility]) Last Menstrual Period: 04/15/24 Zika: Zika virus screening: Negative : Yes PFSH PFSH Medical History Menorrhagia Headache, migraine History of fracture Non-smoker Surgical History History of repair of ACL Family History Mother Breast cancer, Onset Age: 51 Depression Father Cancer, Onset Age: 57 Chronic leukemia Social History adopted: No household members: significant other and family current occupational status: employed current occupation: [employer] pets and animals: Yes pets and [...] 3-4 times per week duration: 60-90 minutes/day daniel/mandaen: Synagogue seatbelt use: always do you feel safe [...] -???-???-???-???-???- ???- (more content not included)... Normal [facility] Platelet countOrdered By: Debi Mckeon on 10-14-2024 Platelets (Bld) [#/Vol] 254 10*3/uL 150-450 [facility] RBC Auto (Bld) [#/Vol]Ordere d By: Roseanna Mckeon on 10-14-2024 RBC (Bld) [#/Vol] 3.77 10*6/uL Low 4.2-5.4 [facility] T. pallidum abOrdered By: Debi Mckeon on 10-14-2024 Syphilis Total Antibody Non-Reactive Nonreactiv e [facility] White blood cell (WBC) count Ordered By: Roseanna Mckeon on 10-14-2024 WBC (Bld) [#/Vol] 10.4 10*3/uL 4.4-11.0 [facility] Laboratory - Chemistry and C hemistry - challengeOrdered By: Roseanna Mckeon on 09-16-2024 Glucose Ql (U) Negative [facility] - UrinalysisOrder ed By: Roseanna Mckeon on 09-16-2024 Protein Ql (U) Negative [facility] Anthropology Faculty Member Office Visit Reporton 09-16-2024 Anthropology Faculty Member Office Visit Report [facility] [address], [address] [place] [address] OFFICE VISIT Date of Service: 09/16/24 MR#: [id number] Acct: [id number] Name: SHEEBA WELSH Rep #: [id number] 0 : 2000 Provider: JACKELIN daniels Age/Sex: 23/F Location: [facility] [place] Status: Signed Intake Vital Signs 06/23/24 [...] mg-folate no.1 1 mg-dha 300 mg capsule ([facility]) Last Menstrual Period: 04/15/24 : No Have [...] occupational status: employed current occupation: [employer], [employer] pets and animals: Yes pets and [...] 3-4 times per week duration: 60-90 minutes/day daniel/mandaen: Synagogue seatbelt use: always do you feel safe [...] 123/74 -???-? (more content not included)... Normal [facility] Laboratory - Chemistry and C hemistry - challengeOrdered By: Kenya Wright on 08-19-2024 Glucose Ql (U) Negative [facility] - UrinalysisOrder ed By: Kenya Wright on 08-19-2024 Protein Ql (U) Negative [facility] Anthropology Faculty Member Office Visit Reporton 08-19-2024 Anthropology Faculty Member Office Visit Report [address], [address] [place] [address] OFFICE VISIT Date of Service: 08/19/24 MR#: [id number] Acct: [id number] Name: SHEEBA WELSH Rep #: [id number] 7 : 2000 Provider: Dr. Kenya kelly MD Age/Sex: 23/F [place] [facility] [place] Status: Signed Intake Vital Signs 06/23/24 13:06 07/21/24 10:11 08/19/24 14:13 Height 5 ft 10 in 5 ft 10 in 5 ft 10 in Weight: 193 lb 6 oz BMI 27.7 BP 123/65 H Intake Visit Reasons: 18 wk ob Chief Complaint: 18 Week OB Taxonomist Required: No Is patient in pain?: No Allergies No Known Allergies Allergy (Verified 08/19/24 14:14) Medications ???Medication ???Instructions ???Recorded ???Confirmed ???Type multivit-min no.71-iron fum 28 cap PO 06/14/24 08/19/24 History mg-folate no.1 1 mg-dha 300 mg capsule ([facility]) Last Menstrual Period: 04/15/24 Zika: Zika virus screening: Negative : No PFSH PFSH Medical History Menorrhagia Headache, migraine History of fracture Non-smoker Surgical History History of repair of ACL Family History Mother Breast cancer, Onset Age: 51 Depression Father Cancer, Onset Age: 57 Chronic leukemia Social History adopted: No household members: significant other and family current occupational status: employed current occupation: [employer], [employer] pets and animals: Yes pets and [...] 3-4 times per week duration: 60-90 minutes/day daniel/mandaen: Synagogue seatbelt use: always do you feel safe [...] Discussed Breastf (more content not included)... Normal [facility] - Chemistry and C hemistry - challengeon 07-21-2024 Glucose Ql (U) Negative [facility] - Urinalysison Protein Ql (U) Negative [facility] Miscellaneous procedureOrder ed By: Jemima Avila on 07-21-2024 Miscellaneous Test Comment SEE SCANNED REPORT [facility] NATERAon 07-21-2024 NATURA SEE SCANNED REPORT Normal [facility] Comment on above: Performed By: #### L 900.0098 ####[facility] [address] [place], [address] Anthropology Faculty Member Office Visit Reporton 07-21-2024 Anthropology Faculty Member Office Visit Report [facility] [address], [address] [place] [address] OFFICE VISIT Date of Service: 07/21/24 MR#: [id number] Acct: [id number] Name: SHEEBA WELSH Rep #: [id number] 5 : 2000 Provider: Dr. Jemima Hartman DO Age/Sex: 23/F [place] [facility] [place] Status: Signed Intake Vital Signs 11/12/23 15:04 06/23/24 13:06 07/21/24 10:11 07/21/24 10:11 Height 5 ft 10 in 5 ft 10 in 5 ft 10 in 5 ft 10 in Weight: 185 lb BMI 26.5 BP 120/68 Intake Visit Reasons: 14 wk ob Taxonomist Required: No Is patient in pain?: No Allergies No Known Allergies Allergy (Verified 07/21/24 10:10) Medications ???Medication ???Instructions ???Recorded ???Confirmed ???Type multivit-min no.71-iron fum 28 cap PO 06/14/24 07/21/24 History mg-folate no.1 1 mg-dha 300 mg capsule ([facility]) Last Menstrual Period: 04/15/24 Zika: Zika virus screening: Negative : No PFSH PFSH Medical History Menorrhagia Headache, migraine History of fracture Non-smoker Surgical History History of repair of ACL Family History Mother Breast cancer, Onset Age: 51 Depression Father Cancer, Onset Age: 57 Chronic leukemia Social History adopted: No household members: significant other and family current occupational status: employed current occupation: [employer], [employer] pets and animals: Yes pets and [...] 3-4 times per week duration: 60-90 minutes/day daniel/mandaen: Synagogue seatbelt use: always do you feel safe at home: Yes additional social history: BF- [employer] History 1 Elective abortions Hx Para 0 [...] Cessation Thi (more content not included)... Normal [facility] HIV - WCHon 07-04-2024 HIV Non-Reactive Normal Nonreactive [facility] Comment on above: Order Comment: Reaso n for Exam: Performed By: #### L 3890.6100, BTS, L509.4005, L3890.6300, L509.8000, L100.0100, L3890.6005 ####[facility] [address] [place], [address] Hepatitis B Surface Antigeno n 07-04-2024 HEP B Surf Ag Non-Reactive Normal Nonreactive [facility] Comment on above: Order Comment: Reaso n for Exam: Performed By: #### L 3890.6100, BTS, L509.4005, L3890.6300, L509.8000, L100.0100, L3890.6005 ####[facility] [address], [address] Hepatitis C Antibodyon 07-04 Hepatitis C AB Non-Reactive Normal Nonreactive [facility] Comment on above: Order Comment: Reaso n for Exam: Result Comment: Non Reactive: < 0.8 Equivocal: >/= 0.8 to < 1.0 Reactive: >/= 1.0 The CDC requires that a reactive/equivocal HCV antibody result be sent out for confirmation. HCV Quant by PCR testing. Performed By: #### L 3890.6100, BTS, L509.4005, L3890.6300, L509.8000, L100.0100, L3890.6005 ####[facility] [address] [place], [address] L509.8000on 07-04-2024 Syphilis Abs Non-Reactive Normal [facility] Comment on above: Order Comment: Reaso n for Exam: Performed By: #### L 3890.6100, BTS, L509.4005, L3890.6300, L509.8000, L100.0100, L3890.6005 ####[facility] [address] [place], [place], [address] PAP I-G w/rfx hrHPV-Aptimaon 07-04-2024 ADEQ Comment Normal . [facility] Comment on above: Order Comment: Speci men Comment: [id number] Comment: Source.............CervixSpecimen Comment: LMP / Prev Treat...[id number] Comment: Other..............Specimen Comment: No. of containers..01 ThinPrep Vial Result Comment: Sati sfactory for evaluation. Endocervical and/or squamous metaplastic cells (endocervical component) are present. Performed By: #### M 100.2200, L7400.0353, L7000.1800 ####[facility] [address] [place], [place], [address] COMM . Normal . [facility] Comment on above: Order Comment: Speci men Comment: [id number] Comment: Source.............CervixSpecimen Comment: LMP / Prev Treat...[id number] Comment: Other..............Specimen Comment: No. of containers..01 ThinPrep Vial Performed By: #### M 100.2200, L7400.0353, L7000.1800 ####[facility] [address] [place], [place], [address] COMMENT Comment Normal . [facility] Comment on above: Order Comment: Speci men Comment: [id number] Comment: Source.............CervixSpecimen Comment: LMP / Prev Treat...[id number] Comment: Other..............Specimen Comment: No. of containers..01 ThinPrep Vial Result Comment: This liquid based ThinPrep(R) pap test was screened with the use of an image guided system. Performed By: #### M 100.2200, L7400.0353, L7000.1800 ####[facility] [address] [place], [place], [address] DIAG Comment Normal . [facility] Comment on above: Order Comment: Speci men Comment: [id number] Comment: Source.............CervixSpecimen Comment: LMP / Prev Treat...[id number] Comment: Other..............Specimen Comment: No. of containers..01 ThinPrep Vial Result Comment: NEGA TIVE FOR INTRAEPITHELIAL LESION OR MALIGNANCY. Performed By: #### M 100.2200, L7400.0353, L7000.1800 ####[facility] [address] [place], [place], [address] HPV RFLX Comment Normal . [facility] Comment on above: Order Comment: Speci men Comment: [id number] Comment: Source.............CervixSpecimen Comment: LMP / Prev Treat...[id number] Comment: Other..............Specimen Comment: No. of containers..01 ThinPrep Vial Result Comment: The HPV DNA reflex criteria were not met with this specimen result therefore, no HPV testing was performed. Performed at: [address] [id number] Test Fixture Assembler: Beth Rae PhD, Phone: [phone] Performed at: [facility] [id number] Test Fixture Assembler: Charlene Sotomayor MD, Phone: [phone] Performed By: #### M 100.2200, L7400.0353, L7000.1800 ####[facility] [address] [place], [address] PAPSMR Comment Normal . [facility] Comment on above: Order Comment: Speci men Comment: [id number] Comment: Source.............CervixSpecimen Comment: LMP / Prev Treat...[id number] Comment: Other..............Specimen Comment: No. of containers..01 ThinPrep Vial Result Comment: The Pap smear is a screening test designed to aid in the detection of premalignant and malignant conditions of the uterine cervix. It is not a diagnostic procedure and should not be used as the sole means of detecting cervical cancer. Both false-positive and false-negative reports do occur. Performed By: #### M 100.2200, L7400.0353, L7000.1800 ####[facility] [address] [place], [address] PERFORM Comment Normal . [facility] Comment on above: Order Comment: Speci men Comment: [id number] Comment: Source.............CervixSpecimen Comment: LMP / Prev Treat...[id number] Comment: Other..............Specimen Comment: No. of containers..01 ThinPrep Vial Result Comment: Karli Stevens Dramatic Teacher (ASCP) Performed By: #### M 100.2200, L7400.0353, L7000.1800 ####[facility] [address] [place], [place], [address] Rubella IgGon 07-04-2024 Rubella IgG Reactive Normal Nonreactive [facility] Comment on above: Order Comment: Reaso n for Exam: Result Comment: Anti body Results Interpretation of Immune Status Non Reactive Presumed Non-Immune Equivocal Equivocal Reactive Presumed Immune Performed By: #### L 3890.6100, BTS, L509.4005, L3890.6300, L509.8000, L100.0100, L3890.6005 ####[facility] [address] [place], [place], [address] Absolute neutrophil countOrd ered By: Angela Sanders on 07-01-2024 Neutrophils (Bld) [#/Vol] 6.9 10*3/uL 2.0-7.7 [facility] Basophil percentageOrdered B y: Angela Sanders on 07-01-2024 Basophils/100 WBC (Bld) 0.4 % 0-1 [facility] CBC W/Diff, Automatedon 06-19 Absolute Lymph 2.49 X10 3/uL Normal 0.83-4.51 [facility] Comment on above: Performed By: #### L 3890.6100, BTS, L509.4005, L3890.6300, L509.8000, L100.0100, L3890.6005 ####[facility] [address] [place], [place], [address] Absolute Neut 6.9 X10 3/uL Normal 2.0-7.7 [facility] Comment on above: Performed By: #### L 3890.6100, BTS, L509.4005, L3890.6300, L509.8000, L100.0100, L3890.6005 ####[facility] [address] [place], [address] Basophils/100 WBC (Bld) 0.4 % Normal 0-1 [facility] Comment on above: Performed By: #### L 3890.6100, BTS, L509.4005, L3890.6300, L509.8000, L100.0100, L3890.6005 ####[facility] [address] [place], [address] Eosinophils/100 WBC (Bld) 0.6 % Normal 0-5 [facility] Comment on above: Performed By: #### L 3890.6100, BTS, L509.4005, L3890.6300, L509.8000, L100.0100, L3890.6005 ####[facility] [address] [place], [address] Erythrocyte distribution width (RBC) [Ratio] 13.0 % Normal 11.6-14.6 [facility] Comment on above: Performed By: #### L 3890.6100, BTS, L509.4005, L3890.6300, L509.8000, L100.0100, L3890.6005 ####[facility] [address] [place], [address] Hematocrit (Bld) [Volume fraction] 38.0 % Normal 37-47 [facility] Comment on above: Performed By: #### L 3890.6100, BTS, L509.4005, L3890.6300, L509.8000, L100.0100, L3890.6005 ####[facility] [address] [place], [address] Hemoglobin (Bld) [Mass/Vol] 13.1 g/dL Normal 12.0-15.0 [facility] Comment on above: Performed By: #### L 3890.6100, BTS, L509.4005, L3890.6300, L509.8000, L100.0100, L3890.6005 ####[facility] [address] [place], [address] IG% 0.400 Normal 0.0-0.9 [facility] Comment on above: Result Comment: IG% - Immature Granulocytes (promyelocytes, myelocytes and metamyelocytes) > 1% indicates that a LEFT SHIFT is Present. Performed By: #### L 3890.6100, BTS, L509.4005, L3890.6300, L509.8000, L100.0100, L3890.6005 ####[facility] [address] [place], [address] Lymphocytes/100 WBC (Bld) 24.5 % Normal 19-41 [facility] Comment on above: Performed By: #### L 3890.6100, BTS, L509.4005, L3890.6300, L509.8000, L100.0100, L3890.6005 ####[facility] [address] [place], [address] MCH (RBC) [Entitic mass] 27.8 pg Normal 27.0-32.0 [facility] Comment on above: Performed By: #### L 3890.6100, BTS, L509.4005, L3890.6300, L509.8000, L100.0100, L3890.6005 ####[facility] [address] [place], [address] MCHC (RBC) [Mass/Vol] 34.5 g/dL Normal 32-36 [facility] Comment on above: Performed By: #### L 3890.6100, BTS, L509.4005, L3890.6300, L509.8000, L100.0100, L3890.6005 ####[facility] [address] [place], [address] MCV (RBC) [Entitic vol] 80.7 fL Low 81-99 [facility] Comment on above: Performed By: #### L 3890.6100, BTS, L509.4005, L3890.6300, L509.8000, L100.0100, L3890.6005 ####[facility] [address] [place], [address] Monocytes/100 WBC (Bld) 6.4 % Normal 0-10 [facility] Comment on above: Performed By: #### L 3890.6100, BTS, L509.4005, L3890.6300, L509.8000, L100.0100, L3890.6005 ####[facility] [address] [place], [address] Neutrophils/100 WBC (Bld) 67.7 % Normal 47-70 [facility] Comment on above: Performed By: #### L 3890.6100, BTS, L509.4005, L3890.6300, L509.8000, L100.0100, L3890.6005 ####[facility] [address] [place], [address] Nucleated RBC (Bld) [#/Vol] 0 10*3/uL Normal 0-5 [facility] Comment on above: Performed By: #### L 3890.6100, BTS, L509.4005, L3890.6300, L509.8000, L100.0100, L3890.6005 ####[facility] [address] [place], [address] Platelet mean volume (Bld) [Entitic vol] 9.4 fL Normal 6.2-12.0 [facility] Comment on above: Performed By: #### L 3890.6100, BTS, L509.4005, L3890.6300, L509.8000, L100.0100, L3890.6005 ####[facility] [address] [place], [address] Platelets (Bld) [#/Vol] 295 10*3/uL Normal 150-450 [facility] Comment on above: Performed By: #### L 3890.6100, BTS, L509.4005, L3890.6300, L509.8000, L100.0100, L3890.6005 ####[facility] [address] [place], [address] RBC (Bld) [#/Vol] 4.71 10*6/uL Normal 4.2-5.4 [facility] Comment on above: Performed By: #### L 3890.6100, BTS, L509.4005, L3890.6300, L509.8000, L100.0100, L3890.6005 ####[facility] [address] [place], [address] RDW SD 37.9 fl Normal 35.1-43.9 [facility] Comment on above: Performed By: #### L 3890.6100, BTS, L509.4005, L3890.6300, L509.8000, L100.0100, L3890.6005 ####[facility] [address] [place], [address] WBC (Bld) [#/Vol] 10.2 10*3/uL Normal 4.4-11.0 [facility] Comment on above: Performed By: #### L 3890.6100, BTS, L509.4005, L3890.6300, L509.8000, L100.0100, L3890.6005 ####[facility] [address] [place], [address] Eosinophil percentageOrdered By: Angela Sanders on 12-13-2024 Eosinophils/100 WBC (Bld) 0.6 % 0-5 [facility] Erythrocyte distribution wid th ratioOrdered By: Angela Sanders on 07-01-2024 Erythrocyte distribution width (RBC) [Ratio] 13.0 % 11.6-14.6 [facility] Erythrocyte distribution wid th standard deviationOrdered By: Angela Sanders on 07-01-2024 Erythrocyte distribution width (RBC) [Entitic vol] 37.9 fL 35.1-43.9 [facility] HIV 1+2 Ab+HIV1 p24 Ag IA Ql Ordered By: Angela Sanders on 07-01-2024 HIV (1&2) Antibody Non-Reactive Nonreactive [facility] Hematocrit Auto (Bld) [Volum e fraction]Ordered By: Angela Sanders on 07-01-2024 Hematocrit (Bld) [Volume fraction] 38.0 % 37-47 [facility] Hemoglobin measurementOrdere d By: Angela Sanders on 07-01-2024 Hemoglobin (Bld) [Mass/Vol] 13.1 g/dL 12.0-15.0 [facility] Hepatitis B surface antigen detectionOrdered By: Angela Sanders on 07-01-2024 Hepatitis B Surface Antigen Non-Reactive Nonreactive [facility] Hepatitis C virus antibody a ssayOrdered By: Angela Sanders on 07-01-2024 Hepatitis C Antibody Non-Reactive Nonreactive [facility] Comment on above: Non Reactive: < 0.8 Equivocal: >/= 0.8 to < 1.0 Reactive: >/= 1.0The CDC requires that a reactive/equivocal HCV antibody result be sent out for confirmation. HCV Quant by PCR testing. Immature granulocytes/100 WB C Auto (Bld)Ordered By: Angela Sanders on 07-01-2024 Immature granulocytes/100 WBC (Bld) 0.400 % 0.0-0.9 [facility] Comment on above: IG% - Immature Granu locytes (promyelocytes, myelocytes and metamyelocytes) > 1% indicates that a LEFT SHIFT is Present. Lymphocytes Auto (Unsp spec) [#/Vol]Ordered By: Angela Sanders on 07-01-2024 Lymphocytes (Bld) [#/Vol] 2.49 10*3/uL 0.83-4.51 [facility] Lymphocytes/100 WBC Auto (Un sp spec)Ordered By: Angela Sanders on 07-01-2024 Lymphocytes/100 WBC (Bld) 24.5 % 19-41 [facility] MCV (mean corpuscular volume ) determinationOrdered By: Angela Sanders on 07-01-2024 MCV (RBC) [Entitic vol] 80.7 fL Low 81-99 [facility] Mean corpuscular hemoglobin (MCH) determinationOrdered By: Angela Sanders on 07-01-2024 MCH (RBC) [Entitic mass] 27.8 pg 27.0-32.0 [facility] Mean corpuscular hemoglobin concentration (MCHC) determinationOrdered By: Angela Sanders on 07-01-2024 MCHC (RBC) [Mass/Vol] 34.5 g/dL 32-36 [facility] Mean platelet volume determi nationOrdered By: Angela Sanders on 07-01-2024 Platelet mean volume (Bld) [Entitic vol] 9.4 fL 6.2-12.0 [facility] Monocyte percentageOrdered B y: Angela Sanders on 07-01-2024 Monocytes/100 WBC (Bld) 6.4 % 0-10 [facility] Neutrophil percentageOrdered By: Angela Sanders on 07-01-2024 Neutrophils/100 WBC (Bld) 67.7 % 47-70 [facility] Nucleated red blood cell per centageOrdered By: Angela Sanders on 07-01-2024 Nucleated RBC/100 WBC (Bld) [Ratio] 0 % 0-5 [facility] Platelet countOrdered By: Hieu Sanders on 07-01-2024 Platelets (Bld) [#/Vol] 295 10*3/uL 150-450 [facility] RBC Auto (Bld) [#/Vol]Ordere d By: Angela Sanders on 07-01-2024 RBC (Bld) [#/Vol] 4.71 10*6/uL 4.2-5.4 [facility] Rubella immune status IgGOrd ered By: Angela Sanders on 07-01-2024 Rubella IgG Antibody Reactive Nonreactive [facility] Comment on above: Antibody Results Int erpretation of Immune Status Non Reactive Presumed Non-Immune Equivocal Equivocal Reactive Presumed Immune Treponema sp Ab Ql (S)Ordere d By: Angela Sanders on 07-01-2024 Syphilis Total Antibody Non-Reactive [facility] Type AND Screenon 07-01-2024 Ab SCREEN GEL Negative Normal [facility] Comment on above: Order Comment: PN Performed By: #### L 3890.6100, BTS, L509.4005, L3890.6300, L509.8000, L100.0100, L3890.6005 ####[facility] [address], [address] ABO and Rh group Nom (Bld) Blood group O Rh(D) positive Normal [facility] Comment on above: Order Comment: PN Performed By: #### L 3890.6100, BTS, L509.4005, L3890.6300, L509.8000, L100.0100, L3890.6005 ####[facility] [address] [place], [address] White blood cell (WBC) count Ordered By: Angela Sanders on 07-01-2024 WBC (Bld) [#/Vol] 10.2 10*3/uL 4.4-11.0 [facility] Chlamydia/GC PEDRO aptimaon CHLAMY,NUC ACID Negative Normal Negative [facility] Comment on above: Performed By: #### M 100.2200, L7400.0353, L7000.1800 ####[facility] [address], [address] GC BY NUC ACID Negative Normal Negative [facility] Comment on above: Result Comment: Perf ormed at: =G - [facility] [address] [id number] Test Fixture Assembler: Charlene Sotomayor MD, Phone: [phone] Performed By: #### M 100.2200, L7400.0353, L7000.1800 ####[facility] [address], [address] Urine Cultureon 06-24-2024 URC Culture exhibits no growth. Normal [facility] Comment on above: Performed By: #### M 100.2200, L7400.0353, L7000.1800 ####[facility] [address] [place], [address] C. trachomatis rRNA PEDRO+prob e Ql (Unsp spec)Ordered By: Angela Sanders on 06-23-2024 Chlamydia DNA (PEDRO) Negative Negative [facility] Splitting Machine Operator Cyto stain Nom (C vx/Vag) [ID]Ordered By: Angela Sanders on 06-23-2024 Pap Smear Performed By Comment . [facility] Comment on above: Gabrielle Stevens, Cyto technologist (ASCP) Cytology report Cyto stain D oc (Cvx/Vag)Ordered By: Angela Sanders on 06-23-2024 Thin Prep Pap Smear Comment . [facility] Comment on above: The Pap smear is a s creening test designed to aid in thedetection of premalignant and malignant conditions of theuterine cervix. It is not a diagnostic procedure andshould not be used as the sole means of detecting cervicalcancer. Both false-positive and false-negative reports dooccur. Image-guided ThinPrep PapOrd ered By: Angela Sanders on 06-23-2024 Pap Smear Note Comment . [facility] Comment on above: This liquid based Th inPrep(R) pap test was screened withthe use of an image guided system. Image-guided liquid-based Pa pOrdered By: Angela Sanders on 06-23-2024 Pap Smear Diagnosis Comment . [facility] Comment on above: NEGATIVE FOR INTRAEP ITHELIAL LESION OR MALIGNANCY. Image-guided liquid-based ce rvical Pap w high-risk HPV+reflex to HPV 16+18Ordered By: Angela Sanders on 06-23-2024 Human Papillomavirus Screen Comment . [facility] Comment on above: The HPV DNA reflex c megan were not met with this specimenresult therefore, no HPV testing was performed.Performed at: [facility], [place] [id number] Director: Beth Rae PhD, Phone: [phone] at: [facility] [address] [id number] Director: Charlene Sotomayor MD, Phone: [phone] Neisseria gonorrhoeae nuclei c acid detection by amplified probe techniqueOrdered By: Angela Sanders on 06-23-2024 N. gonorrhoeae DNA PEDRO+probe Ql (Unsp spec) Negative Negative [facility] Comment on above: Performed at: =G - [facility] [address] [place] [id number] Director: Charlene Sotomayor MD, Phone: [phone] Anthropology Faculty Member Office Visit Reporton 06-23-2024 Anthropology Faculty Member Office Visit Report [facility] [address], [address] [place] [address] OFFICE VISIT Date of Service: 06/23/24 MR#: [id number] Acct: [id number] Name: SHEEBA WELSH Rep #: [id number] : 2000 Provider: JACKELIN Steven ams Age/Sex: 23/F Location: [facility] Status: Signed Intake Vital Signs 11/12/23 15:04 06/23/24 13:02 06/23/24 13:06 Height 5 ft 10 in 5 ft 10 in 5 ft 10 in Weight: 183 lb BMI 26.2 BP 144/82 H Intake Visit Reasons: NOB LMP 04/15 Taxonomist Required: No Is patient in pain?: No Allergies No Known Allergies Allergy (Verified 06/23/24 13:03) Medications ???Medication ???Instructions ???Recorded ???Confirmed ???Type multivit-min no.71-iron fum 28 cap PO 06/14/24 06/14/24 History mg-folate no.1 1 mg-dha 300 mg capsule (PNV-[place]) Last Menstrual Period: 04/15/24 Zika: Zika virus [...] current occupational status: employed current occupation: [employer] pets and animals: Yes pets and [...] 3-4 times per week duration: 60-90 minutes/day daniel/mandaen: [employer] seatbelt use: always do you feel safe at home: Yes additional social history: BF- [employer] History 1 Elective abortions Hx Para [...] Partner monroe (more content not included)... Normal [facility] Service comment (Unsp spec) [Interp]Ordered By: Angela Sanders on 06-23-2024 Pap Smear Comment (3) . . [facility] Urine cultureOrdered By: Sunny Sanders on 06-23-2024 Bacteria identified Cx Nom (U) Culture exhibits no growth. [facility] Absolute lymphocyte countOrd ered By: Yoel Frost on 11-12-2023 Lymphocytes Auto (Unsp spec) [#/Vol] 2.50 10*3/uL 0.83-4.51 [facility] Automated lymphocyte count a s percentage of total leukocytesOrdered By: Yoel Frost on 11-12-2023 Lymphocytes/100 WBC Auto (Unsp spec) 28.1 % 19-41 [facility] Basophil percentageOrdered B y: Yoel Frost on 11-12-2023 Basophils/100 WBC (Bld) 0.6 % 0-1 [facility] Bilirubin [Mass/Vol] 0.40 mg/dL 0.20-1.00 [facility] Comment on above: For patients on eltr ombopag therapy, use of Dimension [place] TBIL is not recommended. Chloride [Moles/Vol] 106 mmol/L 98-107 [facility] Eosinophils/100 WBC (Bld) 0.7 % 0-5 [facility] Glucose [Mass/Vol] 94 mg/dL 74-[address] [facility] Hemoglobin (Bld) [Mass/Vol] 12.5 g/dL 12.0-15.0 [facility] Monocytes/100 WBC (Bld) 7.8 % 0-10 [facility] Neutrophils (Bld) [#/Vol] 5.6 10*3/uL 2.0-7.7 [facility] Neutrophils/100 WBC (Bld) 62.6 % 47-70 [facility] Potassium [Moles/Vol] 3.9 mmol/L 3.5-5.1 [facility] Protein [Mass/Vol] 7.4 g/dL 6.4-8.[address] [facility] Sodium [Moles/Vol] 137 mmol/L 136-[address] [facility] WBC (Bld) [#/Vol] 8.9 10*3/uL 4.4-11.[address] [facility] Determination of erythrocyte mean corpuscular volume (MCV)Ordered By: Yoel Frost on 11-12-2023 MCV (RBC) [Entitic vol] 82.7 fL 81-99 [facility] Erythrocyte distribution wid th ratioOrdered By: Yoel Frost on 11-12-2023 Erythrocyte distribution width (RBC) [Ratio] 12.6 % 11.6-14.6 [facility] Erythrocyte distribution wid th standard deviationOrdered By: Yoel Frost on 11-12-2023 Erythrocyte distribution width (RBC) [Entitic vol] 37.9 fL 35.1-43.9 [facility] Hematocrit Auto (Bld) [Volum e fraction]Ordered By: Yoel Frost on 11-12-2023 Hematocrit (Bld) [Volume fraction] 38.6 % 37-47 [facility] Immature granulocytes/100 WB C Auto (Bld)Ordered By: Yoel Frost on 11-12-2023 Immature granulocytes/100 WBC (Bld) 0.200 % 0.0-0.9 [facility] Comment on above: IG% - Immature Granu locytes (promyelocytes, myelocytes and metamyelocytes) > 1% indicates that a LEFT SHIFT is Present. Laboratory - Chemistry and C hemistry - challengeOrdered By: Yoel Frost on 11-12-2023 Albumin/Globulin [Mass ratio] 1.2 {ratio} 0.9-2.4 [facility] ALP [Catalytic activity/Vol] 71 U/L 45-117 [facility] ALT [Catalytic activity/Vol] 14 U/L 13-56 [facility] CO2 [Moles/Vol] 23.0 mmol/L 21.0-32.0 [facility] Cobalamin (Vitamin B12) [Mass/Vol] 320 pg/mL 211-911 [facility] Globulin (S) [Mass/Vol] 3.4 g/dL 2.2-4.2 [facility] Urea nitrogen/Creatinine [Mass ratio] 13.1 mg/mg 10-20 [facility] Laboratory - Hematology and Cell countsOrdered By: Yoel Frost on 11-12-2023 MCH (RBC) [Entitic mass] 26.8 pg 27.0-32.0 [facility] MCHC (RBC) [Mass/Vol] 32.4 g/dL 32-36 [facility] Nucleated RBC/100 WBC (Bld) [Ratio] 0 % 0-5 [facility] Platelet mean volume (Bld) [Entitic vol] 9.1 fL 6.2-12.0 [facility] Platelets (Bld) [#/Vol] 333 10*3/uL 150-450 [facility] No Panel InformationOrdered By: Yoel Frost on 11-12-2023 Estimated GFR (MDRD) Amer 121 mL/min >60 [facility] Comment on above: GFR Calc Estimated GFR (MDRD) Non-Af Amer 100 mL/min >60 [facility] Comment on above: Non- GFR Calc Vitamin D 25-Hydroxy 62.4 ng/mL [facility] Comment on above: Vitamin D 25(OH) Sta tus Range Deficiency <20 ng/mL (50nmol/L) Insufficiency 20 - 30 ng/mL (50 - 75 nmol/L) Sufficiency 30 - 100 ng/mL (75 - 250 nmol/L) Toxicity >100 ng/mL (>250 nmol/L) RBC Auto (Bld) [#/Vol]Ordere d By: Yoel Frost on 11-12-2023 RBC (Bld) [#/Vol] 4.67 10*6/uL 4.2-5.4 [facility] Serum or plasma calcium vik urement (mass/volume)Ordered By: Yoel Frost on 11-12-2023 Calcium [Mass/Vol] 9.1 mg/dL 8.5-10.[address] [facility] Serum or plasma creatinine m easurement (mass/volume)Ordered By: Yoel Frost on 11-12-2023 Creatinine [Mass/Vol] 0.76 mg/dL 0.55-1.02 [facility] Comment on above: The validity of the calculated GFR & GFRAA in patients over 70 years has not been determined. Clinical correlation is essential. Serum or plasma thyroid stim ulating hormone (TSH) measurement (units/volume)Ordered By: Yoel Frost on 11-12-2023 TSH Qn 1.63 uIU/mL 0.358-3.74 [facility] Serum or plasma urea nitroge n measurement (mass/volume)Ordered By: Yoel Frost on 11-12-2023 Urea nitrogen [Mass/Vol] 10 mg/dL 7-18 [facility] Thin prep Papanicolaou smear with manual screeningOrdered By: Yoel Frost on 11-12-2023 Thin prep Papanicolaou smear with manual screening 4.0 g/dL 3.2-5.0 [facility] Thin prep Papanicolaou smear with manual screening 8 U/L 15-37 [facility] Thin prep Papanicolaou smear with manual screening 8 5-15 [facility] Absolute lymphocyte countOrd ered By: Dr. Haines on 11-04-2022 Lymphocytes Auto (Unsp spec) [#/Vol] 3.02 10*3/uL 0.83-4.51 [facility] Basophil percentageOrdered B y: Dr. Haines on 11-04-2022 Basophils/100 WBC (Bld) 0.5 % 0-1 [facility] Chloride [Moles/Vol] 106 mmol/L 98-107 [facility] Eosinophils/100 WBC (Bld) 0.8 % 0-5 [facility] Glucose [Mass/Vol] 80 mg/dL 74-[address] [facility] Neutrophils (Bld) [#/Vol] 5.5 10*3/uL 2.0-7.7 [facility] Neutrophils/100 WBC (Bld) 58.1 % 47-70 [facility] Potassium [Moles/Vol] 3.7 mmol/L 3.5-5.1 [facility] Sodium [Moles/Vol] 138 mmol/L 136-[address] [facility] WBC (Bld) [#/Vol] 9.5 10*3/uL 4.4-11.[address] [facility] Blood erythrocytes count (nu mber/volume)Ordered By: Dr. Haines on 11-04-2022 RBC (Bld) [#/Vol] 4.60 10*6/uL 4.2-5.4 [facility] Blood hemoglobin measurement (mass/volume)Ordered By: Dr. Haines on 11-04-2022 Hemoglobin (Bld) [Mass/Vol] 12.7 g/dL 12.0-15.0 [facility] Blood lymphocytes/100 leukoc ytesOrdered By: Dr. Haines on 11-04-2022 Lymphocytes/100 WBC (Bld) 32.0 % 19-41 [facility] Blood monocytes/100 leukocyt esOrdered By: Dr. Haines on 11-04-2022 Monocytes/100 WBC (Bld) 8.4 % 0-10 [facility] Blood platelet mean volumeOr dered By: Dr. Haines on 11-04-2022 Platelet mean volume (Bld) [Entitic vol] 9.0 fL 6.2-12.0 [facility] Determination of erythrocyte mean corpuscular volume (MCV)Ordered By: Dr. Haines on 11-04-2022 MCV (RBC) [Entitic vol] 83.5 fL 81-99 [facility] Hematocrit Auto (Bld) [Volum e fraction]Ordered By: Dr. Haines on 11-04-2022 Hematocrit (Bld) [Volume fraction] 38.4 % 37-47 [facility] Laboratory - Chemistry and C hemistry - challengeOrdered By: Dr. Haines on 11-04-2022 CO2 [Moles/Vol] 28.0 mmol/L 21.0-32.0 [facility] Urea nitrogen/Creatinine [Mass ratio] 19.3 mg/mg 10-20 [facility] Laboratory - Hematology and Cell countsOrdered By: Dr. Haines on 11-04-2022 Erythrocyte distribution width (RBC) [Entitic vol] 37.1 fL 35.1-43.9 [facility] Erythrocyte distribution width (RBC) [Ratio] 12.3 % 11.6-14.6 [facility] Immature granulocytes/100 WBC (Bld) 0.200 % 0.0-0.9 [facility] Comment on above: IG% - Immature Granu locytes (promyelocytes, myelocytes and metamyelocytes) > 1% indicates that a LEFT SHIFT is Present. MCH (RBC) [Entitic mass] 27.6 pg 27.0-32.0 [facility] Nucleated RBC/100 WBC (Bld) [Ratio] 0 % 0-5 [facility] MCHC Auto (RBC) [Mass/Vol]Or dered By: Dr. Haines on 11-04-2022 MCHC (RBC) [Mass/Vol] 33.1 g/dL 32-36 [facility] No Panel InformationOrdered By: Dr. Haines on 11-04-2022 Estimated GFR (MDRD) Amer 120 mL/min >60 [facility] Comment on above: GFR Calc Estimated GFR (MDRD) Non-Af Amer 99 mL/min >60 [facility] Comment on above: Non- GFR Calc Platelets bldOrdered By: Dr. Haines on 11-04-2022 Platelets (Bld) [#/Vol] 315 10*3/uL 150-450 [facility] Serum or plasma calcium vik urement (mass/volume)Ordered By: Dr. Haines on 11-04-2022 Calcium [Mass/Vol] 9.2 mg/dL 8.5-10.[address] [facility] Serum or plasma creatinine m easurement (mass/volume)Ordered By: Dr. Haines on 11-04-2022 Creatinine [Mass/Vol] 0.78 mg/dL 0.55-1.02 [facility] Comment on above: The validity of the calculated GFR & GFRAA in patients over 70 years has not been determined. Clinical correlation is essential. Serum or plasma urea nitroge n measurement (mass/volume)Ordered By: Dr. Haines on 11-04-2022 Urea nitrogen [Mass/Vol] 15 mg/dL 02-03 [facility] Thin prep Papanicolaou smear with manual screeningOrdered By: Dr. Haines on 11-04-2022 Thin prep Papanicolaou smear with manual screening 4 12-01 [facility] .GFRon 09-29-2020 GFR Non- 81 ml/min/1.73sqm Normal [facility] ([place]) Comment on above: Result Comment: GFR Population [...] C BC, MONO, BMP, DIFF, MORPH #### [address] [address] #### GFR #### [address] [address] GFR 98 ml/min/1.73sqm Normal [facility] ([place]) Comment on above: Result Comment: GFR Population [...] C BC, MONO, BMP, DIFF, MORPH #### [place] [address] #### GFR #### [place] [address] .Manual Diffon 09-29-2020 Atypical Lymphs 24.0 % High 0.0-5.0 [facility] ([place]) Comment on above: Performed By: #### C BC, MONO, BMP, DIFF, MORPH #### [place] [address] #### GFR #### [place] [address] Basophil %, Manual 0.0 % Normal 0.0-2.5 [facility] ([place]) Comment on above: Performed By: #### C BC, MONO, BMP, DIFF, MORPH #### [place] [address] #### GFR #### [place] [address] Basophil, Abs Manual 0.00 10 3/mcL Normal 0.00-0.19 [facility] ([place]) Comment on above: Performed By: #### C BC, MONO, BMP, DIFF, MORPH #### [place] [address] #### GFR #### [address] [address] Eosinophil %, Manual 1.0 % Normal 0.0-7.0 [facility] ([place]) Comment on above: Performed By: #### C BC, MONO, BMP, DIFF, MORPH #### [place] [address] #### GFR #### [address] [address] Eosinophil, Abs Manual 0.08 10 3/mcL Normal 0.00-0.40 [facility] ([place]) Comment on above: Performed By: #### C BC, MONO, BMP, DIFF, MORPH #### [place] [address] #### GFR #### [place] [address] Lymphocyte %, Manual 29.0 % Normal 10.0-50.0 [facility] ([place]) Comment on above: Performed By: #### C BC, MONO, BMP, DIFF, MORPH #### [place] [address] #### GFR #### [address] [address] Lymphocyte, Abs Manual 4.29 10 3/mcL High 0.77-3.85 [facility] ([place]) Comment on above: Performed By: #### C BC, MONO, BMP, DIFF, MORPH #### [place] [address] #### GFR #### [address] [address] Monocyte %, Manual 13.0 % Normal 1.7-13.0 [facility] ([place] Comment on above: Performed By: #### C BC, MONO, BMP, DIFF, MORPH #### [place] [address] #### GFR #### [place] [id number] Monocyte, Abs Manual 1.05 10 3/mcL High 0.15-1.00 [facility] ([place]) Comment on above: Performed By: #### C BC, MONO, BMP, DIFF, MORPH #### [place] [address] #### GFR #### [place] [address] Neutrophil %, Manual 33.0 % Low 37.0-80.0 [facility] ([place]) Comment on above: Performed By: #### C BC, MONO, BMP, DIFF, MORPH #### [place] [address] #### GFR #### [place] [address] Neutrophil, Abs Manual 2.67 10 3/mcL Low 2.85-6.16 [facility] ([place]) Comment on above: Performed By: #### C BC, MONO, BMP, DIFF, MORPH #### [place] [address] #### GFR #### [place] [address] .Morphon 09-29-2020 Platelets (Bld) [#/Vol] Normal Normal [facility] ([place]) Comment on above: Performed By: #### C BC, MONO, BMP, DIFF, MORPH #### [place] [address] #### GFR #### [place] [address] BMPon 09-29-2020 Calcium [Mass/Vol] 9.0 mg/dL Normal 8.4-10.2 [facility] ([place] Comment on above: Performed By: #### C BC, MONO, BMP, DIFF, MORPH #### [place] [address] #### GFR #### [place] [address] Chloride [Moles/Vol] 99 mmol/L Normal 98-107 [facility] ([place]) Comment on above: Performed By: #### C BC, MONO, BMP, DIFF, MORPH #### [address] [address] #### GFR #### [address] [address] CO2 [Moles/Vol] 23 mmol/L Normal 22-29 [facility] ([place]) Comment on above: Performed By: #### C BC, MONO, BMP, DIFF, MORPH #### [place] [address] #### GFR #### [address] [address] Creatinine [Mass/Vol] 0.90 mg/dL Normal 0.55-1.02 [facility] ([place]) Comment on above: Performed By: #### C BC, MONO, BMP, DIFF, MORPH #### [place] [address] #### GFR #### [address] [address] Electrolyte Balance 13.0 mEq/L Normal [facility] ([place]) Comment on above: Performed By: #### C BC, MONO, BMP, DIFF, MORPH #### [place] [address] #### GFR #### [address] [address] Glucose [Mass/Vol] 105 mg/dL Normal 70-105 [facility] ([place]) Comment on above: Performed By: #### C BC, MONO, BMP, DIFF, MORPH #### [address] [address] #### GFR #### [address] [address] Potassium [Moles/Vol] 3.5 mmol/L Normal 3.5-5.1 [facility] ([place]) Comment on above: Performed By: #### C BC, MONO, BMP, DIFF, MORPH #### [place] [address] #### GFR #### [address] [address] Sodium [Moles/Vol] 135 mmol/L Low 136-145 [facility] ([place] Comment on above: Performed By: #### C BC, MONO, BMP, DIFF, MORPH #### [address] [address] #### GFR #### [address] [address] Urea nitrogen [Mass/Vol] 9 mg/dL Normal 7-18 [facility] ([place]) Comment on above: Performed By: #### C BC, MONO, BMP, DIFF, MORPH #### [address] [address] #### GFR #### [address] [address] Urea nitrogen/Creatinine [Mass ratio] 10 ratio Normal 7-27 [facility] ([place] Comment on above: Performed By: #### C BC, MONO, BMP, DIFF, MORPH #### [place] [address] #### GFR #### [address] [address] CBCon 09-29-2020 Erythrocyte distribution width (RBC) [Ratio] 13.5 % Normal 11.5-14.5 [facility] ([place] Comment on above: Performed By: #### C BC, MONO, BMP, DIFF, MORPH #### [place] [address] #### GFR #### [address] [address] Hematocrit (Bld) [Volume fraction] 39.1 % Normal 37.0-47.0 [facility] ([place] Comment on above: Performed By: #### C BC, MONO, BMP, DIFF, MORPH #### [address] [address] #### GFR #### [place] [address] Hemoglobin (Bld) [Mass/Vol] 13.8 G/dL Normal 12.0-16.0 [facility] ([place] Comment on above: Performed By: #### C BC, MONO, BMP, DIFF, MORPH #### [place] [address] #### GFR #### [address] [address] MCH (RBC) [Entitic mass] 27.7 pg Normal 27.0-31.2 [facility] ([place] Comment on above: Performed By: #### C BC, MONO, BMP, DIFF, MORPH #### [place] [address] #### GFR #### [address] [address] MCHC (RBC) [Mass/Vol] 35.2 G/dL Normal 33.0-37.0 [facility] ([place]) Comment on above: Performed By: #### C BC, MONO, BMP, DIFF, MORPH #### [place] [address] #### GFR #### [address] [address] MCV (RBC) [Entitic vol] 78.7 fL Low 80.0-94.0 [facility] ([place]) Comment on above: Performed By: #### C BC, MONO, BMP, DIFF, MORPH #### [place] [address] #### GFR #### [address] [address] Platelet mean volume (Bld) [Entitic vol] 7.9 fL Normal 7.4-10.4 [facility] ([place]) Comment on above: Performed By: #### C BC, MONO, BMP, DIFF, MORPH #### [place] [address] #### GFR #### [address] [address] Platelets (Bld) [#/Vol] 176 10 3/mcL Normal 130-400 [facility] ([place]) Comment on above: Performed By: #### C BC, MONO, BMP, DIFF, MORPH #### [address] [address] #### GFR #### [address] [address] RBC (Bld) [#/Vol] 4.97 10 6/mcL Normal 4.20-5.40 [facility] ([place]) Comment on above: Performed By: #### C BC, MONO, BMP, DIFF, MORPH #### [address] [address] #### GFR #### [address] [address] WBC (Bld) [#/Vol] 8.10 10 3/mcL Normal 4.60-10.80 [facility] ([place]) Comment on above: Performed By: #### C BC, MONO, BMP, DIFF, MORPH #### [place] [address] #### GFR #### [address] [address] MONOon 09-29-2020 Monocytes (Bld) [#/Vol] Positive Normal Negative [facility] ([place]) Comment on above: Performed By: #### C BC, MONO, BMP, DIFF, MORPH #### [address] [address] [address] #### GFR #### [place] [address] RFLUon 09-29-2020 RFLU . MICRO - Microbiology [...] Locations *1: This test was performed at: [address] ([place]) Comment on above: Performed By: #### R FLU #### [place] [address] UAon 09-29-2020 Color (U) Yellow Normal [facility] ([place]) Comment on above: Performed By: #### U A #### [place] [address] Glucose (U) [Mass/Vol] Negative Normal Negative [facility] ([place]) Comment on above: Performed By: #### U A #### [address] [address] Ketones Ql (U) Negative Normal Negative [facility] ([place]) Comment on above: Performed By: #### U A #### [address] [address] UA Appear Clear Normal Clear [facility] ([place] Comment on above: Performed By: #### U A #### [address] [address] UA Blood Trace Abnormal Negative [facility] ([place] Comment on above: Performed By: #### U A #### [address] [address] UA Leuk Est Negative Normal Negative [facility] ([place] Comment on above: Performed By: #### U A #### [address] [address] UA Nitrite Negative Normal Negative [facility] ([place] Comment on above: Performed By: #### U A #### [address] [address] UA pH 6.5 Normal 5.0 - 8.0 [facility] ([place] Comment on above: Performed By: #### U A #### [address] [address] UA Protein Negative Normal Negative [facility] ([place] Comment on above: Performed By: #### U A #### [address] [address] UA Spec Grav 1.025 Normal 1.015-1.025 [facility] ([place] Comment on above: Performed By: #### U A #### [address] [address] UA Specimen Type Void Normal [facility] ([place] Comment on above: Performed By: #### U A #### [address] [address] UA Urobilinogen 4.0 E.U./dL Abnormal 0.2-1.0 [facility] ([place] Comment on above: Performed By: #### U A #### [address] [address] Urobilinogen Qn (U) Negative Normal Negative [facility] ([place]) Comment on above: Performed By: #### U A #### [address] [address] XR CHEST 1 VIEWon 09-29-2020 XR CHEST [...] Date: 09/28/2020 10:52:50 PM Ordering Provider:Navi Ibarra [facility] ([place]) Vital Signs Date Time Vital Sign Value Performing Clinician Errol clarke 01-25-2025 16:11-0400 Diastolic blood pressure 79 mm[Hg] Dr. Moisés Haines DO Work Phone: [facility] 01-25-2025 16:11-0400 Heart rate 83 /min Dr. Moisés Haines DO Work Phone: [facility] 01-25-2025 16:11-0400 Systolic blood pressure 157 mm[Hg] Dr. Moisés Haines DO Work Phone: [facility] 01-25-2025 15:51-0400 Body temperature 97 [degF] Dr. Moisés Haines DO Work Phone: [facility] 01-25-2025 15:51-0400 Respiratory rate 16 /min Dr. Moisés Haines DO Work Phone: [facility] 01-25-2025 15:51-0400 SaO2% (BldA) [Mass fraction] 98 % Dr. Moisés Haines DO Work Phone: [facility] 01-24-2025 02:57-0400 Body height 177.[address] Moisés Haines DO Work Phone: [facility] 01-24-2025 02:57-0400 Body mass index (BMI) [Ratio] 29.4 kg/m2 Dr. Moisés Haines DO Work Phone: [facility] 01-24-2025 02:57-0400 Body weight 92.[address] Moisés Haines DO Work Phone: [facility] 01-23-2025 09:43-0400 Body height 177.[address] Moisés Haines DO Work Phone: [facility] 01-23-2025 09:43-0400 Body mass index (BMI) [Ratio] 29.5 kg/m2 Dr. Moisés Haines DO Work Phone: [facility] 01-23-2025 09:43-0400 Body weight 93.[address] Moisés Brown DO Work Phone: [facility] 01-23-2025 09:43-0400 Diastolic blood pressure 81 mm[Hg] Dr. Moisés Haines DO Work Phone: [facility] 01-23-2025 09:43-0400 Systolic blood pressure 129 mm[Hg] Dr. Moisés Haines DO Work Phone: [facility] 01-19-2025 10:25-0400 Body height 177.[address] Moisés Haines DO Work Phone: [facility] 01-19-2025 10:25-0400 Body mass index (BMI) [Ratio] 29 kg/m2 Dr. Moisés Haines DO Work Phone: [facility] 01-19-2025 10:25-0400 Body weight 91.[address] Moisés Haines DO Work Phone: [facility] 01-19-2025 10:25-0400 Diastolic blood pressure 79 mm[Hg] Dr. Moisés Haines DO Work Phone: [facility] 01-19-2025 10:25-0400 Systolic blood pressure 137 mm[Hg] Dr. Moisés Haines DO Work Phone: [facility] 01-11-2025 13:50-0400 Body height 177.[address] Moisés Haines DO Work Phone: [facility] 01-11-2025 13:50-0400 Body mass index (BMI) [Ratio] 29.3 kg/m2 Dr. Moisés Haines DO Work Phone: [facility] 01-11-2025 13:50-0400 Body weight 92.[address] Moisés Haines DO Work Phone: [facility] 01-11-2025 13:50-0400 Diastolic blood pressure 69 mm[Hg] Dr. Moisés Haines DO Work Phone: [facility] 01-11-2025 13:50-0400 Systolic blood pressure 126 mm[Hg] Dr. Moisés Haines DO Work Phone: [facility] 01-05-2025 07:58-0400 Body height 177.[address] Moisés Haines DO Work Phone: [facility] 01-05-2025 07:58-0400 Body mass index (BMI) [Ratio] 29 kg/m2 Dr. Moisés Haines DO Work Phone: [facility] 01-05-2025 07:58-0400 Body weight 91.[address] Moisés Haines DO Work Phone: [facility] 01-05-2025 07:58-0400 Diastolic blood pressure 72 mm[Hg] Dr. Moisés Haines DO Work Phone: [facility] 01-05-2025 07:58-0400 Systolic blood pressure 123 mm[Hg] Dr. Moisés Haines DO Work Phone: [facility] 12-30-2024 10:00-0400 Body height 177.[address] Moisés Haines DO Work Phone: [facility] 12-30-2024 09:59-0400 Body mass index (BMI) [Ratio] 28.8 kg/m2 Dr. Moisés Haines DO Work Phone: [facility] 12-30-2024 09:59-0400 Body weight 90.[address] Moisés Haines DO Work Phone: [facility] 12-30-2024 09:59-0400 Diastolic blood pressure 71 mm[Hg] Dr. Moisés Haines DO Work Phone: [facility] 12-30-2024 09:59-0400 Systolic blood pressure 113 mm[Hg] Dr. Moisés Haines DO Work Phone: [facility] 12-22-2024 14:30-0400 Body height 177.[address] Moisés Haines DO Work Phone: [facility] 12-22-2024 14:30-0400 Body mass index (BMI) [Ratio] 28.7 kg/m2 Dr. Moisés Haines DO Work Phone: [facility] 12-22-2024 14:30-0400 Body weight 90.[address] Moisés Haines DO Work Phone: [facility] 12-22-2024 14:30-0400 Diastolic blood pressure 78 mm[Hg] Dr. Moisés Haines DO Work Phone: [facility] 12-22-2024 14:30-0400 Systolic blood pressure 129 mm[Hg] Dr. Moisés Haines DO Work Phone: [facility] 12-09-2024 14:50-0400 Body mass index (BMI) [Ratio] 28.9 kg/m2 Dr. Moisés Haines DO Work Phone: [facility] 12-09-2024 14:50-0400 Body weight 91.[address] Moisés Haines DO Work Phone: [facility] 12-09-2024 14:50-0400 Diastolic blood pressure 67 mm[Hg] Dr. Moisés Haines DO Work Phone: [facility] 12-09-2024 14:50-0400 Systolic blood pressure 106 mm[Hg] Dr. Moisés Haines DO Work Phone: [facility] 11-25-2024 14:07-0400 Body mass index (BMI) [Ratio] 28.7 kg/m2 Dr. Moisés Haines DO Work Phone: [facility] 11-25-2024 14:07-0400 Body weight 90.[address] Moisés Haines DO Work Phone: [facility] 11-25-2024 14:07-0400 Diastolic blood pressure 76 mm[Hg] Dr. Moisés Haines DO Work Phone: [facility] 11-25-2024 14:07-0400 Systolic blood pressure 125 mm[Hg] Dr. Moisés Haines DO Work Phone: [facility] 11-11-2024 14:01-0400 Body mass index (BMI) [Ratio] 28.6 kg/m2 Dr. Moisés Haines DO Work Phone: [facility] 11-11-2024 14:01-0400 Body weight 90.[address] Moisés Haines DO Work Phone: [facility] 11-11-2024 14:01-0400 Diastolic blood pressure 65 mm[Hg] Dr. Moisés Haines DO Work Phone: [facility] 11-11-2024 14:01-0400 Systolic blood pressure 130 mm[Hg] Dr. Moisés Haines DO Work Phone: [facility] 10-14-2024 13:29-0400 Body height 177.[address] Moisés Haines DO Work Phone: [facility] 10-14-2024 13:29-0400 Body mass index (BMI) [Ratio] 28.5 kg/m2 Dr. Moisés Haines DO Work Phone: [facility] 10-14-2024 13:29-0400 Body weight 90.[address] Moisés Haines DO Work Phone: [facility] 10-14-2024 13:29-0400 Diastolic blood pressure 62 mm[Hg] Dr. Moisés Haines DO Work Phone: [facility] 10-14-2024 13:29-0400 Systolic blood pressure 118 mm[Hg] Dr. Moisés Haines DO Work Phone: [facility] 09-16-2024 13:04-0500 Body mass index (BMI) [Ratio] 28 kg/m2 Dr. Moisés Haines DO Work Phone: [facility] 09-16-2024 13:04-0500 Body weight 88.[address] Moisés Haines DO Work Phone: [facility] 09-16-2024 13:04-0500 Diastolic blood pressure 74 mm[Hg] Dr. Moisés Haines DO Work Phone: [facility] 09-16-2024 13:04-0500 Systolic blood pressure 123 mm[Hg] Dr. Moisés Haines DO Work Phone: [facility] 08-19-2024 14:13-0500 Body mass index (BMI) [Ratio] 27.7 kg/m2 Dr. Moisés Haines DO Work Phone: [facility] 08-19-2024 14:13-0500 Body weight 87.[address] Moisés Haines DO Work Phone: [facility] 08-19-2024 14:13-0500 Diastolic blood pressure 65 mm[Hg] Dr. Moisés Haines DO Work Phone: [facility] 08-19-2024 14:13-0500 Systolic blood pressure 123 mm[Hg] Dr. Moisés Haines DO Work Phone: [facility] 07-21-2024 10:11-0500 Body mass index (BMI) [Ratio] 26.5 kg/m2 Dr. Moisés Haines DO Work Phone: [facility] 07-21-2024 10:11-0500 Body weight 83.[address] Moisés Haines DO Work Phone: [facility] 07-21-2024 10:11-0500 Diastolic blood pressure 68 mm[Hg] Dr. Moisés Haines DO Work Phone: [facility] 07-21-2024 10:11-0500 Systolic blood pressure 120 mm[Hg] Dr. Moisés Haines DO Work Phone: [facility] 06-23-2024 13:02-0500 Body mass index (BMI) [Ratio] 26.2 kg/m2 Dr. Moisés Haines DO Work Phone: [facility] 06-23-2024 13:02-0500 Body weight [address] Moisés Haines DO Work Phone: [facility] 06-23-2024 13:02-0500 Diastolic blood pressure 82 mm[Hg] Dr. Moisés Haines DO Work Phone: [facility] 06-23-2024 13:02-0500 Systolic blood pressure 144 mm[Hg] Dr. Moisés Haines DO Work Phone: [facility] 11-12-2023 15:04-0400 Body height 177.[address] Moisés Haines Work Phone: [facility] 11-12-2023 15:04-0400 Body mass index (BMI) [Ratio] 26.4 kg/m2 Dr. Moisés Haines Work Phone: [facility] 11-12-2023 15:04-0400 Body temperature 97.3 [degF] Dr. Moisés Haines Work Phone: [facility] 11-12-2023 15:04-0400 Body weight 83.[address] Moisés Haines Work Phone: [facility] 11-12-2023 15:04-0400 Diastolic blood pressure 60 mm[Hg] Dr. Moisés Haines Work Phone: [facility] 11-12-2023 15:04-0400 Heart rate 60 /min Dr. Moisés Haines Work Phone: [facility] 11-12-2023 15:04-0400 Respiratory rate 16 /min Dr. Moisés Haines Work Phone: [facility] 11-12-2023 15:04-0400 SaO2% (BldA) [Mass fraction] 97 % Dr. Moisés Haines Work Phone: [facility] 11-12-2023 15:04-0400 Systolic blood pressure 122 mm[Hg] Dr. Moisés Haines Work Phone: [facility] 11-04-2022 15:23-0400 Body height 177.[address] Michael Baker Work Phone: [facility] 11-04-2022 15:23-0400 Body mass index (BMI) [Ratio] 26.8 kg/m2 Dr. Michael Baker Work Phone: [facility] 11-04-2022 15:23-0400 Body temperature 97.9 [degF] Dr. Michael Baker Work Phone: [facility] 11-04-2022 15:23-0400 Body weight 84.[address] Michael Baker Work Phone: [facility] 11-04-2022 15:23-0400 Diastolic blood pressure 72 mm[Hg] Dr. Michael Baker Work Phone: [facility] 11-04-2022 15:23-0400 Heart rate 58 /min Dr. Michael Baker Work Phone: [facility] 11-04-2022 15:23-0400 Respiratory rate 14 /min Dr. Michael Baker Work Phone: [facility] 11-04-2022 15:23-0400 SaO2% (BldA) [Mass fraction] 99 % Dr. Michael Baker Work Phone: [facility] 11-04-2022 15:23-0400 Systolic blood pressure 104 mm[Hg] Dr. Michael Baker Work Phone: [facility] 09-04-2022 16:28-0500 Body mass index (BMI) [Ratio] 25.7 kg/m2 Dr. Michael Baker Work Phone: [facility] 09-04-2022 16:28-0500 Body temperature 97.8 [degF] Dr. Michael Baker Work Phone: [facility] 09-04-2022 16:28-0500 Body weight 81.[address] Michael Baker Work Phone: [facility] 09-04-2022 16:28-0500 Diastolic blood pressure 74 mm[Hg] Dr. Michael Baker Work Phone: [facility] 09-04-2022 16:28-0500 Heart rate 77 /min Dr. Michael Baker Work Phone: [facility] 09-04-2022 16:28-0500 Respiratory rate 14 /min Dr. Michael Baker Work Phone: [facility] 09-04-2022 16:28-0500 SaO2% (BldA) [Mass fraction] 97 % Dr. Michael Baker Work Phone: [facility] 09-04-2022 16:28-0500 Systolic blood pressure 108 mm[Hg] Dr. Michael Baker Work Phone: [facility] Encounters Encounter Date Encounter Type Care Provider Facility Start: 01-25-2025 Non-patient / Non-visit Cesiliamontrell Hoffmans -[facility] Start: 01-24-2025 Non-patient / Non-visit Roseanna Mckeon [facility] Start: 01-24-2025 ambulatory Roseanna Mckeon Facilit y:[facility] Start: 01-24-2025 End: 01-25-2025 Evaluation and management of inpatient Dr. Jemima Garcia DO [facility] Work Phone: Start: 01-23-2025 End: 01-23-2025 Patient encounter procedure Angela Sanders [facility] Work Phone: Start: 01-23-2025 End: 01-23-[address] Moisés Haines DO Work Phone: -[facility] Start: 01-23-2025 End: 01-23-2025 ambulatory Angela Sanders Facility:[facility] Start: 01-19-2025 End: 01-19-[address] Kenya Wright MD -[facility] Work Phone: Start: 01-19-2025 End: 01-19-[address] Moisés Haines DO Work Phone: -[facility] Start: 01-11-2025 End: 01-11-[address] Jemima Garcia DO -[facility] Work Phone: Start: 01-11-2025 End: 01-11-[address] Moisés Haines DO Work Phone: [facility] Work Phone: Start: 01-05-2025 End: 01-05-2025 Patient encounter procedure Angela Sanders CNM -[facility] Work Phone: Start: 01-05-2025 End: 01-05-[address] Moisés Haines DO Work Phone: [facility] Work Phone: Start: 12-30-2024 End: 12-30-[address] Jemima Garcia DO -[facility] Work Phone: Start: 12-30-2024 End: 12-30-[address] Moisés Haines DO Work Phone: [facility] Work Phone: Start: 12-22-2024 End: 12-22-[address] Moisés Haines DO Work Phone: [facility] Work Phone: Start: 12-22-2024 End: 12-22-2024 Patient encounter procedure Angela Sanders CNM -Laboratory Specimen Work Phone: Start: 12-22-2024 End: 12-22-2024 Patient encounter procedure Angela PERKINS -[facility] Work Phone: Start: 12-22-2024 End: 12-22-[address] Moisés Haines DO Work Phone: [facility] Work Phone: Start: 12-22-2024 End: 12-22-2024 ambulatory Angela Sanders Facility:[facility] Start: 12-09-2024 End: 12-09-[address] Jemima Garcia DO -[facility] Work Phone: Start: 12-09-2024 End: 12-09-2024 ambulatory Moisés Haines Facility:[facility] Start: 11-25-2024 End: 11-25-2024 Patient encounter procedure Angela Sanders CN -[facility] Work Phone: Start: 11-25-2024 End: 11-25-2024 ambulatory Moisés Hanies Facility:[facility] Start: 11-11-2024 End: 11-11-2024 Patient encounter procedure Roseanna Mckeon CN -[facility] Work Phone: Start: 11-11-2024 End: 11-11-2024 ambulatory Moisés Haines Facility:[facility] Start: 10-14-2024 End: 10-14-2024 Patient encounter procedure Cesilia George [employer] -[facility] Work Phone: Start: 10-14-2024 End: 10-14-[address] Moisés Haines DO Work Phone: [facility] Work Phone: Start: 10-14-2024 End: 10-14-2024 ambulatory Cesilia George NP Facility:[facility] Start: 09-16-2024 End: 09-16-2024 Patient encounter procedure Roseanna PERKINS -[facility] Work Phone: Start: 09-16-2024 End: 09-16-2024 ambulatory Moisés Haines Facility:[facility] Start: 08-26-2024 End: 08-26-2024 ambulatory JEMIMA JEAN [facility] Start: 08-19-2024 End: 08-19-[address] Kenya Wright MD -[facility] Work Phone: Start: 08-19-2024 End: 08-19-2024 ambulatory Moisés Haines Facility:[facility] Start: 07-21-2024 End: 07-21-[address] Jemima Garcia DO -[facility] Work Phone: Start: 07-21-2024 End: 07-21-2024 ambulatory Moisés Haines Facility:[facility] Start: 07-21-2024 End: 07-21-2024 ambulatory Moisés Haines Facility:[facility] Start: 07-01-2024 End: 07-01-2024 Patient encounter procedure Angela Sanders CNM -Lab, [facility] Start: 07-01-2024 End: 07-01-2024 ambulatory Moisés Mj Haines Facility:[facility] Start: 06-23-2024 End: 06-23-2024 Patient encounter procedure Angela Sanders CNM -Laboratory, Specimen Work Phone: Start: 06-23-2024 End: 06-23-2024 Patient encounter procedure Angela Sanders CNM -[facility] Work Phone: Start: 06-23-2024 End: 06-23-2024 ambulatory Moisés Haines Facility:[facility] Start: 06-23-2024 End: 06-23-2024 ambulatory Moisés Haines Facility:[facility] Start: 11-12-2023 End: 11-12-[address] Moisés Haines Work Phone: [facility] Work Phone: Start: 11-12-2023 End: 11-12-[address] Moisés Haines Work Phone: [facility] Internal [facility] Work Phone: Start: 11-04-2022 End: 11-04-[address] Michael Baker Work Phone: [facility] Work Phone: Start: 11-04-2022 End: 11-04-[address] Michael Baker Work Phone: [facility] Start: 09-04-2022 End: 09-04-[address] Michael Baker Work Phone: [facility] Internal [facility] Procedures Date Procedure Procedure Detail Performing Clinician Start: 01-24-2025 Serologic test for syphilis Dr. Moisés Haines DO Work Phone: Start: 01-24-2025 Measurement of pH in vaginal fluid specimen using nitrazine yellow for detection of rupture of amniotic membrane Dr. Moisés Haines DO Work Phone: Comment on above: Amniotic fluid not p resent indicates No Rupture of FetalMembranes at time of specimen collection. Start: 12-22-2024 Beta-hemolytic Streptococcus culture Dr. Moisés Haines DO Work Phone: Start: 10-14-2024 Serologic test for syphilis Dr. Moisés Haines DO Work Phone: Start: 06-23-[address] Bette Haines DO Work Phone: Plan of Treatment Date Care Activity Detail Author Start: 01-25-2025 Patient discharge [facility] Start: 01-24-2025 Documentation procedure [facility] Start: 01-24-2025 Administration of medication [facility] Start: 01-24-2025 Application of ice c ollar, cap or bag [facility] Start: 01-24-2025 Catheterization of vein [facility] Start: 01-24-2025 Introduction of urin caleb catheter [facility] Start: 01-24-2025 Measuring intake and output [facility] Start: 01-24-2025 Notification of physician [facility] Start: 01-24-2025 Procedure discontinued [facility] Start: 01-24-2025 Provision of activit y privileges [facility] Start: 01-24-2025 Vital signs measurements [facility] Start: 01-24-2025 End: 01-24-2025 [facility] Start: 01-24-2025 Admission procedure [facility] Patient Education After a Vagina l Delivery (WP) [facility] Work Phone: Streptococcus agalac tiae [Presence] in Unspecified specimen by Organism specific culture [facility] Payers Date Payer Category Payer Unknown [id number] 2025 Unknown [id number] 2024 Unknown [id number] 2024 Self-pay 2024 Unknown [id number] Unknown [id number] 2.16. [id number] Unknown [facility] [id number] Unknown [id number] 2.16.8 [id number] Unknown [id number] 2.16.8 40.1.212852.3.579.2.462 Unknown [id number] 2.16.8 40.1.435066.3.579.2.462 Unknown [id number] 2.16.8 40.1.945107.3.579.2.462 Unknown [id number] 2.16.8 40.1.897250.3.579.2.462 Unknown [id number] 2.16.8 40.1.328379.3.579.2.462 Unknown [id number] 2.16.8 40.1.785702.3.579.2.462 Unknown [id number] 2.16.8 40.1.176279.3.579.2.462 Unknown [id number] 2.16.8 40.1.411556.3.579.2.462 Unknown [id number] 2.16.8 40.1.583813.3.579.2.462 Unknown [id number] 2.16.8 40.1.786826.3.579.2.462 Unknown [id number] 2.16.8 40.1.582765.3.579.2.462 Unknown [id number] 2.16.8 40.1.592010.3.579.2.462 Unknown [id number] 2.16.8 40.1.671266.3.579.2.462 Unknown [id number] 2.16.8 40.1.535030.3.579.2.462 Unknown [id number] 2.16.8 40.1.904501.3.579.2.462 Unknown [id number] 2.16.8 40.1.780884.3.579.2.462 Unknown [id number] 2.16.8 40.1.393777.3.579.2.462 Unknown [id number] 2.16.8 40.1.952857.3.579.2.462 Unknown [id number] 2.16.8 40.1.456840.3.579.2.462 Unknown [id number] 2.16.8 40.1.266696.3.579.2.462 Unknown [id number] 2.16.8 40.1.995461.3.579.2.462 Unknown [id number] 2.16.8 40.1.520442.3.579.2.462 Social History Date Type Detail Facility Start: 11-04-2022 Tobacco smoking stat us TXIS Unknown if ever smoked [facility] Start: 2000 Sex Assigned At Female [facility] Start: 06-14-2024 End: 01-24-2025 Tobacco smoking status NHIS Never smoked tobacco (finding) [facility] Start: 10-18-2024 Sex Female (finding) [facility] Patient currentl y [facility] Goals Date Patient Goal Desired Activity /State Clinical Notes 06-23-2024 to 01-25-2025 Note Date & Type Note Facility 01-25-2025 Progress note Note Date/Time January 25, 2025 7:57a m [facility] Medical Records Department [address] [place] [address] Progress Note - OBGYN 01/25/25 0756 MR#: [id number] Acct: [id number] Name: SHEEBA WELSH Rep #:[id number] : 2000 24 From: Cesilia George NP [employer] PCP: Care Physician,No Primary Status :ADM IN Location: [id number] Subjective Subjective Patient doing well without complaints. Tolerating PO. Ambulating and voiding without difficulty. Feeding well. Denies chest pain, shortness of breath, calf pain/swelling, fevers, chills, lightheadedness. Objective Data Objective Data Vital Signs: Vital Signs Temp Pulse Resp BP Pulse Ox O2 Del Method 98.3 F 88 16 121/75 H 96 Room Air 01/25/25 03:34 01/25/25 07:35 01/25/25 03:34 01/25/25 07:35 01/25/25 07:35 01/24/25 23:35 Oxygen Delivery Method Room Air Weight: 205 lb Body Mass Index (BMI) 29.4 Intake & Output: Intake and Output for Last 24 Hours 01/23/25 01/24/25 01/25/25 23:59 23:59 23:59 Intake Total 4780.67 / 4780.67 Output Total 1100 / 1100 600 / 600 Balance 3680.67 / 3680.67 -600 / -600 Lab / Micro Data 01/24/25 07:45 Labs: Laboratory Results - last 24 hr 01/24/25 07:45: WBC 15.9 H, RBC 4.26, Hgb 11.4 L, Hct 33.6 L, MCV 78.9 L, MCH 26.8 L, MCHC 33.9, RDW Std Deviation 37.6, RDW Coeff of Elvin 13.2, Plt Count 229,MPV 10.2, Immature Gran % (Auto) 0.400, Neut % (Auto) 90.7 H, Lymph % (Auto) 6.1L, Pleasants % (Auto) 2.6, Eos % (Auto) 0.0, Baso % (Auto) 0.2, Absolute Neuts (auto)14.4 H, Absolute Lymphs (auto) 0.97, Nucleated RBC % 0, Syphilis Total Ab Nonreactive, Blood Type O POSITIVE, Antibody Screen NEGATIVE Physical Exam Const alert and oriented x3 HEENT normocephalic Eyes PERRL Neck full ROM Resp normal respiratory effort GI soft to palpation GI Narrative: FF below U Assessment & Plan (1) (spontaneous vaginal delivery): COMMENT: ABIODUN IAL [facility] PLAN: Plan s/p PPD # 1 1. routine post delivery care 2. breast feeding- support given 3. rh positive 4. rubella immune 5. plans home today 01/25/25 0757 <Electronically signed by Cesilia George NP [employer]> Cosigner Signature (if applicable): CC: ~ Signed [facility] Work Phone: [phone]) 597-764207-09-2025 Progress note [facility] Medical Records Department [address] [place] [address] Progress Note - OBGYN 01/25/25 0756 MR#: [id number] Acct: [id number] Name: SHEEBA WELSH Rep #:[id number] : 2000 24 From: Cesilia George NP [employer] PCP: Care Physician,No Primary Status :ADM IN Location: [place] [id number] Subjective Subjective Patient doing well without complaints. Tolerating PO. Ambulating and voiding without difficulty. Feeding well. Denies chest pain, shortness of breath, calf pain/swelling, fevers, chills, lightheadedness. Objective Data Objective Data Vital Signs: Vital Signs Temp Pulse Resp BP Pulse Ox O2 Del Method 98.3 F 88 16 121/75 H 96 Room Air 01/25/25 03:34 01/25/25 07:35 01/25/25 03:34 01/25/25 07:35 01/25/25 07:35 01/24/25 23:35 Oxygen Delivery Method Room Air Weight: 205 lb Body Mass Index (BMI) 29.4 Intake & Output: Intake and Output for Last 24 Hours 01/23/25 01/24/25 01/25/25 23:59 23:59 23:59 Intake Total 4780.67 / 4780.67 Output Total 1100 / 1100 600 / 600 Balance 3680.67 / 3680.67 -600 / -600 Lab / Micro Data 01/24/25 07:45 Labs: Laboratory Results - last 24 hr 01/24/25 07:45: WBC 15.9 H, RBC 4.26, Hgb 11.4 L, Hct 33.6 L, MCV 78.9 L, MCH 26.8 L, MCHC 33.9, RDW Std Deviation 37.6, RDW Coeff of Elvin 13.2, Plt Count 229,MPV 10.2, Immature Gran % (Auto) 0.400, Neut % (Auto) 90.7 H, Lymph % (Auto) 6.1L, Pleasants % (Auto) 2.6, Eos % (Auto) 0.0, Baso % (Auto) 0.2, Absolute Neuts (auto)14.4 H, Absolute Lymphs (auto) 0.97, Nucleated RBC % 0, Syphilis Total Ab Nonreactive, Blood Type O POSITIVE, Antibody Screen NEGATIVE Physical Exam Const alert and oriented x3 HEENT normocephalic Eyes PERRL Neck full ROM Resp normal respiratory effort GI soft to palpation GI Narrative: FF below U Assessment & Plan (1) (spontaneous vaginal delivery): COMMENT: LC IAL [facility] PLAN: Plan s/p PPD # 1 1. routine post delivery care 2. breast feeding- support given 3. rh positive 4. rubella immune 5. plans home today 01/25/25 0757 Cosigner Signature (if applicable): CC: ~ Signed [facility]07-08-2025 Discharge summary Author Rsoeanna Mckeon [facility] Note Date/Time January 24, 2025 4:55p m [facility] Medical Records Department [address] [place] [address] Instructions for Home/Discharge Instructions 01/24/25 1654 MR#: [id number] Acct: [id number] Name: SHEEBA WELSH Rep #:[id number] : 2000 24 From: Roseanna Mckeon CNM PCP: Care Physician,No Primary Status :ADM IN Discharge Instructions Diet Discharge Diet: No restrictions DC O2, CPAP, BIPAP needs Home O2 Discharge instructions: No Dressing / Incision Discharge Activity: May Not Drive and May Shower May resume sexual activity in: 6 weeks Weight Bearing Status: Full weight bearing Dressing / Incision Call your doctor if your incision/area has: Sudden Increased Bleeding, IncreasedPain/ Swelling and Foul Smelling Discharge Call your doctor if you observe: Fever of 101 or Higher, Numbness or Tingling, Change in Color, Inability to urinate, Inability to have a bowel movement, Usingmore than 1 pad per hour, Shortness of breath, Dizziness, Fainting spells, Chestpain, Calf discomfort and Uncontrolled pain Follow Up Care Please Follow Up With: Roseanna Mckeon CNM When: 6 weeks , please call office to make an appointment. Congratulations on the of your baby! Test Results: Test results from this visit will be discussed in further detail at your follow- up appointment, if applicable. Discharge Plan Admission Admit Date/Time: 01/24/25 07:28 Attending Provider: Jemima Garcia Primary Care Provider: Care Physician,No Primary Consulting Providers: Angela Sanders Discharge Orders/Prescriptions Prescriptions: No Action PNV-[place] 28-1-300 mg capsule 1 cap PO DAILY Referrals / Follow Up: Care Physician,No Primary [Primary Care Provider] - 01/24/25 1655<Electronically signed by Roseanna Mckeon CNM>Roseanna Mckeon CNM CC: CNM Angela Sanders; No Primary Care Physician ~ Signed [facility] Work Phone: [phone]) 119-519407-08-2025 Discharge summary [facility] Medical Records Department [address] [place] [address] Instructions for Home/Discharge Instructions 01/24/25 1654 MR#: [id number] Acct: [id number] Name: SHEEBA WELSH Rep #:[id number] : 2000 24 From: Roseanna Mckeon CNM PCP: Care Physician,No Primary Status :ADM IN Discharge Instructions Diet Discharge Diet: No restrictions DC O2, CPAP, BIPAP needs Home O2 Discharge instructions: No Dressing / Incision Discharge Activity: May Not Drive and May Shower May resume sexual activity in: 6 weeks Weight Bearing Status: Full weight bearing Dressing / Incision Call your doctor if your incision/area has: Sudden Increased Bleeding, IncreasedPain/ Swelling and Foul Smelling Discharge Call your doctor if you observe: Fever of 101 or Higher, Numbness or Tingling, Change in Color, Inability to urinate, Inability to have a bowel movement, Usingmore than 1 pad per hour, Shortness of breath, Dizziness, Fainting spells, Chestpain, Calf discomfort and Uncontrolled pain Follow Up Care Please Follow Up With: Roseanna Mckeon CNM When: 6 weeks , please call office to make an appointment. Congratulations on the of your baby! Test Results: Test results from this visit will be discussed in further detail at your follow- up appointment, if applicable. Discharge Plan Admission Admit Date/Time: 01/24/25 07:28 Attending Provider: Jemima Garcia Primary Care Provider: Care Physician,No Primary Consulting Providers: Angela Sanders Discharge Orders/Prescriptions Prescriptions: No Action PNV-[facility] [place] 28-1-300 mg capsule 1 cap PO DAILY Referrals / Follow Up: Care Physician,No Primary [Primary Care Provider] - 01/24/25 1655Roseanna Mckeon CNM CC: CNM Angela Sanders; No Primary Care Physician ~ Signed [facility]07-08-2025 Procedure note [facility] Medical Records Department [address] [place] [address] OB Vaginal Delivery 01/24/25 1641 MR#: [id number] Acct: [id number] Name: SHEEBA WELSH Rep #:[id number] : 2000 24 From: Roseanna Mckeon CNM PCP: Care Physician,No Primary Status :ADM IN Location: [place] [address] Assessment & Plan (1) (spontaneous vaginal delivery): COMMENT: LC IAL [place] Maternal Data Information OLIVIA Calculator Estimated Delivery Date Method Current WG Current Estimate 01/20/25 LMP (Certain) 40w 4d Other Estimates 01/20/25 Ultrasound #1 40w 4d Final OLIVIA: 01/20/25 Final OLIVIA Source: LMP Gestational age: 40.4 Vaginal Delivery Maternal Presentation Maternal Presentation: Active Labor Maternal Presentation: at 40.4 with spontaneous contractions. AROM'd for mec fluid, epiduralized. Vaginal Delivery Information Procedure Performed: Spontaneous Vaginal Delivery Surgeon/Practitioner: Roseanna Mckeon Date of Procedure: 01/24/25 Pre-Procedure Diagnosis: see problem list Post-Procedure Diagnosis: Type of anesthesia: Epidural Estimated Blood Loss: 300 Time of Delivery: 16:06 Findings Description of procedure: Patient began pushing and delivered the head in the ANUSHKA presentation. The head was delivered atraumatically. The anterior and posterior shoulders delivered without complication followed by the rest of the and the was placed on the maternal abdomen. Delayed cord clamping was employed for approximately 5 minutes. Cord was clamped and cut and gentle traction was applied to the cord andthe placenta delivered spontaneously immediately following it was noted to be intact with three-vessel cord. The perineum and vagina were inspected and noted to have a first degree laceration, repaired with3-0 Vicryl in usual sterile fashion. EBL was 300 cc, brisk bleeding noted, hemostasis achieved with methergine and pitocin. Patient and infant tolerated delivery well. Presentation: Vertex Amniotic Membrane Rupture Type: Artificial Amniotic Fluid Description: Moderate meconium Placental Delivery Description: Spontaneous Placenta Disposition: [facility] Cord Vessel Description: 3 Vessels Cord Entanglement: None Infant A Gender: Female (1 minute): 8 (5 minute): 9 Delayed Cord Clamping: Yes Post Vaginal Deli Medications given after delivery: IV Pitocin and IM Methergin Laceration: 1st degree Complication Complications: No Procedures Urinary/Genital 52xxx-59xxx: [id number] Vaginal Delivery [facility] 01/24/25 1646 Cosigner Signature (if applicable): CC: JACKELIN Sanders; JACKELIN Mckeon; Dr. Jemima Garcia, DO; Julio Care Physician~ Signed [facility]07-08-2025 Progress note Author Roseanna Mckeon [facility] Note Date/Time January 24, 2025 2:04p [facility] Medical Records Department [address] [place] [address] Progress Note - OBGYN 01/24/25 1400 MR#: [id number] Acct: [id number] Name: SHEEBA WELSH Rep #:[id number] : 2000 24 From: Roseanna Mckeon CNM PCP: Care Physician,No Primary Status :ADM IN Location: [place] [address] Subjective Subjective comfortable with epidural Objective Data Objective Data Vital Signs: Vital Signs Temp Pulse Resp BP Pulse Ox 97.1 F L 101 H 18 135/61 H 98 01/24/25 02:51 01/24/25 13:33 01/24/25 10:13 01/24/25 13:33 01/24/25 12:32 Weight: 205 lb Body Mass Index (BMI) 29.4 Intake & Output: Intake and Output for Last 24 Hours 01/22/25 01/23/25 01/24/25 23:59 23:59 23:59 Intake Total 3132.28 / 3132.28 Balance 3132.28 / 3132.28 Lab / Micro Data 01/24/25 07:45 Labs: Laboratory Results - last 24 hr 01/24/25 02:45: Vag Amniotic Fld Detect Negative 01/24/25 07:45: WBC 15.9 H, RBC 4.26, Hgb 11.4 L, Hct 33.6 L, MCV 78.9 L, MCH 26.8 L, MCHC 33.9, RDW Std Deviation 37.6, RDW Coeff of Elvin 13.2, Plt Count 229,MPV 10.2, Immature Gran % (Auto) 0.400, Neut % (Auto) 90.7 H, Lymph % (Auto) 6.1L, Pleasants % (Auto) 2.6, Eos % (Auto) 0.0, Baso % (Auto) 0.2, Absolute Neuts (auto)14.4 H, Absolute Lymphs (auto) 0.97, Nucleated RBC % 0, Syphilis Total Ab Nonreactive, Blood Type O POSITIVE, Antibody Screen NEGATIVE NST FHR Rate Baby A Baseline: 130 Variability:: Moderate Accelerations:: 15 x 15 Decelerations:: None NST Reactive:: Yes FHR Category:: Category I Uterine Activity:: q2-5 Assessment & Plan (1) Spontaneous onset of labor: COMMENT: AROM prn PLAN: Plan current tracing:cat 1 FHT: Moderate variability reactive no decelerations category I tracing Spaulding: q2-5 Contractions reviewed tracing abnormalities since last note: periods of minimal variabilty following prolonged deceleration. scalp stim resulted in accel with moderate variability. occ early decels. A/P: recheck cervix in 2 hours, prn pt prepped for OR but holding with current tracing and cervical change. dr. jean agrees with 7cm and management for close FHR monitoring and goal for . 01/24/25 1404 <Electronically signed by Roseanna Mckeon CNM> Cosigner Signature (if applicable): CC: ~ Signed [facility] Work Phone: [phone]) 191-832007-08-2025 Progress note [facility] Medical Records Department [address] [place] [address] Progress Note - OBGYN 01/24/25 1400 MR#: [id number] Acct: [id number] Name: SHEEBA WELSH Rep #:[id number] : 2000 24 From: Roseanna Mckeon CNM PCP: Care Physician,No Primary Status :ADM IN Location: [id number] Subjective Subjective comfortable with epidural Objective Data Objective Data Vital Signs: Vital Signs Temp Pulse Resp BP Pulse Ox 97.1 F L 101 H 18 135/61 H 98 01/24/25 02:51 01/24/25 13:33 01/24/25 10:13 01/24/25 13:33 01/24/25 12:32 Weight: 205 lb Body Mass Index (BMI) 29.4 Intake & Output: Intake and Output for Last 24 Hours 01/22/25 01/23/25 01/24/25 23:59 23:59 23:59 Intake Total 3132.28 / 3132.28 Balance 3132.28 / 3132.28 Lab / Micro Data 01/24/25 07:45 Labs: Laboratory Results - last 24 hr 01/24/25 02:45: Vag Amniotic Fld Detect Negative 01/24/25 07:45: WBC 15.9 H, RBC 4.26, Hgb 11.4 L, Hct 33.6 L, MCV 78.9 L, MCH 26.8 L, MCHC 33.9, RDW Std Deviation 37.6, RDW Coeff of Elvin 13.2, Plt Count 229,MPV 10.2, Immature Gran % (Auto) 0.400, Neut % (Auto) 90.7 H, Lymph % (Auto) 6.1L, Pleasants % (Auto) 2.6, Eos % (Auto) 0.0, Baso % (Auto) 0.2, Absolute Neuts (auto)14.4 H, Absolute Lymphs (auto) 0.97, Nucleated RBC % 0, Syphilis Total Ab Nonreactive, Blood Type O POSITIVE, Antibody Screen NEGATIVE NST FHR Rate Baby A Baseline: 130 Variability:: Moderate Accelerations:: 15 x 15 Decelerations:: None NST Reactive:: Yes FHR Category:: Category I Uterine Activity:: q2-5 Assessment & Plan (1) Spontaneous onset of labor: COMMENT: AROM prn PLAN: Plan current tracing:cat 1 FHT: Moderate variability reactive no decelerations category I tracing Spaulding: q2-5 Contractions reviewed tracing abnormalities since last note: periods of minimal variabilty following prolonged deceleration. scalp stim resulted in accel with moderate variability. occ early decels. A/P: recheck cervix in 2 hours, prn pt prepped for OR but holding with current tracing and cervical change. dr. jean agrees with 7cm and management for close FHR monitoring and goal for . 01/24/25 1404 Cosigner Signature (if applicable): CC: ~ Signed [facility]07-08-2025 Progress note Author Jemima Avila [facility] Note Date/Time January 24, 2025 11:54 am [facility] Medical Records Department [address] [place] [address] Progress Note 01/24/25 1151 MR#: [id number] Acct: [id number] Name: SHEEBA WELSH Rep #:[id number] : 2000 24 From: Jemima Garcia DO PCP: Care Physician,No Primary Status :ADM IN Location: [place] [address] Progress Note An LISA was called and report was given that the patient passed out for about 2.5 minutes. The patient was taken to the OR for an LISA after noted to have a prolonged heart rate deceleration. The membranes were ruptured and she was in a pool of a large amount of meconium stained fluid. Epidural was in place She was in hands knees on her way to the OR and brought back into a supine position. Internal monitors were placed and the heart rate was in the 130's- 140's. The patient denies chest pain ,shortness of breath or dizziness. She states thatshe has passed out before during her period when she was young. 3 low amplitude contractions were observed and the tracing was overall reassuring. She was then brought back to the labor room. 01/24/25 1154 <Electronically signed by Jemima Garcia DO> Jemima Garcia DO Cosigner Signature (if applicable): CC: ~ Signed [facility] Work Phone: 1(830) 820-345307-08-2025 Progress note [facility] Medical Records Department [address] [place] [address] Progress Note 01/24/25 1151 MR#: [id number] Acct: [id number] Name: SHEEBA WELSH Rep #:[id number] : 2000 24 From: Jemima Garcia DO PCP: Care Physician,No Primary Status :ADM IN Location: [id number] Progress Note An LISA was called and report was given that the patient passed out for about 2.5 minutes. The patient was taken to the OR for an LISA after noted to have a prolonged heart rate deceleration. The membranes were ruptured and she was in a pool of a large amount of meconium stained fluid. Epidural was in place She was in hands knees on her way to the OR and brought back into a supine position. Internal monitors were placed and the heart rate was in the 130's- 140's. The patient denies chest pain ,shortness of breath or dizziness. She states thatshe has passed out before during her period when she was young. 3 low amplitude contractions were observed and the tracing was overall reassuring. She was then brought back to the labor room. 01/24/25 1154 Jemima Garcia DO Cosigner Signature (if applicable): CC: ~ Signed [facility]07-08-2025 History and physical note Author Roseanna Mckeon [facility] Note Date/Time January 24, 2025 8:13a m [facility] Medical Records Department [address] [place] [address] H&P Exam - [facility] 01/24/25 0809 MR#: [id number] Acct: [id number] Name: SHEEBA WELSH Rep #:[id number] : 2000 24 From: Roseanna Mckeon CNM PCP: Care Physician,No Primary Status :ADM IN Location: [id number] HPI - General General Date of Admission: 01/24/25 HPI Narrative SHEEBA WELSH, is a 24 F who presents at 40.4 with spontaneous contractions,denies lof/vb. good fm. making cervical change. Maternal Data Information OLIVIA Calculator Estimated Delivery Date Method Current WG Current Estimate 01/20/25 LMP (Certain) 40w 4d Other Estimates 01/20/25 Ultrasound #1 40w 4d PFSH PFSH Medical History Depression Anxiety Menorrhagia Headache, migraine History of fracture Non-smoker Home Medications ?Medication ?Instructions ?Recorded ?Last Taken ?Type multivit-min no.71-iron fum 28 1 cap PO DAILY 06/14/24 Unknown History mg-folate no.1 1 mg-dha 300 mg capsule ([facility]V-[facility]) Allergy/AdvReac Type Severity Reaction Status Date / Time No Known Allergies Allergy Verified 01/24/25 02:58 Family History Mother Breast cancer, Onset Age: 51 Depression Father Cancer, Onset Age: 57 Chronic leukemia Surgical History History of repair of ACL Social History adopted: No household members: significant other and family current occupational status: employed current occupation: [employer] pets and animals: Yes pets and [...] 3-4 times per week duration: 60-90 minutes/day daniel/mandaen: [employer] seatbelt use: always do you feel safe at home: Yes 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 History 1 Elective abortions Hx Para 0 Spontaneous abortions Hx # Term Pregnancies Ectopic pregnancies Hx # Pregnancies Multiple births # of living children Visit Details Expected Delivery Route/Plan Labor Preferences- CB/BF classes: encouraged, declines labor support person: Apoorva labor intervention preferences: pain management options preferred: limited cut cord/dad catch: cord : yes PP control planned: discussed discussed possible routes of delivery and associated risks: [] special requests: [] Plans Covid status: declines Flu vaccine: declines Tdap vaccine: declines Rhogam: na LARC form signed: yes Problem list reviewed and updated with the most current plan of care details and appropriate orders placed. Relevant counseling for the gestational age provided. Continue routine care and follow up unless otherwise noted in visit notes/problem list details OB Flowsheet Initial Weight: 183 lb Date -?-?-?-?-?-?-?-?-?-?-?-?- EGA [...] oz) 123/74 Negative -?-?-?-?-?-?-?-?-?-?-?-?- Negative 153 22 -?-?-?--?-?-?-?-?-?-?-?-?- LC- no vb/crampi ng. normal anatomy. no concerns today. 10/14/24 -?-?-?-?-?-?-?-?-?-?-?-?- 26w 0d 199 lb 2 oz (+16 lb 2 oz) 118/62 Negative -?-?-?-?-?-?-?-?-?-?-?-?- Negative 148 27 -?-?-?-?-?-?-?-?-?-?-?-?- MH-No VB, LOF. G ood Fm. 28 wk labs, [facility] 11/11/24 -?-?-?-?-?-?-?-?-?-?-?-?- 30w 0d 199 lb 8 oz (+16 lb 8 oz) 130/65 Negative -?-?-?-?-?-?-?-?-?-?-?-?- Negative 140 30 -?-?-?--?-?-?-?-?-?-?-?-?- LC- no vb/ctx/lo f. good fm. no [...] ctx q 15-20 minutes which started this morning around 3am. ROM collected stat- membranes felt intact on exam. labor precautions reviewed. Vital Signs Vital Signs Vital Signs: 01/24/25 02:51 01/24/25 02:51 01/24/25 02:51 Temperature Temperature Source Pulse Rate 96 Respiratory Rate Blood Pressure 130/76 H BP Systolic 130 BP Diastolic 76 Pulse Ox 98 01/24/25 02:51 01/24/25 02:51 01/24/25 02:51 Temperature 97.1 F L Temperature Source Temporal Pulse Rate Respiratory Rate 14 Blood Pressure BP Systolic BP Diastolic Pulse Ox 01/24/25 04:34 01/24/25 04:34 01/24/25 04:35 Temperature Temperature Source Pulse Rate 96 99 Respiratory Rate Blood Pressure BP Systolic BP Diastolic Pulse Ox 93 01/24/25 04:35 01/24/25 04:55 01/24/25 04:55 Temperature Temperature Source Pulse Rate 90 Respiratory Rate Blood Pressure BP Systolic BP Diastolic Pulse Ox 99 98 01/24/25 04:56 01/24/25 04:56 Temperature Temperature Source Pulse Rate 88 Respiratory Rate Blood Pressure 127/66 H BP Systolic 127 BP Diastolic 66 Pulse Ox Weight Weight: 205 lb Body Mass Index (BMI) 29.4 Physical Exam Const alert, oriented x3 and no apparent distress General Appearance: cooperative, comfortable and well kempt Orientation / Consciousness: awake and oriented to person Exam Limitations: no limitations HEENT normocephalic Neck full ROM Chest inspection of chest normal Resp normal respiratory effort, normal air movement and no retractions Effort and Inspection: able to speak in complete sentences and symmetric chest movement Cardio regular rate Peripheral Pulses: pulses 2+ throughout GI normal to inspection, nondistended, normoactive bowel sounds Inspection: gravid no CVA tenderness and appearance of the vagina normal External Female Exam: normal appearance of the urethra; Negative for external lesion OB / External & Speculum: external exam normal Manual OB Exam: estimated gestational size appropriate and presentation cephalic Uterus Palpation: Negative for uterus tender Extremity normal to inspection Skin no rashes or lesions noted Neuro deep tendon reflexes 2+ bilaterally and gait normal Motor Exam: strength 5/5 throughout and clonus absent Psych Activity / Motor Behavior: appropriate eye contact Speech: normal speech Labs Labs Labs: Blood Type O POSITIVE Antibody Screen NEGATIVE Hct 32.3 % (37-47) L Hgb 11.0 g/dL (12.0-15.0) L Syphilis Total Ab Nonreactive (Nonreactive) Rubella IgG Antibody Reactive (Nonreactive) Hep Bs Antigen Non-Reactive (Nonreactive) Hepatitis C Antibody Non-Reactive (Nonreactive) Chlamydia DNA (PEDRO) Negative (Negative) N.gonorrhoeae DNA (PEDRO) Negative (Negative) HIV 1&2 Antibody Nonreactive (Nonreactive) Glucose 1 Hr 50 gm 108 mg/dL (70-140) Assessment & Plan (1) Supervision of normal first : QUALIFIERS: Trimester: second trimester Qualified Code(s): Z34.02 - Encounter for supervision of normal first , second trimester COMMENT: PRR, , OLIVIA 7/4/25, girl Patricia Curry (2) : QUALIFIERS: Weeks of gestation: 40 weeks Qualified Code(s): Z3A.40 - 40 weeks gestation of COMMENT: GBS neg, NIPT low risk, gender female, elects Carrier testing (3) Spontaneous onset of labor: COMMENT: AROM prn PLAN: Plan Patient presents IAL, plan expectant management for , pitocin/AROM PRN if needed. Pain management: plans epidural. GBS neg. Management of any complications: none I have reviewed the [facility] and made any clinically relevant updates. Dr. Jean updated on admission, exam and poc. 01/24/25812 <Electronically signed by Roseanna Mckeon CNM> Cosigner Signature (if applicable): CC: JACKELIN Mckeon; No Primary Care Physician~ Signed [facility] Work Phone: 1(810) 461-309507-08-2025 History and physical note [facility] Medical Records Department [address] [place] [address] H&P Exam - [facility] 01/24/25 0809 MR#: [id number] Acct: [id number] Name: SHEEBA WELSH Rep #:[id number] : 2000 24 From: Roseanna Mckeon CNM PCP: Care Physician,No Primary Status :ADM IN Location: [place] [id number] HPI - General General Date of Admission: 01/24/25 HPI Narrative SHEEBA WELSH, is a 24 F who presents at 40.4 with spontaneous contractions,denies lof/vb. goodfm. making cervical change. Maternal Data Information OLIVIA Calculator Estimated Delivery Date Method Current WG Current Estimate 01/20/25 LMP (Certain) 40w 4d Other Estimates 01/20/25 Ultrasound #1 40w 4d [facility] Medical History Depression Anxiety Menorrhagia Headache, migraine History of fracture Non-smoker Home Medications ?Medication ?Instructions ?Recorded ?Last Taken ?Type multivit-min no.71-iron fum 28 1 cap PO DAILY 06/14/24 Unknown History mg-folate no.1 1 mg-dha 300 mg capsule ([facility]) Allergy/AdvReac Type Severity Reaction Status Date / Time No Known Allergies Allergy Verified 01/24/25 02:58 Family History Mother Breast cancer, Onset Age: 51 Depression Father Cancer, Onset Age: 57 Chronic leukemia Surgical History History of repair of ACL Social History adopted: No household members: significant other and family current occupational status: employed current occupation: [employer], [employer] pets and animals: Yes pets and [...] 3-4 times per week duration: 60-90 minutes/day daniel/mandaen: Synagogue seatbelt use: always do you feel safe at home: Yes 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 History 1 Elective abortions Hx Para 0 Spontaneous abortions Hx # Term Pregnancies Ectopic pregnancies Hx # Pregnancies Multiple births # of living children Visit Details Expected Delivery Route/Plan Labor Preferences- CB/BF classes: encouraged, declines labor support person: Apoorva labor intervention preferences: pain management options preferred: limited cut cord/dad catch: cord : yes PP control planned: discussed discussed possible routes of delivery and associated risks: [] special requests: [] Plans Covid status: declines Flu vaccine: declines Tdap vaccine: declines Rhogam: na LARC form signed: yes Problem list reviewed and updated with the most current plan of care details and appropriate ordersplaced. Relevant counseling for the gestational age provided. Continue routine care and follow up unless otherwise noted in visit notes/problem list details OB Flowsheet Initial Weight: 183 lb Date -?-?-?-?-?-?-?-?-?-?-?-?- EGA [...] oz) 123/74 Negative -?-?-?-?-?-?-?-?-?-?-?-?- Negative 153 22 -?-?-?--?-?-?-?-?-?-?-?-?- LC- no vb/crampi ng. normal anatomy. no concerns today. 10/14/24 -?-?-?-?-?-?-?-?-?-?-?-?- 26w 0d 199 lb 2 oz (+16 lb 2 oz) 118/62 Negative -?-?-?-?-?-?-?-?-?-?-?-?- Negative 148 27 -?-?-?-?-?-?-?-?-?-?-?-?- MH-No VB, LOF. G ood Fm. 28 wk labs, [facility] 11/11/24 -?-?-?-?-?-?-?-?-?-?-?-?- 30w 0d 199 lb 8 oz (+16 lb 8 oz) 130/65 Negative -?-?-?-?-?-?-?-?-?-?-?-?- Negative 140 30 -?-?-?--?-?-?-?-?-?-?-?-?- LC- no vb/ctx/lo f. good fm. no [...] ctx q 15-20 minutes which started this morning around 3am. ROM collected stat- membranes felt intact on exam. labor precautions reviewed. Vital Signs Vital Signs Vital Signs: 01/24/25 02:51 01/24/25 02:51 01/24/25 02:51 Temperature Temperature Source Pulse Rate 96 Respiratory Rate Blood Pressure 130/76 H BP Systolic 130 BP Diastolic 76 Pulse Ox 98 01/24/25 02:51 01/24/25 02:51 01/24/25 02:51 Temperature 97.1 F L Temperature Source Temporal Pulse Rate Respiratory Rate 14 Blood Pressure BP Systolic BP Diastolic Pulse Ox 01/24/25 04:34 01/24/25 04:34 01/24/25 04:35 Temperature Temperature Source Pulse Rate 96 99 Respiratory Rate Blood Pressure BP Systolic BP Diastolic Pulse Ox 93 01/24/25 04:35 01/24/25 04:55 01/24/25 04:55 Temperature Temperature Source Pulse Rate 90 Respiratory Rate Blood Pressure BP Systolic BP Diastolic Pulse Ox 99 98 01/24/25 04:56 01/24/25 04:56 Temperature Temperature Source Pulse Rate 88 Respiratory Rate Blood Pressure 127/66 H BP Systolic 127 BP Diastolic 66 Pulse Ox Weight Weight: 205 lb Body Mass Index (BMI) 29.4 Physical Exam Const alert, oriented x3 and no apparent distress General Appearance: cooperative, comfortable and well kempt Orientation / Consciousness: awake and oriented to person Exam Limitations: no limitations HEENT normocephalic Neck full ROM Chest inspection of chest normal Resp normal respiratory effort, normal air movement and no retractions Effort and Inspection: able to speak in complete sentences and symmetric chest movement Cardio regular rate Peripheral Pulses: pulses 2+ throughout GI normal to inspection, nondistended, normoactive bowel sounds Inspection: gravid no CVA tenderness and appearance of the vagina normal External Female Exam: normal appearance of the urethra; Negative for external lesion OB / External & Speculum: external exam normal Manual OB Exam: estimated gestational size appropriate and presentation cephalic Uterus Palpation: Negative for uterus tender Extremity normal to inspection Skin no rashes or lesions noted Neuro deep tendon reflexes 2+ bilaterally and gait normal Motor Exam: strength 5/5 throughout and clonus absent Psych Activity / Motor Behavior: appropriate eye contact Speech: normal speech Labs Labs Labs: Blood Type O POSITIVE Antibody Screen NEGATIVE Hct 32.3 % (37-47) L Hgb 11.0 g/dL (12.0-15.0) L Syphilis Total Ab Nonreactive (Nonreactive) Rubella IgG Antibody Reactive (Nonreactive) Hep Bs Antigen Non-Reactive (Nonreactive) Hepatitis C Antibody Non-Reactive (Nonreactive) Chlamydia DNA (PEDRO) Negative (Negative) N.gonorrhoeae DNA (PEDRO) Negative (Negative) HIV 1&2 Antibody Nonreactive (Nonreactive) Glucose 1 Hr 50 gm 108 mg/dL (70-140) Assessment & Plan (1) Supervision of normal first : QUALIFIERS: Trimester: second trimester Qualified Code(s): Z34.02 - Encounter for supervision of normal first , second trimester COMMENT: PRR, , OLIVIA 01/20/25, girl Patricia Curry (2) : QUALIFIERS: Weeks of gestation: 40 weeks Qualified Code(s): Z3A.40 - 40 weeks gestation of COMMENT: GBS neg, NIPT low risk, gender female, elects Carrier testing (3) Spontaneous onset of labor: COMMENT: AROM prn PLAN: Plan Patient presents IAL, plan expectant management for , pitocin/AROM PRN if needed. Pain management: plans epidural. GBS neg. Management of any complications: none I have reviewed the [facility] and made any clinically relevant updates. Dr. Jean updated on admission, exam and poc. 01/24/25812 Cosigner Signature (if applicable): CC: JACKELIN Mckeon; No Primary Care Physician~ Signed [facility]07-07-2025 [facility] [address] [place] [address], [address] [place] [address] OFFICE VISIT Date of Service: 01/23/25 MR#: [id number] Acct: [id number] Name: SHEEBA WELSH Rep #: [id number] : 2000 Provider: JACKELIN Sanders Age/Sex: 24/F [place] [facility] [place]: Signed Intake Vital Signs 01/19/25 10:25 01/23/25 09:43 Height 5 ft 10 in 5 ft 10 in Weight: 205 lb 6 oz BMI 29.5 BP 129/81 H Intake Visit Reasons: rule out labor Chief Complaint: Rule out Labor Taxonomist Required: No Is patient in pain?: No Allergies No Known Allergies Allergy (Verified 01/23/25 09:41) Medications ?Medication ?Instructions ?Recorded ?Confirmed ?Type multivit-min no.71-iron fum 28 cap PO 06/14/24 5 History mg-folate no.1 1 mg-dha 300 mg capsule (PN[facility]) promethazine 12.5 mg tablet 12.5 mg PO Q6H PRN headach e #30 12/09/24 01/23/25 Rx tabs Last Menstrual Period: 04/15/24 : No [facility] Medical History Menorrhagia Headache, migraine History of fracture Non-smoker Surgical History History of repair of ACL Family History Mother Breast cancer, Onset Age: 51 Depression Father Cancer, Onset Age: 57 Chronic leukemia Social History adopted: No household members: significant other and family current occupational status: employed current occupation: [employer], [employer] pets and animals: Yes pets and [...] 3-4 times per week duration: 60-90 minutes/day daniel/mandaen: Synagogue seatbelt use: always do you feel safe at home: Yes 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 Relevant counseling for the gestational age provided. [...] LOF. G ood Fm. 28 wk labs, [facility] 11/11/24 -?-?-?-?-?-?-?-?-?-?-?-?- 30w 0d 199 lb 8 [...] supervision of normal first in second trimester Z34. Trimester: second trimester 40 weeks gestation of [...] information and see below for orders placed atthis visit. [place] appropriate handout given. 01/23/25 1004 s JACKELIN> Date _ Angela Lockhart Signature: Date (if applicable) CC: ~ [facility]06-19-2025 [facility] [address] [place] [address], [address] [place] [address] OFFICE VISIT Date of Service: 01/05/25 MR#: [id number] Acct: [id number] Name: ANITHASHEEBACARLOS DOEE Rep #: [id number] : 2000 Provider: JACKELIN Sanders Age/Sex: 24/F [place] [facility] Status: Signed Intake Vital Signs 11/25/24 14:07 12/30/24 10:00 01/05/25 07:58 Height 5 ft 10 in 5 ft 10 in 5 ft 10 in Weight: 202 lb 4 oz BMI 29.0 BP 123/72 H Intake Visit Reasons: 38 wk ob Chief Complaint: 38 Week OB Taxonomist Required: No Is patient in pain?: No Allergies No Known Allergies Allergy (Verified 01/05/25 08:01) Medications ?Medication ?Instructions ?Recorded ?Confirmed ?Type multivit-min no.71-iron fum 28 cap PO 06/14/24 5 History mg-folate no.1 1 mg-dha 300 mg capsule ([facility]) promethazine 12.5 mg tablet 12.5 mg PO [...] occupational status: employed current occupation: [employer], [employer] pets and animals: Yes pets and animals: [...] 3-4 times per week duration: 60-90 minutes/day daniel/mandaen: Synagogue seatbelt use: always do you feel safe at home: Yes 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 Relevant counseling for the gestational age provided. [...] LOF. G ood Fm. 28 wk labs, [facility] 11/11/24 -?-?-?-?-?-?-?-?-?-?-?-?- 30w 0d 199 lb 8 [...] Symptoms of Preeclampsia, Infant Feeding No , [place] Education and Family Medical Leave or Disability [...] information and see below for orders placed atthis visit. [place] appropriate handout given. 01/05/25 0822 s JACKELIN> Date _ Angela Lockhart Signature: Date (if applicable) CC: ~ [id number] [facility] [address] [place] [address], [address] [place] [address] OFFICE VISIT Date of Service: 12/30/24 MR#: [id number] Acct: [id number] Name: SHEEBA WELSH Rep #: [id number] : 2000 Provider: Dr. Kerline Garcia DO Age/Sex: 24/F [place] [facility] Status: Signed Intake Vital Signs 11/25/24 14:07 12/22/24 14:30 12/30/24 09:59 12/30/24 10:00 Height 5 ft 10 in 5 ft 10 in 5 ft 10 in 5 ft 10 in Weight: 200 lb 8 oz BMI 28.8 BP 113/71 Intake Visit Reasons: 37 wk ob Taxonomist Required: No Is patient in pain?: No Allergies No Known Allergies Allergy (Verified 12/30/24 09:59) Medications ?Medication ?Instructions ?Recorded ?Confirmed ?Type multivit-min no.71-iron fum 28 cap PO 06/14/24 5 History mg-folate no.1 1 mg-dha 300 mg capsule ([facility]) promethazine 12.5 mg tablet 12.5 mg PO [...] occupational status: employed current occupation: [employer], [employer] pets and animals: Yes pets and [...] 3-4 times per week duration: 60-90 minutes/day daniel/mandaen: Synagogue seatbelt use: always do you feel safe [...] current plan of care details and appropriate ordersplaced. Relevant counseling for the gestational age provided. [...] LOF. G ood Fm. 28 wk labs, [facility] 11/11/24 -?-?-?-?-?-?-?-?-?-?-?-?- 30w 0d 199 lb 8 [...] Symptoms of Preeclampsia, Infant Feeding No , [place] Education and Family Medical Leave or Disability [...] Urinalysis 2 Dip (Clinic) Today 12/30/24 1037 thiago Avila DO> Date _ Jemima Garcia DO [facility] Signature: Date (if applicable) CC: ~ [facility]06-05-2025 [facility] [address] [place] [address], [address] [place] [address] OFFICE VISIT Date of Service: 12/22/24 MR#: [id number] Acct: [id number] Name: SHEEBA WELSH Rep #: [id number] : 2000 Provider: JACKELIN Sanders Age/Sex: 24/F [place] [facility] Status: Signed Intake Vital Signs 11/11/24 14:01 12/09/24 14:53 12/22/24 14:30 Height 5 ft 10 in 5 ft 10 in 5 ft 10 in Weight: 200 lb BMI 28.7 BP 129/78 H Intake Visit Reasons: 36wk ob Chief Complaint: 36wk ob Taxonomist Required: No Is patient in pain?: No Allergies No Known Allergies Allergy (Verified 12/22/24 14:28) Medications ?Medication ?Instructions ?Recorded ?Confirmed ?Type multivit-min no.71-iron fum 28 cap PO 06/14/24 5 History mg-folate no.1 1 mg-dha 300 mg capsule ([facility]) promethazine 12.5 mg tablet 12.5 mg PO [...] occupational status: employed current occupation: [employer], [employer] pets and animals: Yes pets and [...] 3-4 times per week duration: 60-90 minutes/day daniel/mandaen: Synagogue seatbelt use: always do you feel safe [...] current plan of care details and appropriate ordersplaced. Relevant counseling for the gestational age provided. [...] Negative 153 22 -?-?-?-?-?-?-?-?-?-?-?-?- LC- no vb/teresa león. normal anatomy. no concerns today. 10/14/24 -?-?-?-?-?-?-?-?-?-?-?-?- 26w 0d 199 lb 2 oz (+16 lb 2 oz) 118/62 Negative -?-?-?-?-?-?-?-?-?-?-?-?- Negative 148 27 -?-?-?-?-?-?-?-?-?-?-?-?- MH-No VB, LOF. G ood Fm. 28 wk labs, [facility] 11/11/24 -?-?-?-?-?-?-?-?-?-?-?-?- 30w 0d 199 lb 8 [...] information and see below for orders placed atthis visit. [place] appropriate handout given. 12/22/24 1455 s MADDIEM> Date _ Angela Sanders CNM Cosigner Signature: Date (if applicable) CC: ~ [facility]06-05-2025 Progress note Author Angela Sanders [facility] Note Date/Time December 22, 2024 2:55p m [facility] [place] [facility] [address] [place] [address], [address] [place] [address] OFFICE VISIT Date of Service: 12/22/24 MR#: [id number] Acct: [id number] Name: SHEEBA WELSH Rep #: [id number] : 2000 Provider: JACKELIN Sanders Age/Sex: 24/F [place] [facility] Status: Signed Intake Vital Signs 11/11/24 14:01 12/09/24 14:53 12/22/24 14:30 Height 5 ft 10 in 5 ft 10 in 5 ft 10 in Weight: 200 lb BMI 28.7 BP 129/78 H Intake Visit Reasons: 36wk ob Chief Complaint: 36wk ob Taxonomist Required: No Is patient in pain?: No Allergies No Known Allergies Allergy (Verified 12/22/24 14:28) Medications ?Medication ?Instructions ?Recorded ?Confirmed ?Type multivit-min no.71-iron fum 28 cap PO 06/14/24 5 History mg-folate no.1 1 mg-dha 300 mg capsule ([facility]) promethazine 12.5 mg tablet 12.5 mg PO [...] occupational status: employed current occupation: [employer], [employer] pets and animals: Yes pets and [...] 3-4 times per week duration: 60-90 minutes/day daniel/mandaen: Synagogue seatbelt use: always do you feel safe at home: Yes 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 G ood Fm. 28 wk labs, [facility] 11/11/24 -?-?-?-?-?-?-?-?-?-?-?-?- 30w 0d 199 lb 8 [...] this visit. [place] appropriate handout given. 12/22/24 2414 <Electronically signed by Angela baca CNM> Date _ Angela Sanders CNM Cosigner Signature: Date (if applicable) CC: ~ [facility] [employer] Work Phone: 1(923) 932-207303-28-2025 Evaluation note* Diagnosis Onset Date Resolution Status [...] first acute January 19, 2025 1 0:09am [facility] Work Phone: [phone] Evaluation note* Diagnosis Onset Date Resolution Status [...] first acute January 23, 2025 9 :40am [facility] Work Phone: [phone] Evaluation note* Diagnosis Onset Date Resolution Status [...] first acute January 23, 2025 9 :40am acute January 24, 2025 7:28am Supervision of normal first acute January 24, 2025 7 :28am (spontaneous vaginal delivery) acute January 24, 2025 7 :28am Spontaneous onset of labor deleted January 24, 2025 7:28am [facility] Work Phone: [phone]) 661-382202-28-2025 Evaluation note* Diagnosis Onset Date Resolution Status [...] first acute December 22, 2024 2 :27pm [facility] Work Phone: 1(401) 800-290902-28-2025 Evaluation note* Diagnosis Onset Date Resolution Status [...] normal first acute December 30, 2024 9:46am [facility] Work Phone: [phone] Evaluation note* Diagnosis Onset Date Resolution Status [...] normal first acute January 05, 2025 7:54am [facility] Work Phone: [phone] Evaluation note* Diagnosis Onset Date Resolution Status [...] normal first acute January 11, 2025 1:44pm [facility] Work Phone: [phone] NotePap Smear Specimen AdequacyDecemount [facility] 2023 12:59amComment.Satisfactory for evaluation. Endocervical and/or squamous metaplasticcells (endocervical component)are present.[facility]ACED A#[id number] Memorial HospitalComment on above:Satisfactory for evaluation. Endocervical and/or squamous [...] Supervision of normal first acute September 16, 025 12:58pm acute October 14 1:25pm Supervision of normal first acute October 14, 2024 1:25pm [facility] Work Phone: Evaluation note* Diagnosis Onset Date Resolution Status Anxiety with depression acut e Anxiety with depression acut e Fatigue acute [facility] Work Phone: Evaluation note* Diagnosis Onset Date Resolution Status Anxiety with depression acut e Chest discomfort acute Menorrhagia acute [facility] Work Phone: Progress note Author Jemima Avila [facility] Note Date/Time December 30, 2024 10:3 7am [facility] [place] [facility] [address] [place] [address], [address] [place] [address] OFFICE VISIT Date of Service: 12/30/24 MR#: [id number] Acct: [id number] Name: SHEEBA WELSH Rep #: [id number] : 2000 Provider: Dr. Kerline Garcia DO Age/Sex: 24/F [place] [facility] Status: Signed Intake Vital Signs 11/25/24 14:07 12/22/24 14:30 12/30/24 09:59 12/30/24 10:00 Height 5 ft 10 in 5 ft 10 in 5 ft 10 in 5 ft 10 in Weight: 200 lb 8 oz BMI 28.8 BP 113/71 Intake Visit Reasons: 37 wk ob Taxonomist Required: No Is patient in pain?: No Allergies No Known Allergies Allergy (Verified 12/30/24 09:59) Medications ?Medication ?Instructions ?Recorded ?Confirmed ?Type multivit-min no.71-iron fum 28 cap PO 06/14/24 5 History mg-folate no.1 1 mg-dha 300 mg capsule ([facility]) promethazine 12.5 mg tablet 12.5 mg PO [...] occupational status: employed current occupation: [employer], [employer] pets and animals: Yes pets and [...] 3-4 times per week duration: 60-90 minutes/day daniel/mandaen: Synagogue seatbelt use: always do you feel safe at home: Yes 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 G ood Fm. 28 wk labs, [facility] 11/11/24 -?-?-?-?-?-?-?-?-?-?-?-?- 30w 0d 199 lb 8 [...] and Symptoms of Preeclampsia, Feeding No , Education and Family Medical [...] by Jemima Lyn DO> Date _ Jemima Garcia DO Cosigner Signature: Date (if applicable) CC: ~ [facility] Work Phone: Progress note Author Angela Sanders [facility] Note Date/Time January 05, 2025 8:22 am [facility] [address], [place] [address] OFFICE VISIT Date of Service: 01/05/25 MR#: [id number] Acct: [id number] Name: ANITHASHEEBA HOOKER Rep #: [id number] : 2000 Provider: JACKELIN Sanders Age/Sex: 24/F [place] [facility] Status: Signed Intake Vital Signs 11/25/24 14:07 12/30/24 10:00 01/05/25 07:58 Height 5 ft 10 in 5 ft 10 in 5 ft 10 in Weight: 202 lb 4 oz BMI 29.0 BP 123/72 H Intake Visit Reasons: 38 wk ob Chief Complaint: 38 Week OB Taxonomist Required: No Is patient in pain?: No Allergies No Known Allergies Allergy (Verified 01/05/25 08:01) Medications ?Medication ?Instructions ?Recorded ?Confirmed ?Type multivit-min no.71-iron fum 28 cap PO 06/14/24 5 History mg-folate no.1 1 mg-dha 300 mg capsule ([facility]) promethazine 12.5 mg tablet 12.5 mg PO [...] occupational status: employed current occupation: [employer], [employer] pets and animals: Yes pets and [...] 3-4 times per week duration: 60-90 minutes/day daniel/mandaen: Synagogue seatbelt use: always do you feel safe at home: Yes additional social history: BF- [employer] History 1 Elective abortions Hx Para 0 [...] LOF. G ood Fm. 28 wk labs, [facility] 11/11/24 -?-?-?-?-?-?-?-?-?-?-?-?- 30w 0d 199 lb 8 [...] at this visit. [place] appropriate handout given. 01/05/25821 <Electronically signed by Angela baca CNM> Date _ Angela Sanders CNM Cosigner Signature: Date (if applicable) CC: ~ [facility] Work Phone: Progress note Author Angela Sanders [facility] Note Date/Time January 23, 2025 10:04 am [facility] [address] [place] [address], [address] [place] [address] OFFICE VISIT Date of Service: 01/23/25 MR#: [id number] Acct: [id number] Name: SHEEBA WELSH Rep #: [id number] : 2000 Provider: JACKELIN Sanders Age/Sex: 24/F [place] [facility] Status: Signed Intake Vital Signs 01/19/25 10:25 01/23/25 09:43 Height 5 ft 10 in 5 ft 10 in Weight: 205 lb 6 oz BMI 29.5 BP 129/81 H Intake Visit Reasons: rule out labor Chief Complaint: Rule out Labor Taxonomist Required: No Is patient in pain?: No Allergies No Known Allergies Allergy (Verified 01/23/25 09:41) Medications ?Medication ?Instructions ?Recorded ?Confirmed ?Type multivit-min no.71-iron fum 28 cap PO 06/14/24 5 History mg-folate no.1 1 mg-dha 300 mg capsule ([facility]) promethazine 12.5 mg tablet 12.5 mg PO [...] occupational status: employed current occupation: [employer], [employer] pets and animals: Yes pets and [...] 3-4 times per week duration: 60-90 minutes/day daniel/mandaen: Synagogue seatbelt use: always do you feel safe at home: Yes additional social history: BF- [employer]- [employer]! History 1 Elective abortions Hx Para 0 [...] Negative 153 22 -?-?-?-?-?-?-?-?-?-?-?-?- LC- no vb/teresa león. normal anatomy. no concerns today. 10/14/24 -?-?-?-?-?-?-?-?-?-?-?-?- 26w 0d 199 lb 2 oz (+16 lb 2 oz) 118/62 Negative -?-?-?-?-?-?-?-?-?-?-?-?- Negative 148 27 -?-?-?-?-?-?-?-?-?-?-?-?- MH-No VB, LOF. G ood Fm. 28 wk labs, [facility] 11/11/24 -?-?-?-?-?-?-?-?-?-?-?-?- 30w 0d 199 lb 8 [...] Symptoms of Preeclampsia, Infant Feeding No , [place] Education and Family Medical Leave or Disability [...] Cosigner Signature: Date (if applicable) CC: ~ [facility] [employer] Work Phone: Reason for referral (narrative)No reason for referral information availableWMcCullough-Hyde [facility] Work Phone: Summary Purpose Family History No Family History Records Found Relationship Condition Age at Onset Recorded Date/T betariz Not Specified Depression Unknown Malignant neoplasm of breast Unknown Malignant neoplasm Unknown Relationship Condition Age at Onset Recorded Date/T beatriz mother Malignant neoplasm of breast 51 Depression Unknown father Malignant neoplasm 57 Advance Directives No Advanced Directives Records Found Advance Directive Response Recorded Date/ Time Living Will No April 30 11:00pm Power of Flight Operations Engineer No April 30, 2021 11:00pm Advance Directive Response Recorded Date/ Time Do you have a Healthcare Power of Flight Operations Engineer? 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 2 [...] 1 2:42pm Supervision of normal first De annettaber 2023 12:42pm Chest discomfort June 23, 2024 1 2:42pm Palpitations June 23, 2024 1 2:42pm July 21, 2024 10 :06am Supervision of normal first Bill poe 2024 10:06am Chest discomfort July 21, 2024 10 :06am Palpitations July 21, 2024 10 :06am August 19, 2024 2 :11pm Supervision of normal first Ja lui 2024 2:11pm September 16, 2024 12:58pm Supervision of normal first Fe mya 2024 12:58pm October 14, 2024 1:2 5pm Supervision of normal first Ma [facility] 2024 1:25pm Chief Complaint Admit Date [...] 1:2 5pm Supervision of normal first Ma rc 2024 1:25pm November 11, 2024 1:5 7pm [...] 1:2 5pm Supervision of normal first Ma rc 2024 1:25pm November 11, 2024 1:5 7pm [...] 1:2 5pm Supervision of normal first Ma [facility] 2024 1:25pm November 11, 2024 1:5 [...] 1:2 5pm Supervision of normal first Ma rch 2024 1:25pm November 11, 2024 1:5 7pm [...] 1:2 5pm Supervision of normal first Ma [facility] 2024 1:25pm November 11, 2024 1:5 [...] 1:2 5pm Supervision of normal first Ma [facility] 2024 1:25pm November 11, 2024 1:5 [...] of normal first Ju ly 2024 9:40am Chief Complaint Admit Date 26 wk ob [...] out labor January 23, 2025 9:40a m MATERNITY January 24, 2025 7:28a m MATERNITY January 24, 2025 8:09a m MATERNITY January 25, 2025 7:56a m Reason for Visit Admit Date October 14, 2024 1:2 5pm Supervision of normal first Ma [facility] 2024 1:25pm November 11, 2024 1:5 [...] of normal first Ju ly 2024 9:40am January 24, 2025 7:28a m Supervision of normal first Ju ly 2024 7:28am (spontaneous vaginal delivery) January 24, 2025 7:28am Spontaneous onset of labor January 24 7:28am Additional Source Comments INFORMATION SOURCE (unrecogn ized section and content) DATE CREATED AUTHOR 09/30/2020 [facility] ([place]) DATE CREATED AUTHOR AUTHOR'S ORGANIZ ATION 08/28/2024 [facility] DATE CREATED AUTHOR AUTHOR'S ORGANIZ ATION 02/01/2025 [facility] Care Teams (unrecognized sec tion and content) Team Status: Active Member Role Status Dates Dr. Moisés Haines , Primary Care Provider Active Team Status: Inactive Member Role Status Dates Dr. Michael Baker , Primary Care Provider, Referri ng Provider Active Dr. Moisés Haines DO Attending Provider Active Team Status: Inactive Member Role Status Dates Dr. Moisés Haines DO Primary Care Pr ovider, Attending Provider, Referring Provider Active Team Status: Inactive Member Role Status Dates Dr. Moisés Haines DO Primary Care Provider, Referr ing Provider [...] Inactive Member Role Status Dates Dr. Moisés Hanies DO Referring Provider Active Start: October 14, 2024 End: October 14, 2024 Cesilia George SUPERVIS[employer] PA[employer] MIXING, SUPERVISOR PASTE MIXING-C Attending Provider Active Start: October 14, 2024 End: October 14, 2024 Team Status: Inactive Member Role Status Dates Cesilia George SUPERVISOR PASTE MIXING, SUPERVISOR PASTE MIXING-C Attending Provider Active Start: October 14, 2024 End: October 14, 2024 Cesilia George SUPERVISOR PASTE MIXING, SUPERVISOR PASTE MIXING-C Referring Provider Active Start: October 14, 2024 [...] End: October 14, 2024 Cesilia George NP, SUPERVISOR PASTE MIXING-C Attending Provider Active Start: October 14, 2024 End: October 14, 2024 Team Status: Inactive Member Role/Relationship Status Dates Cesilia George NP SUPERVISOR PA[employer] MIX[employer]-C Attending Provider Active Start: October 14, 2024 End: October 14, 2024 Cesilia George SUPERVISOR PA[employer] MIX[employer], SUPERVISOR PASTE MIXING-C Referring Provider Active Start: October 14, 2024 [...] January 23, 2025 End: January 23, 2025 Team Status: Active Member Role/Relationship Status Dates No Primary Care Physician Primary Care Provider Active Team Status: Inactive Member Role/Relationship Status Dates Dr. Moisés Haines DO Referring Provider Active Start: October 14, 2024 End: October 14, 2024 Cesilia George NP, SUPERVISOR PA[employer] MIX[employer]-C Attending Provider Active Start: October 14, 2024 End: October 14, 2024 Team Status: Inactive Member Role/Relationship Status Dates Cesilia George NP, SUPERVISOR PASTE MIXING-C Attending Provider Active Start: October 14, 2024 End: October 14, 2024 Cesilia George SUPERVISOR PASTE MIXING, SUPERVISOR PASTE MIXING-C Referring Provider Active Start: October 14, 2024 [...] January 23, 2025 End: January 23, 2025 Team Status: Active Member Role/Relationship Status Dates Angela Sanders CNM Attending Provider Active S tart: January 23, 2025 Angela Sanders CNM Referring Provider Active S tart: January 23, 2025 Team Status: Inactive Member Role/Relationship Status Dates Angela Sanders CNM Other Provider Active Start : January 24, 2025 End: January 25, 2025 No Primary Care Physician Primary Care Provider Active Start: January 24, 2025 End: January 25, 2025 Dr. Jemima Garcia DO Admit Provider Active Start: January 24, 2025 End: January 25, 2025 Dr. Jemima Garcia DO Attending Provider Activ e Start: January 24, 2025 End: January 25, 2025 Dr. Jemima Garcia DO Referring Provider Activ e Start: January 24, 2025 End: January 25, 2025 Team Status: Active Member Role/Relationship Status Dates Angela Sanders CNM Other Provider Active Start : January 24, 2025 No Primary Care Physician Primary Care Provider Active Start: January 24, 2025 Roseanna Mckeon CNM Admit Provider Active Star t: January 24, 2025 Roseanna Mckeon CNM Attending Provider Active Start: January 24, 2025 Roseanna Mckeon CNM Referring Provider Active Start: January 24, 2025 Roseanna Mckeon CNM Other Provider Active Star t: January 24, 2025 Team Status: Active Member Role/Relationship Status Dates Angela Sanders CNM Other Provider Active Start : January 25, 2025 No Primary Care Physician Primary Care Provider Active Start: January 25, 2025 Dr. Jemima Garcia DO Admit Provider Active Start: January 25, 2025 Dr. Jemima Garcia DO Referring Provider Activ e Start: January 25, 2025 Dr. Jemima Garcia DO Other Provider Active Start: January 25, 2025 Cesilia George SUPERVISOR PASTE MIXING, SUPERVISOR PASTE MIXING-C Attending Provider Active Start: January 25, 2025 Team Status: Inactive Member Role/Relationship Status Dates Angela Sanders CNM Attending Provider Active S tart: January 23, 2025 End: January 23, 2025 Angela Sanders CNM Referring Provider Active S tart: January 23, 2025 [...] BE BASED ON THE PRIMARY CLINICAL RECORDS. [facility]. provides no warranty or guarantee of the accuracy or completeness of information in this document.
[2025-02-02 06:09] LABS: Anion Gap 13 (5-15); BUN 10 mg/dL (4-19); BUN/Creat Ratio 16.0 RATIO (10-20); Calcium,Total 9.2 mg/dL (7.6-11.0); Carbon Dioxide 20.6 mmol/L (21.0-32.0); Chloride 103 mmol/L (98-108); Estimated Creatinine Clearance 144.32 ml/min (50-250); Glucose 94 mg/dL (70-99); Potassium 3.8 mmol/L (3.3-5.1)
--- NOTE | 2025-02-02 07:34 | EDS_ITS ---
HPI HPI - Female History of Present Illness Chief Complaint: Vag Bleeding Informant: patient and spouse/S.O. Narrative Narrative: Patient is a 24-year-old female with no significant past medical history who is a G1, P1. She underwent a spontaneous vaginal delivery roughly 10 days ago. She states that she has been having mild vaginal bleeding which was to be expected after the delivery. However she awoke last night/this morning and noted a large amount of blood and clots. She states that she does not have a history of bleeding disorder nor does she take blood thinners but with the worsening bleeding was concerned and therefore comes in for evaluation PFSH PFS Medical History Depression Anxiety Menorrhagia Headache, migraine History of fracture Non-smoker Home Medications ?Medication ?Instructions ?Recorded ?Last Taken ?Type multivit-min no.71-iron fum 28 1 cap PO DAILY 06/14/24 Unknown History mg-folate no.1 1 mg-dha 300 mg capsule (PNV-[place]) ferrous gluconate 324 mg (38 mg 324 mg PO DAILY #30 ta bs 02/02/25 Unknown Rx iron) tablet ibuprofen 800 mg tablet 800 mg PO Q8H PRN pain #30 t abs 02/02/25 Unknown Rx Allergy/AdvReac Type Severity Reaction Status Date / Time No Known Allergies Allergy Verified 02/02/25 05:13 Family History Mother Breast cancer, Onset Age: 51 Depression Father Cancer, Onset Age: 57 Chronic leukemia Surgical History History of repair of ACL Social History adopted: No household members: significant other and family current occupational status: employed current occupation: [employer] pets and animals: Yes pets and animals: dog(s) history of recent travel: No sexually active: Yes Smoking Status: Never smoker alcohol intake: current alcohol intake frequency: holidays/special occasions only details: Not while substance use type: does not use well-balanced diet: daily or most days caffeine: Yes (occasional) eating out: 1-3 times/week during the past year weight has: remained stable what type of physical activity do you participate in: aerobics and weight training frequency: 3-4 times per week duration: 60-90 minutes/day daniel/mormonism: [employer] seatbelt use: always do you feel safe at home: Yes additional social history: BF- [employer] ROS ROS ED Constitutional Constitutional ED: Denies chills or fever(s) Eyes Eyes: Denies blurry vision or change in vision ENT ENT ED: Denies sore throat Cardiovascular Cardiovascular: Denies chest pain Respiratory/Chest Respiratory/Chest: Denies cough or dyspnea Gastrointestinal Gastrointestinal: Denies abdominal pain, diarrhea, nausea or vomiting Genitourinary Genitourinary ED: Reports other Details: Positive vaginal bleeding ; Denies dysuria Musculoskeletal Musculoskeletal: Denies myalgias Integumentary Denies rash Neurologic Neurologic: Denies headache(s) Hematologic/Lymphatic Hematologic/Lymphatic: Denies easy bleeding or easy bruising EXAM Physical Exam Const Vital Signs: 02/02/25 05:12 02/02/25 07:12 02/02/25 08:57 Temperature 98.4 F 98.4 F Temperature Source Oral Oral Pulse Rate 80 62 53 L Respiratory Rate 19 H 18 18 Blood Pressure 140/73 H 113/46 L 118/54 L Blood Pressure Mean 95 68 75 Blood Pressure Source Monitor Blood Pressure Position Semi-Fowlers Blood Pressure Location Left Arm Pulse Ox 98 99 99 Oxygen Delivery Method Room Air Room Air Room Air 02/02/25 09:01 02/02/25 09:35 Temperature 98.3 F 98.3 F Temperature Source Pulse Rate 53 L 53 L Respiratory Rate 18 18 Blood Pressure 118/54 L 118/54 L Blood Pressure Mean 75 Blood Pressure Source Blood Pressure Position Blood Pressure Location Pulse Ox 99 99 Oxygen Delivery Method Room Air Positive well nourished and well developed General Appearance ED: well developed; Negative for pallor HEENT HEENT Narrative: Normocephalic atraumatic Eyes PERRL and EOMs intact bilaterally Neck supple Resp normal respiratory effort and clear to auscultation bilaterally Cardio regular rate and regular rhythm Rate: other Other Details: Heart is regular rate and rhythm without murmurs rubs or gallops Radial and carotid pulses are equal and symmetric GI normal to inspection, nondistended, normoactive bowel sounds, soft to palpation, non-tender, non-distended and no masses GI Narrative: No voluntary guarding or rigidity or pulsatile mass Auscultation: normoactive bowel sounds Palpation: soft Narrative: There is dried blood around the external genitalia Speculum exam reveals dark red blood within the vaginal vault filling approximately three fourths of the vault. No obvious vaginal laceration or injury noted No vaginal discharge present Back/Spine no CVA tenderness Extremity normal to inspection and full ROM Extremity Narrative: No asymmetric edema no pitting edema negative Homans' sign bilaterally Neuro oriented x3, CN's II-XII intact bilaterally and no sensory deficits noted Sensorium / Orientation: alert Psych mental status grossly normal Skin no rashes or lesions noted Skin Narrative: Capillary refills less than 3 seconds General Skin Exam: Negative for jaundice or pallor MDM MDM MDM Narrative Medical decision making narrative: Patient arrived to the ER with stable vitals and a soft nonsurgical abdomen. With her report of increased vaginal bleeding status post vaginal delivery there is concern for potential retained products of conception versus late onset hemorrhage. Patient may also have acute blood loss anemia secondary to this. Basic blood work was obtained and shows no leukocytosis or left shift or lactic acidosis going against ischemia or infection. Hemoglobin is 11.8 going against the need for transfusion. Pelvic ultrasound was obtained and displays a large volume within the uterus concerning for retained products of conception. Secondary to this the case was discussed with AREA OPERATIONS MANAGER Dr. Snider. At this time she feels that based on the patient's exam and ultrasound that she will require D&C and therefore will admit the patient for continued care History & Record Review Discussion w/independent historian: Patient and Significant other Lab Data Attestation: I reviewed the patient's lab results. Labs: Laboratory Results - last 24 hr 02/02/25 02/02/25 02/02/25 05:16 05:36 08:40 WBC 6.7 RBC 4.47 Hgb 11.8 L Hct 36.4 L MCV 81.4 MCH 26.4 L MCHC 32.4 RDW Std Deviation 40.1 RDW Coeff of Elvin 13.7 Plt Count 276 MPV 8.8 Immature Gran % (Auto) 0.400 Neut % (Auto) 64.0 Lymph % (Auto) 23.3 [place] % (Auto) 11.0 H Eos % (Auto) 0.9 Baso % (Auto) 0.4 Absolute Neuts (auto) 4.3 Absolute Lymphs (auto) 1.57 Nucleated RBC % 0 PT 13.5 INR 1.0 APTT 30.8 Sodium 137 Potassium 3.8 Chloride 103 Carbon Dioxide 20.6 L Anion Gap 13 BUN 10 Creatinine 0.65 L Estim Creat Clear Calc 144.32 Est GFR (MDRD) Non-Af 126 BUN/Creatinine Ratio 16.0 Glucose 94 Lactic Acid < 1.0 Calcium 9.2 Urine Color Lorenza Urine Clarity Sl. Cloudy Urine pH 6.0 Ur Specific [place] 1.015 Urine Protein 100 H Urine Glucose (UA) Normal Urine Ketones Negative Urine Occult Blood 250 H Urine Nitrite Negative Urine Bilirubin Negative Urine Urobilinogen Normal Ur Leukocyte Esterase 500 H Urine RBC 25-50 SEEN Urine WBC 10-25 SEEN Ur Squamous Epith Cells 0-5 SEEN Urine Bacteria 0 SEEN Urine Mucus 0 SEEN Blood Type O POSITIVE Antibody Screen NEGATIVE Crossmatch See Detail Radiography Diagnostic Testing: Clinical Impression(s) from Imaging Studies Pelvis Ultrasound 02/02/25 05:32 IMPRESSION: Findings in keeping with retained products of conception. Reading Location: [place] [id number] Management Discussion w/another healthcare provider: Ux Design Manager Discharge Plan Dx/Rx/DC Orders Clinical Impression: hemorrhage of vagina, Anxiety and depression Disposition Disposition: Acute Care Hospital [facility] Discharge Date/Time: 02/02/25 09:53
[2025-02-02 08:50] LABS: Mucous, Urine 0 SEEN /hpf (<or=2+)
[2025-02-02 08:53] LABS: Color, Urine Amber (Yellow); Glucose, Dipstick Normal (Normal); Ketone-Dipstick Negative (Negative); Leukocyte Esterase-Dipstick 500 /ul (Negative); Nitrite-Dipstick Negative (Negative); Occult Blood-Urine 250 /ul (Negative); Protein-Dipstick 100 mg/dl (Negative); Specific Gravity, Urine 1.015 (1.002-1.030); Urine Bilirubin Dipstick Negative (Negative)
--- NOTE | 2025-02-02 08:54 | HP.PCM.OB_ITS ---
HPI - General HPI Narrative SHEEBA WELSH, is a 24 y/o , 10 days post who presents to ER with heavy vaginal bleeding. ultrasound showed 42mm of retained products of conception. vitals and labs are stable but bleeding continues to be brisk. The decision is made to proceed with a suction D&C. Maternal Data Information OLIVIA Calculator Estimated Delivery Date Method Current WG Current Estimate 01/20/25 LMP (Certain) 41w 6d Other Estimates 01/20/25 Ultrasound #1 41w 6d PFSH PFSH Medical History Depression Anxiety Menorrhagia Headache, migraine History of fracture Non-smoker Home Medications ?Medication ?Instructions ?Recorded ?Last Taken ?Type multivit-min no.71-iron fum 28 1 cap PO DAILY 06/14/24 Unknown History mg-folate no.1 1 mg-dha 300 mg capsule (PNV-[place]) Allergy/AdvReac Type Severity Reaction Status Date / Time No Known Allergies Allergy Verified 02/02/25 05:13 Family History Mother Breast cancer, Onset Age: 51 Depression Father Cancer, Onset Age: 57 Chronic leukemia Surgical History History of repair of ACL Social History adopted: No household members: significant other and family current occupational status: employed current occupation: [employer] pets and animals: Yes pets and animals: dog(s) history of recent travel: No sexually active: Yes Smoking Status: Never smoker alcohol intake: current alcohol intake frequency: holidays/special occasions only details: Not while substance use type: does not use well-balanced diet: daily or most days caffeine: Yes (occasional) eating out: 1-3 times/week during the past year weight has: remained stable what type of physical activity do you participate in: aerobics and weight training frequency: 3-4 times per week duration: 60-90 minutes/day daniel/uatsdin: Worship seatbelt use: always do you feel safe at home: Yes additional social history: BF- [employer]- [employer] History 1 Elective abortions Hx Para 0 Spontaneous abortions Hx # Term Pregnancies Ectopic pregnancies Hx # Pregnancies Multiple births # of living children Visit Details Expected Delivery Route/Plan Labor Preferences- CB/BF classes: encouraged, declines labor support person: Apoorva labor intervention preferences: pain management options preferred: limited cut cord/dad catch: cord : yes PP control planned: discussed discussed possible routes of delivery and associated risks: [] special requests: [] Plans Covid status: declines Flu vaccine: declines Tdap vaccine: declines Rhogam: na LARC form signed: yes Problem list reviewed and updated with the most current plan of care details and appropriate orders placed. Relevant counseling for the gestational age provided. Continue routine care and follow up unless otherwise noted in visit notes/problem list details OB Flowsheet Initial Weight: 183 lb Date -?-?-?-?-?-?-?-?-?-?-?-?- EGA Weight BP Urine Prot -?-?-?-?-?-?-?-?-?-?-?-?- Glucose FHR FuHt Pres Dilation -?-?-?-?-?-?-?-?-?-?-?-?- Effaced St Visit Note 06/23/24 -?-?-?-?-?-?-?-?-?-?-?-?- 9w 6d 183 lb (+0 oz) 144/82 -?-?-?-?-?-?-?-?-?-?-?-?- 159 -?-?-?-?-?-?-?-?-?-?-?-?- KW- CRL cons wit h dates. accepts nipt 07/21/24 -?-?-?-?-?-?-?-?-?-?-?-?- 13w 6d 185 lb (+2 lb) 120/68 Negative -?-?--?-?-?-?-?-?-?-?-?-?- Negative 150 -?-?-?-?-?-?-?-?-?-?-?-?- JV- CRL measures 14 weeks today. pt has some complaints of headaches. recommend 72 oz of water a day + tylenol. new ob labs and NIPT today. JV- CRL measures 14 weeks to day. pt has some complaints of headaches. recommend 72 oz of water a day + tylenol. NIPT today. 08/19/24 -?-?-?-?-?-?-?--?-?-?-?-?- 18w 0d 193 lb 6 oz (+10 lb 6 oz) 123/65 Negative -?-?-?-?-?-?-?-?-?-?-?-?- Negative 140 -?-?-?-?-?-?-?-?-?-?-?-?- SM- no vb lof cr amping 09/16/24 -?-?-?-?-?-?-?-?-?-?-?-?- 22w 0d 195 lb 4 oz (+12 lb 4 oz) 123/74 Negative -?-?-?-?-?-?-?-?-?-?-?-?- Negative 153 22 -?-?-?-?-?-?-?-?-?-?-?-?- LC- no vb/crampi ng. normal anatomy. no concerns today. 10/14/24 -?-?-?-?-?-?-?-?-?-?-?-?- 26w 0d 199 lb 2 oz (+16 lb 2 oz) 118/62 Negative -?-?-?-?-?-?-?-?-?-?-?-?- Negative 148 27 -?-?-?-?-?-?-?-?-?-?-?-?- MH-No VB, LOF. G ood Fm. 28 wk labs, [facility] 11/11/24 -?-?-?-?-?-?-?-?-?-?-?-?- 30w 0d 199 lb 8 oz (+16 lb 8 oz) 130/65 Negative -?-?-?-?-?-?-?-?-?-?-?-?- Negative 140 30 -?-?-?-?-?-?-?-?-?-?-?-?- LC- no vb/ctx/lo f. good fm. no concerns.declines tdap. 11/25/24 -?-?-?-?-?-?-?-?-?-?-?-?- 32w 0d 200 lb 4 oz (+17 lb 4 oz) 125/76 Negative -?-?-?-?-?-?-?-?-?-?-?-?- Negative 140 32 -?-?-?-?-?-?-?-?-?-?-?-?- KW- no vb/lof/ct x. good fm. some pelvic pressure but no Uti sx. 12/09/24 -?-?-?-?-?-?-?-?-?-?-?-?- 34w 0d 201 lb 8 oz (+18 lb 8 oz) 106/67 Negative -?-?-?-?-?-?-?-?-?-?-?-?- Negative 150 34 -?-?-?-?-?-?-?-?-?-?-?-?- JV- pt complains of headache x 3 days, worse when she moves from sitting to standing. bp is normal/low. will try compression stockings. rx for promethazine sent to pharmacy. 12/22/24 -?-?-?-?-?-?-?-?-?-?-?-?- 35w 6d 200 lb (+17 lb) 129/78 Negative -?-?-?-?-?-?-?-?-?-?-?-?- Negative 150 36 Cephalic 0 -?-?-?-?-?-?-?-?-?-?-?-?- KW- no vb/lof/ct x. good fm. GBS today 12/30/24 -?-?-?-?-?-?-?-?-?-?-?-?- 37w 0d 200 lb 8 oz (+17 lb 8 oz) 113/71 Negative -?-?-?-?-?-?-?-?-?-?-?-?- Negative 143 38 Cephalic 0 -?-?-?-?-?-?-?-?-?-?-?-?- JV- gbs neg. no lof, vaginal bleeding, or dec fm. no complaints of headaches anymore. 01/05/25 -?-?-?-?-?-?-?-?-?-?-?-?- 37w 6d 202 lb 4 oz (+19 lb 4 oz) 123/72 Negative -?-?-?-?-?-?-?-?-?-?-?-?- Negative 130 39 Cephalic 0 -?-?-?-?-?-?-?-?-?-?-?-?- KW- no vb/lof/re g ctx. good fm. labor precautions reviewed 01/11/25 -?-?-?-?-?-?-?-?-?-?-?-?- 38w 5d 204 lb 6 oz (+21 lb 6 oz) 126/69 Negative -?-?-?-?-?-?-?-?-?-?-?-?- Negative 145 38 Cephalic 1 -?-?-?-?-?-?-?-?-?-?-?-?- 80 -3 JV- no lof , v aginal bleeding, or dec fm. no complaints other than swelling. 01/19/25 -?-?-?-?-?-?-?-?-?-?-?-?- 39w 6d 202 lb 2 oz (+19 lb 2 oz) 137/79 Negative -?-?-?-?-?-?-?-?-?-?-?-?- Negative 140 40 Cephalic 1 -?-?-?-?-?-?-?-?-?-?-?-?- SM- SM- no vb lof good fm irregu lar ctx plan IOL 41 weeks if no spontaneous, return next week for possible membrane sweep 01/23/25 -?-?-?-?-?-?-?-?-?-?-?-?- 40w 3d 205 lb 6 oz (+22 lb 6 oz) 129/81 Negative -?-?-?-?-?-?-?-?-?-?-?-?- Negative 125 41 Cephalic 2 -?-?-?-?-?-?-?-?-?-?-?-?- 80 -2 KW- No vb/ questionable LOF and ctx q 15-20 minutes which started this morning around 3am. ROM collected stat- membranes felt intact on exam. labor precautions reviewed. ROS Constitutional Constitutional: Denies change in weight, fatigue, fever(s), headache(s), poor appetite or weakness Eyes Eyes: Denies blurry vision, change in vision, seeing flashes or spots in vision ENT HEENT: Denies dizziness, headache(s), loss taste/smell or sore throat Cardiovascular Cardiovascular: Denies chest pain, dizziness, dyspnea, irregular heart rhythm, leg edema, palpitations, rapid heart rate or vomiting Respiratory/Chest Respiratory/Chest: Denies chest tightness, cough, dyspnea or breast pain Gastrointestinal Gastrointestinal: Denies abdominal pain, anorexia, constipation, cramping, diarrhea, hemorrhoids, vomiting or weight changes Genitourinary Genitourinary: Denies dysuria, flank pain, genital lesions, genital pain, urinary frequency or urinary urgency Musculoskeletal Musculoskeletal: Denies back pain, difficulty walking, joint pain, limited range of motion, muscle cramps or numbness Integumentary Integumentary: Denies lesions or unusual bruising Neurologic Neurologic: Denies abnormal movements, abnormal speech, dizziness, numbness, seizure-like activity or syncope Psychiatric Psychiatric: Denies anxiety, behavioral changes, change in appetite, change in libido, cognitive impairment, confusion, depression, difficulty concentrating, hallucinations or suicidal thoughts Endocrine Endocrinology: Denies excessive sweating, polydipsia or polyuria Hematologic/Lymphatic Hematologic/Lymphatic: Denies easy bleeding, easy bruising or lymphadenopathy Allergic/Immunologic Allergic/Immunologic: Denies itchy eyes, lip swelling, seasonal rhinorrhea, rhinitis, throat swelling, tongue swelling, eczemia, wheezing or asthma Vital Signs Vital Signs Vital Signs: 02/02/25 05:12 02/02/25 07:12 Temperature 98.4 F Temperature Source Oral Pulse Rate 80 62 Respiratory Rate 19 H 18 Blood Pressure 140/73 H 113/46 L Blood Pressure Mean 95 68 Pulse Ox 98 99 Oxygen Delivery Method Room Air Room Air Weight Weight: 177 lb 7.554 oz Body Mass Index (BMI) 25.4 Physical Exam Const alert, oriented x3, no apparent distress and healthy appearing General Appearance: cooperative; Negative for anxious HEENT normocephalic Face and Sinus: normal facial exam Eyes EOMs intact bilaterally and no scleral icterus General Eye: normal appearance of both eyes Resp normal respiratory effort Effort and Inspection: able to speak in complete sentences Cardio regular rate GI soft to palpation and non-tender Palpation: soft; Negative for tender Extremity normal to inspection, full ROM and no clubbing, cyanosis or edema General Extremity: Negative for calf tenderness or edema Skin Lesions: no lesions Rashes: no rashes Psych mental status grossly normal Labs Labs Labs: Blood Type O POSITIVE Antibody Screen NEGATIVE Hct 36.4 % (37-47) L Hgb 11.8 g/dL (12.0-15.0) L Syphilis Total Ab Nonreactive (Nonreactive) Rubella IgG Antibody Reactive (Nonreactive) Hep Bs Antigen Non-Reactive (Nonreactive) Hepatitis C Antibody Non-Reactive (Nonreactive) Chlamydia DNA ([place]) Negative (Negative) N.gonorrhoeae DNA ([place]) Negative (Negative) HIV 1&2 Antibody Nonreactive (Nonreactive) Glucose 1 Hr 50 gm 108 mg/dL (70-140) Assessment & Plan (1) (spontaneous vaginal delivery): COMMENT: LC IAL [facility] (2) Retained products of conception after delivery with complications: PLAN: After discussing the patient's diagnosis and treatment plan options, patient wishes to proceed with surgical management. I have discussed with the patient the risks, benefits, and alternatives of the procedure which include but are not limited to risks of anesthesia, bleeding, infection, possible damage to bowel, bladder, or surrounding vasculature which could lead to additional surgery to evaluate any complications. Patient agrees to procedure and wishes to proceed. ACOG/uptodate references given for additional information regarding procedure.
[2025-02-02 09:06] LABS: Red Blood Cells-Urine 25-50 SEEN /hpf (0-5)
[2025-02-02 09:07] LABS: Squamous Epithelial Cells - UA 0-5 SEEN /hpf (5-10)
[2025-02-02] MEDS: Lactated Ringers 1,000 ML 15 ML IV (09:24)
[2025-02-02] MEDS: Lubricating Jelly 60 GM Tube 30 GM (09:25)
--- NOTE | 2025-02-02 09:30 | POC_PTH ---
PATIENT: SHEEBA WELSH LOC: [facility] U#:[id number] AGE/SX: 24/F ROOM: WP013 RE02/02/[address]: Dr. Jemima Garcia DO : 2000 BED: 1 DIS: 02/02/2025 SPEC #: [id number] RECD: 02/02/25 10:59 STATUS: BRITNEY MALIA #: [id number] DUNIA: 02/02/25 09:[address]: Jemima Garcia DEPT: SURGICAL PATHOLOGY RECD BY: Alexandra Jha ENTERED: 02/02/25 11:35 SP TYPE: PROD CONC OTHR DR: VERO [place] Tissues: Product of conception, NOS Procedures: Immunohistochemical Stains Surgery Specimen Level IV IHC Stain ADDITIONAL HEADER OPERATION: Retained Products of Conception PRE-OP DIAGNOSIS: Same TISSUE SUBMITTED: Retained Placenta MICROSCOPIC DIAGNOSIS A. Products of conception, retained placenta, dilation and suction curettage: - Gestational endometrial tissue with decidua and possible trophoblastic cells. - No chorionic villi identified - see Comment. COMMENT Selected slides/images were reviewed in intradepartmental consultation by Dr Mj Sands ([facility] pathology division, [facility]). MICROSCOPIC DESCRIPTION Slides are reviewed. GROSS DESCRIPTION A. Received in formalin labeled with the patient's name and date of . Designated as retained placenta is approximately 180 g dark red clotted blood and tissue fragments, 13.1 x 12.7 x 2.6 cm in aggregate. Welcome Wagon Host/Hostess sections are submitted in 3 cassettes. NE 02/02/2025 A. Additional floor representative sections are submitted in cassettes A4-A6, following histopathologic review. NE 02/06/2025 CPT: 82142,[id number]
--- NOTE | 2025-02-02 09:34 | PCM.PRE.AN2 ---
ASA Classification* ASA Classification ASA Classification: 1 and E Assessment & Plan Anesthesia* Anesthesia Assessment Anesthesia Assessment: Discussed sedation and/or anesthesia options, risks, benefits, and alternatives with patient/parents/legal guardian/POA. Questions invited. The patient/parents/legal guardian/POA seems to understand and agrees to proceed with anesthesia plan. Reviewed the physical assessment, medical history, allergy history and patient home medications list prior to surgery/procedure/anesthetic and documented any changes. Performed airway and anesthesia risk assessments. Anesthesia Type Anesthesia Type: General History Source History Obtained from:: Patient and Chart Anesthesia Focused Assessment* Temperature: 98.3 F Pulse Rate: 53 Blood Pressure: 118/54 Respiratory Rate: 18 Pulse Ox: 99 Oxygen Delivery Method: Room Air Airway Assessment Mouth opens: >3 cm Mallampati Score: I Teeth Condition: Intact Neck Range of motion (ROM): Full ROM Labs Anesthesia Preop lab: CBC WBC 6.7 K/mm3 (4.4-11.0) 02/02/25 05:16 02/02/25 RBC 4.47 M/mm3 (4.2-5.4) 02/02/25 05:16 02/02/25 Hgb 11.8 g/dL (12.0-15.0) L 02/02/25 05:16 02/02/25 Hct 36.4 % (37-47) L 02/02/25 05:16 02/02/25 Plt Count 276 K/mm3 (150-450) 02/02/25 05:16 02/02/25 CHEMISTRY Potassium 3.8 mmol/L (3.3-5.1) 02/02/25 05:16 02/02/25 Sodium 137 mmol/L (133-145) 02/02/25 05:16 02/02/25 BUN 10 mg/dL (4-19) 02/02/25 05:16 02/02/25 Creatinine 0.65 mg/dL (0.70-1.20) L 02/02/25 05:16 02/02/25 Glucose 94 mg/dL (70-99) 02/02/25 05:16 02/02/25 TSH 1.63 uIU/mL (0.358-3.74) 11/12/23 15:49 11/12/23 COAG PT 13.5 SECONDS (11.7-14.9) 02/02/25 05:16 02/02/25 Pre-Assessment Diagnosis/Proposed Procedure Planned Operative Procedure(s): Suction dilation and curettage Anesthesia History 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 When Was Last Pacemaker Check QUESTION #4 FULL TEXT: You/Your Family Experience fever (hyperthermia) with Anesthesia Last Oral Intake Last Oral intake: Last Oral Intake NPO since Meds taken in AM with sips of water? 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 Female HX of Motion Sickness HX of N/V After Surgery Non-Smoker Duration of Surgery greater than 60 minutes Number of Risk Factors PONV Score Height & Weight Height & Weight: Anesthesia: Height & Weight Height 5 ft 10 in 02/02/25 08:57 Weight: 80.5 kg 02/02/25 08:57 Body Mass Index (BMI) 25.4 02/02/25 08:57 Respiratory Assessment Respiratory Assessment - percolator operator: Respiratory Tract Infection Hx - percolator operator Hx Respiratory Tract Infection STOP Sleep Apnea STOP Sleep Apnea - percolator operator: STOP Sleep Apnea - percolator operator Hx Hypertension No 02/02/25 08:57 Hx Sleep Apnea No 02/02/25 08:57 CPAP BIPAP Do you snore loudly (louder No 02/02/25 08:57 than talking or can be heard Do you often feel tired/ No 02/02/25 08:57 fatigued/ sleepy during daytime? Has anyone observed you stop No 02/02/25 08:57 breathing during sleep? STOP Results Negative 02/02/25 08:57 QUESTION #5 FULL TEXT : Do you snore loudly (louder than talking or can be heard through closed doors)? 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 Specify any problems Hx of Preganancy in last 3 Months Nurse Filling Out Transfusion & Questions: Date: Time: Patient unable to answer at this time (ie. confused, unrespo /Reproduction History /Reproductive History - percolator operator: /Reproductive Hx- percolator operator Hx Now No: 1 wk post 02/02/25 08:57 Gestational Age (in weeks): EDC: Hx 1 02/02/25 05:12 Hx Para Hx Section SAB Yes 02/02/25 08:57 Active Medications Active Medications: Current Medications Generic Name Dose Route Start Last Admin Trade Name Freq PRN Reason Stop Dose Admin Lactated Ringer's 1,000 mls @ 15 mls/hr 02/02/25 09:30 02/02/25 09:24 IV 15 mls/hr .Q48H REJI Administration Cefotetan Disodium 2 gm/ 100 mls @ 200 mls/hr 02/02/25 09:30 Sodium Chloride IV 02/02/25 09:59 INTRAOP ONE PFSH Medical History Depression Anxiety Menorrhagia Headache, migraine History of fracture Non-smoker Home Medications ?Medication ?Instructions ?Recorded ?Last Taken ?Type multivit-min no.71-iron fum 28 1 cap PO DAILY 06/14/24 Unknown History mg-folate no.1 1 mg-dha 300 mg capsule (PNV-[place]) Allergy/AdvReac Type Severity Reaction Status Date / Time No Known Allergies Allergy Verified 02/02/25 05:13 Family History Mother Breast cancer, Onset Age: 51 Depression Father Cancer, Onset Age: 57 Chronic leukemia Surgical History History of repair of ACL Social History adopted: No household members: significant other and family current occupational status: employed current occupation: [employer] pets and animals: Yes pets and animals: dog(s) history of recent travel: No sexually active: Yes Smoking Status: Never smoker alcohol intake: current alcohol intake frequency: holidays/special occasions only details: Not while substance use type: does not use well-balanced diet: daily or most days caffeine: Yes (occasional) eating out: 1-3 times/week during the past year weight has: remained stable what type of physical activity do you participate in: aerobics and weight training frequency: 3-4 times per week duration: 60-90 minutes/day daniel/congregational: Temple seatbelt use: always do you feel safe at home: Yes additional social history: TERRANCE- [employer] Review of Systems (Anesthesia) ROS Narrative System reviewed and no additional complaints, except as documented.
--- NOTE | 2025-02-02 09:47 | DCINST_ITS ---
Discharge Instructions DC O2, CPAP, BIPAP needs Home O2 Discharge instructions: No Dressing / Incision Discharge Activity: Return to Normal Activity, May Shower and May Take a Tub Bath (after 1 week) May resume sexual activity in: 1-2 weeks Weight Bearing Status: Weight bearing as tolerated Lifting Restrictions: none Dressing / Incision Call your doctor if you observe: Fever of 101 or Higher, Using more than 1 pad per hour, Shortness of breath and Uncontrolled pain Follow Up Care Please Follow Up With: Jemima Garcia DO When: Call [phone] to schedule appointment. Test Results: Test results from this visit will be discussed in further detail at your follow- up appointment, if applicable. Discharge Plan Admission Primary Reason for Your Visit: suction dilation and curettage Attending Provider: Jemima Garcia Primary Care Provider: Yoel Frost Instructions Print Language: [place] Discharge Orders/Prescriptions Prescriptions: New ibuprofen 800 mg tablet 800 mg PO Q8H PRN (Reason: pain) Qty: 30 0RF No Action PNV-[place] 28-1-300 mg capsule 1 cap PO DAILY Referrals / Follow Up: Yoel Frost PA [Primary Care Provider] - Disposition Disposition (needs filled in before D/C Order can be placed): Home, Self Care
[2025-02-02] MEDS: Cefotetan 2 GM in 0.9% Normal Saline (100mL MB+) 100 ML IV (09:55)
[2025-02-02] MEDS: TRANEXAMIC ACID 1,000 MG in 0.9% Normal Saline (100mL Bag) 100 ML 440 MG IV (10:12)
--- NOTE | 2025-02-02 10:33 | OP.PCM_ITS ---
Problems Associated Problem List Diagnoses (1) Retained products of conception after delivery with complications: (2) hemorrhage, delayed (> 24 hrs): Multi Select Codes Urinary/Genital Urinary/Genital CPT Codes: 37119 Curettage, Operative Report (Standard) Operative Information Date of Procedure: 02/02/25 Pre-Operative Diagnosis: retained products of conception and hemorrhage Post-Operative Diagnosis: retained products of conception and hemorrhage Surgery/Procedure Performed: suction dilation and curettage residential substance abuse counselor: No Type of Anesthesia: General RN Documented Start/Stop Times: Operation Date: 02/02/25 09:30 Case Time Into Pre-Op 02/02/25 09:17 Out of Pre-Op 02/02/25 09:43 Anesthesia Start 02/02/25 09:44 Into Room 02/02/25 09:44 Procedure Start 02/02/25 09:58 Procedure Start Time: 09:58 Procedure Stop Time: 10:30 Select all DRAINS/GRAFTS/IMPLANTS that apply: None Estimated Blood Loss: 1200cc Specimen collected: Yes Description of specimen(s) removed: products of conception Description of surgery: Patient was taken to the operating room and placed under general anesthesia. She was prepped and draped in the normal sterile fashion the dorsal lithotomy position. Bladder was drained of clear urine and anterior lip of the cervix was grasped and the uterus sounded to 16 cm. a size 10uction curette was introduced into the uterus. The suction canister quickly filled to the max capacity within a few seconds. The suction canister was changed and further suction curettage was performed. A large amount of blood and clot and products of conception were sucked out of the uterus but was happening at the slow rate. A sharp curettage confirmed complete removal of the retained products. The uterus continued to be boggy and soft and profusely pouring out bright red blood. The patient was given IM Pitocin 10 milliunits, 0.25 Hemabate, 0.2 Methergine, 1000 of TXA and 1000 mcg of Cytotec. The [facility] system was called to the room however by the time it got to the room the bleeding had stopped. All instruments were removed from the vagina and excellent hemostasis was noted and the patient was taken to recovery in stable condition. Surgical Findings: Large amount of placenta retained in the uterus, hemorrhage resolved Complications Complications: No Admit VTE Documentation VTE Present on Admission: No VTE Mechan Device Prophylaxis: SCD's VTE Pharm Prophylaxis ordered?: No
[2025-02-02 10:34] LABS: Hematocrit 30.9 % (37-47); Hemoglobin 10.1 g/dL (12.0-15.0); Immature Granulocytes Count 0.010 X10^3/uL (0.0-0.0); Mean Corp Hgb Conc 32.7 g/dL (32-36); Mean Corpuscular Volume 81.5 fL (81-99); Mean Platelet Vol. 9.0 fl (6.2-12.0); NRBC Flagged by Analyzer 0 % (0-5); Platelet Count 277 K/mm3 (150-450); RBC Distribution Width CV 13.6 % (11.6-14.6); RBC Distribution Width SD 40.3 fl (35.1-43.9); Red Blood Count 3.79 M/mm3 (4.2-5.4); White Blood Count 7.3 K/mm3 (4.4-11.0)
--- NOTE | 2025-02-02 10:46 | PCM.POST.ANE ---
Anesthesia: Postop Eval I Current Vital Signs Temperature: 97.5 F Pulse Rate: 81 Blood Pressure: 125/82 Respiratory Rate: 16 Pulse Ox: 97 Oxygen Delivery Method: Room Air Assessment Airway patent: Yes Spontaneous unlabored respirations: Yes Mental status: Awake and Calm nausea: No Vomiting: No Anesthesia Complication: No Fluid Hydration Crystalloid volume administer (ml): 1,500 Total IV fluid infused: 1,500 Progress Note Anesthesia document: Postop Eval 1 completed: Yes
[2025-02-02] MEDS: Oxytocin 15 Units/NS 250ml 15 UNITS/250 ML IV.SOLN 83 UNITS IV (12:10)
[2025-02-02 13:07] LABS: Hematocrit 29.8 % (37-47); Hemoglobin 9.5 g/dL (12.0-15.0)
[2025-02-02] MEDS: 0.9% Saline Lock 10 ML Syringe IV (14:57)
[2025-02-02] MEDS: Benzocaine/Lanolin/Aloe Vera 85 GM Spray 1 SPRAY TOPICAL ×2 (15:11→15:12)
[2025-02-02] MEDS: SELF ADMINISTRATION OF MEDS 1 EACH NOTE (15:12)
--- NOTE | 2025-02-02 16:00 | POSTOPAN2_ITS ---
Anesthesia Postop Eval I Sum Postop Eval Completion status Anesthesia document: Postop Eval 1 completed: Yes Anesthesia Postop Eval I Summary Anesthesia Postop Eval I Summary: Anesthesia Postop Eval I: Assessment Summary Airway patent Yes 02/02/25 10:47 BATCH PLANT OPERATOR.[email or web address] Spontaneous unlabored Yes 02/02/25 10:47 BATCH PLANT OPERATOR.JBOR respirations Mental status Awake,Calm 02/02/25 10:47 BATCH PLANT OPERATOR.JBOR nausea No 02/02/25 10:47 BATCH PLANT OPERATOR.JBOR Vomiting No 02/02/25 10:47 BATCH PLANT OPERATOR.JBOR Anesthesia Postop Eval I: Fluid Summary Crystalloid volume administer 1,500 02/02/25 10:47 BATCH PLANT OPERATOR.JBOR (ml) Colloids volume administered ( ml) Blood Product volume administered (ml) Total IV fluid infused 1,500 02/02/25 10:47 BATCH PLANT OPERATOR.JBOR Anesthesia Postop Eval I: Summary Notes Anesthesia Complication No 02/02/25 10:47 BATCH PLANT OPERATOR.JBOR Anesthesia Complication Comment: Post-operative progress note Anesthesia: Postop Eval II Evaluation Mental status: Awake and Calm Pain Level: 1 nausea: No Vomiting: No Complications Anesthesia Complication: No
--- NOTE | 2025-02-02 16:00 | PCM.POSTANE2 ---
Anesthesia Postop Eval I Sum Postop Eval Completion status Anesthesia document: Postop Eval 1 completed: Yes Anesthesia Postop Eval I Summary Anesthesia Postop Eval I Summary: Anesthesia Postop Eval I: Assessment Summary Airway patent Yes 02/02/25 10:47 [email or web address] Spontaneous unlabored Yes 02/02/25 10:47 [email or web address] respirations Mental status Awake,Calm 02/02/25 10:47 [email or web address] nausea No 02/02/25 10:47 [email or web address] Vomiting No 02/02/25 10:47 [email or web address] Anesthesia Postop Eval I: Fluid Summary Crystalloid volume administer 1,500 02/02/25 10:47 [email or web address] (ml) Colloids volume administered ( ml) Blood Product volume administered (ml) Total IV fluid infused 1,500 02/02/25 10:47 [email or web address] Anesthesia Postop Eval I: Summary Notes Anesthesia Complication No 02/02/25 10:47 [email or web address] Anesthesia Complication Comment: Post-operative progress note Anesthesia: Postop Eval II Evaluation Mental status: Awake and Calm Pain Level: 1 nausea: No Vomiting: No Complications Anesthesia Complication: No
--- NOTE | 2025-02-02 18:46 | PCM.PN.OB ---
Subjective Subjective Patient doing well without complaints. Tolerating PO. Ambulating and voiding without difficulty. Feeding well. Denies chest pain, shortness of breath, calf pain/swelling, fevers, chills, lightheadedness. She wants to go home. bleeding is scant cbc and vitals are stable Objective Data Objective Data Vital Signs: Vital Signs Temp Pulse Resp BP Pulse Ox O2 Del Method 99.0 F 75 16 114/52 L 98 Room Air 02/02/25 15:19 02/02/25 15:19 02/02/25 15:19 02/02/25 15:19 02/02/25 15:19 02/02/25 15:19 Oxygen Delivery Method Room Air Weight: 177 lb 7.554 oz Body Mass Index (BMI) 25.4 Intake & Output: Intake and Output for Last 24 Hours 01/31/25 02/01/25 02/02/25 23:59 23:59 23:59 Intake Total 2384 / 2384 Output Total 1800 / 1800 Balance 584 / 584 Lab / Micro Data 02/02/25 12:25 02/02/25 05:16 Labs: Laboratory Results - last 24 hr 02/02/25 05:16: WBC 6.7, RBC 4.47, Hgb 11.8 L, Hct 36.4 L, MCV 81.4, MCH 26.4 L, MCHC 32.4, RDW Std Deviation 40.1, RDW Coeff of Elvin 13.7, Plt Count 276, MPV 8.8, Immature Gran % (Auto) 0.400, Neut % (Auto) 64.0, Lymph % (Auto) 23.3, [place] % (Auto) 11.0 H, Eos % (Auto) 0.9, Baso % (Auto) 0.4, Absolute Neuts (auto) 4.3, Absolute Lymphs (auto) 1.57, Nucleated RBC % 0, PT 13.5, INR 1.0, APTT 30.8, Sodium 137, Potassium 3.8, Chloride 103, Carbon Dioxide 20.6 L, Anion Gap 13, BUN 10, Creatinine 0.65 L, Estim Creat Clear Calc 144.32, Est GFR (MDRD) Non-Af 126, BUN/Creatinine Ratio 16.0, Glucose 94, Calcium 9.2, Blood Type O POSITIVE, Antibody Screen NEGATIVE, Crossmatch See Detail 02/02/25 05:36: Lactic Acid < 1.0 02/02/25 08:40: Urine Color Lorenza, Urine Clarity Sl. Cloudy, Urine pH 6.0, Ur Specific [place] 1.015, Urine Protein 100 H, Urine Glucose (UA) Normal, Urine Ketones Negative, Urine Occult Blood 250 H, Urine Nitrite Negative, Urine Bilirubin Negative, Urine Urobilinogen Normal, Ur Leukocyte Esterase 500 H, Urine RBC 25-50 SEEN, Urine WBC 10-25 SEEN, Ur Squamous Epith Cells 0-5 SEEN, Urine Bacteria 0 SEEN, Urine Mucus 0 SEEN 02/02/25 10:30: WBC 7.3, RBC 3.79 L, Hgb 10.1 L, Hct 30.9 L, MCV 81.5, MCH 26.6 L, MCHC 32.7, RDW Std Deviation 40.3, RDW Coeff of Elvin 13.6, Plt Count 277, MPV 9.0, Immature Gran % (Auto) 0.100, Neut % (Auto) 72.5 H, Lymph % (Auto) 19.6, [place] % (Auto) 7.4, Eos % (Auto) 0.3, Baso % (Auto) 0.1, Absolute Neuts (auto) 5.3, Absolute Lymphs (auto) 1.42, Nucleated RBC % 0 02/02/25 12:25: Hgb 9.5 L, Hct 29.8 L Radiography Diagnostic Testing: Radiology Impression Pelvis Ultrasound 02/02/25 05:32 IMPRESSION: Findings in keeping with retained products of conception. Reading Location: [address] Constitutional Constitutional: Denies chills, fatigue, fever(s), poor appetite or weakness Eyes Eyes: Denies blurry vision, change in vision, seeing flashes or spots in vision ENT HEENT: Denies dizziness, headache(s), loss taste/smell or sore throat Cardiovascular Cardiovascular: Denies chest pain, dizziness, dyspnea, irregular heart rhythm, palpitations or rapid heart rate Respiratory/Chest Respiratory/Chest: Denies chest tightness, cough, dyspnea or breast pain Gastrointestinal Gastrointestinal: Denies abdominal pain, constipation or vomiting Genitourinary Genitourinary: Denies dysuria or flank pain Musculoskeletal Musculoskeletal: Denies difficulty walking, joint pain, limited range of motion or numbness Neurologic Neurologic: Denies abnormal movements, abnormal speech, dizziness, numbness, seizure-like activity or syncope Psychiatric Psychiatric: Denies anxiety, behavioral changes, change in appetite, confusion, depression or suicidal thoughts Physical Exam Const alert, oriented x3 and no apparent distress General Appearance: cooperative and comfortable Resp normal respiratory effort Cardio regular rate GI normal to inspection, nondistended, normoactive bowel sounds GI Narrative: uterus is firm below umbilicus Palpation: soft Back/Spine no CVA tenderness and thoraco-lumbar ROM normal Extremity normal to inspection, no clubbing, cyanosis or edema, no calf tenderness and no pedal edema Psych mental status grossly normal, thought process normal, cooperative, affect normal, speech normal, activity/motor behavior normal, denies homicidal ideation and denies suicidal ideation Assessment & Plan (1) hemorrhage, delayed (> 24 hrs): (2) Retained products of conception after delivery with complications: PLAN: Plan patient is stable after several hours of observation ok to dc to home
== END 2025-02-02 19:08 | disposition home or self-care (01) ==
LOC: ED 08:55 → SDC 09:01 → ACINP 09:02 → WP 11:59 → SDC 12:00 → WP 12:00
PROVIDERS: Admitting Provider Obstetrics & Gynecology; Emergency Provider Emergency Medicine; PCP Physician Assistant; Visit Provider Obstetrics & Gynecology
PROC: (CPT 59160; principal; 2025-02-02 09:15)
DX: O72.2 Delayed and secondary postpartum hemorrhage (principal)
CPT/HCPCS: 59160; 00940; 76856; 80048; 81001; 83605; 85014; 85018; 85025; 85610; 85730; 86850; 86900; 86901; 88305; 88341; 88342; 99284; A4216; J2405

== ENCOUNTER → 2025-02-03 | Outpatient (CLI) | payer BC, OTHER, SELFPAY ==
[2025-02-03 12:25] LABS: Hematocrit 28.3 % (37-47); Hemoglobin 9.0 g/dL (12.0-15.0); Mean Corp Hgb Conc 31.8 g/dL (32-36); Mean Corpuscular Volume 83.0 fL (81-99); Mean Platelet Vol. 9.3 fl (6.2-12.0); Platelet Count 324 K/mm3 (150-450); RBC Distribution Width CV 13.9 % (11.6-14.6); RBC Distribution Width SD 41.7 fl (35.1-43.9); Red Blood Count 3.41 M/mm3 (4.2-5.4); White Blood Count 6.5 K/mm3 (4.4-11.0)
--- OUTSIDE RECORDS SUMMARY | 2025-02-03 15:01 | XMS RPT_ITS | CCD ---
Author Organization [facility]iniSynv Care Team Providers Care Satellite Installer Name Role Phone Dr. Michael Patel Primary Care Provider Dr. Michael Patel Referring Provider [phone] Dr. Moisés Haines Attending Provider [phone] Dr. Moisés Haines Primary Care Provider [phone] Dr. Moisés Haines Referring Provider [phone] VERO Porter Attending Provider [phone] JEMIMA SHERIDAN [facility] PATEL Primary Care Unavailable RASHIDA MCCAIN Attending Unavailable Dr. Moisés Haines DO Primary Care Provider Dr. Moisés Haines DO Referring Provider [phone] Provider Angela Sanders CNM Referring Provider [phone] Dr. Moisés Haines DO Referring Provider [phone] Mike CNM, Roseanna Attending Provider [phone] Adriana GONZALEZ, Dr. Zambrano Attending Provider [phone] Tommy BENÍTEZ, Angela Other Provider [phone] Attending Unavailable Angela Sanders Referring Unavailable Ariel PLASTIC SURGERY TECHNICIANCesilia Referring Unavailable Ariel PLASTIC SURGERY TECHNICIAN, Cesilia Attending Unavailable Brown, Moisés R Primary [...] Referring Unavailable Roseanna Mckeon Attending Unavailable Ariel PLASTIC SURGERY TECHNICIAN, Cesilia Attending Unavailable Brown, Moisés R Referring Unavailable Brown, Moisés R Referring Unavailable Roseanna Mckeon Attending Unavailable Brown, Moisés R Primary Care Unavailable Brown, Moisés R Referring Unavailable Angela Sanders Attending Unavailable Brown, Moisés R Referring Unavailable Brown, Moisés R Primary Care Unavailable Jemima Garcia Attending Roseanna Horton Admitting Unavailable Care Physician, No Primary Primary Care Unava ilable Roseanna Mckeon Referring Unavailable Angela Sanders Consulting Unavailable Roseanna Mckeon Attending Unavailable Roseanna Mckeon Consulting Unavailable Ariel BARRIOS, Cesilia Attending Unavailable Jemima Garcia Admitting Unavailabl e Vande Velcarlos, Jemima Referring Unavailabl e Lizabethe Austin, Jemima Consulting Unavailabl e Lizabethe Austin, Jemima Attending UnavailKenya Nguyen Attending Unavailable Angela Sanders Attending Unavailable Angela Sanders Attending Unavailable Moisés Haines Primary Care Unavailable Jemima Garcia Referring Unavailabl e Lizabethe Austin, Jemima Attending UnavailYoel Nguyễn Primary Care Provider [phone] Dr. Negro Cook DO Emergency Provider [phone] Medications Current Medications Medication Drug Class(es) Dates Sig (Normalized) Sig (Original) ferrous gluconate 324 mg oral tablet (1 source) Start: 02-02-2025 take 1 tablet by mouth once daily Ferrous Gluconate 324 mg (38 mg iron) tablet Active 324 mg PO DAILY 30 3 February 02, 2025 12:00am ibuprofen 800 mg oral tablet (2 sources) Nonsteroidal Anti-inflammatory Drug Start: 02-02-2025 take 1 tablet by mouth every eight hours as needed for pain Ibuprofen 800 mg tablet Active 800 mg PO Q8H as needed for pain 30 0 February 02, 2025 12:00am Mv-Mins 59-Hzee-Cfmak No.1-Dha (Pnv-Clark) 28-1-300 mg capsule (12 sources) Start: 06-14-2024 Mv-Mins 91-Qanr-Dwcem No.1-Dha (Pnv-Clark) 28-1-300 mg capsule Active 1 NMA PO DAILY June 14, 2024 1:00am Start: 06-14-2024 Mv-Mins 71-Iro n-Folic No.1-Dha (Pnv-Clark) 28-1-300 mg capsule Active NMA PO June 14, 2024 1:00am Completed/Discontinued Medications Medication Drug Class(es) Dates Sig (Normalized) Sig (Original) amoxicillin 875 mg oral tablet (14 sources) Penicillin-class Antibacterial Start: 04-30-2021 End: 09-04-2022 [...] 2024 10:10am predniSONE 20 mg oral tablet (14 sources) Start: 04-30-2021 End: 09-04-2022 take 2 tablets by mouth once daily Prednisone 20 mg tablet Discontinued 40 mg PO DAILY April 30, 2021 12:00am September 04, 2022 5:20pm Start: 04-30-2021 End: 09-04-2022 take 40 mg by mouth once daily Prednisone Discontinued 40 MG PO DAILY April 30, 2021 12:00am September 04, 2022 5:20pm promethazine hydrochloride 12.5 mg oral tablet (11 sources) Phenothiazine Start: 12-09-2024 End: 01-24-2025 take 1 tablet by mouth every six hours as needed for headache Promethazine 12.5 mg tablet Discontinued 12.5 mg PO EVERY 6 HOURS as needed for headache 30 December 09, 2024 12:00am January 24, 2025 2:58am Problems Active Problems Problem Classification Problem Date Documented Da te Episodic/Chronic Anxiety disorders (19 sources) Mixed anxiety and depressive disorder; Translations: [Other specified anxiety disorders] 09-09-2022 Chronic Cardiac dysrhythmias (16 sources) Palpitations; Translations: [Palpitations] Onset: 07-21-2024 11-12-2023 Episodic Early or threatened labor (1 source) False labor, unspecified; Translations: [False labor, unspecified] Onset: 01-27-2025 Episodic Malaise and fatigue (15 sources) Fatigue; Translations: [Other fatigue] 11-04-2022 Episodic Menstrual disorders (14 sources) Menorrhagia; Translations: [Excessive and frequent menstruation with regular cycle] 11-13-2023 Chronic Nonspecific chest pain (17 sources) Chest discomfort; Translations: [Other chest pain] Onset: 07-21-2024 11-13-2023 Episodic Other complications of ; puerperium affecting management of mother (2 sources) hemorrhage; Translations: [Other immediate hemorrhage] 02-02-2025 Episodic Other complications of ; puerperium affecting management of mother (4 sources) Retained products of conception; Translations: [Retained portions of placenta and membranes, without hemorrhage] 02-02-2025 Episodic Other complications of ; puerperium affecting management of mother (2 sources) Delayed AND/OR secondary hemorrhage; Translations: [Delayed and secondary hemorrhage] 02-02-2025 Episodic Other and delivery including normal (20 sources) Normal ; Translations: [Encounter for supervision of normal first , unspecified trimester] Onset: 08-16-2024 10-14-2024 Episodic Comment on above: PRR, , OLIVIA 5, girl Austin BF Klejhan NIPT low risk, gende r female, elects Carrier testing GBS neg, NIPT low ri sk, gender female, elects Carrier testing LC IAL Austin me c Otitis media and related conditions (14 sources) Otitis media; Translations: [Otitis media, unspecified, [...] gestation of ] Onset: 06-23-2024 Episodic Unclassified (4 sources) Spontaneous onset of labor 01-25-2025 Results Test Name Value Interpretation Reference Range Facility Absolute lymphocyte countOrd ered By: Jemima Avila on 02-02-2025 Lymphocytes Auto (Unsp spec) [#/Vol] 1.42 10*3/uL 0.83-4.51 [facility] Absolute lymphocyte countOrd ered By: Negro Cook on 02-02-2025 Lymphocytes Auto (Unsp spec) [#/Vol] 1.57 10*3/uL 0.83-4.51 [facility] Absolute neutrophil countOrd ered By: Jemima Avila on 02-02-2025 Neutrophils (Bld) [#/Vol] 5.3 10*3/uL 2.0-7.7 [facility] Absolute neutrophil countOrd ered By: Negro Cook on 02-02-2025 Neutrophils (Bld) [#/Vol] 4.3 10*3/uL 2.0-7.7 [facility] Activated partial thrombopla stin time (aPTT) in platelet poor plasma by coagulation aOrdered By: Negro Cook on 02-02-2025 aPTT Coag (PPP) [Time] 30.8 s 24.1-36.2 [facility] Anion gap in Serum or Plasma Ordered By: Negro Cook on 02-02-2025 Anion gap [Moles/Vol] 13 mmol/L 5-15 [facility] Automated lymphocyte count a s percentage of total leukocytesOrdered By: Jemima Avila on 02-02-2025 Lymphocytes/100 WBC Auto (Unsp spec) 19.6 % [facility] Automated lymphocyte count a s percentage of total leukocytesOrdered By: Negro Cook on 02-02-2025 Lymphocytes/100 WBC Auto (Unsp spec) 23.3 % - [facility] BUN/creatinine ratioOrdered By: Negro Cook on 02-02-2025 Urea nitrogen/Creatinine [Mass ratio] 16.0 mg/mg 10-20 [facility] Basophil percentageOrdered B y: Jemima Avila on 02-02-2025 Basophils/100 WBC (Bld) 0.1 % 0-1 [facility] Basophil percentageOrdered B y: Negro Cook on 02-02-2025 Basophils/100 WBC (Bld) 0.4 % 0-1 [facility] Bilirubin Test strip Ql (U)O rdered By: Negro Cook on 02-02-2025 Bilirubin Ql (U) Negative Negative [facility] Carbon dioxide, total [Moles /volume] in Central venous bloodOrdered By: Negro Cook on 02-02-2025 CO2 [Moles/Vol] 20.6 mmol/L Low 21.0-32.0 [facility] Chloride assayOrdered By: Anastasiia Cook on 02-02-2025 Chloride [Moles/Vol] 103 mmol/L 98-108 [facility] Eosinophil percentageOrdered By: Jemima Avila on 02-02-2025 Eosinophils/100 WBC (Bld) 0.3 % 0-5 [facility] Eosinophil percentageOrdered By: Negro Cook on 02-02-2025 Eosinophils/100 WBC (Bld) 0.9 % 0-5 [facility] Erythrocyte distribution wid th ratioOrdered By: Jemima Avila on 02-02-2025 Erythrocyte distribution width (RBC) [Ratio] 13.6 % 11.6-14.6 [facility] Erythrocyte distribution wid th ratioOrdered By: Negro Cook on 02-02-2025 Erythrocyte distribution width (RBC) [Ratio] 13.7 % 11.6-14.6 [facility] Erythrocyte distribution wid th standard deviationOrdered By: Jemima Avila on 02-02-2025 Erythrocyte distribution width (RBC) [Ratio] 40.3 fl 35.1-43.9 [facility] Erythrocyte distribution wid th standard deviationOrdered By: Negro Cook on 02-02-2025 Erythrocyte distribution width (RBC) [Ratio] 40.1 fl 35.1-43.9 [facility] Glomerular filtration rate ( GFR) estimation/1.73 sq m using serum, plasma, or whole bOrdered By: Negro Cook on 02-02-2025 GFR/1.73 sq M.predicted among non-blacks MDRD (S/P/Bld) [Vol rate/Area] 126 mL/min/{1.73_m2} >60 [facility] Comment on above: mL/min/1.73m2 CKD-EP I Creatinine Equation (2020) Hematocrit Auto (Bld) [Volum e fraction]Ordered By: Jemima Avila on 02-02-2025 Hematocrit (Bld) [Volume fraction] 29.8 % Low 37-47 [facility] Hematocrit Auto (Bld) [Volum e fraction]Ordered By: Negro Cook on 02-02-2025 Hematocrit (Bld) [Volume fraction] 36.4 % Low 37-47 [facility] Hemoglobin measurementOrdere d By: Jemima Avila on 02-02-2025 Hemoglobin (Bld) [Mass/Vol] 9.5 g/dL Low 12.0-15.0 [facility] Hemoglobin measurementOrdere d By: Negro Cook on 02-02-2025 Hemoglobin (Bld) [Mass/Vol] 11.8 g/dL Low 12.0-15.0 [facility] Immature granulocytes/100 WB C Auto (Bld)Ordered By: Jemima Avila on 02-02-2025 Immature granulocytes/100 WBC (Bld) 0.100 % 0.0-0.9 [facility] Comment on above: IG% - Immature Granu locytes (promyelocytes, myelocytes and metamyelocytes) > 1% indicates that a LEFT SHIFT is Present. Immature granulocytes/100 WB C Auto (Bld)Ordered By: Negro Cook on 02-02-2025 Immature granulocytes/100 WBC (Bld) 0.400 % 0.0-0.9 [facility] Comment on above: IG% - Immature Granu locytes (promyelocytes, myelocytes and metamyelocytes) > 1% indicates that a LEFT SHIFT is Present. International normalized rat io (INR) calculationOrdered By: Negro Cook on 02-02-2025 INR Coag (Bld) [Relative time] 1.0 {INR} [facility] Ketones Test strip Ql (U)Ord ered By: Negro Cook on 02-02-2025 Ketones Ql (U) Negative Negative [facility] Lactic acid measurementOrder ed By: Negro Cook on 02-02-2025 Lactate [Moles/Vol] mmol/L 0.0-2.0 [facility] MCV (mean corpuscular volume ) determinationOrdered By: Jemima Avila on 02-02-2025 MCV (RBC) [Entitic vol] 81.5 fL 81-99 [facility] MCV (mean corpuscular volume ) determinationOrdered By: Negro Cook on 02-02-2025 MCV (RBC) [Entitic vol] 81.4 fL 81-99 [facility] Mean corpuscular hemoglobin (MCH) determinationOrdered By: Jemima Avila on 02-02-2025 MCH (RBC) [Entitic mass] 26.6 pg Low 27.0-32.0 [facility] Mean corpuscular hemoglobin (MCH) determinationOrdered By: Negro Cook on 02-02-2025 MCH (RBC) [Entitic mass] 26.4 pg Low 27.0-32.0 [facility] Mean corpuscular hemoglobin concentration (MCHC) determinationOrdered By: Jemima Avila on 02-02-2025 MCHC (RBC) [Mass/Vol] 32.7 g/dL 32-36 [facility] Mean corpuscular hemoglobin concentration (MCHC) determinationOrdered By: Negro Cook on 02-02-2025 MCHC (RBC) [Mass/Vol] 32.4 g/dL 32-36 [facility] Mean platelet volume determi nationOrdered By: Jemima Avila on 02-02-2025 Platelet mean volume (Bld) [Entitic vol] 9.0 fL 6.2-12.0 [facility] Mean platelet volume determi nationOrdered By: Negro Cook on 02-02-2025 Platelet mean volume (Bld) [Entitic vol] 8.8 fL 6.2-12.0 [facility] Microscopic analysis of urin e for red blood cells (RBC)Ordered By: Negro Cook on 02-02-2025 Microscopic analysis of urine for red blood cells (RBC) 25-50 SEEN /hpf 0-5 [facility] Monocyte percentageOrdered B y: Jemima Avila on 02-02-2025 Monocytes/100 WBC (Bld) 7.4 % 0-10 [facility] Monocyte percentageOrdered B y: Negro Cook on 02-02-2025 Monocytes/100 WBC (Bld) 11.0 % High 0-10 [facility] Mucus LM Ql (Urine sed)Order ed By: Negro Cook on 02-02-2025 Mucus Ql (Urine sed) 0 SEEN /hpf [facility] Neutrophil percentageOrdered By: Jemima Avila on 02-02-2025 Neutrophils/100 WBC (Bld) 72.5 % High 47-70 [facility] Neutrophil percentageOrdered By: Negro Cook on 02-02-2025 Neutrophils/100 WBC (Bld) 64.0 % 47-70 [facility] Nitrite Test strip Ql (U)Ord ered By: Negro Cook on 02-02-2025 Nitrite Ql (U) Negative Negative [facility] Nucleated red blood cell per centageOrdered By: Jemima Avila on 02-02-2025 Nucleated RBC/100 WBC (Bld) [Ratio] 0 % 0-5 [facility] Nucleated red blood cell per centageOrdered By: Negro Cook on 02-02-2025 Nucleated RBC/100 WBC (Bld) [Ratio] 0 % 0-5 [facility] Platelet countOrdered By: Saúl Avila on 02-02-2025 Platelets (Bld) [#/Vol] 277 10*3/uL 150-450 [facility] Platelet countOrdered By: Anastasiia Cook on 02-02-2025 Platelets (Bld) [#/Vol] 276 10*3/uL 150-450 [facility] Potassium measurement (mass/ volume)Ordered By: Negro Cook on 02-02-2025 Potassium (Unsp spec) [Mass/Vol] 3.8 mmol/L 3.3-5.1 [facility] Protein Test strip Ql (U)Ord ered By: Negro Cook on 02-02-2025 Protein Ql (U) 100 mg/dl High Negative [facility] Prothrombin timeOrdered By: Negro Cook on 02-02-2025 PT Coag (PPP) [Time] 13.5 s 11.7-14.9 [facility] RBC Auto (Bld) [#/Vol]Ordere d By: Jemima Avila on 02-02-2025 RBC (Bld) [#/Vol] 3.79 10*6/uL Low 4.2-5.4 [facility] RBC Auto (Bld) [#/Vol]Ordere d By: Negro Cook on 02-02-2025 RBC (Bld) [#/Vol] 4.47 10*6/uL 4.2-5.4 [facility] Serum creatinine measurement (mass/volume)Ordered By: Negro Cook on 02-02-2025 Creatinine [Mass/Vol] 0.65 mg/dL Low 0.70-1.20 [facility] Serum glucose measurement (m ass/volume)Ordered By: Negro Cook on 02-02-2025 Glucose [Mass/Vol] 94 mg/dL 70-99 [facility] Serum or plasma calcium vik urement (mass/volume)Ordered By: Negro Cook on 02-02-2025 Calcium [Mass/Vol] 9.2 mg/dL 7.6-11.0 [facility] Serum or plasma urea nitroge n measurement (mass/volume)Ordered By: Negro Cook on 02-02-2025 Urea nitrogen [Mass/Vol] 10 mg/dL 4-19 [facility] Sodium levelOrdered By: Dilip Cook on 02-02-2025 Sodium [Moles/Vol] 137 mmol/L 133-145 [facility] Squamous epithelial cells de tection in urine sediment by light microscopyOrdered By: Negro Cook on 02-02-2025 Epithelial cells.squamous LM Ql (Urine sed) 0-5 SEEN /hpf 5-10 [facility] Urine clarityOrdered By: Jairo Cook on 02-02-2025 Clarity (U) Sl. Cloudy Clear [facility] Urine color determinationOrd ered By: Negro Cook on 02-02-2025 Color (U) Lorenza Yellow [facility] Urine glucose detectionOrder ed By: Negro Cook on 02-02-2025 Glucose Ql (U) Normal mg/dl Normal [facility] Urine leukocyte esterase det ection by dipstickOrdered By: Negro Cook on 02-02-2025 Leukocyte esterase Test strip Ql (U) 500 /ul High Negative [facility] Urine pHOrdered By: Negro montalvo on 02-02-2025 pH (U) 6.0 [pH] 5.0 - 8.0 [facility] Urine sediment bacteria coun t by microscopy (number/high power field)Ordered By: Negro Cook on 02-02-2025 Bacteria LM.HPF (Urine sed) [#/Area] 0 /[HPF] None Seen [facility] Urine specific gravity measu rementOrdered By: Negro Cook on 02-02-2025 Specific gravity (U) [Rel density] 1.015 1.002-1.030 [facility] Urine urobilinogen measureme ntOrdered By: Negro Cook on 02-02-2025 Urobilinogen Ql (U) Normal mg/dl Normal [facility] White blood cell (WBC) count Ordered By: Jemima Avila on 02-02-2025 WBC (Bld) [#/Vol] 7.3 10*3/uL 4.4-11.0 [facility] White blood cell (WBC) count Ordered By: Negro Cook on 02-02-2025 WBC (Bld) [#/Vol] 6.7 10*3/uL 4.4-11.0 [facility] White blood cell countOrdere d By: Negro Cook on 02-02-2025 White blood cell count 10-25 SEEN /hpf 0-5 [facility] (ROM) Rupture Of Membraneson 01-24-2025 ROM Negative Normal Negative [facility] Comment on above: Result Comment: Amni otic fluid not present indicates No Rupture of Membranes at time of specimen collection. Performed By: #### L 205.1000 ####[facility] [address] [place], [place], [id number] Absolute lymphocyte countOrd ered By: Roseanna Mckeon on 01-24-2025 Lymphocytes Auto (Unsp spec) [#/Vol] 0.97 10*3/uL 0.83-4.51 [facility] Absolute neutrophil countOrd ered By: Roseanna Mckeon on 01-24-2025 Neutrophils (Bld) [#/Vol] 14.4 10*3/uL High 2.0-7.7 [facility] Automated lymphocyte count a s percentage of total leukocytesOrdered By: Roseanna Mckeon on 01-24-2025 Lymphocytes/100 WBC Auto (Unsp spec) 6.1 % Low 19-41 [facility] Basophil percentageOrdered B y: Roseanna Mckeon on 01-24-2025 Basophils/100 WBC (Bld) 0.2 % 0-1 [facility] CBC W/Diff, Automatedon Absolute Lymph 0.97 X10 3/uL Normal 0.83-4.51 [facility] Comment on above: Performed By: #### L 100.0100, BTS ####[facility] [address] [place], [address] Absolute Neut 14.4 X10 3/uL High 2.0-7.7 [facility] Comment on above: Performed By: #### L 100.0100, BTS ####[facility] [address] [place], [address] Basophils/100 WBC (Bld) 0.2 % Normal 0-1 [facility] Comment on above: Performed By: #### L 100.0100, BTS ####[facility] [address] [place], [address] Eosinophils/100 WBC (Bld) 0.0 % Normal 0-5 [facility] Comment on above: Performed By: #### L 100.0100, BTS ####[facility] [address] [place], [address] Erythrocyte distribution width (RBC) [Ratio] 13.2 % Normal 11.6-14.6 [facility] Comment on above: Performed By: #### L 100.0100, BTS ####[facility] [address] [place], [address] Hematocrit (Bld) [Volume fraction] 33.6 % Low 37-47 [facility] Comment on above: Performed By: #### L 100.0100, BTS ####[facility] [address] [place], [address] Hemoglobin (Bld) [Mass/Vol] 11.4 g/dL Low 12.0-15.0 [facility] Comment on above: Performed By: #### L 100.0100, BTS ####[facility] [address] [place], [address] IG% 0.400 Normal 0.0-0.9 [facility] Comment on above: Result Comment: IG% - Immature Granulocytes (promyelocytes, myelocytes and metamyelocytes) > 1% indicates that a LEFT SHIFT is Present. Performed By: #### L 100.0100, BTS ####[facility] [address] [place], [address] Lymphocytes/100 WBC (Bld) 6.1 % Low 19-41 [facility] Comment on above: Performed By: #### L 100.0100, BTS ####[facility] [address] [place], [address] MCH (RBC) [Entitic mass] 26.8 pg Low 27.0-32.0 [facility] Comment on above: Performed By: #### L 100.0100, BTS ####[facility] [address] [place], [address] MCHC (RBC) [Mass/Vol] 33.9 g/dL Normal 32-36 [facility] Comment on above: Performed By: #### L 100.0100, BTS ####[facility] [address] [place], [address] MCV (RBC) [Entitic vol] 78.9 fL Low 81-99 [facility] Comment on above: Performed By: #### L 100.0100, BTS ####[facility] [address] [place], [address] Monocytes/100 WBC (Bld) 2.6 % Normal 0-10 [facility] Comment on above: Performed By: #### L 100.0100, BTS ####[facility] [address] [place], [address] Neutrophils/100 WBC (Bld) 90.7 % High 47-70 [facility] Comment on above: Performed By: #### L 100.0100, BTS ####[facility] [address] [place], [address] Nucleated RBC (Bld) [#/Vol] 0 10*3/uL Normal 0-5 [facility] Comment on above: Performed By: #### L 100.0100, BTS ####[facility] [address] [place], [address] Platelet mean volume (Bld) [Entitic vol] 10.2 fL Normal 6.2-12.0 [facility] Comment on above: Performed By: #### L 100.0100, BTS ####[facility] [address] [place], [address] Platelets (Bld) [#/Vol] 229 10*3/uL Normal 150-450 [facility] Comment on above: Performed By: #### L 100.0100, BTS ####[facility] [address] [place], [address] RBC (Bld) [#/Vol] 4.26 10*6/uL Normal 4.2-5.4 [facility] Comment on above: Performed By: #### L 100.0100, BTS ####[facility] [address] [place], [address] RDW SD 37.6 fl Normal 35.1-43.9 [facility] Comment on above: Performed By: #### L 100.0100, BTS ####[facility] [address] [place], [address] WBC (Bld) [#/Vol] 15.9 10*3/uL High 4.4-11.0 [facility] Comment on above: Performed By: #### L 100.0100, BTS ####[facility] [address] [place], [address] Discharge Instructionon Discharge Instruction [facility] Medical Records Department [address] [place] [address] Instructions for Home/Discharge Instructions 01/24/25 1654 MR#: [id number] Acct: [id number] Name: SHEEBA WELSH Rep #: [id number] : 2000 24 From: Roseanna Mckeon CNM [...] Angela Sanders Discharge Orders/Prescriptions Prescriptions: No Action PNV-Clark 28-1-300 mg capsule 1 cap PO DAILY Referrals / Follow Up: Care Physician,No Primary [Primary Care Provider] - 01/24/251654 Roseanna Mckeon CNM CC: JACKELIN Sanders; No Primary Care Physician Signed Normal [facility] Eosinophil percentageOrdered By: Roseanna Mckeon on 01-24-2025 Eosinophils/100 WBC (Bld) 0.0 % 0-5 [facility] Erythrocyte distribution wid th ratioOrdered By: Roseanna Mckeon on 01-24-2025 Erythrocyte distribution width (RBC) [Ratio] 13.2 % 11.6-14.6 [facility] Erythrocyte distribution wid th standard deviationOrdered By: Roseanna Mckeon on 01-24-2025 Erythrocyte distribution width (RBC) [Ratio] 37.6 fl 35.1-43.9 [facility] H AND P Exam - OB/GYNon 07-0 H&P Exam - ROCK [place]ON [facility] System Medical Records Department [address] [place] [address] H P Exam - ROCK MASON 01/24/25 0809 MR#: [id number] Acct: [id number] Name: SHEEBA WELSH Rep #: [id number] : 2000 24 From: Roseanna Mckeon CN PCP: Care Physician,No Primary Status:ADM IN Location: [id number] HPI - General General Date of Admission: [...] mg-folate no.1 1 mg-dha 300 mg capsule (PNV-Clark) Allergy/AdvReac Type Severity Reaction Status Date / Time No Known Allergies Allergy Verified 01/24/25 02:58 Family History Mother Breast cancer, Onset Age: 51 Depression Father Cancer, Onset Age: 57 Chronic leukemia Surgical History History of repair of ACL Social History adopted: No household members: significant other and family current occupational status: employed current occupation: [employer] pets and animals: Yes pets and [...] 3-4 times per week duration: 60-90 minutes/day daniel/sabianist: Synagogue seatbelt use: always do you feel safe at home: Yes additional social history: BF- [employer] History 1 Elective abortions Hx Para [...] 22 -???-???-???-???- (more content not included)... Normal [facility] Hematocrit Auto (Bld) [Volum e fraction]Ordered By: Roseanna Mckeon on 01-24-2025 Hematocrit (Bld) [Volume fraction] 33.6 % Low 37-47 [facility] Hemoglobin measurementOrdere d By: Roseanna Mckeon on 01-24-2025 Hemoglobin (Bld) [Mass/Vol] 11.4 g/dL Low 12.0-15.0 [facility] Immature granulocytes/100 WB C Auto (Bld)Ordered By: Roseanna Mckeon on 01-24-2025 Immature granulocytes/100 WBC (Bld) 0.400 % 0.0-0.9 [facility] Comment on above: IG% - Immature Granu locytes (promyelocytes, myelocytes and metamyelocytes) > 1% indicates that a LEFT SHIFT is Present. MCV (mean corpuscular volume ) determinationOrdered By: Roseanna Mckeon on 01-24-2025 MCV (RBC) [Entitic vol] 78.9 fL Low 81-99 [facility] MR/OB.VAGDELIon 01-24-2025 MR/OB.VAGDELI [facility] System Medical Records Department [address] [place] [address] OB Vaginal Delivery 01/24/25 1641 MR#: [id number] Acct: [id number] Name: SHEEBA WELSH Rep #: [id number] : 2000 24 From: Roseanna Mckeon CNM PCP: Care Physician,No Primary Status:ADM IN [id number] Assessment Plan (1) (spontaneous vaginal delivery): COMMENT: LC IAL [place] Maternal Data Information OLIVIA Calculator Estimated Delivery [...] achieved with methergine and pitocin. Patient and tolerated delivery well. Presentation: Vertex Amniotic Membrane [...] degree Complication Complications: No Procedures Urinary/Genital 52xxx-59xxx: 18813 Vaginal Delivery global pk 01/24/25 1646 Cosigner Signature (if applicable): CC: JACKELIN Sanders; JACKELIN Mckeon; Dr. Jemima Garcia, DO; No Primary Care Physician Signed Normal [facility] Mean corpuscular hemoglobin (MCH) determinationOrdered By: Roseanna Mckeon on 01-24-2025 MCH (RBC) [Entitic mass] 26.8 pg Low 27.0-32.0 [facility] Mean corpuscular hemoglobin concentration (MCHC) determinationOrdered By: Roseanna Mckeon on 01-24-2025 MCHC (RBC) [Mass/Vol] 33.9 g/dL 32-36 [facility] Mean platelet volume determi nationOrdered By: Roseanna Mckeon on 01-24-2025 Platelet mean volume (Bld) [Entitic vol] 10.2 fL 6.2-12.0 [facility] Monocyte percentageOrdered B y: Roseanna Mckeon on 01-24-2025 Monocytes/100 WBC (Bld) 2.6 % 0-10 [facility] Neutrophil percentageOrdered By: Roseanna Mckeon on 01-24-2025 Neutrophils/100 WBC (Bld) 90.7 % High 47-70 [facility] Nucleated red blood cell per centageOrdered By: Roseanna Mckeon on 01-24-2025 Nucleated RBC/100 WBC (Bld) [Ratio] 0 % 0-5 [facility] Platelet countOrdered By: Debi Mckeon on 01-24-2025 Platelets (Bld) [#/Vol] 229 10*3/uL 150-450 [facility] RBC Auto (Bld) [#/Vol]Ordere d By: Roseanna Mckeon on 01-24-2025 RBC (Bld) [#/Vol] 4.26 10*6/uL 4.2-5.4 [facility] Syphilis Antibodieson 2024 Syphilis Abs Non-Reactive Normal Nonreactive [facility] Comment on above: Performed By: #### L 509.8002 #### [facility] Laboratory [address] [place], [address] Type AND Screenon 01-24-2025 Ab SCREEN GEL Negative Normal [facility] Comment on above: Order Comment: Labor Performed By: #### L 100.0100, BTS ####[facility] [address] [place], [address] White blood cell (WBC) count Ordered By: Roseanna Mckeon on 01-24-2025 WBC (Bld) [#/Vol] 15.9 10*3/uL High 4.4-11.0 [facility] (ROM) Rupture Of Membraneson 01-23-2025 C-LINE PRESENT? Normal Internal QC [facility] Comment on above: Result Comment: This specimen has been REJECTED due to Laboratory criteria: Quanity Not Sufficient. LATANYA has been notified of need of recollection. 01/23/25 1105 Minerva Clapper Performed By: #### L 205.1000 #### [facility] Laboratory [address] [place], [address] RECORD KIT LOT# Normal [facility] Comment on above: Result Comment: This specimen has been REJECTED due to Laboratory criteria: Quanity Not Sufficient. LATANYA has been notified of need of recollection. 01/23/25 1105 Minerva Clapper Performed By: #### L 205.1000 #### [facility] Laboratory [address] [place], [address] ROM Normal Negative [facility] Comment on above: Result Comment: This specimen has been REJECTED due to Laboratory criteria: Quanity Not Sufficient. LATANYA has been notified of need of recollection. 01/23/25 1105 Minerva Clapper Performed By: #### L 205.1000 #### [facility] Laboratory [address] [place], [address] Laboratory - Chemistry and C hemistry - challengeOrdered By: Angela Sanders on 01-23-2025 Glucose Ql (U) Negative [facility] Laboratory - UrinalysisOrder ed By: Angela Sanders on 01-23-2025 Protein Ql (U) Negative [facility] Data Officer Office Visit Reporton 01-23-2025 Data Officer Office Visit Report [facility] [address], [address] [place] [address] OFFICE VISIT Date of Service: 01/23/25 MR#: [id number] Acct: [id number] Name: SHEEBA WELSH Rep #: [id number] 6 : 2000 Provider: JACKELIN Steven ams Age/Sex: 24/F Location: [facility] Status: Signed Intake Vital Signs 01/19/25 10:25 01/23/25 09:43 Height 5 ft 10 in 5 ft 10 in Weight: 205 lb 6 oz BMI 29.5 BP 129/81 H Intake Visit Reasons: rule out labor Chief Complaint: Rule out Labor 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: No Is patient in pain?: No Allergies No Known Allergies Allergy (Verified 01/23/25 09:41) Medications ???Medication ???Instructions ???Recorded ???Confirmed ???Type multivit-min no.71-iron fum 28 cap PO 06/14/24 01/23/25 History mg-folate no.1 1 mg-dha 300 mg capsule (PNV-Clark) promethazine 12.5 mg tablet 12.5 mg PO [...] occupational status: employed current occupation: [employer] pets and animals: Yes pets [...] 3-4 times per week duration: 60-90 minutes/day daniel/sabianist: Synagogue seatbelt use: always do you feel [...] ???-???-???-???-???-? 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 Normal [facility] Laboratory - Chemistry and C hemistry - challengeOrdered By: Kenya Wright on 01-19-2025 Glucose Ql (U) Negative [facility] Laboratory - UrinalysisOrder ed By: Kenya Wright on 01-19-2025 Protein Ql (U) Negative [facility] Data Officer Office Visit Reporton 01-19-2025 Data Officer Office Visit Report [facility] [address], [address] [place] [address] OFFICE VISIT Date of Service: 01/19/25 MR#: [id number] Acct: [id number] Name: SHEEBA WELSH Rep #: [id number] 3 : 2000 Provider: Dr. Kenya kelly MD Age/Sex: 24/F Location: [facility] Status: Signed Intake Vital Signs 11/25/24 14:07 01/11/25 13:50 01/19/25 10:25 Height 5 ft 10 in 5 ft 10 in 5 ft 10 in Weight: 202 lb 2 oz BMI 29.0 BP 137/79 H Intake Visit Reasons: 40 wk ob *Happy Due date 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: No Is patient in pain?: No Allergies No Known Allergies Allergy (Verified 01/19/25 10:25) Medications ???Medication ???Instructions ???Recorded ???Confirmed ???Type multivit-min no.71-iron fum 28 cap PO 06/14/24 01/19/25 History mg-folate no.1 1 mg-dha 300 mg capsule (PNV-Clark) promethazine 12.5 mg tablet 12.5 mg PO [...] occupational status: employed current occupation: [employer], [employer] pets and animals: Yes pets and animals: [...] 3-4 times per week duration: 60-90 minutes/day daniel/sabianist: Synagogue seatbelt use: always do you feel safe at home: Yes additional social history: BF- [employer] History 1 Elective abortions Hx Para [...] 140 -? (more content not included)... Normal [facility] Laboratory - Chemistry and C hemistry - challengeOrdered By: Jemima Avila on 01-11-2025 Glucose Ql (U) Negative [facility] Laboratory - UrinalysisOrder ed By: Jemima Avila on 01-11-2025 Protein Ql (U) Negative [facility] Data Officer Office Visit Reporton 01-11-2025 Data Officer Office Visit Report [facility] [address] [place] [address] OFFICE VISIT Date of Service: 01/11/25 MR#: [id number] Acct: [id number] Name: SHEEBA WELSH Rep #: [id number] : 2000 Provider: Dr. Jemima Hartman, Age/Sex: 24/F Location: [facility] Status: Signed Intake Vital Signs 11/25/24 14:07 01/05/25 07:58 01/11/25 13:50 Height 5 ft 10 in 5 ft 10 in 5 ft 10 in Weight: 204 lb 6 oz BMI 29.3 BP 126/69 H Intake Visit Reasons: 39 wk ob 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: No Is patient in pain?: No Allergies No Known Allergies Allergy (Verified 01/11/25 13:49) Medications ???Medication ???Instructions ???Recorded ???Confirmed ???Type multivit-min no.71-iron fum 28 cap PO 06/14/24 01/11/25 History mg-folate no.1 1 mg-dha 300 mg capsule (PNV-Clark) promethazine 12.5 mg tablet 12.5 mg PO [...] occupational status: employed current occupation: [employer] pets and animals: Yes pets and [...] 3-4 times per week duration: 60-90 minutes/day daniel/sabianist: Synagogue seatbelt use: always do you feel safe at home: Yes additional social history: - [facility] History 1 Elective abortions Hx Para [...] -???-???-???-???-???- ???-? (more content not included)... Normal [facility] Laboratory - Chemistry and C hemistry - challengeOrdered By: Angela Sanders on 01-05-2025 Glucose Ql (U) Negative [facility] Laboratory - UrinalysisOrder ed By: Angela Sanders on 01-05-2025 Protein Ql (U) Negative [facility] Data Officer Office Visit Reporton 01-05-2025 Data Officer Office Visit Report [facility] [address], [address] [place] [address] OFFICE VISIT Date of Service: 01/05/25 MR#: [id number] Acct: [id number] Name: SHEEBA WELSH Rep #: [id number] : 2000 Provider: JACKELIN Steven ams Age/Sex: 24/F Location: [facility] Status: Signed Intake Vital Signs 11/25/24 14:07 12/30/24 10:00 01/05/25 07:58 Height 5 ft 10 in 5 ft 10 in 5 ft 10 in Weight: 202 lb 4 oz BMI 29.0 BP 123/72 H Intake Visit Reasons: 38 wk ob Chief Complaint: 38 Week OB 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: No Is patient in pain?: No Allergies No Known Allergies Allergy (Verified 01/05/25 08:01) Medications ???Medication ???Instructions ???Recorded ???Confirmed ???Type multivit-min no.71-iron fum 28 cap PO 06/14/24 01/05/25 History mg-folate no.1 1 mg-dha 300 mg capsule (PNV-Clark) promethazine 12.5 mg tablet 12.5 mg PO [...] family current occupational status: employed current occupation: [employer] pets and animals: Yes pets [...] 3-4 times per week duration: 60-90 minutes/day daniel/sabianist: Synagogue seatbelt use: always do you feel safe at home: Yes 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 (more content not included)... Normal [facility] Laboratory - Chemistry and C hemistry - challengeOrdered By: Jemima Avila on 12-30-2024 Glucose Ql (U) Negative [facility] Laboratory - UrinalysisOrder ed By: Jemima Avila on 12-30-2024 Protein Ql (U) Negative [facility] Data Officer Office Visit Reporton 12-30-2024 Data Officer Office Visit Report [facility] [address], [address] [place] [address] OFFICE VISIT Date of Service: 12/30/24 MR#: [id number] Acct: [id number] Name: SHEEBA WELSH Rep #: [id number] : 2000 Provider: Dr. Jemima Hartman DO Age/Sex: 24/F Location: [facility] Status: Signed Intake Vital Signs 11/25/24 14:07 12/22/24 14:30 12/30/24 09:59 12/30/24 10:00 Height 5 ft 10 in 5 ft 10 in 5 ft 10 in 5 ft 10 in Weight: 200 lb 8 oz BMI 28.8 BP 113/71 Intake Visit Reasons: 37 wk ob 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: No Is patient in pain?: No Allergies No Known Allergies Allergy (Verified 12/30/24 09:59) Medications ???Medication ???Instructions ???Recorded ???Confirmed ???Type multivit-min no.71-iron fum 28 cap PO 06/14/24 12/30/24 History mg-folate no.1 1 mg-dha 300 mg capsule (PNV-Clark) promethazine 12.5 mg tablet 12.5 mg PO [...] current occupational status: employed current occupation: [employer] pets and animals: Yes pets and animals: [...] 3-4 times per week duration: 60-90 minutes/day daniel/sabianist: Synagogue seatbelt use: always do you feel [...] Negative 140 (more content not included)... Normal [facility] Rule out Beta Strep (Grp. B) on 12-24-2024 ROJELIO Group B Beta Streptococcus is not isolated. Normal [facility] Comment on above: Performed By: #### M 100.3400 #### [facility] Laboratory [address] [place], [address] Laboratory - Chemistry and C hemistry - challengeOrdered By: Angela Sanders on 12-22-2024 Glucose Ql (U) Negative [facility] Laboratory - UrinalysisOrder ed By: Angela Sanders on 12-22-2024 Protein Ql (U) Negative [facility] Data Officer Office Visit Reporton 12-22-2024 Data Officer Office Visit Report [facility] [address], [address] [place] [address] OFFICE VISIT Date of Service: 12/22/24 MR#: [id number] Acct: [id number] Name: SHEEBA WELSH Rep #: [id number] : 2000 Provider: JACKELIN Steven ams Age/Sex: 24/F Location: [facility] Status: Signed Intake Vital Signs 11/11/24 14:01 12/09/24 14:53 12/22/24 14:30 Height 5 ft 10 in 5 ft 10 in 5 ft 10 in Weight: 200 lb BMI 28.7 BP 129/78 H Intake Visit Reasons: 36wk ob Chief Complaint: 36wk ob 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: No Is patient in pain?: No Allergies No Known Allergies Allergy (Verified 12/22/24 14:28) Medications ???Medication ???Instructions ???Recorded ???Confirmed ???Type multivit-min no.71-iron fum 28 cap PO 06/14/24 12/22/24 History mg-folate no.1 1 mg-dha 300 mg capsule (PNV-Clark) promethazine 12.5 mg tablet 12.5 mg PO [...] occupational status: employed current occupation: [employer], [employer] pets and animals: Yes pets and [...] 3-4 times per week duration: 60-90 minutes/day daniel/sabianist: Synagogue seatbelt use: always do you feel [...] f c (more content not included)... Normal [facility] Screening beta-hemolytic Str eptococcus cultureOrdered By: Angela Sanders on 12-22-2024 Beta-hemolytic Streptococcus culture Group B Beta Streptococcus is not isolated. [facility] Laboratory - Chemistry and C hemistry - challengeOrdered By: Jemima Avila on 12-09-2024 Glucose Ql (U) Negative [facility] Laboratory - UrinalysisOrder ed By: Jemima Avila on 12-09-2024 Protein Ql (U) Negative [facility] Data Officer Office Visit Reporton 12-09-2024 Data Officer Office Visit Report [facility] [address], [address] [place] [address] OFFICE VISIT Date of Service: 12/09/24 MR#: [id number] Acct: [id number] Name: SHEEBA WELSH Rep #: [id number] : 2000 Provider: Dr. Jemima Hartman DO Age/Sex: 23/F Location: [facility] Status: Signed Intake Vital Signs 06/23/24 13:06 11/25/24 14:07 12/09/24 14:50 12/09/24 14:53 Height 5 ft 10 in 5 ft 10 in 5 ft 10 in 5 ft 10 in Weight: 201 lb 8 oz BMI 28.9 BP 106/67 Intake Visit Reasons: 34 wk ob 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: No Is patient in pain?: No Allergies No Known Allergies Allergy (Verified 12/09/24 14:50) Medications ???Medication ???Instructions ???Recorded ???Confirmed ???Type multivit-min no.71-iron fum 28 cap PO 06/14/24 12/09/24 History mg-folate no.1 1 mg-dha 300 mg capsule (PNV-Clark) promethazine 12.5 mg tablet 12.5 mg PO [...] occupational status: employed current occupation: [employer], [employer] pets and animals: Yes pets and [...] 3-4 times per week duration: 60-90 minutes/day daniel/sabianist: Synagogue seatbelt use: always do you feel safe at home: Yes additional social history: BF- [employer] History 1 Elective abortions Hx Para [...] Negative 140 (more content not included)... Normal [facility] Laboratory - Chemistry and C hemistry - challengeOrdered By: Angela Sanders on 11-25-2024 Glucose Ql (U) Negative [facility] Laboratory - UrinalysisOrder ed By: Angela Sanders on 11-25-2024 Protein Ql (U) Negative [facility] Data Officer Office Visit Reporton 11-25-2024 Data Officer Office Visit Report [facility] [address], [address] [place] [address] OFFICE VISIT Date of Service: 11/25/24 MR#: [id number] Acct: [id number] Name: SHEEBA WELSH Rep #: [id number] : 2000 Provider: JACKELIN Steven ams Age/Sex: 23/F Location: [facility] Status: Signed Intake Vital Signs 06/23/24 13:06 11/11/24 14:01 11/25/24 14:07 Height 5 ft 10 in 5 ft 10 in 5 ft 10 in Weight: 200 lb 4 oz BMI 28.7 BP 125/76 H Intake Visit Reasons: 32 wk ob Chief Complaint: 32wk OB 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: No Is patient in pain?: No Allergies No Known Allergies Allergy (Verified 11/25/24 14:05) Medications ???Medication ???Instructions ???Recorded ???Confirmed ???Type multivit-min no.71-iron fum 28 cap PO 06/14/24 11/25/24 History mg-folate no.1 1 mg-dha 300 mg capsule (PNV-Clark) Last Menstrual Period: 04/15/24 : No PFSH PFSH Medical History Menorrhagia Headache, migraine History of fracture Non-smoker Surgical History History of repair of ACL Family History Mother Breast cancer, Onset Age: 51 Depression Father Cancer, Onset Age: 57 Chronic leukemia Social History adopted: No household members: significant other and family current occupational status: employed current occupation: [employer], [employer] pets and animals: Yes pets and [...] 3-4 times per week duration: 60-90 minutes/day daniel/sabianist: Synagogue seatbelt use: always do you feel [...] lb 4 (more content not included)... Normal [facility] Laboratory - Chemistry and C hemistry - challengeOrdered By: Roseanna Mckeon on 11-11-2024 Glucose Ql (U) Negative [facility] Laboratory - UrinalysisOrder ed By: Roseanna Mckeon on 11-11-2024 Protein Ql (U) Negative [facility] Data Officer Office Visit Reporton 11-11-2024 Data Officer Office Visit Report [facility] [address], [address] [place] [address] OFFICE VISIT Date of Service: 11/11/24 MR#: [id number] Acct: [id number] Name: SHEEBA WELSH Rep #: [id number] : 2000 Provider: JACKELIN daniels Age/Sex: 23/F Location: [facility] Status: Signed Intake Vital Signs 06/23/24 13:06 10/14/24 13:29 11/11/24 14:01 11/11/24 14:01 Height 5 ft 10 in 5 ft 10 in 5 ft 10 in 5 ft 10 in Weight: 199 lb 8 oz BMI 28.6 BP 130/65 H Intake Visit Reasons: 30 wk ob 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: No Is patient in pain?: No Allergies No Known Allergies Allergy (Verified 11/11/24 13:59) Medications ???Medication ???Instructions ???Recorded ???Confirmed ???Type multivit-min no.71-iron fum 28 cap PO 06/14/24 11/11/24 History mg-folate no.1 1 mg-dha 300 mg capsule (PNV-Clark) Last Menstrual Period: 04/15/24 Zika: Zika virus [...] current occupational status: employed current occupation: [employer] pets and animals: Yes pets and animals: [...] 3-4 times per week duration: 60-90 minutes/day daniel/sabianist: Synagogue seatbelt use: always do you feel [...] 140 -???-???-???-???-???- ???-???-???-???-???-? ??-???- SM- no vb katy orona (more content not included)... Normal [facility] Absolute lymphocyte countOrd ered By: Roseanna Mckeon on 10-14-2024 Lymphocytes Auto (Unsp spec) [#/Vol] 1.93 10*3/uL 0.83-4.51 [facility] Absolute neutrophil countOrd ered By: Roseanna Mckeon on 10-14-2024 Neutrophils (Bld) [#/Vol] 7.6 10*3/uL 2.0-7.7 [facility] Automated lymphocyte count a s percentage of total leukocytesOrdered By: Roseannaneida Mckeon on 10-14-2024 Lymphocytes/100 WBC Auto (Unsp spec) 18.5 % Low 19-41 [facility] Basophil percentageOrdered B y: Roseannamontrell Mckeon on 10-14-2024 Basophils/100 WBC (Bld) 0.2 % 0-1 [facility] CBC W/Diff, Automatedon 09-18 Absolute Lymph 1.93 X10 3/uL Normal 0.83-4.51 [facility] Comment on above: Performed By: #### L 509.8002, L3890.6006, L100.0100, L501.0250 #### [facility] Laboratory [address] [place], [address] Absolute Neut 7.6 X10 3/uL Normal 2.0-7.7 [facility] Comment on above: Performed By: #### L 509.8002, L3890.6006, L100.0100, L501.0250 #### [facility] [address] [place], [address] Basophils/100 WBC (Bld) 0.2 % Normal 0-1 [facility] Comment on above: Performed By: #### L 509.8002, L3890.6006, L100.0100, L501.0250 #### [facility] [address] [place], [place], [id number] Eosinophils/100 WBC (Bld) 1.0 % Normal 0-5 [facility] Comment on above: Performed By: #### L 509.8002, L3890.6006, L100.0100, L501.0250 #### [facility] [address] [place], [address] Erythrocyte distribution width (RBC) [Ratio] 13.0 % Normal 11.6-14.6 [facility] Comment on above: Performed By: #### L 509.8002, L3890.6006, L100.0100, L501.0250 #### [facility] [address] [place], [address] Hematocrit (Bld) [Volume fraction] 32.3 % Low 37-47 [facility] Comment on above: Performed By: #### L 509.8002, L3890.6006, L100.0100, L501.0250 #### [facility] [address] [place], [address] Hemoglobin (Bld) [Mass/Vol] 11.0 g/dL Low 12.0-15.0 [facility] Comment on above: Performed By: #### L 509.8002, L3890.6006, L100.0100, L501.0250 #### [facility] [address] [place], [address] IG% 0.900 Normal 0.0-0.9 [facility] Comment on above: Result Comment: IG% - Immature Granulocytes (promyelocytes, myelocytes and metamyelocytes) > 1% indicates that a LEFT SHIFT is Present. Performed By: #### L 509.8002, L3890.6006, L100.0100, L501.0250 #### [facility] [address] [place], [address] Lymphocytes/100 WBC (Bld) 18.5 % Low 19-41 [facility] Comment on above: Performed By: #### L 509.8002, L3890.6006, L100.0100, L501.0250 #### [facility] [address] [place], [address] MCH (RBC) [Entitic mass] 29.2 pg Normal 27.0-32.0 [facility] Comment on above: Performed By: #### L 509.8002, L3890.6006, L100.0100, L501.0250 #### [facility] [address] [place], [address] MCHC (RBC) [Mass/Vol] 34.1 g/dL Normal 32-36 [facility] Comment on above: Performed By: #### L 509.8002, L3890.6006, L100.0100, L501.0250 #### [facility] [address] [place], [address] MCV (RBC) [Entitic vol] 85.7 fL Normal 81-99 [facility] Comment on above: Performed By: #### L 509.8002, L3890.6006, L100.0100, L501.0250 #### [facility] [address] [place], [address] Monocytes/100 WBC (Bld) 6.1 % Normal 0-10 [facility] Comment on above: Performed By: #### L 509.8002, L3890.6006, L100.0100, L501.0250 #### [facility] [address] [place], [address] Neutrophils/100 WBC (Bld) 73.3 % High 47-70 [facility] Comment on above: Performed By: #### L 509.8002, L3890.6006, L100.0100, L501.0250 #### [facility] [address] [place], [address] Nucleated RBC (Bld) [#/Vol] 0 10*3/uL Normal 0-5 [facility] Comment on above: Performed By: #### L 509.8002, L3890.6006, L100.0100, L501.0250 #### [facility] [address] [place], [address] Platelet mean volume (Bld) [Entitic vol] 9.6 fL Normal 6.2-12.0 [facility] Comment on above: Performed By: #### L 509.8002, L3890.6006, L100.0100, L501.0250 #### [facility] [address] [place], [address] Platelets (Bld) [#/Vol] 254 10*3/uL Normal 150-450 [facility] Comment on above: Performed By: #### L 509.8002, L3890.6006, L100.0100, L501.0250 #### [facility] [address] [place], [address] RBC (Bld) [#/Vol] 3.77 10*6/uL Low 4.2-5.4 [facility] Comment on above: Performed By: #### L 509.8002, L3890.6006, L100.0100, L501.0250 #### [facility] [address] [place], [address] RDW SD 40.7 fl Normal 35.1-43.9 [facility] Comment on above: Performed By: #### L 509.8002, L3890.6006, L100.0100, L501.0250 #### [facility] [address] [place], [address] WBC (Bld) [#/Vol] 10.4 10*3/uL Normal 4.4-11.0 [facility] Comment on above: Performed By: #### L 509.8002, L3890.6006, L100.0100, L501.0250 #### [facility] [address] [place], [place], [address] Eosinophil percentageOrdered By: Roseanna Mckeon on 10-14-2024 Eosinophils/100 WBC (Bld) 1.0 % 0-5 [facility] Erythrocyte distribution wid th ratioOrdered By: Roseanna Mckeon on 10-14-2024 Erythrocyte distribution width (RBC) [Ratio] 13.0 % 11.6-14.6 [facility] Erythrocyte distribution wid th standard deviationOrdered By: Roseanna Mckeon on 10-14-2024 Erythrocyte distribution width (RBC) [Entitic vol] 40.7 fL 35.1-43.9 [facility] Erythrocyte distribution width (RBC) [Ratio] 40.7 fl 35.1-43.9 [facility] Glucose Challenge Gest 1H 50 eddie 10-14-2024 GLU GEST 50g 1H 108 mg/dL Normal 70-140 [facility] Comment on above: Performed By: #### L 509.8002, L3890.6006, L100.0100, L501.0250 #### [facility] [address] [place], [place], [address] Glucose measurement at 2 pantera rs post-dose gestational glucose tolerance testOrdered By: Roseanna Mckeon on 10-14-2024 Glucose [Mass/Vol] 108 mg/dL 70-140 [facility] Hematocrit Auto (Bld) [Volum e fraction]Ordered By: Roseanna Mckeon on 10-14-2024 Hematocrit (Bld) [Volume fraction] 32.3 % Low 37-47 [facility] Hemoglobin measurementOrdere d By: Roseanna Mckeon on 10-14-2024 Hemoglobin (Bld) [Mass/Vol] 11.0 g/dL Low 12.0-15.0 [facility] Immature granulocytes/100 WB C Auto (Bld)Ordered By: Roseanna Mkceon on 10-14-2024 Immature granulocytes/100 WBC (Bld) 0.900 % 0.0-0.9 [facility] Comment on above: IG% - Immature Granu locytes (promyelocytes, myelocytes and metamyelocytes) > 1% indicates that a LEFT SHIFT is Present. L3890.6006on 10-14-2024 HIV Non-Reactive Normal Nonreactive [facility] Comment on above: Result Comment: Non- Reactive Reactive Repeatedly reactive samples must be confirmed according to CDC recommended confirmatory algorithms. The subresults for either HIVAG or AHIV can be used as an aid in the selection of the confirmation algorithm for reactive samples. Send out specimens with Reactive results to [facility] for confirmation. Order the HIV antibody detection and differentiation: #[id number] Performed By: #### L 509.8002, L3890.6006, L100.0100, L501.0250 ####[facility] [address] [place], [place], [address] L509.8002on 10-14-2024 Syphilis Abs Non-Reactive Normal Nonreactive [facility] Comment on above: Performed By: #### L 509.8002, L3890.6006, L100.0100, L501.0250 #### [facility] [address] [place], [place], [address] Laboratory - Chemistry and C hemistry - challengeOrdered By: Cesilia George on 10-14-2024 Glucose Ql (U) Negative [facility] Laboratory - UrinalysisOrder ed By: Cesilia George on 10-14-2024 Protein Ql (U) Negative [facility] Lymphocytes Auto (Unsp spec) [#/Vol]Ordered By: Roseanna Mckeon on 10-14-2024 Lymphocytes (Bld) [#/Vol] 1.93 10*3/uL 0.83-4.51 [facility] Lymphocytes/100 WBC Auto (Un sp spec)Ordered By: Roseanna Mckeon on 10-14-2024 Lymphocytes/100 WBC (Bld) 18.5 % Low 19-41 [facility] MCV (mean corpuscular volume ) determinationOrdered By: Roseanna Mckeon on 10-14-2024 MCV (RBC) [Entitic vol] 85.7 fL 81-99 [facility] Mean corpuscular hemoglobin (MCH) determinationOrdered By: Roseanna Mckeon on 10-14-2024 MCH (RBC) [Entitic mass] 29.2 pg 27.0-32.0 [facility] Mean corpuscular hemoglobin concentration (MCHC) determinationOrdered By: Roseanna Mckeon on 10-14-2024 MCHC (RBC) [Mass/Vol] 34.1 g/dL 32-36 [facility] Mean platelet volume determi nationOrdered By: Roseanna Mckeon on 10-14-2024 Platelet mean volume (Bld) [Entitic vol] 9.6 fL 6.2-12.0 [facility] Monocyte percentageOrdered B y: Roseanna Mckeon on 10-14-2024 Monocytes/100 WBC (Bld) 6.1 % 0-10 [facility] Neutrophil percentageOrdered By: Roseanna Mckeon on 10-14-2024 Neutrophils/100 WBC (Bld) 73.3 % High 47-70 [facility] No Panel InformationOrdered By: Roseanna Mckeon on 10-14-2024 HIV (1&2) Antibody Non-Reactive Nonreactive [facility] Comment on above: Non-ReactiveReactive Repeatedly reactive samples must be confirmed according to CDC recommended confirmatory algorithms. The subresults for either HIVAG or AHIV can be used as an aid in the selection of the confirmation algorithm for reactive samples.Send out specimens with Reactive results to [facility] for confirmation.Order the HIV antibody detection and differentiation: #[id number] Nucleated red blood cell per centageOrdered By: Roseanna Mckeon on 10-14-2024 Nucleated RBC/100 WBC (Bld) [Ratio] 0 % 0-5 [facility] Data Officer Office Visit Reporton 10-14-2024 Data Officer Office Visit Report [facility] [address], [address] [place] [address] OFFICE VISIT Date of Service: 10/14/24 MR#: [id number] Acct: [id number] Name: SHEEBA WELSH Rep #: [id number] 8 : 2000 Provider: TERESITA norman Age/Sex: 23/F Location: [facility] Status: Signed Intake Vital Signs 06/23/24 13:06 09/16/24 13:04 10/14/24 13:29 Height 5 ft 10 in 5 ft 10 in 5 ft 10 in Weight: 199 lb 2 oz BMI 28.5 BP 118/62 Intake Visit Reasons: 26 wk ob Chief Complaint: 26 Week OB 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: No Is patient in pain?: No Allergies No Known Allergies Allergy (Verified 10/14/24 13:27) Medications ???Medication ???Instructions ???Recorded ???Confirmed ???Type multivit-min no.71-iron fum 28 cap PO 06/14/24 10/14/24 History mg-folate no.1 1 mg-dha 300 mg capsule (PNV-Clark) Last Menstrual Period: 04/15/24 Zika: Zika virus screening: Negative : Yes PFSH PFSH Medical History Menorrhagia Headache, migraine History of fracture Non-smoker Surgical History History of repair of ACL Family History Mother Breast cancer, Onset Age: 51 Depression Father Cancer, Onset Age: 57 Chronic leukemia Social History adopted: No household members: significant other and family current occupational status: employed current occupation: [employer] pets and animals: Yes pets and [...] 3-4 times per week duration: 60-90 minutes/day daniel/sabianist: Synagogue seatbelt use: always do you feel safe at home: Yes 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 Normal [facility] Platelet countOrdered By: Debi Mckeon on 10-14-2024 Platelets (Bld) [#/Vol] 254 10*3/uL 150-450 [facility] RBC Auto (Bld) [#/Vol]Ordere d By: Roseanna Mckeon on 10-14-2024 RBC (Bld) [#/Vol] 3.77 10*6/uL Low 4.2-5.4 [facility] T. pallidum abOrdered By: Debi Mckeon on 10-14-2024 Syphilis Total Antibody Non-Reactive Nonreactiv e [facility] White blood cell (WBC) count Ordered By: Roseanna Mckeon on 10-14-2024 WBC (Bld) [#/Vol] 10.4 10*3/uL 4.4-11.0 [facility] Laboratory - Chemistry and C hemistry - challengeOrdered By: Roseanna Mckeon on 09-16-2024 Glucose Ql (U) Negative [facility] Laboratory - UrinalysisOrder ed By: Roseanna Mckeon on 09-16-2024 Protein Ql (U) Negative [facility] Data Officer Office Visit Reporton 09-16-2024 Data Officer Office Visit Report [facility]'[address], [address] [place] [address] OFFICE VISIT Date of Service: 09/16/24 MR#: [id number] Acct: [id number] Name: SHEEBA WELSH Rep #: [id number] 0 : 2000 Provider: JACKELIN daniels Age/Sex: 23/F Location: [facility] Status: Signed Intake Vital Signs 06/23/24 13:06 [...] mg-folate no.1 1 mg-dha 300 mg capsule (PNV-Clark) Last Menstrual Period: 04/15/24 : No Have [...] occupational status: employed current occupation: [employer], [employer] pets and animals: Yes pets and [...] 3-4 times per week duration: 60-90 minutes/day daniel/sabianist: Synagogue seatbelt use: always do you feel safe at home: Yes additional social history: BF- [employer] History 1 Elective abortions Hx Para [...] 123/74 -???-? (more content not included)... Normal [facility] Laboratory - Chemistry and C hemistry - challengeOrdered By: Kenya Wright on 08-19-2024 Glucose Ql (U) Negative [facility] Laboratory - UrinalysisOrder ed By: Kenya Wright on 08-19-2024 Protein Ql (U) Negative [facility] Data Officer Office Visit Reporton 08-19-2024 Data Officer Office Visit Report [facility]'s [address], [address] [place] [address] OFFICE VISIT Date of Service: 08/19/24 MR#: [id number] Acct: [id number] Name: SHEEBA WELSH Rep #: [id number] : 2000 Provider: Dr. Kenya kelly MD Age/Sex: 23/F Location: [facility] Status: Signed Intake Vital Signs 06/23/24 13:06 07/21/24 10:11 08/19/24 14:13 Height 5 ft 10 in 5 ft 10 in 5 ft 10 in Weight: 193 lb 6 oz BMI 27.7 BP 123/65 H Intake Visit Reasons: 18 wk ob Chief Complaint: 18 Week OB 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: No Is patient in pain?: No Allergies No Known Allergies Allergy (Verified 08/19/24 14:14) Medications ???Medication ???Instructions ???Recorded ???Confirmed ???Type multivit-min no.71-iron fum 28 cap PO 06/14/24 08/19/24 History mg-folate no.1 1 mg-dha 300 mg capsule (PNV-Clark) Last Menstrual Period: 04/15/24 Zika: Zika virus screening: Negative : No PFSH PFSH Medical History Menorrhagia Headache, migraine History of fracture Non-smoker Surgical History History of repair of ACL Family History Mother Breast cancer, Onset Age: 51 Depression Father Cancer, Onset Age: 57 Chronic leukemia Social History adopted: No household members: significant other and family current occupational status: employed current occupation: [employer], [employer] pets and animals: Yes pets and [...] 3-4 times per week duration: 60-90 minutes/day daniel/sabianist: Synagogue seatbelt use: always do you feel [...] of water a day + tylenol. new [employer] labs and NIPT today. JV- CRL measures [...] Discussed Breastf (more content not included)... Normal [facility] Laboratory - Chemistry and C hemistry - challengeon 07-21-2024 Glucose Ql (U) Negative [facility] Laboratory - Urinalysison Protein Ql (U) Negative [facility] Miscellaneous procedureOrder ed By: Jemima Avila on 07-21-2024 Miscellaneous Test Comment SEE SCANNED REPORT [facility] NATERAon 07-21-2024 NATURA SEE SCANNED REPORT Normal [facility] Comment on above: Performed By: #### L 900.0098 ####[facility] [address] [place], [address] Data Officer Office Visit Reporton 07-21-2024 Data Officer Office Visit Report [facility]'s [address], [facility] [address] [place] [address] OFFICE VISIT Date of Service: 07/21/24 MR#: [id number] Acct: [id number] Name: SHEEBA WELSH Rep #: [id number] : 2000 Provider: Dr. Jemima Hartman DO Age/Sex: 23/F Location: [facility] Status: Signed Intake Vital Signs 11/12/23 15:04 06/23/24 13:06 07/21/24 10:11 07/21/24 10:11 Height 5 ft 10 in 5 ft 10 in 5 ft 10 in 5 ft 10 in Weight: 185 lb BMI 26.5 BP 120/68 Intake Visit Reasons: 14 wk ob 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: No Is patient in pain?: No Allergies No Known Allergies Allergy (Verified 07/21/24 10:10) Medications ???Medication ???Instructions ???Recorded ???Confirmed ???Type multivit-min no.71-iron fum 28 cap PO 06/14/24 07/21/24 History mg-folate no.1 1 mg-dha 300 mg capsule (PNV-Clark) Last Menstrual Period: 04/15/24 Zika: Zika virus screening: Negative : No PFSH PFSH Medical History Menorrhagia Headache, migraine History of fracture Non-smoker Surgical History History of repair of ACL Family History Mother Breast cancer, Onset Age: 51 Depression Father Cancer, Onset Age: 57 Chronic leukemia Social History adopted: No household members: significant other and family current occupational status: employed current occupation: [employer], [employer] pets and animals: Yes pets and [...] 3-4 times per week duration: 60-90 minutes/day daniel/sabianist: Synagogue seatbelt use: always do you feel safe at home: Yes additional social history: BF- [employer] History 1 Elective abortions Hx Para [...] Cessation Thi (more content not included)... Normal [facility] HIV - WCHon 07-04-2024 HIV Non-Reactive Normal Nonreactive [facility] Comment on above: Order Comment: Reaso n for Exam: Performed By: #### L 3890.6100, BTS, L509.4005, L3890.6300, L509.8000, L100.0100, L3890.6005 ####[facility] [address] [place], [place], [address] Hepatitis B Surface Antigeno n 07-04-2024 HEP B Surf Ag Non-Reactive Normal [facility] Comment on above: Order Comment: Reaso n for Exam: Performed By: #### L 3890.6100, BTS, L509.4005, L3890.6300, L509.8000, L100.0100, L3890.6005 ####[facility] [address] [place], [address] Hepatitis C Antibodyon 07-04 Hepatitis C AB Non-Reactive Normal Nonreactive [facility] Comment on above: Order Comment: Reaso n for Exam: Result Comment: Non Reactive: < 0.8 Equivocal: >/= 0.8 to < 1.0 Reactive: >/= 1.0 The CDC requires that a reactive/equivocal HCV antibody result be sent out for confirmation. HCV Quant by PCR testing. Performed By: #### L 3890.6100, BTS, L509.4005, L3890.6300, L509.8000, L100.0100, L3890.6005 ####[facility] [address] [place], [address] L509.8000on 07-04-2024 Syphilis Abs Non-Reactive Normal [facility] Comment on above: Order Comment: Reaso n for Exam: Performed By: #### L 3890.6100, BTS, L509.4005, L3890.6300, L509.8000, L100.0100, L3890.6005 ####[facility] [address] [place], [place], [address] PAP I-G w/rfx hrHPV-Aptimaon 07-04-2024 ADEQ Comment Normal . [facility] Comment on above: Order Comment: Travis mcneil Comment: [id number] Comment: Source.............CervixSpecimen Comment: LMP / Prev Treat...[id number] Comment: Other..............Specimen Comment: No. of containers..01 ThinPrep Vial Result Comment: Sati sfactory for evaluation. Endocervical and/or squamous metaplastic cells (endocervical component) are present. Performed By: #### M 100.2200, L7400.0353, L7000.1800 ####[facility] [address] [place], [place], [address] COMM . Normal . [facility] Comment on above: Order Comment: Speci men Comment: [id number] Comment: Source.............CervixSpecimen Comment: LMP / Prev Treat...[id number] Comment: Other..............Specimen Comment: No. of containers..01 ThinPrep Vial Performed By: #### M 100.2200, L7400.0353, L7000.1800 ####[facility] [address] [place], [place], [address] COMMENT Comment Normal . [facility] Comment on above: Order Comment: Speci men Comment: [id number] Comment: Source.............CervixSpecimen Comment: LMP / Prev Treat...[id number] Comment: Other..............Specimen Comment: No. of containers..01 ThinPrep Vial Result Comment: This liquid based ThinPrep(R) pap test was screened with the use of an image guided system. Performed By: #### M 100.2200, L7400.0353, L7000.1800 ####[facility] [address] [place], [place], [address] DIAG Comment Normal . [facility] Comment on above: Order Comment: Speci men Comment: [id number] Comment: Source.............CervixSpecimen Comment: LMP / Prev Treat...[id number] Comment: Other..............Specimen Comment: No. of containers..01 ThinPrep Vial Result Comment: NEGA TIVE FOR INTRAEPITHELIAL LESION OR MALIGNANCY. Performed By: #### M 100.2200, L7400.0353, L7000.1800 ####[facility] [address] [place], [place], [address] HPV RFLX Comment Normal . [facility] Comment on above: Order Comment: Speci men Comment: [id number] Comment: Source.............CervixSpecimen Comment: LMP / Prev Treat...[id number] Comment: Other..............Specimen Comment: No. of containers..01 ThinPrep Vial Result Comment: The HPV DNA reflex criteria were not met with this specimen result therefore, no HPV testing was performed. Performed at: [address] [id number] Architect In Training: Beth Rae PhD, Phone: [phone] Performed at: [address] [id number] Architect In Training: Charlene Sotomayor MD, Phone: [phone] Performed By: #### M 100.2200, L7400.0353, L7000.1800 ####[facility] [address] [place], [address] PAPSMR Comment Normal . [facility] Comment on above: Order Comment: Speci men Comment: [id number] Comment: Source.............CervixSpecimen Comment: LMP / Prev Treat...[id number] Comment: Other..............Specimen Comment: No. of containers..01 ThinPrep [...] Performed By: #### M 100.2200, L7400.0353, L7000.1800 ####[facility] [address] [place], [address] PERFORM Comment Normal . [facility] Comment on above: Order Comment: Speci men Comment: [id number] Comment: Source.............CervixSpecimen Comment: LMP / Prev Treat...[id number] Comment: Other..............Specimen Comment: No. of containers..01 ThinPrep Vial Result Comment: Karli Stevens, Manager Facility (ASCP) Performed By: #### M 100.2200, L7400.0353, L7000.1800 ####[facility] [address], [address] Rubella IgGon 07-04-2024 Rubella IgG Reactive Normal Nonreactive [facility] Comment on above: Order Comment: Reaso n for Exam: Result Comment: Anti body Results Interpretation of Immune Status Non Reactive Presumed Non-Immune Equivocal Equivocal Reactive Presumed Immune Performed By: #### L 3890.6100, BTS, L509.4005, L3890.6300, L509.8000, L100.0100, L3890.6005 ####[facility] [address] [place], [address] Absolute neutrophil countOrd ered By: Angela Sanders on 07-01-2024 Neutrophils (Bld) [#/Vol] 6.9 10*3/uL 2.0-7.7 [facility] Basophil percentageOrdered B y: Angela Sanders on 07-01-2024 Basophils/100 WBC (Bld) 0.4 % 0-1 [facility] CBC W/Diff, Automatedon 06-19 Absolute Lymph 2.49 X10 3/uL Normal 0.83-4.51 [facility] Comment on above: Performed By: #### L 3890.6100, BTS, L509.4005, L3890.6300, L509.8000, L100.0100, L3890.6005 ####[facility] [address] [place], [address] Absolute Neut 6.9 X10 3/uL Normal 2.0-7.7 [facility] Comment on above: Performed By: #### L 3890.6100, BTS, L509.4005, L3890.6300, L509.8000, L100.0100, L3890.6005 ####[facility] [address] [place], [address] Basophils/100 WBC (Bld) 0.4 % Normal 0-1 [facility] Comment on above: Performed By: #### L 3890.6100, BTS, L509.4005, L3890.6300, L509.8000, L100.0100, L3890.6005 ####[facility] [address] [place], [address] Eosinophils/100 WBC (Bld) 0.6 % Normal 0-5 [facility] Comment on above: Performed By: #### L 3890.6100, BTS, L509.4005, L3890.6300, L509.8000, L100.0100, L3890.6005 ####[facility] [address] [place], [address] Erythrocyte distribution width (RBC) [Ratio] 13.0 % Normal 11.6-14.6 [facility] Comment on above: Performed By: #### L 3890.6100, BTS, L509.4005, L3890.6300, L509.8000, L100.0100, L3890.6005 ####[facility] [address] [place], [address] Hematocrit (Bld) [Volume fraction] 38.0 % Normal 37-47 [facility] Comment on above: Performed By: #### L 3890.6100, BTS, L509.4005, L3890.6300, L509.8000, L100.0100, L3890.6005 ####[facility] [address] [place], [address] Hemoglobin (Bld) [Mass/Vol] 13.1 g/dL Normal 12.0-15.0 [facility] Comment on above: Performed By: #### L 3890.6100, BTS, L509.4005, L3890.6300, L509.8000, L100.0100, L3890.6005 ####[facility] [address] [place], [address] IG% 0.400 Normal 0.0-0.9 [facility] Comment on above: Result Comment: IG% - Immature Granulocytes (promyelocytes, myelocytes and metamyelocytes) > 1% indicates that a LEFT SHIFT is Present. Performed By: #### L 3890.6100, BTS, L509.4005, L3890.6300, L509.8000, L100.0100, L3890.6005 ####[facility] [address] [place], [address] Lymphocytes/100 WBC (Bld) 24.5 % Normal 19-41 [facility] Comment on above: Performed By: #### L 3890.6100, BTS, L509.4005, L3890.6300, L509.8000, L100.0100, L3890.6005 ####[facility] [address] [place], [address] MCH (RBC) [Entitic mass] 27.8 pg Normal 27.0-32.0 [facility] Comment on above: Performed By: #### L 3890.6100, BTS, L509.4005, L3890.6300, L509.8000, L100.0100, L3890.6005 ####[facility] [address] [place], [address] MCHC (RBC) [Mass/Vol] 34.5 g/dL Normal 32-36 [facility] Comment on above: Performed By: #### L 3890.6100, BTS, L509.4005, L3890.6300, L509.8000, L100.0100, L3890.6005 ####[facility] [address] [place], [address] MCV (RBC) [Entitic vol] 80.7 fL Low 81-99 [facility] Comment on above: Performed By: #### L 3890.6100, BTS, L509.4005, L3890.6300, L509.8000, L100.0100, L3890.6005 ####[facility] [address] [place], [address] Monocytes/100 WBC (Bld) 6.4 % Normal 0-10 [facility] Comment on above: Performed By: #### L 3890.6100, BTS, L509.4005, L3890.6300, L509.8000, L100.0100, L3890.6005 ####[facility] [address] [place], [address] Neutrophils/100 WBC (Bld) 67.7 % Normal 47-70 [facility] Comment on above: Performed By: #### L 3890.6100, BTS, L509.4005, L3890.6300, L509.8000, L100.0100, L3890.6005 ####[facility] [address] [place], [address] Nucleated RBC (Bld) [#/Vol] 0 10*3/uL Normal 0-5 [facility] Comment on above: Performed By: #### L 3890.6100, BTS, L509.4005, L3890.6300, L509.8000, L100.0100, L3890.6005 ####[facility] [address] [place], [address] Platelet mean volume (Bld) [Entitic vol] 9.4 fL Normal 6.2-12.0 [facility] Comment on above: Performed By: #### L 3890.6100, BTS, L509.4005, L3890.6300, L509.8000, L100.0100, L3890.6005 ####[facility] [address] [place], [address] Platelets (Bld) [#/Vol] 295 10*3/uL Normal 150-450 [facility] Comment on above: Performed By: #### L 3890.6100, BTS, L509.4005, L3890.6300, L509.8000, L100.0100, L3890.6005 ####[facility] [address] [place], [address] RBC (Bld) [#/Vol] 4.71 10*6/uL Normal 4.2-5.4 [facility] Comment on above: Performed By: #### L 3890.6100, BTS, L509.4005, L3890.6300, L509.8000, L100.0100, L3890.6005 ####[facility] [address] [place], [address] RDW SD 37.9 fl Normal 35.1-43.9 [facility] Comment on above: Performed By: #### L 3890.6100, BTS, L509.4005, L3890.6300, L509.8000, L100.0100, L3890.6005 ####[facility] [address] [place], [address] WBC (Bld) [#/Vol] 10.2 10*3/uL Normal 4.4-11.0 [facility] Comment on above: Performed By: #### L 3890.6100, BTS, L509.4005, L3890.6300, L509.8000, L100.0100, L3890.6005 ####[facility] [address] [place], [address] Eosinophil percentageOrdered By: Angela Sanders on 07-01-2024 Eosinophils/100 WBC (Bld) 0.6 % 0-5 [facility] Erythrocyte distribution wid th ratioOrdered By: Angela Sanders on 07-01-2024 Erythrocyte distribution width (RBC) [Ratio] 13.0 % 11.6-14.6 [facility] Erythrocyte distribution wid th standard deviationOrdered By: Angela Sanders on 07-01-2024 Erythrocyte distribution width (RBC) [Entitic vol] 37.9 fL 35.1-43.9 [facility] HIV 1+2 Ab+HIV1 p24 Ag IA Ql Ordered By: Angela Sanders on 07-01-2024 HIV (1&2) Antibody Non-Reactive Nonreactive [facility] Hematocrit Auto (Bld) [Volum e fraction]Ordered By: Angela Sanders on 07-01-2024 Hematocrit (Bld) [Volume fraction] 38.0 % 37-47 [facility] Hemoglobin measurementOrdere d By: Angela Sanders on 07-01-2024 Hemoglobin (Bld) [Mass/Vol] 13.1 g/dL 12.0-15.0 [facility] Hepatitis B surface antigen detectionOrdered By: Angela Sanders on 07-01-2024 Hepatitis B Surface Antigen Non-Reactive Nonreactive [facility] Hepatitis C virus antibody a ssayOrdered By: Angela Sanders on 07-01-2024 Hepatitis C Antibody Non-Reactive Nonreactive [facility] Comment on above: Non Reactive: < 0.8 Equivocal: >/= 0.8 to < 1.0 Reactive: >/= 1.0The CDC requires that a reactive/equivocal HCV antibody result be sent out for confirmation. HCV Quant by PCR testing. Immature granulocytes/100 WB C Auto (Bld)Ordered By: Angela Sanders on 07-01-2024 Immature granulocytes/100 WBC (Bld) 0.400 % 0.0-0.9 [facility] Comment on above: IG% - Immature Granu locytes (promyelocytes, myelocytes and metamyelocytes) > 1% indicates that a LEFT SHIFT is Present. Lymphocytes Auto (Unsp spec) [#/Vol]Ordered By: Angela Sanders on 07-01-2024 Lymphocytes (Bld) [#/Vol] 2.49 10*3/uL 0.83-4.51 [facility] Lymphocytes/100 WBC Auto (Un sp spec)Ordered By: Angela Sanders on 07-01-2024 Lymphocytes/100 WBC (Bld) 24.5 % 19-41 [facility] MCV (mean corpuscular volume ) determinationOrdered By: Angela Sanders on 07-01-2024 MCV (RBC) [Entitic vol] 80.7 fL Low 81-99 [facility] Mean corpuscular hemoglobin (MCH) determinationOrdered By: Angela Sanders on 07-01-2024 MCH (RBC) [Entitic mass] 27.8 pg 27.0-32.0 [facility] Mean corpuscular hemoglobin concentration (MCHC) determinationOrdered By: Angela Sanders on 07-01-2024 MCHC (RBC) [Mass/Vol] 34.5 g/dL 32-36 [facility] Mean platelet volume determi nationOrdered By: Angela Sanders on 07-01-2024 Platelet mean volume (Bld) [Entitic vol] 9.4 fL 6.2-12.0 [facility] Monocyte percentageOrdered B y: Angela Sanders on 07-01-2024 Monocytes/100 WBC (Bld) 6.4 % 0-10 [facility] Neutrophil percentageOrdered By: Angela Sanders on 07-01-2024 Neutrophils/100 WBC (Bld) 67.7 % 47-70 [facility] Nucleated red blood cell per centageOrdered By: Angela Sanders on 07-01-2024 Nucleated RBC/100 WBC (Bld) [Ratio] 0 % 0-5 [facility] Platelet countOrdered By: Hieu Sanders on 07-01-2024 Platelets (Bld) [#/Vol] 295 10*3/uL 150-450 [facility] RBC Auto (Bld) [#/Vol]Ordere d By: Angela Sanders on 07-01-2024 RBC (Bld) [#/Vol] 4.71 10*6/uL 4.2-5.4 [facility] Rubella immune status IgGOrd ered By: Angela Sanders on 07-01-2024 Rubella IgG Antibody Reactive Nonreactive [facility] Comment on above: Antibody Results Int erpretation of Immune Status Non Reactive Presumed Non-Immune Equivocal Equivocal Reactive Presumed Immune Treponema sp Ab Ql (S)Ordere d By: Angela Sanders on 07-01-2024 Syphilis Total Antibody Non-Reactive [facility] Type AND Screenon 07-01-2024 Ab SCREEN GEL Negative Normal [facility] Comment on above: Order Comment: PN Performed By: #### L 3890.6100, BTS, L509.4005, L3890.6300, L509.8000, L100.0100, L3890.6005 ####[facility] [address] [place], [address] ABO and Rh group Nom (Bld) Blood group O Rh(D) positive Normal [facility] Comment on above: Order Comment: PN Performed By: #### L 3890.6100, BTS, L509.4005, L3890.6300, L509.8000, L100.0100, L3890.6005 ####[facility] [address], [address] White blood cell (WBC) count Ordered By: Angela Sanders on 07-01-2024 WBC (Bld) [#/Vol] 10.2 10*3/uL 4.4-11.0 [facility] Chlamydia/GC PEDRO aptimaon CHLAMY,NUC ACID Negative Normal Negative [facility] Comment on above: Performed By: #### M 100.2200, L7400.0353, L7000.1800 ####[facility] [address] [place], [address] GC BY NUC ACID Negative Normal Negative [facility] Comment on above: Result Comment: Perf ormed at: =G - [facility] [place] [id number] Architect In Training: Charlene Sotomayor MD, Phone: [phone] Performed By: #### M 100.2200, L7400.0353, L7000.1800 ####[facility] [address] [place], [place], [id number] Urine Cultureon 06-24-2024 [facility] Culture exhibits no growth. Normal [facility] Comment on above: Performed By: #### M 100.2200, L7400.0353, L7000.1800 ####[facility] [address] [place], [address] C. trachomatis rRNA PEDRO+prob e Ql (Unsp spec)Ordered By: Angela Sanders on 06-23-2024 Chlamydia DNA (PEDRO) Negative Negative [facility] Music Box Mechanic Cyto stain Nom (C vx/Vag) [ID]Ordered By: Angela Sanders on 06-23-2024 Pap Smear Performed By Comment . [facility] Comment on above: Gabrielle Stevens, Cyto technologist (ASCP) Cytology report Cyto stain D oc (Cvx/Vag)Ordered By: Angela Sanders on 06-23-2024 Thin Prep Pap Smear Comment . [facility] Comment on above: The Pap smear is a s creening test designed to aid in thedetection of premalignant and malignant conditions of theuterine cervix. It is not a diagnostic procedure andshould not be used as the sole means of detecting cervicalcancer. Both false-positive and false-negative reports dooccur. Image-guided ThinPrep PapOrd ered By: Angela Sanders on 06-23-2024 Pap Smear Note Comment . [facility] Comment on above: This liquid based Th inPrep(R) pap test was screened withthe use of an image guided system. Image-guided liquid-based Pa pOrdered By: Angela Sanders on 06-23-2024 Pap Smear Diagnosis Comment . [facility] Comment on above: NEGATIVE FOR INTRAEP ITHELIAL LESION OR MALIGNANCY. Image-guided liquid-based ce rvical Pap w high-risk HPV+reflex to HPV 16+18Ordered By: Angela Sanders on 06-23-2024 Human Papillomavirus Screen Comment . [facility] Comment on above: The HPV DNA reflex terry guzman were not met with this specimenresult therefore, no HPV testing was performed.Performed at: [address] [id number] Director: Beth Rae PhD, Phone: [phone] at: [facility] [address] [id number] Director: Charlene Sotomayor MD, Phone: [phone] Neisseria gonorrhoeae nuclei c acid detection by amplified probe techniqueOrdered By: Angela Sanders on 06-23-2024 N. gonorrhoeae DNA PEDRO+probe Ql (Unsp spec) Negative Negative [facility] Comment on above: Performed at: =G - [facility] [address] [id number] Director: Charlene Sotomayor MD, Phone: [phone] Data Officer Office Visit Reporton 06-23-2024 Data Officer Office Visit Report [facility] [address], [address] [place] [address] OFFICE VISIT Date of Service: 06/23/24 MR#: [id number] Acct: [id number] Name: SHEEBA WELSH Rep #: [id number] : 2000 Provider: JACKELIN Steven ams Age/Sex: 23/F Location: [facility] Status: Signed Intake Vital Signs 11/12/23 15:04 06/23/24 13:02 06/23/24 13:06 Height 5 ft 10 in 5 ft 10 in 5 ft 10 in Weight: 183 lb BMI 26.2 BP 144/82 H Intake Visit Reasons: NOB 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 Is patient in pain?: No Allergies No Known Allergies Allergy (Verified 06/23/24 13:03) Medications ???Medication ???Instructions ???Recorded ???Confirmed ???Type multivit-min no.71-iron fum 28 cap PO 06/14/24 06/14/24 History mg-folate no.1 1 mg-dha 300 mg capsule (PNV-Clark) Last Menstrual Period: 04/15/24 Zika: Zika virus [...] occupational status: employed current occupation: [employer], [employer] pets and animals: Yes pets and animals: [...] 3-4 times per week duration: 60-90 minutes/day daniel/sabianist: Syn[employer] seatbelt use: always do you feel safe at home: Yes additional social history: BF- [employer] History 1 Elective abortions Hx Para [...] Partner monroe (more content not included)... Normal [facility] Service comment (Unsp spec) [Interp]Ordered By: Angela Sanders on 06-23-2024 Pap Smear Comment (3) . . [facility] Urine cultureOrdered By: Sunny Sanders on 06-23-2024 Bacteria identified Cx Nom (U) Culture exhibits no growth. [facility] Absolute lymphocyte countOrd ered By: Yoel Frost on 11-12-2023 Lymphocytes Auto (Unsp spec) [#/Vol] 2.50 10*3/uL 0.83-4.51 [facility] Automated lymphocyte count a s percentage of total leukocytesOrdered By: Yoel Frost on 11-12-2023 Lymphocytes/100 WBC Auto (Unsp spec) 28.1 % 19-41 [facility] Basophil percentageOrdered B y: Yoel Frost on 11-12-2023 Basophils/100 WBC (Bld) 0.6 % 0-1 [facility] Bilirubin [Mass/Vol] 0.40 mg/dL 0.20-1.00 [facility] Comment on above: For patients on eltr ombopag therapy, use of Dimension [place] TBIL is not recommended. Chloride [Moles/Vol] 106 mmol/L 98-107 [facility] Eosinophils/100 WBC (Bld) 0.7 % 0-5 [facility] Glucose [Mass/Vol] 94 mg/dL 74-106 [facility] Hemoglobin (Bld) [Mass/Vol] 12.5 g/dL 12.0-15.0 [facility] Monocytes/100 WBC (Bld) 7.8 % 0-10 [facility] Neutrophils (Bld) [#/Vol] 5.6 10*3/uL 2.0-7.7 [facility] Neutrophils/100 WBC (Bld) 62.6 % 47-70 [facility] Potassium [Moles/Vol] 3.9 mmol/L 3.5-5.1 [facility] Protein [Mass/Vol] 7.4 g/dL 6.4-8.2 [facility] Sodium [Moles/Vol] 137 mmol/L 136-145 [facility] WBC (Bld) [#/Vol] 8.9 10*3/uL 4.4-11.0 [facility] Determination of erythrocyte mean corpuscular volume (MCV)Ordered By: Yoel Frost on 11-12-2023 MCV (RBC) [Entitic vol] 82.7 fL 81-99 [facility] Erythrocyte distribution wid th ratioOrdered By: Yoel Frost on 11-12-2023 Erythrocyte distribution width (RBC) [Ratio] 12.6 % 11.6-14.6 [facility] Erythrocyte distribution wid th standard deviationOrdered By: Yoel Frost on 11-12-2023 Erythrocyte distribution width (RBC) [Entitic vol] 37.9 fL 35.1-43.9 [facility] Hematocrit Auto (Bld) [Volum e fraction]Ordered By: Yoel Frost on 11-12-2023 Hematocrit (Bld) [Volume fraction] 38.6 % 37-47 [facility] Immature granulocytes/100 WB C Auto (Bld)Ordered By: Yoel Frost on 11-12-2023 Immature granulocytes/100 WBC (Bld) 0.200 % 0.0-0.9 [facility] Comment on above: IG% - Immature Granu locytes (promyelocytes, myelocytes and metamyelocytes) > 1% indicates that a LEFT SHIFT is Present. Laboratory - Chemistry and C hemistry - challengeOrdered By: Yoel Frost on 11-12-2023 Albumin/Globulin [Mass ratio] 1.2 {ratio} 0.9-2.4 [facility] ALP [Catalytic activity/Vol] 71 U/L 45-117 [facility] ALT [Catalytic activity/Vol] 14 U/L 13-56 [facility] CO2 [Moles/Vol] 23.0 mmol/L 21.0-32.0 [facility] Cobalamin (Vitamin B12) [Mass/Vol] 320 pg/mL 211-911 [facility] Globulin (S) [Mass/Vol] 3.4 g/dL 2.2-4.2 [facility] Urea nitrogen/Creatinine [Mass ratio] 13.1 mg/mg 10-20 [facility] Laboratory - Hematology and Cell countsOrdered By: Yoel Frost on 11-12-2023 MCH (RBC) [Entitic mass] 26.8 pg 27.0-32.0 [facility] MCHC (RBC) [Mass/Vol] 32.4 g/dL 32-36 [facility] Nucleated RBC/100 WBC (Bld) [Ratio] 0 % 0-5 [facility] Platelet mean volume (Bld) [Entitic vol] 9.1 fL 6.2-12.0 [facility] Platelets (Bld) [#/Vol] 333 10*3/uL 150-450 [facility] No Panel InformationOrdered By: Yoel Frost on 11-12-2023 Estimated GFR (MDRD) Amer 121 mL/min >60 [facility] Comment on above: GFR Calc Estimated GFR (MDRD) Non-Af Amer 100 mL/min >60 [facility] Comment on above: Non- GFR Calc Vitamin D 25-Hydroxy 62.4 ng/mL [facility] Comment on above: Vitamin D 25(OH) Sta tus Range Deficiency <20 ng/mL (50nmol/L) Insufficiency 20 - 30 ng/mL (50 - 75 nmol/L) Sufficiency 30 - 100 ng/mL (75 - 250 nmol/L) Toxicity >100 ng/mL (>250 nmol/L) RBC Auto (Bld) [#/Vol]Ordere d By: Yoel Frost on 11-12-2023 RBC (Bld) [#/Vol] 4.67 10*6/uL 4.2-5.4 [facility] Serum or plasma calcium vik urement (mass/volume)Ordered By: Yoel Frost on 11-12-2023 Calcium [Mass/Vol] 9.1 mg/dL 8.5-10.1 [facility] Serum or plasma creatinine m easurement (mass/volume)Ordered By: Yoel Frost on 11-12-2023 Creatinine [Mass/Vol] 0.76 mg/dL 0.55-1.02 [facility] Comment on above: The validity of the calculated GFR & GFRAA in patients over 70 years has not been determined. Clinical correlation is essential. Serum or plasma thyroid stim ulating hormone (TSH) measurement (units/volume)Ordered By: Yoel Frost on 11-12-2023 TSH Qn 1.63 uIU/mL 0.358-3.74 [facility] Serum or plasma urea nitroge n measurement (mass/volume)Ordered By: Yoel Frost on 11-12-2023 Urea nitrogen [Mass/Vol] 10 mg/dL 7-18 [facility] Thin prep Papanicolaou smear with manual screeningOrdered By: Yoel Frost on 11-12-2023 Thin prep Papanicolaou smear with manual screening 4.0 g/dL 3.2-5.0 [facility] Thin prep Papanicolaou smear with manual screening 8 U/L 15-37 [facility] Thin prep Papanicolaou smear with manual screening 8 5-15 [facility] Absolute lymphocyte countOrd ered By: Dr. Haines on 11-04-2022 Lymphocytes Auto (Unsp spec) [#/Vol] 3.02 10*3/uL 0.83-4.51 [facility] Basophil percentageOrdered B y: Dr. Haines on 11-04-2022 Basophils/100 WBC (Bld) 0.5 % 0-1 [facility] Chloride [Moles/Vol] 106 mmol/L 98-107 [facility] Eosinophils/100 WBC (Bld) 0.8 % 0-5 [facility] Glucose [Mass/Vol] 80 mg/dL 74-106 [facility] Neutrophils (Bld) [#/Vol] 5.5 10*3/uL 2.0-7.7 [facility] Neutrophils/100 WBC (Bld) 58.1 % 47-70 [facility] Potassium [Moles/Vol] 3.7 mmol/L 3.5-5.1 [facility] Sodium [Moles/Vol] 138 mmol/L 136-145 [facility] WBC (Bld) [#/Vol] 9.5 10*3/uL 4.4-11.0 [facility] Blood erythrocytes count (nu mber/volume)Ordered By: Dr. Haines on 11-04-2022 RBC (Bld) [#/Vol] 4.60 10*6/uL 4.2-5.4 [facility] Blood hemoglobin measurement (mass/volume)Ordered By: Dr. Haines on 11-04-2022 Hemoglobin (Bld) [Mass/Vol] 12.7 g/dL 12.0-15.0 [facility] Blood lymphocytes/100 leukoc ytesOrdered By: Dr. Haines on 11-04-2022 Lymphocytes/100 WBC (Bld) 32.0 % 19-41 [facility] Blood monocytes/100 leukocyt esOrdered By: Dr. Haines on 11-04-2022 Monocytes/100 WBC (Bld) 8.4 % 0-10 [facility] Blood platelet mean volumeOr dered By: Dr. Haines on 11-04-2022 Platelet mean volume (Bld) [Entitic vol] 9.0 fL 6.2-12.0 [facility] Determination of erythrocyte mean corpuscular volume (MCV)Ordered By: Dr. Haines on 11-04-2022 MCV (RBC) [Entitic vol] 83.5 fL 81-99 [facility] Hematocrit Auto (Bld) [Volum e fraction]Ordered By: Dr. Haines on 11-04-2022 Hematocrit (Bld) [Volume fraction] 38.4 % 37-47 [facility] Laboratory - Chemistry and C hemistry - challengeOrdered By: Dr. Haines on 11-04-2022 CO2 [Moles/Vol] 28.0 mmol/L 21.0-32.0 [facility] Urea nitrogen/Creatinine [Mass ratio] 19.3 mg/mg 10-20 [facility] Laboratory - Hematology and Cell countsOrdered By: Dr. Haines on 11-04-2022 Erythrocyte distribution width (RBC) [Entitic vol] 37.1 fL 35.1-43.9 [facility] Erythrocyte distribution width (RBC) [Ratio] 12.3 % 11.6-14.6 [facility] Immature granulocytes/100 WBC (Bld) 0.200 % 0.0-0.9 [facility] Comment on above: IG% - Immature Granu locytes (promyelocytes, myelocytes and metamyelocytes) > 1% indicates that a LEFT SHIFT is Present. MCH (RBC) [Entitic mass] 27.6 pg 27.0-32.0 [facility] Nucleated RBC/100 WBC (Bld) [Ratio] 0 % 0-5 [facility] MCHC Auto (RBC) [Mass/Vol]Or dered By: Dr. Haines on 11-04-2022 MCHC (RBC) [Mass/Vol] 33.1 g/dL 32-36 [facility] No Panel InformationOrdered By: Dr. Haines on 11-04-2022 Estimated GFR (MDRD) Amer 120 mL/min >60 [facility] Comment on above: GFR Calc Estimated GFR (MDRD) Non-Af Amer 99 mL/min >60 [facility] Comment on above: Non- GFR Calc Platelets bldOrdered By: Dr. Haines on 11-04-2022 Platelets (Bld) [#/Vol] 315 10*3/uL 150-450 [facility] Serum or plasma calcium vik urement (mass/volume)Ordered By: Dr. Haines on 11-04-2022 Calcium [Mass/Vol] 9.2 mg/dL 8.5-10.1 [facility] Serum or plasma creatinine m easurement (mass/volume)Ordered By: Dr. Haines on 11-04-2022 Creatinine [Mass/Vol] 0.78 mg/dL 0.55-1.02 [facility] Comment on above: The validity of the calculated GFR & GFRAA in patients over 70 years has not been determined. Clinical correlation is essential. Serum or plasma urea nitroge n measurement (mass/volume)Ordered By: Dr. Haines on 11-04-2022 Urea nitrogen [Mass/Vol] 15 mg/dL 02-03 [facility] Thin prep Papanicolaou smear with manual screeningOrdered By: Dr. Haines on 11-04-2022 Thin prep Papanicolaou smear with manual screening 4 12-01 [facility] .GFRon 09-29-2020 GFR Non- 81 ml/min/1.73sqm Normal [facility] ([place] Comment on above: Result Comment: GFR Population [...] C BC, MONO, BMP, DIFF, MORPH #### [address] [address] #### GFR #### [address] [address] GFR 98 ml/min/1.73sqm Normal [facility] ([place] Comment on above: Result Comment: GFR Population [...] C BC, MONO, BMP, DIFF, MORPH #### [place] [address] #### GFR #### [place] [address] .Manual Diffon 09-29-2020 Atypical Lymphs 24.0 % High 0.0-5.0 [facility] ([place] Comment on above: Performed By: #### C BC, MONO, BMP, DIFF, MORPH #### [place] [address] #### GFR #### [place] [address] Basophil %, Manual 0.0 % Normal 0.0-2.5 [facility] ([place] Comment on above: Performed By: #### C BC, MONO, BMP, DIFF, MORPH #### [place] [address] #### GFR #### [place] [address] Basophil, Abs Manual 0.00 10 3/mcL Normal 0.00-0.19 [facility] ([place]) Comment on above: Performed By: #### C BC, MONO, BMP, DIFF, MORPH #### [place] [address] #### GFR #### [address] [address] Eosinophil %, Manual 1.0 % Normal 0.0-7.0 [facility] ([place] Comment on above: Performed By: #### C BC, MONO, BMP, DIFF, MORPH #### [place] [address] #### GFR #### [address] [address] Eosinophil, Abs Manual 0.08 10 3/mcL Normal 0.00-0.40 [facility] ([place] Comment on above: Performed By: #### C BC, MONO, BMP, DIFF, MORPH #### [place] [address] #### GFR #### [address] [address] Lymphocyte %, Manual 29.0 % Normal 10.0-50.0 [facility] ([place] Comment on above: Performed By: #### C BC, MONO, BMP, DIFF, MORPH #### [place] [address] #### GFR #### [address] [address] Lymphocyte, Abs Manual 4.29 10 3/mcL High 0.77-3.85 [facility] ([place] Comment on above: Performed By: #### C BC, MONO, BMP, DIFF, MORPH #### [place] [address] #### GFR #### [address] [address] Monocyte %, Manual 13.0 % Normal 1.7-13.0 [facility] ([place] Comment on above: Performed By: #### C BC, MONO, BMP, DIFF, MORPH #### [place] [address] #### GFR #### [place] [address] Monocyte, Abs Manual 1.05 10 3/mcL High 0.15-1.00 [facility] [place] Comment on above: Performed By: #### C BC, MONO, BMP, DIFF, MORPH #### [place] [address] #### GFR #### [place] [address] Neutrophil %, Manual 33.0 % Low 37.0-80.0 [facility] ([place] Comment on above: Performed By: #### C BC, MONO, BMP, DIFF, MORPH #### [place] [address] #### GFR #### [place] [address] Neutrophil, Abs Manual 2.67 10 3/mcL Low 2.85-6.16 [facility] ([place] Comment on above: Performed By: #### C BC, MONO, BMP, DIFF, MORPH #### [place] [address] #### GFR #### [place] [address] .Morphon 09-29-2020 Platelets (Bld) [#/Vol] Normal Normal [facility] [place] Comment on above: Performed By: #### C BC, MONO, BMP, DIFF, MORPH #### [place] [address] #### GFR #### [place] [address] BMPon 09-29-2020 Calcium [Mass/Vol] 9.0 mg/dL Normal 8.4-10.2 [facility] ([place] Comment on above: Performed By: #### C BC, MONO, BMP, DIFF, MORPH #### [place] [address] #### GFR #### [address] [address] Chloride [Moles/Vol] 99 mmol/L Normal 98-107 [facility] ([place] Comment on above: Performed By: #### C BC, MONO, BMP, DIFF, MORPH #### [address] [address] #### GFR #### [address] [address] CO2 [Moles/Vol] 23 mmol/L Normal 22-29 [facility] ([place] Comment on above: Performed By: #### C BC, MONO, BMP, DIFF, MORPH #### [address] [address] #### GFR #### [address] [address] Creatinine [Mass/Vol] 0.90 mg/dL Normal 0.55-1.02 [facility] ([place] Comment on above: Performed By: #### C BC, MONO, BMP, DIFF, MORPH #### [address] [address] #### GFR #### [address] [address] Electrolyte Balance 13.0 mEq/L Normal [facility] ([place]) Comment on above: Performed By: #### C BC, MONO, BMP, DIFF, MORPH #### [address] [address] #### GFR #### [address] [address] Glucose [Mass/Vol] 105 mg/dL Normal 70-105 [facility] ([place] Comment on above: Performed By: #### C BC, MONO, BMP, DIFF, MORPH #### [address] [address] #### GFR #### [address] [address] Potassium [Moles/Vol] 3.5 mmol/L Normal 3.5-5.1 [facility] ([place] Comment on above: Performed By: #### C BC, MONO, BMP, DIFF, MORPH #### [address] [address] #### GFR #### [address] [address] Sodium [Moles/Vol] 135 mmol/L Low 136-145 [facility] ([place] Comment on above: Performed By: #### C BC, MONO, BMP, DIFF, MORPH #### [address] [address] #### GFR #### [address] [address] Urea nitrogen [Mass/Vol] 9 mg/dL Normal 7-18 [facility] ([place] Comment on above: Performed By: #### C BC, MONO, BMP, DIFF, MORPH #### [address] [address] #### GFR #### [address] [address] Urea nitrogen/Creatinine [Mass ratio] 10 ratio Normal 7-27 [facility] ([place] Comment on above: Performed By: #### C BC, MONO, BMP, DIFF, MORPH #### [address] [address] #### GFR #### [address] [address] CBCon 09-29-2020 Erythrocyte distribution width (RBC) [Ratio] 13.5 % Normal 11.5-14.5 [facility] ([place] Comment on above: Performed By: #### C BC, MONO, BMP, DIFF, MORPH #### [address] [address] #### GFR #### [address] [address] Hematocrit (Bld) [Volume fraction] 39.1 % Normal 37.0-47.0 [facility] ([place] Comment on above: Performed By: #### C BC, MONO, BMP, DIFF, MORPH #### [address] [address] #### GFR #### [address] [address] Hemoglobin (Bld) [Mass/Vol] 13.8 G/dL Normal 12.0-16.0 [facility] ([place] Comment on above: Performed By: #### C BC, MONO, BMP, DIFF, MORPH #### [address] [address] #### GFR #### [place] [address] MCH (RBC) [Entitic mass] 27.7 pg Normal 27.0-31.2 [facility] ([place] Comment on above: Performed By: #### C BC, MONO, BMP, DIFF, MORPH #### [place] [address] #### GFR #### [place] [address] MCHC (RBC) [Mass/Vol] 35.2 G/dL Normal 33.0-37.0 [facility] ([place]) Comment on above: Performed By: #### C BC, MONO, BMP, DIFF, MORPH #### [place] [address] #### GFR #### [place] [address] MCV (RBC) [Entitic vol] 78.7 fL Low 80.0-94.0 [facility] [place] Comment on above: Performed By: #### C BC, MONO, BMP, DIFF, MORPH #### [place] [address] #### GFR #### [place] [address] Platelet mean volume (Bld) [Entitic vol] 7.9 fL Normal 7.4-10.4 [facility] ([place] Comment on above: Performed By: #### C BC, MONO, BMP, DIFF, MORPH #### [place] [address] #### GFR #### [facility] [address] [place], [place] [address] Platelets (Bld) [#/Vol] 176 10 3/mcL Normal 130-400 [facility] ([place] Comment on above: Performed By: #### C BC, MONO, BMP, DIFF, MORPH #### [address] [address] #### GFR #### [place] [address] RBC (Bld) [#/Vol] 4.97 10 6/mcL Normal 4.20-5.40 [facility] ([place] Comment on above: Performed By: #### C BC, MONO, BMP, DIFF, MORPH #### [place] [address] #### GFR #### [address] [address] WBC (Bld) [#/Vol] 8.10 10 3/mcL Normal 4.60-10.80 [facility] ([place] Comment on above: Performed By: #### C BC, MONO, BMP, DIFF, MORPH #### [place] [address] #### GFR #### [place] [address] MONOon 09-29-2020 Monocytes (Bld) [#/Vol] Positive Normal Negative [facility] [place] Comment on above: Performed By: #### C BC, MONO, BMP, DIFF, MORPH #### [place] [address] #### GFR #### [place] [address] RFLUon 09-29-2020 RFLU . MICRO - Microbiology [...] Locations *1: This test was performed at: [address] Normal [facility] ([place] Comment on above: Performed By: #### R FLU #### [place] [address] UAon 09-29-2020 Color (U) Yellow Normal [facility] ([place] Comment on above: Performed By: #### U A #### [place] [address] Glucose (U) [Mass/Vol] Negative Normal Negative [facility] ([place] Comment on above: Performed By: #### U A #### [place] [address] Ketones Ql (U) Negative Normal Negative [facility] ([place] Comment on above: Performed By: #### U A #### [place] [address] UA Appear Clear Normal Clear [facility] ([place] Comment on above: Performed By: #### U A #### [address] [address] UA Blood Trace Abnormal Negative [facility] ([place] Comment on above: Performed By: #### U A #### [address] [address] UA Leuk Est Negative Normal Negative [facility] ([place] Comment on above: Performed By: #### U A #### [place] [address] UA Nitrite Negative Normal Negative [facility] ([place] Comment on above: Performed By: #### U A #### [address] [address] UA pH 6.5 Normal 5.0 - 8.0 [facility] ([place] Comment on above: Performed By: #### U A #### [address] [address] UA Protein Negative Normal Negative [facility] [place] Comment on above: Performed By: #### U A #### [address] [address] UA Spec Grav 1.025 Normal 1.015-1.025 [facility] ([place] Comment on above: Performed By: #### U A #### [address] [address] UA Specimen Type Void Normal [facility] ([place] Comment on above: Performed By: #### U A #### [address] [address] UA Urobilinogen 4.0 E.U./dL Abnormal 0.2-1.0 [facility] ([place] Comment on above: Performed By: #### U A #### [address] [address] Urobilinogen Qn (U) Negative Normal Negative [facility] ([place] Comment on above: Performed By: #### U A #### [address] [address] XR CHEST 1 VIEWon 09-29-2020 XR CHEST [...] 10:52:50 PM Ordering Provider:Navi Ibarra [facility] ([place] Vital Signs Date Time Vital Sign Value Performing Clinician Errol clarke 02-02-2025 19:03-0400 Diastolic blood pressure 57 mm[Hg] Dr. Moisés Haines DO Work Phone: [facility] 02-02-2025 19:03-0400 Heart rate 71 /min Dr. Moisés Haines DO Work Phone: [facility] 02-02-2025 19:03-0400 Systolic blood pressure 117 mm[Hg] Dr. Moisés Haines DO Work Phone: [facility] 02-02-2025 19:00-0400 Body temperature 98.8 [degF] Dr. Moisés Haines DO Work Phone: [facility] 02-02-2025 19:00-0400 Respiratory rate 16 /min Dr. Moissé Haines DO Work Phone: [facility] 02-02-2025 19:00-0400 SaO2% (BldA) [Mass fraction] 97 % Dr. Moisés Haines DO Work Phone: [facility] 02-02-2025 09:35-0400 Body temperature 98.3 [degF] Dr. Moisés Haines DO Work Phone: [facility] 02-02-2025 09:35-0400 Diastolic blood pressure 54 mm[Hg] Dr. Moisés Haines DO Work Phone: [facility] 02-02-2025 09:35-0400 Heart rate 53 /min Dr. Moisés Haines DO Work Phone: [facility] 02-02-2025 09:35-0400 Respiratory rate 18 /min Dr. Moisés Haines DO Work Phone: [facility] 02-02-2025 09:35-0400 SaO2% (BldA) [Mass fraction] 99 % Dr. Moisés Haines DO Work Phone: [facility] 02-02-2025 09:35-0400 Systolic blood pressure 118 mm[Hg] Dr. Moisés Haines DO Work Phone: [facility] 02-02-2025 08:57-0400 Body height 177.[address] Moisés Haines DO Work Phone: [facility] 02-02-2025 08:57-0400 Body mass index (BMI) [Ratio] 25.4 kg/m2 Dr. Moisés Haines DO Work Phone: [facility] 02-02-2025 08:57-0400 Body weight 80.[address] Moisés Haines DO Work Phone: [facility] 01-25-2025 16:11-0400 Diastolic blood pressure 79 mm[Hg] Dr. Moisés Haines DO Work Phone: [facility] 01-25-2025 16:11-0400 Heart rate 83 /min Dr. Moisés Haines DO Work Phone: [facility] 01-25-2025 16:11-0400 Systolic blood pressure 157 mm[Hg] Dr. Moisés Haines DO Work Phone: [facility] 01-25-2025 15:51-0400 Body temperature 97 [degF] Dr. Miosés Haines DO Work Phone: [facility] 01-25-2025 15:51-0400 Respiratory rate 16 /min Dr. Moisés Haines DO Work Phone: [facility] 01-25-2025 15:51-0400 SaO2% (BldA) [Mass fraction] 98 % Dr. Moisés Haines DO Work Phone: [facility] 01-24-2025 02:57-0400 Body height 177.[address] Moisés Haines DO Work Phone: [facility] 01-24-2025 02:57-0400 Body mass index (BMI) [Ratio] 29.4 kg/m2 Dr. Moisés Haines DO Work Phone: [facility] 01-24-2025 02:57-0400 Body weight 92.[address] Moisés Haines DO Work Phone: [facility] 01-23-2025 09:43-0400 Body height 177.[address] Moisés Haines DO Work Phone: [facility] 01-23-2025 09:43-0400 Body mass index (BMI) [Ratio] 29.5 kg/m2 Dr. Moisés Haines DO Work Phone: [facility] 01-23-2025 09:43-0400 Body weight 93.[address] Moisés Haines DO Work Phone: [facility] 01-23-2025 09:43-0400 Diastolic blood pressure 81 mm[Hg] Dr. Moisés Haines DO Work Phone: [facility] 01-23-2025 09:43-0400 Systolic blood pressure 129 mm[Hg] Dr. Moisés Haines DO Work Phone: [facility] 01-19-2025 10:25-0400 Body height 177.[address] Moisés Haines DO Work Phone: [facility] 01-19-2025 10:25-0400 Body mass index (BMI) [Ratio] 29 kg/m2 Dr. Moisés Haines DO Work Phone: [facility] 01-19-2025 10:25-0400 Body weight 91.[address] Moisés Haines DO Work Phone: [facility] 01-19-2025 10:25-0400 Diastolic blood pressure 79 mm[Hg] Dr. Moisés Haines DO Work Phone: [facility] 01-19-2025 10:25-0400 Systolic blood pressure 137 mm[Hg] Dr. Moisés Haines DO Work Phone: [facility] 01-11-2025 13:50-0400 Body height 177.[address] Moisés Haines DO Work Phone: [facility] 01-11-2025 13:50-0400 Body mass index (BMI) [Ratio] 29.3 kg/m2 Dr. Moisés Haines DO Work Phone: [facility] 01-11-2025 13:50-0400 Body weight 92.[address] Moisés Haines DO Work Phone: [facility] 01-11-2025 13:50-0400 Diastolic blood pressure 69 mm[Hg] Dr. Moisés Haines DO Work Phone: [facility] 01-11-2025 13:50-0400 Systolic blood pressure 126 mm[Hg] Dr. Moisés Haines DO Work Phone: [facility] 01-05-2025 07:58-0400 Body height 177.[address] Moisés Haines DO Work Phone: [facility] 01-05-2025 07:58-0400 Body mass index (BMI) [Ratio] 29 kg/m2 Dr. Moisés Haines DO Work Phone: [facility] 01-05-2025 07:58-0400 Body weight 91.[address] Moisés Haines DO Work Phone: [facility] 01-05-2025 07:58-0400 Diastolic blood pressure 72 mm[Hg] Dr. Moisés Haines DO Work Phone: [facility] 01-05-2025 07:58-0400 Systolic blood pressure 123 mm[Hg] Dr. Moisés Haines DO Work Phone: [facility] 12-30-2024 10:00-0400 Body height 177.[address] Moisés Haines DO Work Phone: [facility] 12-30-2024 09:59-0400 Body mass index (BMI) [Ratio] 28.8 kg/m2 Dr. Moisés Haines DO Work Phone: [facility] 12-30-2024 09:59-0400 Body weight 90.[address] Moisés Haines DO Work Phone: [facility] 12-30-2024 09:59-0400 Diastolic blood pressure 71 mm[Hg] Dr. Moisés Haines DO Work Phone: [facility] 12-30-2024 09:59-0400 Systolic blood pressure 113 mm[Hg] Dr. Moisés Haines DO Work Phone: [facility] 12-22-2024 14:30-0400 Body height 177.[address] Moisés Haines DO Work Phone: [facility] 12-22-2024 14:30-0400 Body mass index (BMI) [Ratio] 28.7 kg/m2 Dr. Moisés Haines DO Work Phone: [facility] 12-22-2024 14:30-0400 Body weight 90.[address] Moisés Haines DO Work Phone: [facility] 12-22-2024 14:30-0400 Diastolic blood pressure 78 mm[Hg] Dr. Moisés Haines DO Work Phone: [facility] 12-22-2024 14:30-0400 Systolic blood pressure 129 mm[Hg] Dr. Moisés Haines DO Work Phone: [facility] 12-09-2024 14:50-0400 Body mass index (BMI) [Ratio] 28.9 kg/m2 Dr. Moisés Haines DO Work Phone: [facility] 12-09-2024 14:50-0400 Body weight 91.[address] Moisés Haines DO Work Phone: [facility] 12-09-2024 14:50-0400 Diastolic blood pressure 67 mm[Hg] Dr. Moisés Haines DO Work Phone: [facility] 12-09-2024 14:50-0400 Systolic blood pressure 106 mm[Hg] Dr. Moisés Haines DO Work Phone: [facility] 11-25-2024 14:07-0400 Body mass index (BMI) [Ratio] 28.7 kg/m2 Dr. Moisés Haines DO Work Phone: [facility] 11-25-2024 14:07-0400 Body weight 90.[address] Moisés Haines DO Work Phone: [facility] 11-25-2024 14:07-0400 Diastolic blood pressure 76 mm[Hg] Dr. Moisés Haines DO Work Phone: [facility] 11-25-2024 14:07-0400 Systolic blood pressure 125 mm[Hg] Dr. Moisés Haines DO Work Phone: [facility] 11-11-2024 14:01-0400 Body mass index (BMI) [Ratio] 28.6 kg/m2 Dr. Moisés Haines DO Work Phone: [facility] 11-11-2024 14:01-0400 Body weight 90.[address] Moisés Haines DO Work Phone: [facility] 11-11-2024 14:01-0400 Diastolic blood pressure 65 mm[Hg] Dr. Moisés Haines DO Work Phone: [facility] 11-11-2024 14:01-0400 Systolic blood pressure 130 mm[Hg] Dr. Moisés Haines DO Work Phone: [facility] 10-14-2024 13:29-0400 Body height 177.[address] Moisés Haines DO Work Phone: [facility] 10-14-2024 13:29-0400 Body mass index (BMI) [Ratio] 28.5 kg/m2 Dr. Moisés Haines DO Work Phone: [facility] 10-14-2024 13:29-0400 Body weight 90.[address] Moisés Haines DO Work Phone: [facility] 10-14-2024 13:29-0400 Diastolic blood pressure 62 mm[Hg] Dr. Moisés Haines DO Work Phone: [facility] 10-14-2024 13:29-0400 Systolic blood pressure 118 mm[Hg] Dr. Moisés Haines DO Work Phone: [facility] 09-16-2024 13:04-0500 Body mass index (BMI) [Ratio] 28 kg/m2 Dr. Moisés Haines DO Work Phone: [facility] 09-16-2024 13:04-0500 Body weight 88.[address] Moisés Haines DO Work Phone: [facility] 09-16-2024 13:04-0500 Diastolic blood pressure 74 mm[Hg] Dr. Moisés Haines DO Work Phone: [facility] 09-16-2024 13:04-0500 Systolic blood pressure 123 mm[Hg] Dr. Moisés Haines DO Work Phone: [facility] 08-19-2024 14:13-0500 Body mass index (BMI) [Ratio] 27.7 kg/m2 Dr. Moisés Haines DO Work Phone: [facility] 08-19-2024 14:13-0500 Body weight 87.[address] Moisés Haines DO Work Phone: [facility] 08-19-2024 14:13-0500 Diastolic blood pressure 65 mm[Hg] Dr. Moisés Haines DO Work Phone: [facility] 08-19-2024 14:13-0500 Systolic blood pressure 123 mm[Hg] Dr. Moisés Haines DO Work Phone: [facility] 07-21-2024 10:11-0500 Body mass index (BMI) [Ratio] 26.5 kg/m2 Dr. Moisés Haines DO Work Phone: [facility] 07-21-2024 10:11-0500 Body weight 83.[address] Moisés Haines DO Work Phone: [facility] 07-21-2024 10:11-0500 Diastolic blood pressure 68 mm[Hg] Dr. Moisés Haines DO Work Phone: [facility] 07-21-2024 10:11-0500 Systolic blood pressure 120 mm[Hg] Dr. Moisés Haines DO Work Phone: [facility] 06-23-2024 13:02-0500 Body mass index (BMI) [Ratio] 26.2 kg/m2 Dr. Moisés Haines DO Work Phone: [facility] 06-23-2024 13:02-0500 Body weight [address] Moisés Haines DO Work Phone: [facility] 06-23-2024 13:02-0500 Diastolic blood pressure 82 mm[Hg] Dr. Moisés Haines DO Work Phone: [facility] 06-23-2024 13:02-0500 Systolic blood pressure 144 mm[Hg] Dr. Moisés Haines DO Work Phone: [facility] 11-12-2023 15:04-0400 Body height 177.[address] Moisés Haines Work Phone: [facility] 11-12-2023 15:04-0400 Body mass index (BMI) [Ratio] 26.4 kg/m2 Dr. Moisés Haines Work Phone: [facility] 11-12-2023 15:04-0400 Body temperature 97.3 [degF] Dr. Moisés Haines Work Phone: [facility] 11-12-2023 15:04-0400 Body weight 83.[address] Moisés Haines Work Phone: [facility] 11-12-2023 15:04-0400 Diastolic blood pressure 60 mm[Hg] Dr. Moisés Haines Work Phone: [facility] 11-12-2023 15:04-0400 Heart rate 60 /min Dr. Moisés Haines Work Phone: [facility] 11-12-2023 15:04-0400 Respiratory rate 16 /min Dr. Moisés Haines Work Phone: [facility] 11-12-2023 15:04-0400 SaO2% (BldA) [Mass fraction] 97 % Dr. Moisés Haines Work Phone: [facility] 11-12-2023 15:04-0400 Systolic blood pressure 122 mm[Hg] Dr. Moisés Haines Work Phone: [facility] 11-04-2022 15:23-0400 Body height 177.[address] Michael Patel Work Phone: [facility] 11-04-2022 15:23-0400 Body mass index (BMI) [Ratio] 26.8 kg/m2 Dr. Michael Patel Work Phone: [facility] 11-04-2022 15:23-0400 Body temperature 97.9 [degF] Dr. Michael Patel Work Phone: [facility] 11-04-2022 15:23-0400 Body weight 84.[address] Michael Patel Work Phone: [facility] 11-04-2022 15:23-0400 Diastolic blood pressure 72 mm[Hg] Dr. Michael Patel Work Phone: [facility] 11-04-2022 15:23-0400 Heart rate 58 /min Dr. Michael Patel Work Phone: [facility] 11-04-2022 15:23-0400 Respiratory rate 14 /min Dr. Michael Patel Work Phone: [facility] 11-04-2022 15:23-0400 SaO2% (BldA) [Mass fraction] 99 % Dr. Michael Patel Work Phone: [facility] 11-04-2022 15:23-0400 Systolic blood pressure 104 mm[Hg] Dr. Michael Patel Work Phone: [facility] 09-04-2022 16:28-0500 Body mass index (BMI) [Ratio] 25.7 kg/m2 Dr. Michael Patel Work Phone: [facility] 09-04-2022 16:28-0500 Body temperature 97.8 [degF] Dr. Michael Patel Work Phone: [facility] 09-04-2022 16:28-0500 Body weight 81.[address] Michael Patel Work Phone: [facility] 09-04-2022 16:28-0500 Diastolic blood pressure 74 mm[Hg] Dr. Michael Patel Work Phone: [facility] 09-04-2022 16:28-0500 Heart rate 77 /min Dr. Michael Patel Work Phone: [facility] 09-04-2022 16:28-0500 Respiratory rate 14 /min Dr. Michael Patel Work Phone: [facility] 09-04-2022 16:28-0500 SaO2% (BldA) [Mass fraction] 97 % Dr. Michael Patel Work Phone: [facility] 09-04-2022 16:28-0500 Systolic blood pressure 108 mm[Hg] Dr. Michael Patel Work Phone: [facility] Encounters Encounter Date Encounter Type Care Provider Facility Start: 02-02-2025 End: 02-02-2025 Evaluation and management of inpatient Dr. Jemima Garcia DO [facility] Work Phone: Start: 02-02-2025 End: 02-02-[address] Moisés Haines DO Work Phone: [facility] Start: 02-02-2025 Admission to [facility] Dr[facility] Jemima Garcia DO -[facility] Work Phone: Start: 02-02-[address] Moisés Haines DO Work Phone: -[facility] Start: 02-02-2025 Non-patient / Non-visit Dr. Saúl Garcia DO -[facility] Start: 01-25-2025 Non-patient / Non-visit Cesilia LO -[facility] Start: 01-24-2025 Non-patient / Non-visit Roseanna baxter [facility] Start: 01-24-2025 ambulatory Roseanna Waller y:[facility] Start: 01-24-2025 End: 01-25-2025 Evaluation and management of inpatient Dr. Jemima Garcia DO [facility] Work Phone: Start: 01-23-2025 End: 01-23-2025 Patient encounter procedure Angela Sanders [facility] Work Phone: Start: 01-23-2025 End: 01-23-[address] Moisés Haines [facility] Start: 01-23-2025 End: 01-23-2025 ambulatory Angela Sanders Facility:[facility] Start: 01-19-2025 End: 01-19-[address] Kenya Wright MD -[facility] Work Phone: Start: 01-19-2025 End: 01-19-[address] Moisés Haines DO [facility] Start: 01-11-2025 End: 01-11-[address] Jemima Garcia DO -[facility] Work Phone: Start: 01-11-2025 End: 01-11-[address] Moisés Haines DO Work Phone: [facility] Work Phone: Start: 01-05-2025 End: 01-05-2025 Patient encounter procedure Angela Sanders [facility] -[facility] Work Phone: Start: 01-05-2025 End: 01-05-[address] Moisés Haines DO Work Phone: [facility] Work Phone: Start: 12-30-2024 End: 12-30-[address] Jemima Garcia DO -[facility] Work Phone: Start: 12-30-2024 End: 12-30-[address] Moisés Haines DO Work Phone: [facility] Work Phone: Start: 12-22-2024 End: 12-22-[address] Moisés Haines DO Work Phone: [facility] Work Phone: Start: 12-22-2024 End: 12-22-2024 Patient encounter procedure Angela Sanders CN -[facility]atory [facility] Work Phone: Start: 12-22-2024 End: 12-22-2024 Patient encounter procedure Angela PERKINS [facility] Work Phone: Start: 12-22-2024 End: 12-22-[address] Moisés Haines DO Work Phone: [facility] Work Phone: Start: 12-22-2024 End: 12-22-2024 ambulatory Angela Sanders Facility:[facility] Start: 12-09-2024 End: 12-09-[address] Jemima Garcia DO -[facility] Work Phone: Start: 12-09-2024 End: 12-09-2024 ambulatory Moisés Haines Facility:[facility] Start: 11-25-2024 End: 11-25-2024 Patient encounter procedure Angela PERKINS -[facility] Work Phone: Start: 11-25-2024 End: 11-25-2024 ambulatory Moisés Haines Facility:[facility] Start: 11-11-2024 End: 11-11-2024 Patient encounter procedure Roseanna PERKINS -[facility] Work Phone: Start: 11-11-2024 End: 11-11-2024 ambulatory Moisés Haines Facility:[facility] Start: 10-14-2024 End: 10-14-2024 Patient encounter procedure Cesilia LO -[facility] Work Phone: Start: 10-14-2024 End: 10-14-[address] Moisés Haines DO Work Phone: [facility] Work Phone: Start: 10-14-2024 End: 10-14-2024 ambulatory Cesilia George NP Facility:[facility] Start: 09-16-2024 End: 09-16-2024 Patient encounter procedure Roseanna Mckeon CNM -[facility] Work Phone: Start: 09-16-2024 End: 09-16-2024 ambulatory Moisés Haines Facility:[facility] Start: 08-26-2024 End: 08-26-2024 ambulatory JEMIMA SHERIDAN [facility] Start: 08-19-2024 End: 08-19-[address] Kenya Wright MD -[facility] Work Phone: Start: 08-19-2024 End: 08-19-2024 ambulatory Moisés Haines Facility:[facility] Start: 07-21-2024 End: 07-21-[address] Jemima Garcia DO -[facility] Work Phone: Start: 07-21-2024 End: 07-21-2024 ambulatory Moisés Haines Facility:[facility] Start: 07-21-2024 End: 07-21-2024 ambulatory Moisés Haines Facility:[facility] Start: 07-01-2024 End: 07-01-2024 Patient encounter procedure Angela Sanders CNM -Lab, [facility] Start: 07-01-2024 End: 07-01-2024 ambulatory Moisés Haines Facility:[facility] Start: 06-23-2024 End: 06-23-2024 Patient encounter procedure Angela Sanders CNM -Laboratory, Specimen Work Phone: Start: 06-23-2024 End: 06-23-2024 Patient encounter procedure Angela Sanders CNM -[facility] Work Phone: Start: 06-23-2024 End: 06-23-2024 ambulatory Moisés Haines Facility:[facility] Start: 06-23-2024 End: 06-23-2024 ambulatory Moisés Haines Facility:[facility] Start: 11-12-2023 End: 11-12-[address] Moisés Haines Work Phone: [facility] Work Phone: Start: 11-12-2023 End: 11-12-[address] Moisés Haines Work Phone: [facility] Work Phone: Start: 11-04-2022 End: 11-04-[address] Michael Patel Work Phone: [facility] Work Phone: Start: 11-04-2022 End: 11-04-[address] Michael Patel Work Phone: [facility] Start: 09-04-2022 End: 09-04-[address] Michael Patel Work Phone: [facility] Procedures Date Procedure Procedure Detail Performing Clinician Start: 02-02-2025 Dilation and curetta ge of uterus Dr. Moisés Haines DO Work Phone: Start: 02-02-2025 Urnls dip stick/tabl et reagent auto microscopy Dr. Moisés Haines DO Work Phone: Start: 02-02-[address] Sam Haines DO Work Phone: Start: 02-02-[address] Moisés Haines DO Work Phone: Start: 01-24-2025 Serologic test for syphilis Dr. [...] Treatment Date Care Activity Detail Author Start: 02-02-2025 Patient discharge [facility] Start: 02-02-2025 Administration of medication [facility] Start: 02-02-2025 Application of ice c ollar, cap or bag [facility] Start: 02-02-2025 Catheterization of vein [facility] Start: 02-02-2025 Introduction of urin caleb catheter [facility] Start: 02-02-2025 Measuring intake and output [facility] Start: 02-02-2025 Notification of physician [facility] Start: 02-02-2025 Procedure discontinued [facility] Start: 02-02-2025 Provision of activit y privileges [facility] Start: 02-02-2025 Vital signs measurements [facility] Start: 02-02-2025 End: 02-02-2025 [facility] Start: 02-02-2025 Documentation procedure [facility] Start: 02-02-2025 Admission procedure [facility] Start: 02-02-2025 Patient discharge [facility] Start: 02-02-2025 Ambulation without limitation [facility] Start: 02-02-2025 Medical regimen orde rs management [facility] Start: 02-02-2025 Medication education [facility] Start: 02-02-2025 Procedure discontinued [facility] Start: 02-02-2025 Taking patient vital signs [facility] Start: 02-02-2025 Vital signs measurements [facility] Start: 02-02-2025 [facility] Start: 02-02-2025 Hospital admission, emergency, from emergency room, medical nature [facility] Start: 07-17-2025 Leukocyte reduced re d blood cells [facility] Start: 02-02-2025 [facility] Start: 01-25-2025 Patient discharge [facility] Start: 01-24-2025 Documentation procedure [facility] Start: 01-24-2025 Administration of medication [facility] Start: 01-24-2025 Application of ice c ollar, cap or bag [facility] Start: 01-24-2025 Catheterization of vein [facility] Start: 01-24-2025 Introduction of urin caleb catheter [facility] Start: 01-24-2025 Measuring intake and output [facility] Start: 01-24-2025 Notification of physician [facility] Start: 01-24-2025 Procedure discontinued [facility] Start: 01-24-2025 Provision of activit y privileges [facility] Start: 01-24-2025 Vital signs measurements [facility] Start: 01-24-2025 End: 01-24-2025 [facility] Start: 01-24-2025 Admission procedure [facility] Patient Education After a Vagina l Delivery (WP) [facility] Work Phone: Streptococcus agalac tiae [Presence] in Unspecified specimen by Organism specific culture [facility] Payers Date Payer Category Payer Unknown [id number] 2025 Unknown [id number] 2024 Unknown [id number] Self-pay 2024 Unknown [id number] Unknown [id number]. [id number] Unknown [facility] [id number] Unknown [id number] .[id number] [id number] Unknown [id number] 2.16.8 40.1.782366.3.579.2.462 Unknown [id number] 2.16.8 40.1.575548.3.579.2.462 Unknown [id number] 2.16.8 40.1.110596.3.579.2.462 Unknown [id number] 2.16.8 40.1.144349.3.579.2.462 Unknown [id number] 2.16.8 40.1.943834.3.579.2.462 Unknown [id number] 2.16.8 40.1.226810.3.579.2.462 Unknown [id number] 2.16.8 40.1.116014.3.579.2.462 Unknown [id number] 2.16.8 40.1.970014.3.579.2.462 Unknown [id number] 2.16.8 40.1.831927.3.579.2.462 Unknown [id number] 2.16.8 40.1.094453.3.579.2.462 Unknown [id number] 2.16.8 40.1.448750.3.579.2.462 Unknown [id number] 2.16.8 40.1.211205.3.579.2.462 Unknown [id number] 2.16.8 40.1.356646.3.579.2.462 Unknown [id number] 2.16.8 40.1.186804.3.579.2.462 Unknown [id number] 2.16.8 40.1.134238.3.579.2.462 Unknown [id number] 2.16.8 40.1.908329.3.579.2.462 Unknown [id number] 2.16.8 40.1.140298.3.579.2.462 Unknown [id number] 2.16.8 40.1.971996.3.579.2.462 Unknown [id number] 2.16.8 40.1.286086.3.579.2.462 Unknown [id number] 2.16.8 40.1.320092.3.579.2.462 Unknown [id number] 2.16.8 40.1.307979.3.579.2.462 Unknown [id number] 2.16.8 40.1.495303.3.579.2.462 Social History Date Type Detail Facility Start: 11-04-2022 Tobacco smoking status NHIS Unknown if ever smoked [facility] Start: 2000 Sex Assigned At Female [facility] Start: 06-14-2024 End: 02-02-2025 Tobacco smoking status NHIS Never smoked tobacco (finding) [facility] Start: 10-18-2024 Sex Female (finding) [facility] Patient currentl y [facility] NEGATED: Highlighted row Not [facility] Goals Date Patient Goal Desired Activity /State Mental Status Date Assessment Result Facility 02-02-2025 Cognitive function Voice/Name [facility] Work Phone: Clinical Notes 06-23-2024 to 02-02-2025 Note Date & Type Note Facility 02-02-2025 Progress note [facility] 02-02-2025 Consult note Note Date/Time February 02, 2025 4:04pm [facility] Medical Records Department [address] [place] [address] Anesthesia Postop Eval II 02/02/25 1600 MR#: [id number] Acct: [id number] Name: SHEEBA WELSH Rep #:[id number] : 2000 24 From: Lenny Vargas PCP: [facility] [place] Status:ADM ANTONIO Y Race: C Location: WP013- 1 Anesthesia Postop Eval I Sum Postop Eval Completion status Anesthesia document: Postop Eval 1 completed: Yes Anesthesia Postop Eval I Summary Anesthesia Postop Eval I Summary: Anesthesia Postop Eval I: Assessment Summary Airway patent Yes 02/02/25 10:47 [email or web address] Spontaneous unlabored Yes 02/02/25 10:47 [email or web address] [email or web address] respirations Mental status Awake,Calm 02/02/25 10:47 [email or web address] nausea No 02/02/25 10:47 [email or web address] Vomiting No 02/02/25 10:47 [email or web address] Anesthesia Postop Eval I: Fluid Summary Crystalloid volume administer 1,500 02/02/25 10:47 [email or web address] [email or web address] (ml) Colloids volume administered ( ml) Blood Product volume administered (ml) Total IV fluid infused 1,500 02/02/25 10:47 [email or web address] Anesthesia Postop Eval I: Summary Notes Anesthesia Complication No 02/02/25 10:47 [email or web address] Anesthesia Complication Comment: Post-operative progress note Anesthesia: Postop Eval II Evaluation Mental status: Awake and Calm Pain Level: 1 nausea: No Vomiting: No Complications Anesthesia Complication: No 02/02/25 1604 <Electronically signed by Lenny Marie MD> Date _ Lenny Marie MD Cosigner Signature: Date CC: ~ Signed [facility] Work Phone: 1(495) 703-671807-17-2025 Consult note [facility] Medical Records Department [address] [place] [address] Anesthesia Postop Eval II 02/02/25 1600 MR#: [id number] Acct: [id number] Name: SHEEBA WELSH Rep #:[id number] : 2000 24 From: Lenny Vargas PCP: [facility] [place] Status:ADM ANTONIO Y Race: C Location: [place] [address]- Anesthesia Postop Eval I Sum Postop Eval Completion status Anesthesia document: Postop Eval 1 completed: Yes Anesthesia Postop Eval I Summary Anesthesia Postop Eval I Summary: Anesthesia Postop Eval I: Assessment Summary Airway patent Yes 02/02/25 10:47 [email or web address] [email or web address] Spontaneous unlabored Yes 02/02/25 10:47 [email or web address] [email or web address] respirations Mental status Awake,Calm 02/02/25 10:47 [email or web address] [email or web address] nausea No 02/02/25 10:47 [email or web address] [email or web address] Vomiting No 02/02/25 10:47 [email or web address] Anesthesia Postop Eval I: Fluid Summary Crystalloid volume administer 1,500 02/02/25 10:47 [email or web address] [email or web address] (ml) Colloids volume administered ( ml) Blood Product volume administered (ml) Total IV fluid infused 1,500 02/02/25 10:47 [email or web address] Anesthesia Postop Eval I: Summary Notes Anesthesia Complication No 02/02/25 10:47 [email or web address] Anesthesia Complication Comment: Post-operative progress note Anesthesia: Postop Eval II Evaluation Mental status: Awake and Calm Pain Level: 1 nausea: No Vomiting: No Complications Anesthesia Complication: No 02/02/25 1604 MD> Date _ Lenny Marie MD Cosigner Signature: Date CC: ~ Signed [facility]07-17-2025 Consult note Author Christiano Angela [facility] Note Date/Time February 02, 2025 10:4 7am [facility] Medical Records Department [address] [place] [address] Anesthesia Postop Eval I 02/02/25 1046 MR#: [id number] Acct: [id number] Name: SHEEBA WELSH Rep #:[id number] : 2000 24 From: Christiano SCHWARTZ PCP: [facility] [place] Status:REG SDC Y Race: C Location: [place] [address] Anesthesia: Postop Eval I Current Vital Signs Temperature: 97.5 F Pulse Rate: 81 Blood Pressure: 125/82 Respiratory Rate: 16 Pulse Ox: 97 Oxygen Delivery Method: Room Air Assessment Airway patent: Yes Spontaneous unlabored respirations: Yes Mental status: Awake and Calm nausea: No Vomiting: No Anesthesia Complication: No Fluid Hydration Crystalloid volume administer (ml): 1,500 Total IV fluid infused: 1,500 Progress Note Anesthesia document: Postop Eval 1 completed: Yes 02/02/25 1047 <Electronically signed by Christiano Angela CRNA> Date _ Christiano Angela CRNA Cosigner Signature: Date CC: ~ Signed [facility] Work Phone: 1(109) 855-238007-17-2025 Discharge summary Author Jemima Avila [facility] Note Date/Time February 02, 2025 9:49 am [facility] Medical Records Department [address] [place] [address] Instructions for Home/Discharge Instructions 02/02/25 0947 MR#: [id number] Acct: [id number] Name: ANITHASHEEBA HOOKER Rep #:[id number] : 2000 24 From: Jemima Garcia DO PCP: [facility] [place] Status:REG SDC Discharge Instructions DC O2, CPAP, BIPAP needs Home O2 Discharge instructions: No Dressing / Incision Discharge Activity: Return to Normal Activity, May Shower and May Take a Tub Bath (after 1 week) May resume sexual activity in: 1-2 weeks Weight Bearing Status: Weight bearing as tolerated Lifting Restrictions: none Dressing / Incision Call your doctor if you observe: Fever of 101 or Higher, Using more than 1 pad per hour, Shortness of breath and Uncontrolled pain Follow Up Care Please Follow Up With: Jemima Garcia DO When: Call [phone] to schedule appointment. Test Results: Test results from this visit will be discussed in further detail at your follow- up appointment, if applicable. Discharge Plan Admission Primary Reason for Your Visit: suction dilation and curettage Attending Provider: Jemima Garcia Primary Care Provider: Yoel Frost Instructions Print Language: Gibraltarian Discharge Orders/Prescriptions Prescriptions: New ibuprofen 800 mg tablet 800 mg PO Q8H PRN (Reason: pain) Qty: 30 0RF No Action PNV-Clark 28-1-300 mg capsule 1 cap PO DAILY Referrals / Follow Up: Yoel Frost PA [Primary Care Provider] - Disposition Disposition (needs filled in before D/C Order can be placed): Home, Self Care 02/02/25 0949<Electronically signed by Jemima Garcia DO>Jemima Garcia DO CC: [facility] [place] ~ Signed [facility] Work Phone: 1(849) 460-675707-17-2025 Consult note Author Lenny Marie [facility] Note Date/Time February 02, 2025 9:35 am [facility] Medical Records Department [address] [place] [address] Pre-Anesthesia Evaluation 02/02/25 0934 MR#: [id number] Acct: [id number] Name: SHEEBA WELSH Rep #:[id number] : 2000 24 From: Lenny Vargas PCP: [facility] [place] Status:REG SDC Y Race: C Location: [place] [address] ASA Classification* ASA Classification ASA Classification: 1 and E Assessment & Plan Anesthesia* Anesthesia Assessment Anesthesia Assessment: Discussed sedation and/or anesthesia options, risks, benefits, and alternatives with patient/parents/legal guardian/POA. Questions invited. The patient/parents/legal guardian/POA seems to understand and agrees to proceedwith anesthesia plan. Reviewed the physical assessment, medical history, allergy history and patient home medications list prior to surgery/procedure/anesthetic and documented any changes. Performed airway and anesthesia risk assessments. Anesthesia Type Anesthesia Type: General History Source History Obtained from:: Patient and Chart Anesthesia Focused Assessment* Temperature: 98.3 F Pulse Rate: 53 Blood Pressure: 118/54 Respiratory Rate: 18 Pulse Ox: 99 Oxygen Delivery Method: Room Air Airway Assessment Mouth opens: >3 cm Mallampati Score: I Teeth Condition: Intact Neck Range of motion (ROM): Full ROM Labs Anesthesia Preop lab: CBC WBC 6.7 K/mm3 (4.4-11.0) 02/02/25 05:16 02/02/25 RBC 4.47 M/mm3 (4.2-5.4) 02/02/25 05:16 02/02/25 Hgb 11.8 g/dL (12.0-15.0) L 02/02/25 05:16 5 Hct 36.4 % (37-47) L 02/02/25 05:16 02/02/25 Plt Count 276 K/mm3 (150-450) 02/02/25 05:16 02/02/25 CHEMISTRY Potassium 3.8 mmol/L (3.3-5.1) 02/02/25 05:16 02/02/25 Sodium 137 mmol/L (133-145) 02/02/25 05:16 02/02/25 BUN 10 mg/dL (4-19) 02/02/25 05:16 02/02/25 Creatinine 0.65 mg/dL (0.70-1.20) L 02/02/25 05:16 Glucose 94 mg/dL (70-99) 02/02/25 05:16 02/02/25 TSH 1.63 uIU/mL (0.358-3.74) 11/12/23 15:49 COAG PT 13.5 SECONDS (11.7-14.9) 02/02/25 05:16 Pre-Assessment Diagnosis/Proposed Procedure Planned Operative Procedure(s): Suction dilation and curettage Anesthesia History Anesthesia History - kiln maintenance: Anesthesia History - kiln maintenance Hx Hospitalization Any Problems With Anesthesia No 02/02/25 08:57 Cholinesterase deficiency You/Your Family Experience No 02/02/25 08:57 fever (hyperthermia) with Relationship Recent Exposure to Contagious Disease Does patient have nerve No 02/02/25 08:57 stimulator Patient instructed to have device shut off --Does patient have Pacemaker or ICD? When Was Last Pacemaker Check QUESTION #4 FULL TEXT: You/Your Family Experience fever (hyperthermia) with Anesthesia Last Oral Intake Last Oral intake: Last Oral Intake NPO since Meds taken in AM with sips of water? Meds patient instructed to take am of surgery PONV PONV - kiln maintenance: PONV - kiln maintenance Female HX of Motion Sickness HX of N/V After Surgery Non-Smoker Duration of Surgery greater than 60 minutes Number of Risk Factors PONV Score Height & Weight Height & Weight: Anesthesia: Height & Weight Height 5 ft 10 in 02/02/25 08:57 Weight: 80.5 kg 02/02/25 08:57 Body Mass Index (BMI) 25.4 02/02/25 08:57 Respiratory Assessment Respiratory Assessment - kiln maintenance: Respiratory Tract Infection Hx - kiln maintenance Hx Respiratory Tract Infection STOP Sleep Apnea STOP Sleep Apnea - kiln maintenance: STOP Sleep Apnea - kiln maintenance Hx Hypertension No 02/02/25 08:57 Hx Sleep Apnea No 02/02/25 08:57 CPAP BIPAP Do you snore loudly (louder No 02/02/25 08:57 than talking or can be heard Do you often feel tired/ No 02/02/25 08:57 fatigued/ sleepy during daytime? Has anyone observed you stop No 02/02/25 08:57 breathing during sleep? STOP Results Negative 02/02/25 08:57 QUESTION #5 FULL TEXT : Do you snore loudly (louder than talking or can be heard through closed doors)? 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 Specify any problems Hx of Preganancy in last 3 Months Nurse Filling Out Transfusion & Questions: Date: Time: Patient unable to answer at this time (ie. confused, unrespo /Reproduction History /Reproductive History - kiln maintenance: /Reproductive Hx- kiln maintenance Hx Now No: 1 wk post 02/02/25 08:57 Gestational Age (in weeks): EDC: Hx 1 02/02/25 05:12 Hx Para Hx Section SAB Yes 02/02/25 08:57 Active Medications Active Medications: Current Medications Generic Name Dose Route Start Last Admin Trade Name Reza PRN Reason Stop Dose Admin Lactated Ringer's 1,000 mls @ 15 mls/hr 02/02/25 09:30 02/02/25 09:24 IV 15 mls/hr .Q48H REJI Administration Cefotetan Disodium 2 gm/ 100 mls @ 200 mls/hr 02/02/25 09:30 Sodium Chloride IV 02/02/25 09:59 INTRAOP ONE PFSH Medical History Depression Anxiety Menorrhagia Headache, migraine History of fracture Non-smoker Home Medications ?Medication ?Instructions ?Recorded ?Last Taken ?Type multivit-min no.71-iron fum 28 1 cap PO DAILY 06/14/24 Unknown History mg-folate no.1 1 mg-dha 300 mg capsule (PNV-Clark) Allergy/AdvReac Type Severity Reaction Status Date / Time No Known Allergies Allergy Verified 02/02/25 05:13 Family History Mother Breast cancer, Onset Age: 51 Depression Father Cancer, Onset Age: 57 Chronic leukemia Surgical History History of repair of ACL Social History adopted: No household members: significant other and family current occupational status: employed current occupation: [employer] pets and animals: Yes pets and [...] 3-4 times per week duration: 60-90 minutes/day daniel/sabianist: Synagogue seatbelt use: always do you feel safe at home: Yes additional social history: [facility]- [facility] Review of Systems (Anesthesia) ROS Narrative System reviewed and no additional complaints, except as documented. 02/02/25 0935 <Electronically signed by Lenny Marie MD> Date _ Lenny Marie MD Cosigner Signature: Date CC: ~ Signed [facility] Work Phone: 1(791) 966-593907-17-2025 History and physical note Author Jemima Avila [facility] Note Date/Time February 02, 2025 8:56 am [facility] Medical Records Department [address] [place] [address] H&P Exam - ROCK MASON 02/02/25 0854 MR#: [id number] Acct: [id number] Name: SHEEBA WELSH Rep #:[id number] : 2000 24 From: Jemima Garcia DO PCP: VERO [place] Status:REG ER Location: ED HPI - General HPI Narrative SHEEBA WELSH, is a 24 y/o , 10 days post who presents to ER with heavy vaginal bleeding. ultrasound showed 42mm of retained products of conception. vitals and labs are stable but bleeding continues to be brisk. The decision is made to proceed with a suction D&C. Maternal Data Information OLIVIA Calculator Estimated Delivery Date Method Current WG Current Estimate 01/20/25 LMP (Certain) 41w 6d Other Estimates 01/20/25 Ultrasound #1 41w 6d PFSH PFSH Medical History Depression Anxiety Menorrhagia Headache, migraine History of fracture Non-smoker Home Medications ?Medication ?Instructions ?Recorded ?Last Taken ?Type multivit-min no.71-iron fum 28 1 cap PO DAILY 06/14/24 Unknown History mg-folate no.1 1 mg-dha 300 mg capsule (PNV-Clark) Allergy/AdvReac Type Severity Reaction Status Date / Time No Known Allergies Allergy Verified 02/02/25 05:13 Family History Mother Breast cancer, Onset Age: 51 Depression Father Cancer, Onset Age: 57 Chronic leukemia Surgical History History of repair of ACL Social History adopted: No household members: significant other and family current occupational status: employed current occupation: [employer] pets and animals: Yes pets and [...] 3-4 times per week duration: 60-90 minutes/day daniel/sabianist: Synagogue seatbelt use: always do you feel safe at home: Yes additional social history: BF- [place] History 1 Elective abortions Hx Para 0 [...] LOF. G ood Fm. 28 wk labs, [facility] 11/11/24 -?-?-?-?-?-?-?-?-?-?-?-?- 30w 0d 199 lb 8 [...] vb/lof/ct x. good fm. GBS today 12/30/24 -?-?-?-?--?-?-?-?-?-?-?-?- 37w 0d 200 lb 8 oz (+17 lb 8 oz) 113/71 Negative -?-?-?-?-?-?-?-?-?-?-?-?- Negative 143 38 Cephalic 0 -?-?--?-?-?-?-?-?-?-?-?-?- JV- gbs neg. no lof, vaginal bleeding, or dec fm. no complaints of headaches anymore. 01/05/25 -?-?-?-?-?-?-?-?-?-?-?-?- 37w 6d 202 lb 4 oz (+19 lb 4 oz) 123/72 Negative -?-?-?-?-?-?-?-?-?-?-?-?- Negative 130 39 Cephalic 0 -?-?-?-?-?-?-?-?-?-?-?-?- KW- no vb/lof/re g ctx. good fm. labor precautions reviewed 01/11/25 -?-?-?-?-?-?-?-?-?-?-?-?- 38w 5d 204 lb 6 oz (+21 lb 6 oz) 126/69 Negative -?-?-?-?-?-?-?-?-?-?--?-?- Negative 145 38 Cephalic 1 -?-?-?-?-?-?-?-?-?-?-?-?- 80 [...] felt intact on exam. labor precautions reviewed. ROS Constitutional Constitutional: Denies change in weight, fatigue, fever(s), headache(s), poor appetite or weakness Eyes Eyes: Denies blurry vision, change in vision, seeing flashes or spots in vision ENT HEENT: Denies dizziness, headache(s), loss taste/smell or sore throat Cardiovascular Cardiovascular: Denies chest pain, dizziness, dyspnea, irregular heart rhythm, leg edema, palpitations, rapid heart rate or vomiting Respiratory/Chest Respiratory/Chest: Denies chest tightness, cough, dyspnea or breast pain Gastrointestinal Gastrointestinal: Denies abdominal pain, anorexia, constipation, cramping, diarrhea, hemorrhoids, vomiting or weight changes Genitourinary Genitourinary: Denies dysuria, flank pain, genital lesions, genital pain, urinary frequency or urinary urgency Musculoskeletal Musculoskeletal: Denies back pain, difficulty walking, joint pain, limited range of motion, muscle cramps or numbness Integumentary Integumentary: Denies lesions or unusual bruising Neurologic Neurologic: Denies abnormal movements, abnormal speech, dizziness, numbness, seizure-like activity or syncope Psychiatric Psychiatric: Denies anxiety, behavioral changes, change in appetite, change in libido, cognitive impairment, confusion, depression, difficulty concentrating, hallucinations or suicidal thoughts Endocrine Endocrinology: Denies excessive sweating, polydipsia or polyuria Hematologic/Lymphatic Hematologic/Lymphatic: Denies easy bleeding, easy bruising or lymphadenopathy Allergic/Immunologic Allergic/Immunologic: Denies itchy eyes, lip swelling, seasonal rhinorrhea, rhinitis, throat swelling, tongue swelling, eczemia, wheezing or asthma Vital Signs Vital Signs Vital Signs: 02/02/25 05:12 02/02/25 07:12 Temperature 98.4 F Temperature Source Oral Pulse Rate 80 62 Respiratory Rate 19 H 18 Blood Pressure 140/73 H 113/46 L Blood Pressure Mean 95 68 Pulse Ox 98 99 Oxygen Delivery Method Room Air Room Air Weight Weight: 177 lb 7.554 oz Body Mass Index (BMI) 25.4 Physical Exam Const alert, oriented x3, no apparent distress and healthy appearing General Appearance: cooperative; Negative for anxious HEENT normocephalic Face and Sinus: normal facial exam Eyes EOMs intact bilaterally and no scleral icterus General Eye: normal appearance of both eyes Resp normal respiratory effort Effort and Inspection: able to speak in complete sentences Cardio regular rate GI soft to palpation and non-tender Palpation: soft; Negative for tender Extremity normal to inspection, full ROM and no clubbing, cyanosis or edema General Extremity: Negative for calf tenderness or edema Skin Lesions: no lesions Rashes: no rashes Psych mental status grossly normal Labs Labs Labs: Blood Type O POSITIVE Antibody Screen NEGATIVE Hct 36.4 % (37-47) L Hgb 11.8 g/dL (12.0-15.0) L Syphilis Total Ab Nonreactive (Nonreactive) Rubella IgG Antibody Reactive (Nonreactive) Hep Bs Antigen Non-Reactive (Nonreactive) Hepatitis C Antibody Non-Reactive (Nonreactive) Chlamydia DNA (PEDRO) Negative (Negative) N.gonorrhoeae DNA (PEDRO) Negative (Negative) HIV 1&2 Antibody Nonreactive (Nonreactive) Glucose 1 Hr 50 gm 108 mg/dL (70-140) Assessment & Plan (1) (spontaneous vaginal delivery): COMMENT: LC IAL [facility] (2) Retained products of conception after delivery with complications: PLAN: After discussing the patient's diagnosis and treatment plan options, patient wishes to proceed with surgical management. I have discussed with the patient the risks, benefits, and alternatives of the procedure which include but are not limited to risks of anesthesia, bleeding, infection, possible damage to bowel, bladder, or surrounding vasculature which could lead to additional surgery to evaluate any complications. Patient agrees to procedure and wishes to proceed. ACOG/uptodate references given for additional information regarding procedure. 02/02/25 0856 <Electronically signed by Jemima Garcia DO> Cosigner Signature (if applicable): CC: Dr. Jemima Garcia DO; VERO [place]~ Signed [facility] Work Phone: 1(585) 717-145507-17-2025 Consult note [facility] Medical Records Department [address] [place] [address] Anesthesia Postop Eval I 02/02/25 1046 MR#: [id number] Acct: [id number] Name: SHEEBA WELSH Rep #:[id number] : 2000 24 From: Christiano Jain RNA PCP: VERO [place] Status:REG SDC Y Race: C Location: [place] [address] Anesthesia: Postop Eval I Current Vital Signs Temperature: 97.5 F Pulse Rate: 81 Blood Pressure: 125/82 Respiratory Rate: 16 Pulse Ox: 97 Oxygen Delivery Method: Room Air Assessment Airway patent: Yes Spontaneous unlabored respirations: Yes Mental status: Awake and Calm nausea: No Vomiting: No Anesthesia Complication: No Fluid Hydration Crystalloid volume administer (ml): 1,500 Total IV fluid infused: 1,500 Progress Note Anesthesia document: Postop Eval 1 completed: Yes 02/02/25 1047 GANG RIDER> Date _ Christiano Angela GANG RIDER Cosigner Signature: Date CC: ~ Signed [facility]07-17-2025 Procedure note [facility] Medical Records Department [address] [place] [address] Operative Report 02/02/25 1033 MR#: [id number] Acct: [id number] Name: SHEEBA WELSH Rep #:[id number] : 2000 24 From: Jemima Garcia DO PCP: VERO [place] Status:REG [facility] Location: [facility] AC-TB A-1 Problems Associated Problem List Diagnoses (1) Retained products of conception after delivery with complications: (2) hemorrhage, delayed (> 24 hrs): Multi Select Codes Urinary/Genital Urinary/Genital CPT Codes: 93857 Curettage, Operative Report (Standard) Operative Information Date of Procedure: 02/02/25 Pre-Operative Diagnosis: retained products of conception and hemorrhage Post-Operative Diagnosis: retained products of conception and hemorrhage Surgery/Procedure Performed: suction dilation and curettage apprentice photographer: No Type of Anesthesia: General RN Documented Start/Stop Times: Operation Date: 02/02/25 09:30 Case Time Into Pre-Op 02/02/25 09:17 Out of Pre-Op 02/02/25 09:43 Anesthesia Start 02/02/25 09:44 Into Room 02/02/25 09:44 Procedure Start 02/02/25 09:58 Procedure Start Time: 09:58 Procedure Stop Time: 10:30 Select all DRAINS/GRAFTS/IMPLANTS that apply: None Estimated Blood Loss: 1200cc Specimen collected: Yes Description of specimen(s) removed: products of conception Description of surgery: Patient was taken to the operating room and placed under general anesthesia. She was prepped and draped in the normal sterile fashion the dorsal lithotomy position. Bladder was drained of clear urineand anterior lip of the cervix wasgrasped and the uterus sounded to 16 cm. a size 10uction curette was introduced into the uterus. The suction canister quickly filled to the max capacity withina few seconds. The suction canister was changed and further suction curettage was performed. A large amount of blood and clot and products of conception weresucked out of the uterus but was happening at theslow rate. A sharp curettage confirmed complete removal of the retained products. The uterus continued to beboggy and soft and profusely pouring out bright red blood. The patient was given IM [id number] milliunits, 0.25 Hemabate, 0.2 Methergine, 1000 of TXA and 1000 mcg of Cytotec. The Carolyne systemwas called to the room however by the time it got to the room the bleeding had stopped. All instruments were removed from the vagina and excellent hemostasis was noted and the patient was taken to recovery in stable condition. Surgical Findings: Large amount of placenta retained in the uterus, hemorrhage resolved Complications Complications: No Admit VTE Documentation VTE Present on Admission: No VTE Mechan Device Prophylaxis: SCD's VTE Pharm Prophylaxis ordered?: No 02/02/25 1039 Cosigner Signature (if applicable): CC: Dr. Jemima Garcia DO; VERO [place]~ Signed [facility]07-17-2025 Discharge summary [facility] Medical Records Department [address] [place] [id number] Instructions for Home/Discharge Instructions 02/02/25 0947 MR#: [id number] Acct: [id number] Name: SHEEBA WELSH Rep #:[id number] : 2000 24 From: Jemima Garcia DO PCP: VERO [place] Status:REG VAC Discharge Instructions DC O2, CPAP, BIPAP needs Home O2 Discharge instructions: No Dressing / Incision Discharge Activity: Return to Normal Activity, May Shower and May Take a Tub Bath (after 1 week) May resume sexual activity in: 1-2 weeks Weight Bearing Status: Weight bearing as tolerated Lifting Restrictions: none Dressing / Incision Call your doctor if you observe: Fever of 101 or Higher, Using more than 1 pad per hour, Shortness of breath and Uncontrolled pain Follow Up Care Please Follow Up With: Jemima Garcia DO When: Call [phone] to schedule appointment. Test Results: Test results from this visit will be discussed in further detail at your follow- up appointment, if applicable. Discharge Plan Admission Primary Reason for Your Visit: suction dilation and curettage Attending Provider: Jemima Garcia Primary Care Provider: Yoel Frost Instructions Print Language: Gibraltarian Discharge Orders/Prescriptions Prescriptions: New ibuprofen 800 mg tablet 800 mg PO Q8H PRN (Reason: pain) Qty: 30 0RF No Action PNV-Clark 28-1-300 mg capsule 1 cap PO DAILY Referrals / Follow Up: Yoel Frost PA [Primary Care Provider] - Disposition Disposition (needs filled in before D/C Order can be placed): Home, Self Care 02/02/25 0949Jennifer Kristen Darencarlos CC: VERO [place] ~ Signed [facility]07-17-2025 Consult note [facility] Medical Records Department [address] [place] [address] Pre-Anesthesia Evaluation 02/02/25 0934 MR#: [id number] Acct: [id number] Name: SHEEBA WELSH Rep #:[id number] : 2000 24 From: Lenny Vargas PCP: EVRO [place] Status:REG SDC Y Race: C Location: [place] [address] ASA Classification* ASA Classification ASA Classification: 1 and E Assessment & Plan Anesthesia* Anesthesia Assessment Anesthesia Assessment: Discussed sedation and/or anesthesia options, risks, benefits, and alternatives with patient/parents/legal guardian/POA. Questions invited. The patient/parents/legal guardian/POA seems to understand and agrees to proceedwith anesthesia plan. Reviewed the physical assessment, medical history, allergy history and patient home medications list prior to surgery/procedure/anesthetic and documented any changes. Performed airway and anesthesia risk assessments. Anesthesia Type Anesthesia Type: General History Source History Obtained from:: Patient and Chart Anesthesia Focused Assessment* Temperature: 98.3 F Pulse Rate: 53 Blood Pressure: 118/54 Respiratory Rate: 18 Pulse Ox: 99 Oxygen Delivery Method: Room Air Airway Assessment Mouth opens: >3 cm Mallampati Score: I Teeth Condition: Intact Neck Range of motion (ROM): Full ROM Labs Anesthesia Preop lab: CBC WBC 6.7 K/mm3 (4.4-11.0) 02/02/25 05:16 02/02/25 RBC 4.47 M/mm3 (4.2-5.4) 02/02/25 05:16 02/02/25 Hgb 11.8 g/dL (12.0-15.0) L 02/02/25 05:16 5 Hct 36.4 % (37-47) L 02/02/25 05:16 02/02/25 Plt Count 276 K/mm3 (150-450) 02/02/25 05:16 02/02/25 CHEMISTRY Potassium 3.8 mmol/L (3.3-5.1) 02/02/25 05:16 02/02/25 Sodium 137 mmol/L (133-145) 02/02/25 05:16 02/02/25 BUN 10 mg/dL (4-19) 02/02/25 05:16 02/02/25 Creatinine 0.65 mg/dL (0.70-1.20) L 02/02/25 05:16 Glucose 94 mg/dL (70-99) 02/02/25 05:16 02/02/25 TSH 1.63 uIU/mL (0.358-3.74) 11/12/23 15:49 COAG PT 13.5 SECONDS (11.7-14.9) 02/02/25 05:16 Pre-Assessment Diagnosis/Proposed Procedure Planned Operative Procedure(s): Suction dilation and curettage Anesthesia History Anesthesia History - kiln maintenance: Anesthesia History - kiln maintenance Hx Hospitalization Any Problems With Anesthesia No 02/02/25 08:57 Cholinesterase deficiency You/Your Family Experience No 02/02/25 08:57 fever (hyperthermia) with Relationship Recent Exposure to Contagious Disease Does patient have nerve No 02/02/25 08:57 stimulator Patient instructed to have device shut off --Does patient have Pacemaker or ICD? When Was Last Pacemaker Check QUESTION #4 FULL TEXT: You/Your Family Experience fever (hyperthermia) with Anesthesia Last Oral Intake Last Oral intake: Last Oral Intake NPO since Meds taken in AM with sips of water? Meds patient instructed to take am of surgery PONV PONV - kiln maintenance: PONV - kiln maintenance Female HX of Motion Sickness HX of N/V After Surgery Non-Smoker Duration of Surgery greater than 60 minutes Number of Risk Factors PONV Score Height & Weight Height & Weight: Anesthesia: Height & Weight Height 5 ft 10 in 02/02/25 08:57 Weight: 80.5 kg 02/02/25 08:57 Body Mass Index (BMI) 25.4 02/02/25 08:57 Respiratory Assessment Respiratory Assessment - kiln maintenance: Respiratory Tract Infection Hx - kiln maintenance Hx Respiratory Tract Infection STOP Sleep Apnea STOP Sleep Apnea - kiln maintenance: STOP Sleep Apnea - kiln maintenance Hx Hypertension No 02/02/25 08:57 Hx Sleep Apnea No 02/02/25 08:57 CPAP BIPAP Do you snore loudly (louder No 02/02/25 08:57 than talking or can be heard Do you often feel tired/ No 02/02/25 08:57 fatigued/ sleepy during daytime? Has anyone observed you stop No 02/02/25 08:57 breathing during sleep? STOP Results Negative 02/02/25 08:57 QUESTION #5 FULL TEXT : Do you snore loudly (louder than talking or can be heard through closeddoors)? 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 Specify any problems Hx of Preganancy in last 3 Months Nurse Filling Out Transfusion & Questions: Date: Time: Patient unable to answer at this time (ie. confused, unrespo /Reproduction History /Reproductive History - kiln maintenance: /Reproductive Hx- kiln maintenance Hx Now No: 1 wk post 02/02/25 08:57 Gestational Age (in weeks): EDC: Hx 1 02/02/25 05:12 Hx Para Hx Section SAB Yes 02/02/25 08:57 Active Medications Active Medications: Current Medications Generic Name Dose Route Start Last Admin Trade Name Freq PRN Reason Stop Dose Admin Lactated Ringer's 1,000 mls @ 15 mls/hr 02/02/25 09:30 02/02/25 09:24 IV 15 mls/hr .Q48H REJI Administration Cefotetan Disodium 2 gm/ 100 mls @ 200 mls/hr 02/02/25 09:30 Sodium Chloride IV 02/02/25 09:59 INTRAOP ONE PFSH Medical History Depression Anxiety Menorrhagia Headache, migraine History of fracture Non-smoker Home Medications ?Medication ?Instructions ?Recorded ?Last Taken ?Type multivit-min no.71-iron fum 28 1 cap PO DAILY 06/14/24 Unknown History mg-folate no.1 1 mg-dha 300 mg capsule (PNV-Clark) Allergy/AdvReac Type Severity Reaction Status Date / Time No Known Allergies Allergy Verified 02/02/25 05:13 Family History Mother Breast cancer, Onset Age: 51 Depression Father Cancer, Onset Age: 57 Chronic leukemia Surgical History History of repair of ACL Social History adopted: No household members: significant other and family current occupational status: employed current occupation: [employer] pets and animals: Yes pets and [...] 3-4 times per week duration: 60-90 minutes/day daniel/sabianist: Synagogue seatbelt use: always do you feel safe at home: Yes additional social history: BF- [employer] Review of Systems (Anesthesia) ROS Narrative System reviewed and no additional complaints, except as documented. 02/02/25934 > Date _ Lenny Marie MD Cosigner Signature: Date CC: ~ Signed [facility]07-17-2025 History and physical note [facility] Medical Records Department [address] [place] [address] H&P Exam - ROCK MASON 02/02/25 0854 MR#: [id number] Acct: [id number] Name: SHEEBA WELSH Rep #:[id number] : 2000 24 From: Jemima Garcia DO PCP: VERO [place] Status:REG ER Location: ED HPI - General HPI Narrative SHEEBA WELSH, is a 24 y/o , 10 days post who presents to ER with heavy vaginal bleeding.ultrasound showed 42mm of retained products of conception. vitals and labs are stable but bleeding continues to be brisk. The decision is made to proceed with a suction D&C. Maternal Data Information OLIVIA Calculator Estimated Delivery Date Method Current WG Current Estimate 01/20/25 LMP (Certain) 41w 6d Other Estimates 01/20/25 Ultrasound #1 41w 6d PFSH PFSH Medical History Depression Anxiety Menorrhagia Headache, migraine History of fracture Non-smoker Home Medications ?Medication ?Instructions ?Recorded ?Last Taken ?Type multivit-min no.71-iron fum 28 1 cap PO DAILY 06/14/24 Unknown History mg-folate no.1 1 mg-dha 300 mg capsule (PNV-Clark) Allergy/AdvReac Type Severity Reaction Status Date / Time No Known Allergies Allergy Verified 02/02/25 05:13 Family History Mother Breast cancer, Onset Age: 51 Depression Father Cancer, Onset Age: 57 Chronic leukemia Surgical History History of repair of ACL Social History adopted: No household members: significant other and family current occupational status: employed current occupation: [employer] pets and animals: Yes pets and [...] 3-4 times per week duration: 60-90 minutes/day daniel/sabianist: Synagogue seatbelt use: always do you feel [...] LOF. G ood Fm. 28 wk labs, [facility] 11/11/24 -?-?-?-?-?-?-?-?-?-?-?-?- 30w 0d 199 lb 8 [...] vb/lof/ct x. good fm. GBS today 12/30/24 -?-?-?-?--?-?-?-?-?-?-?-?- 37w 0d 200 lb 8 oz (+17 lb 8 oz) 113/71 Negative -?-?-?-?-?-?-?-?-?-?-?-?- Negative 143 38 Cephalic 0 -?-?--?-?-?-?-?-?-?-?-?-?- JV- gbs neg. no lof, vaginal bleeding, or dec fm. no complaints of headaches anymore. 01/05/25 -?-?-?-?-?-?-?-?-?-?-?-?- 37w 6d 202 lb 4 oz (+19 lb 4 oz) 123/72 Negative -?-?-?-?-?-?-?-?-?-?-?-?- Negative 130 39 Cephalic 0 -?-?-?-?-?-?-?-?-?-?-?-?- KW- no vb/lof/re g ctx. good fm. labor precautions reviewed 01/11/25 -?-?-?-?-?-?-?-?-?-?-?-?- 38w 5d 204 lb 6 oz (+21 lb 6 oz) 126/69 Negative -?-?-?-?-?-?-?-?-?-?--?-?- Negative 145 38 Cephalic 1 -?-?-?-?-?-?-?-?-?-?-?-?- 80 [...] felt intact on exam. labor precautions reviewed. ROS Constitutional Constitutional: Denies change in weight, fatigue, fever(s), headache(s), poor appetite or weakness Eyes Eyes: Denies blurry vision, change in vision, seeing flashes or spots in vision ENT HEENT: Denies dizziness, headache(s), loss taste/smell or sore throat Cardiovascular Cardiovascular: Denies chest pain, dizziness, dyspnea, irregular heart rhythm, leg edema, palpitations, rapid heart rate or vomiting Respiratory/Chest Respiratory/Chest: Denies chest tightness, cough, dyspnea or breast pain Gastrointestinal Gastrointestinal: Denies abdominal pain, anorexia, constipation, cramping, diarrhea, hemorrhoids, vomiting or weight changes Genitourinary Genitourinary: Denies dysuria, flank pain, genital lesions, genital pain, urinary frequency or urinary urgency Musculoskeletal Musculoskeletal: Denies back pain, difficulty walking, joint pain, limited range of motion, muscle cramps or numbness Integumentary Integumentary: Denies lesions or unusual bruising Neurologic Neurologic: Denies abnormal movements, abnormal speech, dizziness, numbness, seizure-like activity or syncope Psychiatric Psychiatric: Denies anxiety, behavioral changes, change in appetite, change in libido, cognitive impairment, confusion, depression, difficulty concentrating, hallucinations or suicidal thoughts Endocrine Endocrinology: Denies excessive sweating, polydipsia or polyuria Hematologic/Lymphatic Hematologic/Lymphatic: Denies easy bleeding, easy bruising or lymphadenopathy Allergic/Immunologic Allergic/Immunologic: Denies itchy eyes, lip swelling, seasonal rhinorrhea, rhinitis, throat swelling, tongue swelling, eczemia, wheezing or asthma Vital Signs Vital Signs Vital Signs: 02/02/25 05:12 02/02/25 07:12 Temperature 98.4 F Temperature Source Oral Pulse Rate 80 62 Respiratory Rate 19 H 18 Blood Pressure 140/73 H 113/46 L Blood Pressure Mean 95 68 Pulse Ox 98 99 Oxygen Delivery Method Room Air Room Air Weight Weight: 177 lb 7.554 oz Body Mass Index (BMI) 25.4 Physical Exam Const alert, oriented x3, no apparent distress and healthy appearing General Appearance: cooperative; Negative for anxious HEENT normocephalic Face and Sinus: normal facial exam Eyes EOMs intact bilaterally and no scleral icterus General Eye: normal appearance of both eyes Resp normal respiratory effort Effort and Inspection: able to speak in complete sentences Cardio regular rate GI soft to palpation and non-tender Palpation: soft; Negative for tender Extremity normal to inspection, full ROM and no clubbing, cyanosis or edema General Extremity: Negative for calf tenderness or edema Skin Lesions: no lesions Rashes: no rashes Psych mental status grossly normal Labs Labs Labs: Blood Type O POSITIVE Antibody Screen NEGATIVE Hct 36.4 % (37-47) L Hgb 11.8 g/dL (12.0-15.0) L Syphilis Total Ab Nonreactive (Nonreactive) Rubella IgG Antibody Reactive (Nonreactive) Hep Bs Antigen Non-Reactive (Nonreactive) Hepatitis C Antibody Non-Reactive (Nonreactive) Chlamydia DNA (PEDRO) Negative (Negative) N.gonorrhoeae DNA (PEDRO) Negative (Negative) HIV 1&2 Antibody Nonreactive (Nonreactive) Glucose 1 Hr 50 gm 108 mg/dL (70-140) Assessment & Plan (1) (spontaneous vaginal delivery): COMMENT: LC IAL [facility] (2) Retained products of conception after delivery with complications: PLAN: After discussing the patient's diagnosis and treatment plan options, patient wishes to proceed with surgical management. I have discussed with the patient the risks, benefits, and alternatives of the procedure which include but are not limited to risks of anesthesia, bleeding, infection, possible damage to bowel, bladder, or surrounding vasculature which could lead to additional surgery to evaluate any complications. Patient agrees to procedure and wishes to proceed. ACOG/uptodate references given for additional information regarding procedure. 02/02/25 0856 Cosigner Signature (if applicable): CC: Dr. Jemima Garcia DO; VERO [place]~ Signed [facility]07-17-2025 Radiology Diagnostic study note [facility] Imaging Services [address] [place] [address] Pelvic (Non ) MR#: [id number] Acct: [id number] Name: SHEEBA WELSH Rep #: [id number] : 2000 F 24 From: Viktor Arzate MD PCP: VERO [place] Status: REG ER Study:Pelvic (Non ) Date of Exam: 02/02/25 Exam# [id number] Ordering Dr: Anastasiia Cook DO PROCEDURE: PELVIC (NON ) 02/02/2025 REASON FOR EXAM: VAGINAL BLEEDING S/P 9 days . TECHNIQUE: PELVIC (NON ) COMPARISON: None FINDINGS: Measurements: Uterus: 13.6 cm x 12.7 cm x 10.6 cm with a volume of 958.2 mL Endometrial Thickness: The endometrium is heterogeneous and thickened measuring 42 mm. Retained products of conception should be ruled out. Right Ovary: 2.1 cm x 2.3 cm x 1.4 cm with a volume of 3.52 mL. Left Ovary: 4.1 cm x 2.7 cm x 1.6 cm with a volume of 9.63 mL. Uterus: Normal size, myometrial echotexture, and contour. Endometrium: Endometrial thickening as described. Heterogeneous appearance. Retained products of conception should be ruled out. Right ovary: Normal size and echotexture. Left ovary: Normal size and echotexture. Other: No large pelvic mass identified. US/Pelvic (Non ) IMPRESSION: Findings in keeping with retained products of conception. Reading Location: [place] [address] CC: Negro Cook DO; VERO [place] ~ In Service Coordinator: Signed [facility]07-09-2025 Progress note Author Cesilia George [facility] Note Date/Time January 25, 2025 7:57a m [facility] Medical Records Department [address] [place] [address] Progress Note - OBGYN 01/25/25 0756 MR#: [id number] Acct: [id number] Name: SHEEBA WELSH Rep #:[id number] : 2000 24 From: Cesilia George PLASTIC SURGERY TECHNICIAN PLASTIC SURGERY TECHNICIAN-C PCP: Care Physician,No Primary Status :ADM IN Location: [place] [address] Subjective Subjective Patient doing well without complaints. [...] (Auto) 90.7 H, Lymph % (Auto) 6.1L, La[place] % (Auto) 2.6, Eos % (Auto) 0.0, [...] (1) (spontaneous vaginal delivery): COMMENT: LC IAL [facility] PLAN: Plan s/p PPD # 1 1. routine post delivery care 2. breast feeding- support given 3. rh positive 4. rubella immune 5. plans home today 01/25/25756 <Electronically signed by Cesilia George NP PLASTIC SURGERY TECHNICIAN-C> Cosigner Signature (if applicable): CC: ~ Signed [facility] Work Phone: 1(421) 789-663007-09-2025 Progress note [facility] Medical Records Department [address] [place] [address] Progress Note - OBGYN 01/25/25755 MR#: [id number] Acct: [id number] Name: SHEEBA WELSH Rep #:[id number] : 2000 24 From: Cesilia George NP PLASTIC SURGERY TECHNICIAN-C PCP: Care Physician,No Primary Status :ADM IN Location: [place] 304620-1 Subjective Subjective Patient doing well without complaints. [...] (Auto) 90.7 H, Lymph % (Auto) 6.1L, Laurel % (Auto) 2.6, Eos % (Auto) 0.0, [...] & Plan (1) (spontaneous vaginal delivery): COMMENT: IAL [facility] PLAN: Plan s/p PPD # 1 1. routine post delivery care 2. breast feeding- support given 3. rh positive 4. rubella immune 5. plans home today 01/25/25 7737 Cosigner Signature (if applicable): CC: ~ Signed [facility]07-08-2025 Discharge summary Author Roseanna Mckeon [facility] Note Date/Time January 24, 2025 4:55p m [facility] Medical Records Department [address] [place] [address] Instructions for Home/Discharge Instructions 01/24/25 1654 MR#: [id number] Acct: [id number] Name: ANITHASHEEBA HOOKER Rep #:[id number] : 2000 24 From: [...] Angela Sanders Discharge Orders/Prescriptions Prescriptions: No Action PNV-Clark 28-1-300 mg capsule 1 cap PO DAILY Referrals / Follow Up: Care Physician,No Primary [Primary Care Provider] - 01/24/25 1655<Electronically signed by Roseanna Mckeon CNM>Roseanna Mckeon CNM CC: JACKELIN Sanders; No Primary Care Physician ~ Signed [facility] Work Phone: 1(365) 657-820507-08-2025 Discharge summary [facility] Medical Records Department [address] [place] [address] Instructions for Home/Discharge Instructions 01/24/25 1654 MR#: [id number] Acct: [id number] Name: SHEEBA WELSH Rep #:[id number] : 2000 24 From: Roseanna Mckeon CNM PCP: Jena Physician,No Primary Status :ADM IN Discharge Instructions [...] Angela Sanders Discharge Orders/Prescriptions Prescriptions: No Action PNV-Clark 28-1-300 mg capsule 1 cap PO DAILY Referrals / Follow Up: Care Physician,No Primary [Primary Care Provider] - 01/24/25 1655Roseanna Mckeon CNM CC: JACKELIN Sanders; No Primary Care Physician ~ Signed [facility]07-08-2025 Procedure note [facility] Medical Records Department [address] [place] [address] OB Vaginal Delivery 01/24/25 1641 MR#: [id number] Acct: [id number] Name: SHEEBA WELSH Rep #:[id number] : 2000 24 From: Roseanna Mckeon CNM PCP: Care Physician,No Primary Status :ADM IN Location: [place] [address] Assessment & Plan (1) (spontaneous vaginal delivery): COMMENT: LC IAL [place] [facility] Data Information OLIVIA Calculator Estimated Delivery [...] by the rest of the and the infant was placed on the [...] Vessel Description: 3 Vessels Cord Entanglement: None A Gender: Female (1 minute): 8 (5 minute): 9 Delayed Cord Clamping: Yes Post Vaginal Deli Medications given after delivery: IV Pitocin and IM Methergin Laceration: 1st degree Complication Complications: No Procedures Urinary/Genital 52xxx-59xxx: 30972 Vaginal Delivery global pk 01/24/25 1646 Cosigner Signature (if applicable): CC: JACKELIN Sanders; JACKELIN Mckeon; Dr. Jemima Garcia, DO; Julio Care Physician~ Signed [facility]07-08-2025 Progress note Author Roseanna Mckeon [facility] Note Date/Time January 24, 2025 2:04p m [facility] Medical Records Department [address] [place] [address] Progress Note - OBGYN 01/24/25 1400 MR#: [id number] Acct: [id number] Name: ANITHASHEEBA HOOKER Rep #:[id number] : 2000 24 From: Roseanna Mckeon CNM PCP: Care Physician,No Primary Status :ADM IN Location: [place] [address] Subjective Subjective comfortable with epidural Objective Data [...] (Auto) 90.7 H, Lymph % (Auto) 6.1L, Laurel % (Auto) 2.6, Eos % (Auto) 0.0, [...] variability reactive no decelerations category I tracing [place]: q2-5 Contractions reviewed tracing abnormalities since last note: periods of minimal variabilty following prolonged deceleration. scalp stim resulted in accel with moderate variability. occ early decels. A/P: recheck cervix in 2 hours, prn pt prepped for OR but holding with current tracing and cervical change. dr. sheridan agrees with 7cm and management for close FHR monitoring and goal for . 01/24/25 1404 <Electronically signed by Roseanna Mckeon CNM> Cosigner Signature (if applicable): CC: ~ Signed [facility] Work Phone: 1(154) 423-164507-08-2025 Progress note [facility] Medical Records Department [address] [place] [address] Progress Note - OBGYN 01/24/25 1400 MR#: [id number] Acct: [id number] Name: SHEEBA WELSH Rep #:[id number] : 2000 24 From: Roseanna Mckeon CNM PCP: Care Physician,No Primary Status :ADM IN Location: [place] 304620-1 Subjective Subjective comfortable with epidural Objective Data [...] (Auto) 90.7 H, Lymph % (Auto) 6.1L, Laurel % (Auto) 2.6, Eos % (Auto) 0.0, [...] variability reactive no decelerations category I tracing [place]: q2-5 Contractions reviewed tracing abnormalities since last note: periods of minimal variabilty following prolonged deceleration. scalp stim resulted in accel with moderate variability. occ early decels. A/P: recheck cervix in 2 hours, prn pt prepped for OR but holding with current tracing and cervical change. dr. sheridan agrees with 7cm and management for close FHR monitoring and goal for . 01/24/25 1404 Cosigner Signature (if applicable): CC: ~ Signed [facility]07-08-2025 Progress note Author Jemima Avila [facility] Note Date/Time January 24, 2025 11:54 am [facility] Medical Records Department [address] [place] [address] Progress Note 01/24/25 1151 MR#: [id number] Acct: [id number] Name: SHEEBA WELSH Rep #:[id number] : 2000 24 From: Jemima Garcia DO PCP: Care Physician,No Primary Status :ADM IN Location: [place] [address] Progress Note An LISA was called and [...] Cosigner Signature (if applicable): CC: ~ Signed [facility] Work Phone: 1(328) 203-942207-08-2025 Progress note [facility] Medical Records Department [address] [place] [address] Progress Note 01/24/25 115 MR#: [id number] Acct: [id number] Name: ANITHASHEEBA ARMSTRONGE Rep #:[id number] : 2000 24 From: Jemima Garcia DO PCP: Care Physician,No Primary Status :ADM IN [facility] Note An [place] was called and [...] to the labor room. 01/24/25 1154 Jemima Messinaer Signature (if applicable): CC: ~ Signed [facility]07-08-2025 History and physical note Author Roseanna Mckeon [facility] Note Date/Time January 24, 2025 8:13a m [facility] Medical Records Department [address] [place] [address] H&P Exam - ROCK MASON 01/24/25 0809 MR#: [id number] Acct: [id number] Name: SHEEBA WELSH Rep #:[id number] : 2000 24 From: Roseanna Mckeon CNM PCP: Care Physician,No Primary Status :ADM IN [facility] HPI - General General Date of Admission: [...] mg-folate no.1 1 mg-dha 300 mg capsule (PNV-Clark) Allergy/AdvReac Type Severity Reaction Status Date / Time No Known Allergies Allergy Verified 01/24/25 02:58 Family History Mother Breast cancer, Onset Age: 51 Depression Father Cancer, Onset Age: 57 Chronic leukemia Surgical History History of repair of ACL Social History adopted: No household members: significant other and family current occupational status: employed current occupation: [employer] pets and animals: Yes pets and [...] 3-4 times per week duration: 60-90 minutes/day daniel/sabianist: Synagogue seatbelt use: always do you feel safe at home: Yes additional social history: BF- Front Row History 1 Elective abortions Hx Para 0 Spontaneous abortions Hx # Term Pregnancies Ectopic pregnancies Hx # Pregnancies Multiple births # of living children Visit Details Expected Delivery Route/Plan Labor Preferences- CB/BF classes: encouraged, declines labor support person: Klejan labor intervention preferences: pain management options preferred: [...] LOF. G ood Fm. 28 wk labs, [facility] 11/11/24 -?-?-?-?-?-?-?-?-?-?-?-?- 30w 0d 199 lb 8 [...] any complications: none I have reviewed the [facility] and made any clinically relevant updates. Dr. Sheridan updated on admission, exam and poc. 01/24/25812 <Electronically signed by Roseanna Mckeon CNM> Cosigner Signature (if applicable): CC: JACKELIN Mckeon; No Primary Care Physician~ Signed [facility] Work Phone: 1(324) 854-701207-08-2025 History and physical note [facility] Medical Records Department [address] [place] [address] H&P Exam - ROCK MASON 01/24/25 0809 MR#: [id number] Acct: [id number] Name: SHEEBA WELSH Rep #:[id number] : 2000 24 From: Roseanna Mckeon CNM PCP: Care Physician,No Primary Status :ADM IN Location: [id number] HPI - General General Date of Admission: [...] mg-folate no.1 1 mg-dha 300 mg capsule (PNV-Clark) Allergy/AdvReac Type Severity Reaction Status Date / [...] 3-4 times per week duration: 60-90 minutes/day daniel/sabianist: Synagogue seatbelt use: always do you feel safe at home: Yes additional social history: BF- Front Row History 1 Elective abortions Hx Para 0 [...] LOF. G ood Fm. 28 wk labs, [facility] 11/11/24 -?-?-?-?-?-?-?-?-?-?-?-?- 30w 0d 199 lb 8 [...] any complications: none I have reviewed the [facility] and made any clinically relevant updates. Dr. Sheridan updated on admission, exam and poc. 01/24/25812 Cosigner Signature (if applicable): CC: JACKELIN Mckeon; No Primary Care Physician~ Signed [facility]07-07-2025 Progress [facility] [address] [place] [address], [address] [place] [address] OFFICE VISIT Date of Service: 01/23/25 MR#: [id number] Acct: [id number] Name: SHEEBA WELSH Rep #: [id number] : 2000 Provider: JACKELIN Sanders Age/Sex: 24/F Location: [facility] Status: Signed Intake Vital Signs 01/19/25 10:25 01/23/25 09:43 Height 5 ft 10 in 5 ft 10 in Weight: 205 lb 6 oz BMI 29.5 BP 129/81 H Intake Visit Reasons: rule out labor Chief Complaint: Rule out Labor 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: No Is patient in pain?: No Allergies No Known Allergies Allergy (Verified 01/23/25 09:41) Medications ?Medication ?Instructions ?Recorded ?Confirmed ?Type multivit-min no.71-iron fum 28 cap PO 06/14/24 5 History mg-folate no.1 1 mg-dha 300 mg capsule (PNV-Clark) promethazine 12.5 mg tablet 12.5 mg PO [...] occupational status: employed current occupation: [employer] pets and animals: Yes pets and [...] 3-4 times per week duration: 60-90 minutes/day daniel/sabianist: Synagogue seatbelt use: always do you feel safe at home: Yes additional social history: BF- [employer] History 1 Elective abortions Hx Para 0 Spontaneous abortions Hx # Term Pregnancies Ectopic pregnancies Hx # Pregnancies Multiple births # of living children HPI rule out labor Details: SHEEBA WLESH is a 24 year old who presents [...] LOF. G ood Fm. 28 wk labs, [facility] 11/11/24 -?-?-?-?-?-?-?-?-?-?-?-?- 30w 0d 199 lb 8 [...] , second trimester Comment: PRR, , OLIVIA 7/4/25, girl Patricia Curry (2) : Status: Acute [...] Lockhart Signature: Date (if applicable) CC: ~ [facility] [id number] Progress [facility] [address], [address] [place] [address] OFFICE VISIT Date of Service: 01/05/25 MR#: [id number] Acct: [id number] Name: ANITHASHEEBAACRLOS HOOKER Rep #: [id number] : 2000 Provider: JACKELIN Sanders Age/Sex: 24/F Location: [facility] Status: Signed Intake Vital Signs 11/25/24 14:07 12/30/24 10:00 01/05/25 07:58 Height 5 ft 10 in 5 ft 10 in 5 ft 10 in Weight: 202 lb 4 oz BMI 29.0 BP 123/72 H Intake Visit Reasons: 38 wk ob Chief Complaint: 38 Week OB 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: No Is patient in pain?: No Allergies No Known Allergies Allergy (Verified 01/05/25 08:01) Medications ?Medication ?Instructions ?Recorded ?Confirmed ?Type multivit-min no.71-iron fum 28 cap PO 06/14/24 5 History mg-folate no.1 1 mg-dha 300 mg capsule (PNV-Clark) promethazine 12.5 mg tablet 12.5 mg PO [...] occupational status: employed current occupation: [employer] pets and animals: Yes pets and [...] 3-4 times per week duration: 60-90 minutes/day daniel/sabianist: Synagogue seatbelt use: always do you feel safe at home: Yes additional social history: BF- Front Row History 1 Elective abortions Hx Para 0 [...] CB/BF classes: encouraged, declines labor support person: Klejan labor intervention preferences: pain management options preferred: [...] LOF. G ood Fm. 28 wk labs, [facility] 11/11/24 -?-?-?-?-?-?-?-?-?-?-?-?- 30w 0d 199 lb 8 [...] Lockhart Signature: Date (if applicable) CC: ~ [facility]06-13-2025 Progress [facility] [address] [place] [address], [address] [place] [address] OFFICE VISIT Date of Service: 12/30/24 MR#: [id number] Acct: [id number] Name: SHEEBA WELSH Rep #: [id number] : 2000 Provider: Dr. 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 Is patient in pain?: No Allergies No Known Allergies Allergy (Verified 12/30/24 09:59) Medications ?Medication ?Instructions ?Recorded ?Confirmed ?Type multivit-min no.71-iron fum 28 cap PO 06/14/24 5 History mg-folate no.1 1 mg-dha 300 mg capsule (PNV-Clark) promethazine 12.5 mg tablet 12.5 mg PO [...] occupational status: employed current occupation: [employer] pets and animals: Yes pets and [...] 3-4 times per week duration: 60-90 minutes/day daniel/sabianist: Synagogue seatbelt use: always do you feel [...] Urinalysis 2 Dip (Clinic) Today 12/30/24 1037 e Velde DO> Date _ Jemima Garcia DO [facility] Signature: Date (if applicable) CC: ~ [facility]06-05-2025 Progress [facility] [address] [place] [address], [address] [place] [address] OFFICE VISIT Date of Service: 12/22/24 MR#: [id number] Acct: [id number] Name: SHEEBA WELSH Rep #: [id number] : 2000 Provider: JACKELIN Sanders Age/Sex: 24/F Location: [facility] Status: Signed Intake Vital Signs 11/11/24 14:01 12/09/24 14:53 12/22/24 14:30 Height 5 ft 10 in 5 ft 10 in 5 ft 10 in Weight: 200 lb BMI 28.7 BP 129/78 H Intake Visit Reasons: 36wk ob Chief Complaint: 36wk ob 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: No Is patient in pain?: No Allergies No Known Allergies Allergy (Verified 12/22/24 14:28) Medications ?Medication ?Instructions ?Recorded ?Confirmed ?Type multivit-min no.71-iron fum 28 cap PO 06/14/24 5 History mg-folate no.1 1 mg-dha 300 mg capsule (PNV-Clark) promethazine 12.5 mg tablet 12.5 mg PO [...] 3-4 times per week duration: 60-90 minutes/day daniel/sabianist: Synagogue seatbelt use: always do you feel [...] LOF. G ood Fm. 28 wk labs, [facility] 11/11/24 -?-?-?-?-?-?-?-?-?-?-?-?- 30w 0d 199 lb 8 [...] [place] appropriate handout given. 12/22/24 1455 s CNM> Date _ Angela Sanders CNM Cosigner Signature: Date (if applicable) CC: ~ [facility]06-05-2025 Progress note Author Angela Sanders [facility] Note Date/Time December 22, 2024 2:55p m [facility] [address] [place] [address], [address] [place] [address] OFFICE VISIT Date of Service: 12/22/24 MR#: [id number] Acct: [id number] Name: SHEEBA WELSH Rep #: [id number] : 2000 Provider: JACKELIN Sanders Age/Sex: 24/F Location: [facility] Status: Signed Intake Vital Signs 11/11/24 14:01 12/09/24 14:53 12/22/24 14:30 Height 5 ft 10 in 5 ft 10 in 5 ft 10 in Weight: 200 lb BMI 28.7 BP 129/78 H Intake Visit Reasons: 36wk ob Chief Complaint: 36wk ob 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: No Is patient in pain?: No Allergies No Known Allergies Allergy (Verified 12/22/24 14:28) Medications ?Medication ?Instructions ?Recorded ?Confirmed ?Type multivit-min no.71-iron fum 28 cap PO 06/14/24 5 History mg-folate no.1 1 mg-dha 300 mg capsule (PNV-Clark) promethazine 12.5 mg tablet 12.5 mg PO [...] occupational status: employed current occupation: [employer], [employer] pets and animals: Yes pets and [...] 3-4 times per week duration: 60-90 minutes/day daniel/sabianist: Synagogue seatbelt use: always do you feel [...] LOF. G ood Fm. 28 wk labs, [facility] 11/11/24 -?-?-?-?-?-?-?-?-?-?-?-?- 30w 0d 199 lb 8 [...] Symptoms of Preeclampsia, Infant Feeding No , [place] Education and Family Medical Leave or Disability [...] this visit. [place] appropriate handout given. 12/22/24 0835 <Electronically signed by Angela baca CNM> Date _ Angela Sanders CNM Cosigner Signature: Date (if applicable) CC: ~ [facility] Work Phone: 1(766) 761-376003-28-2025 Evaluation note* Diagnosis Onset Date Resolution Status [...] first acute January 19, 2025 1 0:09am [facility] Work Phone: [phone] Evaluation note* Diagnosis Onset Date Resolution Status [...] first acute January 23, 2025 9 :40am [facility] Work Phone: [phone] Evaluation note* Diagnosis Onset Date Resolution Status [...] of labor deleted January 24, 2025 7:28am [facility] Work Phone: [phone]) 923-954803-28-2025 Evaluation note* Diagnosis Onset Date Resolution Status [...] of labor deleted January 24, 2025 7:28am Retained products of concept ion after delivery with complications acute February 02, 2025 9:01am (spontaneous vaginal delivery) acute February 02, 2025 9:01am [facility] Work Phone: [phone] 707-815103-28-2025 Evaluation note* Diagnosis Onset Date Resolution Status [...] of labor deleted January 24, 2025 7:28am hemorrhage, delay ed (> 24 hrs) acute February 02, 2025 10:29am Retained products of concept ion after delivery with complications acute February 02, 2025 10:29am (spontaneous vaginal delivery) acute February 02, 2025 10:29am [facility] Work Phone: 1([phone] 188-261102-28-2025 Evaluation note* Diagnosis Onset Date Resolution Status [...] first acute December 22, 2024 2 :27pm [facility] Work Phone: [phone]) 380-417202-28-2025 Evaluation note* Diagnosis Onset Date Resolution Status [...] normal first acute December 30, 2024 9:46am [facility] Work Phone: [phone] Evaluation note* Diagnosis Onset Date Resolution Status [...] normal first acute January 05, 2025 7:54am [facility] Work Phone: [phone] 330-3737496948-07-5520 Evaluation note* Diagnosis Onset Date Resolution Status [...] normal first acute January 11, 2025 1:44pm [facility] Work Phone: [phone] NotePap Smear Specimen AdequacyDecember 2023 12:59amComment.Satisfactory for evaluation. Endocervical and/or squamous metaplasticcells (endocervical component)are present.[facility]ED A#[id number] Hospitals Geauga Medical CenterComment on above:Satisfactory for evaluation. Endocervical and/or squamous metaplasticcells (endocervical component)are present.06-23-2024 Evaluation note* Diagnosis Onset Date Resolution Status Admit Date acute June 23, 2024 12:42pm Supervision of normal first acute June 23 12:42pm Chest discomfort resolved June 23, 2024 12:42pm Palpitations resolved June 12:42pm acute July 21 10:06am Supervision of normal first acute July 21 10:06am Chest discomfort resolved July 21, 2024 10:06am Palpitations resolved July 21, 2024 10:06am acute August 19, 2024 2:11pm Supervision of normal first acute August 19 2:11pm acute September 16, 2024 12:58pm Supervision of normal first acute September 16 025 12:58pm acute October 14 1:25pm Supervision of normal first acute October 14, 2024 1:25pm [facility] Work Phone: Consult note Author Lenny Marie [facility] Note Date/Time February 02, 2025 9:35 am [facility] Medical Records Department [address] [place] [address] Pre-Anesthesia Evaluation 02/02/25 0934 MR#: [id number] Acct: [id number] Name: SHEEBA WELSH Rep #:[id number] : 2000 24 From: Lenny Vargas PCP: VERO [place] Status:REG SDC Y Race: C Location: [place] [address] ASA Classification* ASA Classification ASA Classification: 1 and E Assessment & Plan Anesthesia* Anesthesia Assessment Anesthesia Assessment: Discussed sedation and/or anesthesia options, risks, benefits, and alternatives with patient/parents/legal guardian/POA. Questions invited. The patient/parents/legal guardian/POA seems to understand and agrees to proceedwith anesthesia plan. Reviewed the physical assessment, medical history, allergy history and patient home medications list prior to surgery/procedure/anesthetic and documented any changes. Performed airway and anesthesia risk assessments. Anesthesia Type Anesthesia Type: General History Source History Obtained from:: Patient and Chart Anesthesia Focused Assessment* Temperature: 98.3 F Pulse Rate: 53 Blood Pressure: 118/54 Respiratory Rate: 18 Pulse Ox: 99 Oxygen Delivery Method: Room Air Airway Assessment Mouth opens: >3 cm Mallampati Score: I Teeth Condition: Intact Neck Range of motion (ROM): Full ROM Labs Anesthesia Preop lab: CBC WBC 6.7 K/mm3 (4.4-11.0) 02/02/25 05:16 02/02/25 RBC 4.47 M/mm3 (4.2-5.4) 02/02/25 05:16 02/02/25 Hgb 11.8 g/dL (12.0-15.0) L 02/02/25 05:16 5 Hct 36.4 % (37-47) L 02/02/25 05:16 02/02/25 Plt Count 276 K/mm3 (150-450) 02/02/25 05:16 02/02/25 CHEMISTRY Potassium 3.8 mmol/L (3.3-5.1) 02/02/25 05:16 02/02/25 Sodium 137 mmol/L (133-145) 02/02/25 05:16 02/02/25 BUN 10 mg/dL (4-19) 02/02/25 05:16 02/02/25 Creatinine 0.65 mg/dL (0.70-1.20) L 02/02/25 05:16 Glucose 94 mg/dL (70-99) 02/02/25 05:16 02/02/25 TSH 1.63 uIU/mL (0.358-3.74) 11/12/23 15:49 COAG PT 13.5 SECONDS (11.7-14.9) 02/02/25 05:16 Pre-Assessment Diagnosis/Proposed Procedure Planned Operative Procedure(s): Suction dilation and curettage Anesthesia History Anesthesia History - kiln maintenance: Anesthesia History - kiln maintenance Hx Hospitalization Any Problems With Anesthesia No 02/02/25 08:57 Cholinesterase deficiency You/Your Family Experience No 02/02/25 08:57 fever (hyperthermia) with Relationship Recent Exposure to Contagious Disease Does patient have nerve No 02/02/25 08:57 stimulator Patient instructed to have device shut off --Does patient have Pacemaker or ICD? When Was Last Pacemaker Check QUESTION #4 FULL TEXT: You/Your Family Experience fever (hyperthermia) with Anesthesia Last Oral Intake Last Oral intake: Last Oral Intake NPO since Meds taken in AM with sips of water? Meds patient instructed to take am of surgery PONV PONV - kiln maintenance: PONV - kiln maintenance Female HX of Motion Sickness HX of N/V After Surgery Non-Smoker Duration of Surgery greater than 60 minutes Number of Risk Factors PONV Score Height & Weight Height & Weight: Anesthesia: Height & Weight Height 5 ft 10 in 02/02/25 08:57 Weight: 80.5 kg 02/02/25 08:57 Body Mass Index (BMI) 25.4 02/02/25 08:57 Respiratory Assessment Respiratory Assessment - kiln maintenance: Respiratory Tract Infection Hx - kiln maintenance Hx Respiratory Tract Infection STOP Sleep Apnea STOP Sleep Apnea - kiln maintenance: STOP Sleep Apnea - kiln maintenance Hx Hypertension No 02/02/25 08:57 Hx Sleep Apnea No 02/02/25 08:57 CPAP BIPAP Do you snore loudly (louder No 02/02/25 08:57 than talking or can be heard Do you often feel tired/ No 02/02/25 08:57 fatigued/ sleepy during daytime? Has anyone observed you stop No 02/02/25 08:57 breathing during sleep? STOP Results Negative 02/02/25 08:57 QUESTION #5 FULL TEXT : Do you snore loudly (louder than talking or can be heard through closed doors)? 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 Specify any problems Hx of Preganancy in last 3 Months Nurse Filling Out Transfusion & Questions: Date: Time: Patient unable to answer at this time (ie. confused, unrespo /Reproduction History /Reproductive History - kiln maintenance: /Reproductive Hx- kiln maintenance Hx Now No: 1 wk post 02/02/25 08:57 Gestational Age (in weeks): EDC: Hx 1 02/02/25 05:12 Hx Para Hx Section SAB Yes 02/02/25 08:57 Active Medications Active Medications: Current Medications Generic Name Dose Route Start Last Admin Trade Name Freq PRN Reason Stop Dose Admin Lactated Ringer's 1,000 mls @ 15 mls/hr 02/02/25 09:30 02/02/25 09:24 IV 15 mls/hr .Q48H REJI Administration Cefotetan Disodium 2 gm/ 100 mls @ 200 mls/hr 02/02/25 09:30 Sodium Chloride IV 02/02/25 09:59 INTRAOP ONE PFSH Medical History Depression Anxiety Menorrhagia Headache, migraine History of fracture Non-smoker Home Medications ?Medication ?Instructions ?Recorded ?Last Taken ?Type multivit-min no.71-iron fum 28 1 cap PO DAILY 06/14/24 Unknown History mg-folate no.1 1 mg-dha 300 mg capsule (PNV-Clark) Allergy/AdvReac Type Severity Reaction Status Date / Time No Known Allergies Allergy Verified 02/02/25 05:13 Family History Mother Breast cancer, Onset Age: 51 Depression Father Cancer, Onset Age: 57 Chronic leukemia Surgical History History of repair of ACL Social History adopted: No household members: significant other and family current occupational status: employed current occupation: [employer] pets and animals: Yes pets and [...] 3-4 times per week duration: 60-90 minutes/day daniel/sabianist: Synagogue seatbelt use: always do you feel safe at home: Yes additional social history: [facility] Review of Systems (Anesthesia) ROS Narrative System reviewed and no additional complaints, except as documented. 02/02/25 0935 <Electronically signed by Lenny Marie MD> Date _ Lenny Marie MD Cosigner Signature: Date CC: ~ Signed [facility] Work Phone: Discharge summary Author Jemima Avila [facility] Note Date/Time February 02, 2025 9:49 am [facility] Medical Records Department [address] [place] [address] Instructions for Home/Discharge Instructions 02/02/25 0947 MR#: [id number] Acct: [id number] Name: SHEEBA WELSH Rep #:[id number] : 2000 24 From: Jemima Garcia DO PCP: VERO [place] Status:REG SDC Discharge Instructions DC O2, CPAP, BIPAP needs Home O2 Discharge instructions: No Dressing / Incision Discharge Activity: Return to Normal Activity, May Shower and May Take a Tub Bath (after 1 week) May resume sexual activity in: 1-2 weeks Weight Bearing Status: Weight bearing as tolerated Lifting Restrictions: none Dressing / Incision Call your doctor if you observe: Fever of 101 or Higher, Using more than 1 pad per hour, Shortness of breath and Uncontrolled pain Follow Up Care Please Follow Up With: Jemima Garcia DO When: Call [phone] to schedule appointment. Test Results: Test results from this visit will be discussed in further detail at your follow- up appointment, if applicable. Discharge Plan Admission Primary Reason for Your Visit: suction dilation and curettage Attending Provider: Jemima Garcia Primary Care Provider: Yoel Frost Instructions Print Language: Gibraltarian Discharge Orders/Prescriptions Prescriptions: New ibuprofen 800 mg tablet 800 mg PO Q8H PRN (Reason: pain) Qty: 30 0RF No Action PNV-Clark 28-1-300 mg capsule 1 cap PO DAILY Referrals / Follow Up: Yoel Frost PA [Primary Care Provider] - Disposition Disposition (needs filled in before D/C Order can be placed): Home, Self Care 02/02/25 0945<Electronically signed by Jemima Garcia DO>Jemima Garcia DO CC: VERO [place] ~ Signed [facility] Work Phone: Evaluation note* Diagnosis Onset Date Resolution Status Anxiety with depression acut e Anxiety with depression acut e Fatigue acute [facility] Work Phone: Evaluation note* Diagnosis Onset Date Resolution Status Anxiety with depression acut e Chest discomfort acute Menorrhagia acute [facility] Work Phone: History and physical note Author Jemima Avila [facility] Note Date/Time February 02, 2025 8:56 am [facility] Medical Records Department [address] [address] H&P Exam - ROCK [facility]ON 02/02/25 1648 MR#: [id number] Acct: [id number] Name: SHEEBA WELSH Rep #:[id number] : 2000 24 From: Jemima Garcia DO PCP: VERO [place] Status:REG ER Location: ED HPI - General HPI Narrative SHEEBA WELSH, is a 24 y/o , 10 days post who presents to ER with heavy vaginal bleeding. ultrasound showed 42mm of retained products of conception. vitals and labs are stable but bleeding continues to be brisk. The decision is made to proceed with a suction D&C. Maternal Data Information OLIVIA Calculator Estimated Delivery Date Method Current WG Current Estimate 01/20/25 LMP (Certain) 41w 6d Other Estimates 01/20/25 Ultrasound #1 41w 6d PFSH PFSH Medical History Depression Anxiety Menorrhagia Headache, migraine History of fracture Non-smoker Home Medications ?Medication ?Instructions ?Recorded ?Last Taken ?Type multivit-min no.71-iron fum 28 1 cap PO DAILY 06/14/24 Unknown History mg-folate no.1 1 mg-dha 300 mg capsule (PNV-Clark) Allergy/AdvReac Type Severity Reaction Status Date / Time No Known Allergies Allergy Verified 02/02/25 05:13 Family History Mother Breast cancer, Onset Age: 51 Depression Father Cancer, Onset Age: 57 Chronic leukemia Surgical History History of repair of ACL Social History adopted: No household members: significant other and family current occupational status: employed current occupation: [employer], [employer] pets and animals: Yes pets and animals: [...] 3-4 times per week duration: 60-90 minutes/day daniel/sabianist: Synagogue seatbelt use: always do you feel [...] vb/lof/ct x. good fm. GBS today 12/30/24 -?-?-?-?--?-?-?-?-?-?-?-?- 37w 0d 200 lb 8 oz (+17 lb 8 oz) 113/71 Negative -?-?-?-?-?-?-?-?-?-?-?-?- Negative 143 38 Cephalic 0 -?-?--?-?-?-?-?-?-?-?-?-?- JV- gbs neg. no lof, vaginal bleeding, or dec fm. no complaints of headaches anymore. 01/05/25 -?-?-?-?-?-?-?-?-?-?-?-?- 37w 6d 202 lb 4 oz (+19 lb 4 oz) 123/72 Negative -?-?-?-?-?-?-?-?-?-?-?-?- Negative 130 39 Cephalic 0 -?-?-?-?-?-?-?-?-?-?-?-?- KW- no vb/lof/re g ctx. good fm. labor precautions reviewed 01/11/25 -?-?-?-?-?-?-?-?-?-?-?-?- 38w 5d 204 lb 6 oz (+21 lb 6 oz) 126/69 Negative -?-?-?-?-?-?-?-?-?-?--?-?- Negative 145 38 Cephalic 1 -?-?-?-?-?-?-?-?-?-?-?-?- 80 [...] felt intact on exam. labor precautions reviewed. ROS Constitutional Constitutional: Denies change in weight, fatigue, fever(s), headache(s), poor appetite or weakness Eyes Eyes: Denies blurry vision, change in vision, seeing flashes or spots in vision ENT HEENT: Denies dizziness, headache(s), loss taste/smell or sore throat Cardiovascular Cardiovascular: Denies chest pain, dizziness, dyspnea, irregular heart rhythm, leg edema, palpitations, rapid heart rate or vomiting Respiratory/Chest Respiratory/Chest: Denies chest tightness, cough, dyspnea or breast pain Gastrointestinal Gastrointestinal: Denies abdominal pain, anorexia, constipation, cramping, diarrhea, hemorrhoids, vomiting or weight changes Genitourinary Genitourinary: Denies dysuria, flank pain, genital lesions, genital pain, urinary frequency or urinary urgency Musculoskeletal Musculoskeletal: Denies back pain, difficulty walking, joint pain, limited range of motion, muscle cramps or numbness Integumentary Integumentary: Denies lesions or unusual bruising Neurologic Neurologic: Denies abnormal movements, abnormal speech, dizziness, numbness, seizure-like activity or syncope Psychiatric Psychiatric: Denies anxiety, behavioral changes, change in appetite, change in libido, cognitive impairment, confusion, depression, difficulty concentrating, hallucinations or suicidal thoughts Endocrine Endocrinology: Denies excessive sweating, polydipsia or polyuria Hematologic/Lymphatic Hematologic/Lymphatic: Denies easy bleeding, easy bruising or lymphadenopathy Allergic/Immunologic Allergic/Immunologic: Denies itchy eyes, lip swelling, seasonal rhinorrhea, rhinitis, throat swelling, tongue swelling, eczemia, wheezing or asthma Vital Signs Vital Signs Vital Signs: 02/02/25 05:12 02/02/25 07:12 Temperature 98.4 F Temperature Source Oral Pulse Rate 80 62 Respiratory Rate 19 H 18 Blood Pressure 140/73 H 113/46 L Blood Pressure Mean 95 68 Pulse Ox 98 99 Oxygen Delivery Method Room Air Room Air Weight Weight: 177 lb 7.554 oz Body Mass Index (BMI) 25.4 Physical Exam Const alert, oriented x3, no apparent distress and healthy appearing General Appearance: cooperative; Negative for anxious HEENT normocephalic Face and Sinus: normal facial exam Eyes EOMs intact bilaterally and no scleral icterus General Eye: normal appearance of both eyes Resp normal respiratory effort Effort and Inspection: able to speak in complete sentences Cardio regular rate GI soft to palpation and non-tender Palpation: soft; Negative for tender Extremity normal to inspection, full ROM and no clubbing, cyanosis or edema General Extremity: Negative for calf tenderness or edema Skin Lesions: no lesions Rashes: no rashes Psych mental status grossly normal Labs Labs Labs: Blood Type O POSITIVE Antibody Screen NEGATIVE Hct 36.4 % (37-47) L Hgb 11.8 g/dL (12.0-15.0) L Syphilis Total Ab Nonreactive (Nonreactive) Rubella IgG Antibody Reactive (Nonreactive) Hep Bs Antigen Non-Reactive (Nonreactive) Hepatitis C Antibody Non-Reactive (Nonreactive) Chlamydia DNA (PEDRO) Negative (Negative) N.gonorrhoeae DNA (PEDRO) Negative (Negative) HIV 1&2 Antibody Nonreactive (Nonreactive) Glucose 1 Hr 50 gm 108 mg/dL (70-140) Assessment & Plan (1) (spontaneous vaginal delivery): COMMENT: LC IAL [facility] (2) Retained products of conception after delivery with complications: PLAN: After discussing the patient's diagnosis and treatment plan options, patient wishes to proceed with surgical management. I have discussed with the patient the risks, benefits, and alternatives of the procedure which include but are not limited to risks of anesthesia, bleeding, infection, possible damage to bowel, bladder, or surrounding vasculature which could lead to additional surgery to evaluate any complications. Patient agrees to procedure and wishes to proceed. ACOG/uptodate references given for additional information regarding procedure. 02/02/25 0856 <Electronically signed by Jemima Garcia DO> Cosigner Signature (if applicable): CC: Dr. Jemima Garcia DO; VERO [place]~ Signed [facility] Work Phone: Hospital Discharge instructionsAdditional Instructions [facility] Work Phone: Progress note Author Jemima Avila [facility] Note Date/Time December 30, 2024 10:3 7am [facility] [address] [place] [address], [address] [place] [address] OFFICE VISIT Date of Service: 12/30/24 MR#: [id number] Acct: [id number] Name: SHEEBA WELSH Rep #: [id number] : 2000 Provider: Dr. 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 Is patient in pain?: No Allergies No Known Allergies Allergy (Verified 12/30/24 09:59) Medications ?Medication ?Instructions ?Recorded ?Confirmed ?Type multivit-min no.71-iron fum 28 cap PO 06/14/24 5 History mg-folate no.1 1 mg-dha 300 mg capsule (PNV-Clark) promethazine 12.5 mg tablet 12.5 mg PO [...] family current occupational status: employed current occupation: [employer] pets and animals: Yes pets [...] 3-4 times per week duration: 60-90 minutes/day daniel/sabianist: Synagogue seatbelt use: always do you feel safe at home: Yes additional social history: BF- [employer] History 1 Elective abortions Hx Para [...] LOF. G ood Fm. 28 wk labs, [facility] 11/11/24 -?-?-?-?-?-?-?-?-?-?-?-?- 30w 0d 199 lb 8 [...] and Symptoms of Preeclampsia, Feeding No , [place] Education and Family Medical Leave or Disability [...] Cosigner Signature: Date (if applicable) CC: ~ [facility] Work Phone: Progress note Author Angela Sanders [facility] Note Date/Time January 05, 2025 8:22 am [facility] [address], [address] [place] [address] OFFICE VISIT Date of Service: 01/05/25 MR#: [id number] Acct: [id number] Name: SHEEBA WELSH Rep #: [id number] : 2000 Provider: JACKELIN Sanders Age/Sex: 24/F Location: [facility] Status: Signed Intake Vital Signs 11/25/24 14:07 12/30/24 10:00 01/05/25 07:58 Height 5 ft 10 in 5 ft 10 in 5 ft 10 in Weight: 202 lb 4 oz BMI 29.0 BP 123/72 H Intake Visit Reasons: 38 wk ob Chief Complaint: 38 Week OB 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: No Is patient in pain?: No Allergies No Known Allergies Allergy (Verified 01/05/25 08:01) Medications ?Medication ?Instructions ?Recorded ?Confirmed ?Type multivit-min no.71-iron fum 28 cap PO 06/14/24 5 History mg-folate no.1 1 mg-dha 300 mg capsule (PNV-Clark) promethazine 12.5 mg tablet 12.5 mg PO [...] occupational status: employed current occupation: [employer] pets and animals: Yes pets and [...] 3-4 times per week duration: 60-90 minutes/day daniel/sabianist: Synagogue seatbelt use: always do you feel safe at home: Yes additional social history: BF- [employer] History 1 Elective abortions Hx Para 0 [...] LOF. G ood Fm. 28 wk labs, [facility] 11/11/24 -?-?-?-?-?-?-?-?-?-?-?-?- 30w 0d 199 lb 8 [...] Cosigner Signature: Date (if applicable) CC: ~ [facility] Work Phone: Progress note Author Angela Sanders [facility] Note Date/Time January 23, 2025 10:04 am [facility] [address] [place] [address], [address] [place] [address] OFFICE VISIT Date of Service: 01/23/25 MR#: [id number] Acct: [id number] Name: SHEEBA WELSH Rep #: [id number] : 2000 Provider: JACKELIN Sanders Age/Sex: 24/F Location: [facility] Status: Signed Intake Vital Signs 01/19/25 10:25 01/23/25 09:43 Height 5 ft 10 in 5 ft 10 in Weight: 205 lb 6 oz BMI 29.5 BP 129/81 H Intake Visit Reasons: rule out labor Chief Complaint: Rule out Labor 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: No Is patient in pain?: No Allergies No Known Allergies Allergy (Verified 01/23/25 09:41) Medications ?Medication ?Instructions ?Recorded ?Confirmed ?Type multivit-min no.71-iron fum 28 cap PO 06/14/24 5 History mg-folate no.1 1 mg-dha 300 mg capsule (PNV-Clark) promethazine 12.5 mg tablet 12.5 mg PO [...] occupational status: employed current occupation: [employer] pets and animals: Yes pets and [...] 3-4 times per week duration: 60-90 minutes/day daniel/sabianist: Synagogue seatbelt use: always do you feel safe at home: Yes additional social history: BF- [employer] History 1 Elective abortions Hx Para [...] Cosigner Signature: Date (if applicable) CC: ~ [facility] Work Phone: Progress note Author Jemima Avila [facility] Note Date/Time February 02, 2025 6:48 pm [facility] Medical Records Department [address] [place] [address] Progress Note - OBGYN 02/02/25 1846 MR#: [id number] Acct: [id number] Name: SHEEBA WELSH Rep #:[id number] : 2000 24 From: Jemima Garcia DO PCP: VERO [place] Status:ADM ANTONIO Location: [place] [address] Subjective Subjective Patient doing well without complaints. Tolerating PO. Ambulating and voiding without difficulty. Feeding well. Denies chest pain, shortness of breath, calf pain/swelling, fevers, chills, lightheadedness. She wants to go home. bleeding is scant cbc and vitals are stable Objective Data Objective Data Vital Signs: Vital Signs Temp Pulse Resp BP Pulse Ox O2 Del Method 99.0 F 75 16 114/52 L 98 Room Air 02/02/25 15:19 02/02/25 15:19 02/02/25 15:19 02/02/25 15:19 02/02/25 15:19 02/02/25 15:19 Oxygen Delivery Method Room Air Weight: 177 lb 7.554 oz Body Mass Index (BMI) 25.4 Intake & Output: Intake and Output for Last 24 Hours 01/31/25 02/01/25 02/02/25 23:59 23:59 23:59 Intake Total 2384 / 2384 Output Total 1800 / 1800 Balance 584 / 584 Lab / Micro Data 02/02/25 12:25 02/02/25 05:16 Labs: Laboratory Results - last 24 hr 02/02/25 05:16: WBC 6.7, RBC 4.47, Hgb 11.8 L, Hct 36.4 L, MCV 81.4, MCH 26.4 L,MCHC 32.4, RDW Std Deviation 40.1, RDW Coeff of Elvin 13.7, Plt Count 276, MPV 8.8, Immature Gran % (Auto) 0.400, Neut % (Auto) 64.0, Lymph % (Auto) 23.3, Laurel% (Auto) 11.0 H, Eos % (Auto) 0.9, Baso % (Auto) 0.4, Absolute Neuts (auto) 4.3,Absolute Lymphs (auto) 1.57, Nucleated RBC % 0, PT 13.5, INR 1.0, APTT 30.8, Sodium 137, Potassium 3.8, Chloride 103, Carbon Dioxide 20.6 L, Anion Gap 13, BUN 10, Creatinine 0.65 L, Estim Creat Clear Calc 144.32, Est GFR (MDRD) Non-Af 126, BUN/Creatinine Ratio 16.0, Glucose 94, Calcium 9.2, Blood Type O POSITIVE, Antibody Screen NEGATIVE, Crossmatch See Detail 02/02/25 05:36: Lactic Acid < 1.0 02/02/25 08:40: Urine Color Lorenza, Urine Clarity Sl. Cloudy, Urine pH 6.0, Ur Specific [place] 1.015, Urine Protein 100 H, Urine Glucose (UA) Normal, Urine Ketones Negative, Urine Occult Blood 250 H, Urine Nitrite Negative, Urine Bilirubin Negative, Urine Urobilinogen Normal, Ur Leukocyte Esterase 500 H, Urine RBC 25-50 SEEN, Urine WBC 10-25 SEEN, Ur Squamous Epith Cells 0-5 SEEN, Urine Bacteria 0 SEEN, Urine Mucus 0 SEEN 02/02/25 10:30: WBC 7.3, RBC 3.79 L, Hgb 10.1 L, Hct 30.9 L, MCV 81.5, MCH 26.6 L, MCHC 32.7, RDW Std Deviation 40.3, RDW Coeff of Elvin 13.6, Plt Count 277, MPV 9.0, Immature Gran % (Auto) 0.100, Neut % (Auto) 72.5 H, Lymph % (Auto) 19.6, Laurel % (Auto) 7.4, Eos % (Auto) 0.3, Baso % (Auto) 0.1, Absolute Neuts (auto) 5.3, Absolute Lymphs (auto) 1.42, Nucleated RBC % 0 02/02/25 12:25: Hgb 9.5 L, Hct 29.8 L Radiography Diagnostic Testing: Radiology Impression Pelvis Ultrasound 02/02/25 05:32 IMPRESSION: Findings in keeping with retained products of conception. Reading Location: [address] Constitutional Constitutional: Denies chills, fatigue, fever(s), poor appetite or weakness Eyes Eyes: Denies blurry vision, change in vision, seeing flashes or spots in vision ENT HEENT: Denies dizziness, headache(s), loss taste/smell or sore throat Cardiovascular Cardiovascular: Denies chest pain, dizziness, dyspnea, irregular heart rhythm, palpitations or rapid heart rate Respiratory/Chest Respiratory/Chest: Denies chest tightness, cough, dyspnea or breast pain Gastrointestinal Gastrointestinal: Denies abdominal pain, constipation or vomiting Genitourinary Genitourinary: Denies dysuria or flank pain Musculoskeletal Musculoskeletal: Denies difficulty walking, joint pain, limited range of motion or numbness Neurologic Neurologic: Denies abnormal movements, abnormal speech, dizziness, numbness, seizure-like activity or syncope Psychiatric Psychiatric: Denies anxiety, behavioral changes, change in appetite, confusion, depression or suicidal thoughts Physical Exam Const alert, oriented x3 and no apparent distress General Appearance: cooperative and comfortable Resp normal respiratory effort Cardio regular rate GI normal to inspection, nondistended, normoactive bowel sounds GI Narrative: uterus is firm below umbilicus Palpation: soft Back/Spine no CVA tenderness and thoraco-lumbar ROM normal Extremity normal to inspection, no clubbing, cyanosis or edema, no calf tenderness and no pedal edema Psych mental status grossly normal, thought process normal, cooperative, affect normal, speech normal, activity/motor behavior normal, denies homicidal ideationand denies suicidal ideation Assessment & Plan (1) hemorrhage, delayed (> 24 hrs): (2) Retained products of conception after delivery with complications: PLAN: Plan patient is stable after several hours of observation ok to dc to home 02/02/251847 <Electronically signed by Jemima Garcia DO> Cosigner Signature (if applicable): CC: ~ Signed [facility] Work Phone: Reason for referral (narrative)No reason for referral information availableWSumma [facility] Work Phone: Summary Purpose Family History Relationship Condition Age at Onset Recorded Date/T beatriz Not Specified Depression Unknown Malignant neoplasm of breast Unknown Malignant neoplasm Unknown Relationship Condition Age at Onset Recorded Date/T beatriz mother Malignant neoplasm of breast 51 Depression Unknown father Malignant neoplasm 57 Advance Directives Advance Directive Response Recorded Date/ Time Living Will No April 30 11:00pm Power of Change Agent No April 30, 2021 11:00pm Advance Directive Response Recorded Date/ Time Do you have a Healthcare Power of Change Agent? No January 24, 2025 3:37am Advance Directive Response Recorded Date/ Time Do you have a Healthcare Power of Change Agent? No January 24, 2025 3:37am Do you have a Healthcare Power of Change Agent? No February 02, 2025 5:12am Advance Directive Response Recorded Date/ Time Do you have a Healthcare Power of Change Agent? No January 24, 2025 3:37am Do you have a Healthcare Power of Change Agent? 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 2 [...] 1 2:42pm Supervision of normal first [facility] 2023 12:42pm Chest discomfort June 23, 2024 1 2:42pm Palpitations June 23, 2024 1 2:42pm July 21, 2024 10 :06am Supervision of normal first [facility] 2024 10:06am Chest discomfort July 21, 2024 10 :06am Palpitations July 21, 2024 10 :06am August 19, 2024 2 :11pm Supervision of normal first [facility] 2024 2:11pm September 16, 2024 12:58pm Supervision of normal first [facility] 2024 12:58pm October 14, 2024 1:2 5pm Supervision of normal first [facility] 2024 1:25pm Chief Complaint Admit Date 22 [...] 1:2 5pm Supervision of normal first [facility] 2024 1:25pm November 11, 2024 1:5 [...] 1:2 5pm Supervision of normal first [facility] 2024 1:25pm November 11, 2024 1:5 [...] 1:2 5pm Supervision of normal first [facility] 2024 1:25pm November 11, 2024 1:5 [...] 1:2 5pm Supervision of normal first [facility] 2024 1:25pm November 11, 2024 1:5 [...] 1:2 5pm Supervision of normal first [facility] 2024 1:25pm November 11, 2024 1:5 [...] 1:2 5pm Supervision of normal first [facility] 2024 1:25pm November 11, 2024 1:5 [...] 1:2 5pm Supervision of normal first [facility] 2024 1:25pm November 11, 2024 1:5 [...] Spontaneous onset of labor January 24 7:28am Chief Complaint Admit Date 26 wk ob [...] m MATERNITY January 25, 2025 7:56a m vag bleeding February 02, 2025 8:54 am D-N-C February 02, 2025 9:01 am Reason for Visit Admit Date October 14, 2024 1:2 5pm Supervision of normal first [facility] 2024 1:25pm November 11, 2024 1:5 [...] Spontaneous onset of labor January 24 7:28am Retained products of concept ion after delivery with complications February 02, 2025 9:01am (spontaneous vaginal delivery) February 02, 2025 9:01am Chief Complaint Admit Date 26 wk ob [...] m MATERNITY January 25, 2025 7:56a m vag bleeding February 02, 2025 8:54 am HEMORRHAGE February 02, 2025 10 :29am Reason for Visit Admit Date October 14, 2024 1:2 5pm Supervision of normal first [facility] 2024 1:25pm November 11, 2024 1:5 [...] 2025 7:28a m Supervision of normal first ly 2024 7:28am (spontaneous vaginal delivery) January 24, 2025 7:28am Spontaneous onset of labor January 24 7:28am hemorrhage, delayed (> 24 hrs ) February 02, 2025 10:29am Retained products of concept ion after delivery with complications February 02, 2025 10:29am (spontaneous vaginal delivery) February 02, 2025 10:29am Additional Source Comments INFORMATION SOURCE (unrecogn ized section and content) DATE CREATED AUTHOR 09/30/2020 [facility] ([place]) DATE CREATED AUTHOR AUTHOR'S ORGANIZ ATION 08/28/2024 [facility] DATE CREATED AUTHOR AUTHOR'S ORGANIZ ATION 02/01/[address] [facility] Care Teams (unrecognized sec tion and content) Team Status: Active Member Role Status Dates Dr. Moisés Haines DO Primary Care Provider Active Team Status: [...] End: October 14, 2024 Cesilia George NP, PLASTIC SURGERY TECHNICIAN-C Attending Provider Active Start: October 14, 2024 End: October 14, 2024 Team Status: Inactive Member Role Status Dates Cesilia George NP PLASTIC SURGERY TECHNICIAN-C Attending Provider Active Start: October 14, 2024 End: October 14, 2024 Cesilia George NP, PLASTIC SURGERY TECHNICIAN-C Referring Provider Active Start: October 14, 2024 [...] Inactive Member Role/Relationship Status Dates Dr. Moisés Haiens DO Referring Provider Active Start: October 14, 2024 End: October 14, 2024 Cesilia George NP, PLASTIC SURGERY TECHNICIAN-C Attending Provider Active Start: October 14, 2024 End: October 14, 2024 Team Status: Inactive Member Role/Relationship Status Dates Cesilia [place] PLASTIC SURGERY TECHNICIAN, PLASTIC SURGERY TECHNICIAN-C Attending Provider Active Start: October 14, 2024 End: October 14, 2024 Cesilia George PLASTIC SURGERY TECHNICIAN, PLASTIC SURGERY TECHNICIAN-C Referring Provider Active Start: October 14, 2024 [...] 2024 End: October 14, 2024 Cesilia George PLASTIC SURGERY TECHNICIAN, PLASTIC SURGERY TECHNICIAN-C Attending Provider Active Start: October 14, 2024 End: October 14, 2024 Team Status: Inactive Member Role/Relationship Status Dates Cesilia George PLASTIC SURGERY TECHNICIAN, PLASTIC SURGERY TECHNICIAN-C Attending Provider Active Start: October 14, 2024 End: October 14, 2024 Cesilia George PLASTIC SURGERY TECHNICIAN, PLASTIC SURGERY TECHNICIAN-C Referring Provider Active Start: October 14, 2024 [...] Active Start: January 25, 2025 Dr. Jemima Garcai DO Referring Provider Activ e Start: January 25, 2025 Dr. Jemima Garcia , DO Other Provider Active Start: January 25, 2025 Cesilia George PLASTIC SURGERY TECHNICIAN, PLASTIC SURGERY TECHNICIAN-C Attending Provider Active Start: January 25, 2025 Team Status: Inactive Member Role/Relationship Status Dates Angela Sanders CNM Attending Provider Active S tart: January 23, 2025 End: January 23, 2025 Angela Sanders CNM Referring Provider Active S tart: January 23, 2025 End: January 23, 2025 Team Status: Active Member Role/Relationship Status Dates Yoel Frost PA, PA Primary Care Provider Active Team Status: Active Member Role/Relationship Status Dates Yoel Frost PA, PA Primary Care Provider Active Start: February 02, 2025 Dr. Negro Cook , DO Emergency Provider Active Start: February 02, 2025 Dr. Jemima Garcia DO Attending Provider Activ e Start: February 02, 2025 Team Status: Active Member Role/Relationship Status Dates Yoel Frost PA, PA Primary Care Provider Active Start: February 02, 2025 Dr. Negro Cook DO Emergency Provider Active Start: February 02, 2025 Dr. Jemima Garcia , DO Attending Provider Activ e Start: February 02, 2025 Team Status: Inactive Member Role/Relationship Status Dates Yoel Frost PA, PA Primary Care Provider Active Start: February 02, 2025 End: February 02, 2025 Dr. Negro Cook , Emergency Provider Active Start: February 02, 2025 End: February 02, 2025 Dr. Jemima Garcia , DO Admit Provider Active Start: February 02, 2025 End: February 02, 2025 Dr. Jemima Garcia DO Attending Provider Activ e Start: February 02, 2025 End: February 02, 2025 Goals (unrecognized section and content) Goals [...] BE BASED ON THE PRIMARY CLINICAL RECORDS. [facility] [employer], [facility]. provides no warranty or guarantee of the accuracy or completeness of information in this document.
== END | disposition home or self-care (01) ==
PROVIDERS: PCP Physician Assistant; Referring Provider Obstetrics & Gynecology; Visit Provider Obstetrics & Gynecology
DX: O72.2 Delayed and secondary postpartum hemorrhage (principal); Z3A.00 Weeks of gestation of pregnancy not specified
CPT/HCPCS: 36415; 85027